=== PATIENT | male | born 1945 | race Caucasian/White ===

== ENCOUNTER → 2016-10-28 | Outpatient (CLI) | payer BC ==
[~2016-10-28] MED LIST: ASPEC81 PO; DLTCD/240 PO; FAMO40TA6 PO; HYDR-3983 PO; IMDSR30 PO; LPT40 PO; LSN40 PO; LVMIPUC SC; METO100T14 PO; NTRGSL/4 UT; PLV75 PO; PRT/40 PO; RST15 PO; TRMCR515 TOP
[2016-10-28 15:14] LABS: THYROID STIMULATING HORMONE 1.35 uIu/ml (0.300-4.500)
[2016-10-28 15:16] LABS: RATIO 6.1 mcg/mg (0-30.0)
[2016-10-28 15:49] LABS: ESTIMATED AVERAGE GLUCOSE 203 mg/dl; HA1C FLAG Normal (Normal)
== END | disposition home or self-care (01) ==
LOC: C.LAB1850 13:47
PROVIDERS: ATTEND Internal Medicine Endocrinology, Diabetes & Metabolism
DX: I10 Essential (primary) hypertension (principal); I25.10 Atherosclerotic heart disease of native coronary artery without angina pectoris; E78.5 Hyperlipidemia, unspecified; F32.9 Major depressive disorder, single episode, unspecified; E55.9 Vitamin D deficiency, unspecified; E11.9 Type 2 diabetes mellitus without complications; E66.9 Obesity, unspecified

== ENCOUNTER → 2017-02-10 | Outpatient (CLI) | payer BC ==
[~2017-02-10] MED LIST changes: +PANT40TA2 PO; -PRT/40 PO
[2017-02-10 12:14] LABS: BASO % 0.4 %; BASO ABS # 0.04 K/uL (0-0.2); COMPLETE YES; HEMATOCRIT 44.6 % (42-52); IG% 0.4 %; LYMPH % 33.3 %; LYMPH ABS # 3.12 K/uL (1.2-3.4); MEAN CELL VOLUME 91.6 fL (80-100); MEAN CORPUSCULAR HEMOGLOBIN 31.4 pg (25-34); MEAN CORPUSCULAR HGB CONC 34.3 g/dl (32-36); MEAN PLATELET VOLUME 10.8 fL (7.4-10.4); MONO % 13.5 %; NEUT % 49.4 %; PLATELET COUNT 276 K/uL (130-400); RED BLOOD COUNT 4.87 M/uL (4.7-6.1); WHITE BLOOD COUNT 9.38 K/uL (4.8-10.8)
[2017-02-10 12:28] LABS: ESTIMATED AVERAGE GLUCOSE 177 mg/dl; HA1C FLAG Normal (Normal)
[2017-02-10 13:18] LABS: ALT/SGPT 54 U/L (12-78); BLOOD UREA NITROGEN 13 mg/dl (7-18); BUN/CREATININE RATIO 10.7 (10-20); CALCIUM 8.4 mg/dl (8.5-10.1); CARBON DIOXIDE 25 mmol/L (21-32); CHLORIDE 107 mmol/L (98-107); CHOLESTEROL 129 mg/dl (0-200); GLUCOSE 111 mg/dl (70-99); POTASSIUM 4.4 mmol/L (3.5-5.1); SODIUM 143 mmol/L (136-145)
[2017-02-10 13:29] LABS: ALB/GLOB RATIO 1.3 (0.9-2); ALKALINE PHOSPHATASE 65 U/L (45-117); AST/SGOT 24 U/L (15-37); CHOLESTEROL/HDL RATIO 4.4; HDL CHOLESTEROL 29 mg/dl; LDL CHOLESTEROL CALCULATED 49 mg/dl; PROSTATE SPECIFIC ANTIGEN 0.228 ng/ml (0.000-4.000); TRIGLYCERIDES 254 mg/dl (0-150); VERY LOW DENSITY LIPOPROT CALC 51 mg/dl
== END | disposition home or self-care (01) ==
LOC: C.LABBFT 07:37
PROVIDERS: ATTEND Urology
DX: N40.1 Benign prostatic hyperplasia with lower urinary tract symptoms (principal); I25.10 Atherosclerotic heart disease of native coronary artery without angina pectoris; E78.5 Hyperlipidemia, unspecified; E55.9 Vitamin D deficiency, unspecified; E10.65 Type 1 diabetes mellitus with hyperglycemia

== ENCOUNTER → 2017-05-31 | Outpatient (CLI) | payer BC ==
[~2017-05-31] MED LIST changes: -PANT40TA2 PO; +PRT/40 PO
[2017-05-31 12:43] LABS: ESTIMATED AVERAGE GLUCOSE 151 mg/dl; HA1C FLAG Normal (Normal)
== END | disposition home or self-care (01) ==
LOC: C.LABBFT 10:37
PROVIDERS: ATTEND Nurse Practitioner Family
DX: E10.65 Type 1 diabetes mellitus with hyperglycemia (principal)

== ENCOUNTER → 2017-11-17 | Outpatient (CLI) | payer BC ==
[~2017-11-17] MED LIST changes: +PANT40TA2 PO; -PRT/40 PO
[2017-11-17 12:59] LABS: HEMOGLOBIN A1C 7.5 % (4.5-5.6)
== END | disposition home or self-care (01) ==
LOC: C.LABBFT 07:39
PROVIDERS: ATTEND Nurse Practitioner Family
DX: E10.65 Type 1 diabetes mellitus with hyperglycemia (principal)

== ENCOUNTER → 2018-03-17 | Outpatient (CLI) | payer BC ==
[~2018-03-17] MED LIST changes: -ASPEC81 PO; +ASPI-320 PO; +ATOR80TA PO; +CALC-393 PO; +CHOL1TAB46 PO; +DILT240C48 PO; +FINA5TAB PO; +GLIM4TAB2 PO; +INSU1.2I SC; +ISOS120T5 PO; +LIRA18IN SC; +LISI40TA3 PO; -LSN40 PO; +TRIM100T PO
== END | disposition home or self-care (01) ==
LOC: C.LABSPEC 09:50
PROVIDERS: ATTEND Internal Medicine
DX: E11.9 Type 2 diabetes mellitus without complications (principal)

== ENCOUNTER → 2018-03-29 | Day surgery (SDC) | payer BC ==
[~2018-03-29] VITALS: Ht 180.3 cm; Wt 100.0 kg
[~2018-03-29] MED LIST changes: -DLTCD/240 PO; -IMDSR30 PO; +LIDOCAINE HCL 2% 2 ML VIAL (20MG/ML) ONE; -LPT40 PO; -LVMIPUC SC; +PROPOFOL IV EMULSION 10 MG/ML 20 ML VIAL ONE; +SODIUM CHLORIDE 0.9% 500ML 500 ML IV ONE
[2018-03-29 07:41] VITALS: Ht 180.3 cm; Wt 100.0 kg
[2018-03-29 08:01] VITALS: TEMP 36.7
--- NOTE | 2018-03-29 08:41 | Endo History and Physical ---
History & Physical Date of Service: Mar 29, 2018. Chief Complaint: SCREENING Referring Physician: DR. GUILLEN History of Present Illness 72 yo CM who presents for screening colonoscopy. Past Surgical History Hx Cardiac Surgery: Yes (CARDIAC CATH X3 WITH 2 STENTS ) Hx Internal Defibrillator: No Hx Pacemaker: No Hx Abdominal Surgery: No Hx of Implantable Prosthesis: No Hx Post-Op Nausea and Vomiting: No Hx Cancer Surgery: No Hx Thoracic Surgery: No Hx Orthopedic: No Hx Urinary Tract Surgery: Yes (Prostate procedure, unable to elaborate, CIRCUMCISION AN ADULT) Family History None Social History Smoking Status: Former Smoker Hx Substance Use: Yes (Percocet DAILY) Hx Alcohol Use: No Allergies Coded Allergies: Corticosteroids (Verified Adverse Reaction, Unknown, hyperglycemia, 03/29/18 ) Current Medications Reported Home Medications Medications Dose Route/Sig Max Daily Dose Days Date Category Dose Instructions Vitamin D3 (Cholecalciferol) 5,000 Unit Tab 1 Tab PO DAILY 03/23/18 Reported Victoza (Liraglutide) 18 Mg/3 Ml Inj 1.2 Ml SC DAILY 03/23/18 Reported Toujeo Solostar (Insulin Glargine) 300 Unit/Ml Inj 50 Units SC HS 03/23/18 Reported Lopressor (Metoprolol Tartrate) 100 Mg Tab 150 Mg PO BID 03/23/18 Reported Imdur Ext Rel (Isosorbide Mononitrate) 120 Mg Ertab 120 Mg PO BID 03/23/18 Reported Glimepiride 4 Mg Tab 1 Tab PO BID 03/23/18 Reported Proscar (Finasteride) 5 Mg Tab 5 Mg PO QAM 03/23/18 Reported Calcium (Calcium Carbonate) 600 Mg Tab 1 Tab PO DAILY 03/23/18 Reported Lipitor (Atorvastatin) 80 Mg Tab 80 Mg PO DAILY 03/23/18 Reported Cartia Xt (Diltiazem Hcl Coated Beads) 240 Mg Cap 1 Cap PO QAM 03/23/18 Reported Nitrostat (Nitroglycerin) 0.4 Mg Tab 0.4 Mg UT PRN 07/25/16 Reported Temazepam 15 Mg Cap 30 Mg PO HS PRN 30 07/15/16 Rx [place] 7.5MG/325MG (Acetaminophen/Hydrocodone Bitart) Tab 2 Tab PO Q4H PRN 30 07/15/16 Rx PRN PAIN Clopidogrel (Clopidogrel Bisulfate) 75 Mg Tab 75 Mg PO QAM 30 10/16/14 Rx Aspirin EC Low Dose (Aspirin) 81 Mg Ectab 81 Mg PO QAM 30 10/16/14 Rx Pepcid (Famotidine) 40 Mg Tab 40 Mg PO BID 10/14/14 Reported Lisinopril 40 Mg Tab 40 Mg PO DAILY 10/14/14 Reported Pantoprazole Sodium (Pantoprazole) 40 Mg Tab 40 Mg PO DAILY 10/14/14 Reported Triamcinolone Acetonide (Triamcinolone Acet) 45 Appln/15 Gm Cr 1 Appln TOP BID 10/14/14 Reported APPLY DIRECTED TO AFFECTED AREA(S) OF RIGHT LEG. Vital Signs Weight (Kilograms): 100.00 Height (Feet): 5 Height (Inches): 11 Date Time Temp Pulse Resp B/P (MAP) Pulse Ox O2 Delivery O2 Flow Rate FiO2 03/29/18 08:01 36.7 77 18 125/81 (96) 96 Room Air Physical Exam General Appearance: WD/WN, no apparent distress Respiratory/Chest: Auscultation: breath sounds normal Cardiovascular: Heart Auscultation: RRR Abdomen: Bowel Sounds: normal Inspection & Palpation: soft, non-distended, no tenderness, guarding & rebound Assessment and Plan Assessment: 72 yo CM who presents for screening colonoscopy. Plan: Proceed with colonoscopy.
--- NOTE | 2018-03-29 09:27 | Discharge Instructions ---
Endoscopy Patient Instructions Date / Procedure(s) Performed Mar 29, 2018. Colonoscopy Allergy Information Coded Allergies: Corticosteroids (Verified Adverse Reaction, Unknown, hyperglycemia, 03/29/18 ) Discharge Date / Findings Mar 29, 2018. Colon polyps Diverticulosis Internal hemorrhoids Medication Instructions Stopped Medication(s): ALL MEDICATION PLAVIX ONE WEEK OK to resume all medications today as prescribed Reported Home Medications Medications Dose Route/Sig Max Daily Dose Days Date Category Dose Instructions Vitamin D3 (Cholecalciferol) 5,000 Unit Tab 1 Tab PO DAILY 03/23/18 Reported Victoza (Liraglutide) 18 Mg/3 Ml Inj 1.2 Ml SC DAILY 03/23/18 Reported [place] Solostar (Insulin Glargine) 300 Unit/Ml Inj 50 Units SC HS 03/23/18 Reported Lopressor (Metoprolol Tartrate) 100 Mg Tab 150 Mg PO BID 03/23/18 Reported Imdur Ext Rel (Isosorbide Mononitrate) 120 Mg Ertab 120 Mg PO BID 03/23/18 Reported Glimepiride 4 Mg Tab 1 Tab PO BID 03/23/18 Reported Proscar (Finasteride) 5 Mg Tab 5 Mg PO QAM 03/23/18 Reported Calcium (Calcium Carbonate) 600 Mg Tab 1 Tab PO DAILY 03/23/18 Reported Lipitor (Atorvastatin) 80 Mg Tab 80 Mg PO DAILY 03/23/18 Reported Cartia Xt (Diltiazem Hcl Coated Beads) 240 Mg Cap 1 Cap PO QAM 03/23/18 Reported Nitrostat (Nitroglycerin) 0.4 Mg Tab 0.4 Mg UT PRN 07/25/16 Reported Temazepam 15 Mg Cap 30 Mg PO HS PRN 30 07/15/16 Rx [place] 7.5MG/325MG (Acetaminophen/Hydrocodone Bitart) Tab 2 Tab PO Q4H PRN 30 07/15/16 Rx PRN PAIN Clopidogrel (Clopidogrel Bisulfate) 75 Mg Tab 75 Mg PO QAM 30 10/16/14 Rx Aspirin EC Low Dose (Aspirin) 81 Mg Ectab 81 Mg PO QAM 30 10/16/14 Rx Pepcid (Famotidine) 40 Mg Tab 40 Mg PO BID 10/14/14 Reported Lisinopril 40 Mg Tab 40 Mg PO DAILY 10/14/14 Reported Pantoprazole Sodium (Pantoprazole) 40 Mg Tab 40 Mg PO DAILY 10/14/14 Reported Triamcinolone Acetonide (Triamcinolone Acet) 45 Appln/15 Gm Cr 1 Appln TOP BID 10/14/14 Reported APPLY DIRECTED TO AFFECTED AREA(S) OF RIGHT LEG. Provider Instructions Activity Restrictions - No exercising or heavy lifting for 24 hours. - Do not drink alcohol the day of the procedure. - Do not drive a car or operate machinery until the day after the procedure. - Do not make any important decisions or sign important papers in 24 hours after the procedure. Following Day: - Return to full activity which may include returning to work/school. Diet Start your diet with liquids and light foods (jello, soup, juice, toast). Then eat your usual diet if not nauseated. Treatment For Common After Affects For mild abdominal pain, bloating, or excessive gas: - Rest - Eat lightly - Lie on right side Follow-Up Information Follow-up with DR. GUILLEN as scheduled Anesthesia Information What You Should Know You have had a procedure that required some medicine to reduce anxiety and discomfort. This treatment is called moderate sedation. After receiving the treatment, you may be sleepy, but you will be able to breathe on your own. The effects of the treatment may last for several hours. Follow these instructions along with Activity/Diet recommendations noted above: * Do NOT do anything where dizziness or clumsiness would be dangerous. * Rest quietly at home today, then you can be up and about tomorrow. * Have a responsible person stay with you the rest of today. * You may have had an I.V. today. If so, you may take the dressing off later today. Recommendations Call your doctor if: * Trouble breathing * Continuous vomiting for more than 24 hours * Temperature above 101 degrees * Severe abdominal pain or bloating * Pain not relieved by pain medicine ordered * There is increased drainage or redness from any incision * A large amount of rectal bleeding greater than 2-3 tablespoons. (If you had a polyp/s removed or have hemorrhoids, a small amount of blood - from the rectum is to be expected.) * You have any unanswered questions or concerns. IN THE EVENT OF A SERIOUS EMERGENCY, GO TO THE NEAREST EMERGENCY ROOM Your discharge instructions were prepared by provider Luis Garibay. Patient Instructions Signature Page Darren Elizabeth Patient (or Guardian) Signature/Date: I have read and understand the instructions given to me by my caregivers. Caregiver/RN/Doctor Signature/Date: The above-named patient and/or guardian has received patient instructions on this date. + Original Patient Signature Page (only) stays with chart. Please make copy for patient.
--- NOTE | 2018-03-29 09:36 | GI REPORT ---
Patient Name: Darren Elizabeth Procedure Date: 03/29/2018 8:30 AM Date of : 1945 Admit Type: Outpatient Age: 72 Gender: Male Attending MD: Luis Garibay DO Procedure: Colonoscopy Providers: Luis Garibay DO Referring MD: Madan Shannon Indications: Screening for colorectal malignant neoplasm Medicines: Monitored Anesthesia Care Complications: No immediate complications. Estimated Blood Loss: Estimated blood loss: none. Procedure: Pre-Anesthesia Assessment: - Prior to the procedure, a History and Physical was performed, and patient medications and allergies were reviewed. The patient's tolerance of previous anesthesia was also reviewed. The risks and benefits of the procedure and the sedation options and risks were discussed with the patient. All questions were answered, and informed consent was obtained. Prior Anticoagulants: The patient last took aspirin 1 day and Plavix (clopidogrel) 8 days prior to the procedure. ASA Grade Assessment: III - A patient with severe systemic disease. After reviewing the risks and benefits, the patient was deemed in satisfactory condition to undergo the procedure. After I obtained informed consent, the scope was passed under direct vision. Throughout the procedure, the patient's blood pressure, pulse, and oxygen saturations were monitored continuously. The scope was introduced through the anus and advanced to the terminal ileum. The colonoscopy was performed without difficulty. The patient tolerated the procedure well. The quality of the bowel preparation was good. The terminal ileum, ileocecal valve, appendiceal orifice, and rectum were photographed. Findings: The perianal and digital rectal examinations were normal. Three sessile polyps were found in the descending colon. The polyps were 3 to 8 mm in size. These polyps were removed with a hot snare. Resection and retrieval were complete. Multiple small-mouthed diverticula were found in the sigmoid colon. Non-bleeding internal hemorrhoids were found during retroflexion. The hemorrhoids were small. Impression: - Three 3 to 8 mm polyps in the descending colon, removed with a hot snare. Resected and retrieved. - Diverticulosis in the sigmoid colon. - Non-bleeding internal hemorrhoids. Recommendation: - Resume previous diet. - Continue present medications. - Repeat colonoscopy for surveillance based on pathology results. - Return to primary care physician as previously scheduled. Luis Garibay DO 03/29/2018 9:36:20 AM This report has been signed electronically. Note Initiated On: 03/29/2018 8:30 AM Number of Addenda: 0 I attest to the content of the Intraoperative Record and orders documented therein, exceptions below {[id number]}
--- NOTE | 2018-03-29 09:39 | Anesthesiology Progress Note ---
Anesthesia Post Op Note Date & Time Mar 29, 2018 at 09:38 Vital Signs Pain Intensity: 6 Vital Signs Past 12 Hours Date Time Temp Pulse Resp B/P (MAP) Pulse Ox O2 Delivery O2 Flow Rate FiO2 03/29/18 09:31 82 18 121/87 (98) 93 Room Air 03/29/18 08:01 36.7 77 18 125/81 (96) 96 Room Air Notes Mental Status: alert / awake / arousable, participated in evaluation Pt Amnestic to Procedure: Yes Nausea / Vomiting: adequately controlled Pain: adequately controlled Airway Patency, RR, SpO2: stable & adequate BP & HR: stable & adequate Hydration State: stable & adequate Anesthetic Complications: no major complications apparent
[2018-03-29 10:01] VITALS: BP 142/90; PULSE 80; O2SAT 95
== END | disposition home or self-care (01) ==
LOC: C.GI 06:46
PROVIDERS: ATTEND Internal Medicine
DX: Z12.11 Encounter for screening for malignant neoplasm of colon (principal); D12.4 Benign neoplasm of descending colon; K57.30 Diverticulosis of large intestine without perforation or abscess without bleeding; K64.8 Other hemorrhoids; I25.2 Old myocardial infarction; I12.9 Hypertensive chronic kidney disease with stage 1 through stage 4 chronic kidney disease, or unspecified chronic kidney disease; I25.10 Atherosclerotic heart disease of native coronary artery without angina pectoris; N18.9 Chronic kidney disease, unspecified; Z79.899 Other long term (current) drug therapy; Z79.02 Long term (current) use of antithrombotics/antiplatelets; Z79.82 Long term (current) use of aspirin

== ENCOUNTER 2019-11-10 21:12 | Observation (INO) ==
[2019-11-10] MEDS ORDERED: ONDANSETRON INJ 2 MG/ML 2 ML VIAL IV STA (21:41)
--- NOTE | 2019-11-10 21:49 | Emergency Department Note ---
ED Provider Note NAME: FIDEL RIVERA Sr AGE: 74 SEX: M ARRIVES VIA: Walk-In INFORMANT: [Patient] ED PROVIDER(S): Romario Richardson MD CHIEF COMPLAINT: Midsternal chest pain IMPRESSION: Midsternal chest pain PLAN: Disposition: Admitted Condition: [Good] MEDICAL DECISION MAKING: The patient is a 74-year-old male that presented with intermittent midsternal chest pain. He has a coronary artery history and stent placement. The patient has had vomiting as well. He noted shortness of breath. He was laid up for several weeks with his flu and pneumonitis. I did have concerns for pulmonary embolism. The patient underwent CT imaging of the chest. Blood work was also performed. He had a mild leukocytosis. Chemistry panel was unremarkable. Troponin was negative. The patient was treated as above and had continued nausea and vomiting. His CT imaging did not reveal any evidence of pulmonary movement. He had a bronchitis. He was given a DuoNeb for this. The patient has an esophagitis without any evidence of esophageal rupture. He has significant fluid dilatation of the esophagus as well. Due to the continued issues with vomiting and pain the patient will need further management in the hospital and continued hydration. Further consultation may be necessary as well. Consult was placed with the hospital service, Dr. Mario Plascencia Triage Nursing notes reviewed and agree them. [Additional history obtained from] patient's [Prior medical records reviewed] patient was seen for influenza as well as post influenza pneumonitis. He was treated. He did well. Vital Signs: reviewed and remarkable for mild tachycardia Differential diagnosis: Cardiac ischemia, aortic dissection, pulmonary embolism, pneumothorax, pneumonia, pericarditis, myocarditis, esophageal rupture, GERD, cholecystitis, pancreatitis, musculoskeletal, as well as other pathologies. ER treatment provided: Patient was pain-free at initial evaluation. Zofran 4 mg IV for nausea Reassessment the patient was still feeling nausea and had burning in his esophagus. He stated he felt short of breath. IV Reglan 10 mg IV Pepcid 20 mg DuoNeb GI cocktail On reassessment the patient had additional vomiting and nausea. IV Phenergan Diagnostics interpreted by me: ECG: Rate: 100 Rhythm: Normal sinus rhythm with sinus arrhythmia Newcomb: Normal QRS: Normal ST segements: No elevation or depression Other: No PACs or PVCs Cardiac Monitoring: Ordered: The patient was placed on continuous cardiac monitoring and observed. It revealed a normal sinus rhythm at 98 bpm without ectopy or evidence of dysrhythmia. Laboratory studies: [See below] slight leukocytosis on CBC. No significant anemia. Chemistry panel unremarkable. Imaging studies: CT scan of the abdomen and pelvis was performed: 1. Cardiomegaly with extensive coronary artery calcifications. No acute aortic pathology or evidence of pulmonary thromboembolic disease. 2. Moderate bronchial wall thickening with mild bibasilar mucous plugging suggests reactive airway disease or bronchitis. 3. Bibasilar groundglass densities suggest atelectasis. 4. Prior granulomatous disease. 5. Mild fluid-filled distention of the esophagus with distal esophageal wall thickening and mild paraesophageal inflammatory stranding. Correlate clinically to exclude esophagitis. These findings could be correlated with endoscopy. 6. Subpleural 8 mm solid nodule of the right lower lobe appears unchanged from the 08/08/2018 exam. As a precautionary measure an additional 6 month follow-up chest CT is recommended. Consultation(s): Internal medicine, Dr. Mario Plascencia HPI:The patient is a 74 year old male who presents to the Emergency Room with complaints of midsternal chest pain. This started yesterday and is intermittent. The patient also notes the following associated symptoms, as of breath, nausea and vomiting. The patient has tried no medication for relieving factors. He does feel worse with exertion. Current pain is rated as 0 out of 10 however at its max it was 6/10. Patient has a history of coronary disease. Over the last month the patient was treated for influenza and then developed a secondary pneumonia. He states he got better from that and then the symptoms started yesterday pt denies LOC, headache, fevers, chills, diaphoresis, visual changes, neck pain, abdominal pain, back pain, melena, hematochezia, urinary symptoms, numbness, weakness, lymphadenopathy, rash, or other complaints. ROS: See above HPI for pertinent positives & negatives. A total of [10] systems reviewed and were otherwise negative. PAST MEDICAL HISTORY:[See Below] coronary artery disease, diabetes PAST SURGICAL HISTORY:[See Below]coronary artery stent FAMILY HISTORY:[See Below] SOCIAL HISTORY:[See Below] HOME MEDICATIONS:Reviewed in the EMR ALLERGIES:[See Below] VITALS:[See Below] PHYSICAL EXAMINATION: GENERAL: Awake, alert, uncomfortable-appearing, in no distress HENT: Normocephalic, atraumatic. Oropharynx unremarkable. EYES: Normal conjunctiva. Sclera non-icteric. NECK: Inspection normal. Non-tender. Supple. No nuchal rigidity. FROM. No masses. RESPIRATORY: Clear to auscultation. No wheezes. No rales. Normal respiratory effort. CARDIAC: Borderline tachycardic rate. Normal rhythm. No murmurs. No rubs. Extremities warm and well perfused. Pulses equal. No JVD. GI: Soft, non-distended. No tenderness to palpation. No rebound or guarding. No masses. RECTAL: Deferred. MUSCULOSKELETAL: Atraumatic. Chest examination reveals no tenderness. The back is symmetrical on inspection without obvious abnormality. There is no CVA tenderness to palpation. No joint edema. LOWER EXTREMITIES: Calves are equal size bilaterally and non-tender. No edema. No discoloration. NEURO: Normal sensorium. No sensory or motor deficits noted. SKIN: No rash or jaundice noted. ED COURSE: Procedures: [none] [Critical Care:] [None] Romario Richardson MD Impression & Plan Chest pain, Esophagitis, Intractable vomiting, Leukocytosis, Bronchitis Past Med/Surg History Medical History Angina pectoris (Acute) CAD in [place] artery (Chronic) Chest pain (Resolved 10/14/14) Diabetes Dyslipidemia (Chronic) Flank pain (Resolved) Gastroesophageal reflux disease (Chronic) Hypertension (Chronic) NSTEMI (non-ST elevated myocardial infarction) (Resolved) SNHL (sensorineural hearing loss) Type 2 diabetes mellitus (Chronic) Surgical History Hx of heart artery stent Hx of tonsillectomy S/P drug eluting coronary stent placement (Acute) Family History Father Myocardial infarction Coronary heart disease Brother Coronary heart disease Mother Coronary heart disease Other Family history non-contributory No family history of bleeding disorder Social History Preferred Language: Lithuanian marital status: Current Living Situation: Spouse current occupational status: retired Feels Safe at Home: Yes Smoking Status: Never smoker Hx Alcohol Use: No Hx Substance Use: No Dental Care, Regularly: No Seatbelt Use: always Sunscreen Use: No Results & Data Vital Signs Vital Signs - 24 hr 11/10/19 21:17 11/10/19 21:26 11/10/19 21:31 Temperature 36.7 C Temperature Source Oral Pulse Rate 111 H 97 H 98 H Pulse Rate [Left Finger] Pulse Rate from SpO2 Sensor Respiratory Rate 22 31 H 26 H Respiratory Effort / Characteristics Non-Labored Respiratory Depth Normal Blood Pressure 103/62 161/97 H Blood Pressure Mean 75 112 Blood Pressure Position Sitting Pulse Oximetry 99 98 99 Oxygen Delivery Method Room Air Sepsis Recent Fever Within 48 Hours No Sepsis Action Taken by Nursing No Action Required 11/10/19 21:40 11/10/19 21:50 11/10/19 22:00 Temperature Temperature Source Pulse Rate 101 H 102 H 101 H Pulse Rate [Left Finger] Pulse Rate from SpO2 Sensor Respiratory Rate 38 H 33 H 31 H Respiratory Effort / Characteristics Respiratory Depth Blood Pressure Blood Pressure Mean Blood Pressure Position Pulse Oximetry 98 99 98 Oxygen Delivery Method Sepsis Recent Fever Within 48 Hours Sepsis Action Taken by Nursing 11/10/19 22:10 11/10/19 22:20 11/10/19 22:39 Temperature Temperature Source Pulse Rate 105 H 101 H 98 H Pulse Rate [Left Finger] Pulse Rate from SpO2 Sensor 100 H Respiratory Rate 25 H 35 H Respiratory Effort / Characteristics Respiratory Depth Blood Pressure Blood Pressure Mean Blood Pressure Position Pulse Oximetry 98 95 Oxygen Delivery Method Sepsis Recent Fever Within 48 Hours Sepsis Action Taken by Nursing 11/10/19 22:40 11/10/19 22:41 11/10/19 22:50 Temperature Temperature Source Pulse Rate 95 H 94 H 101 H Pulse Rate [Left Finger] Pulse Rate from SpO2 Sensor Respiratory Rate 24 22 24 Respiratory Effort / Characteristics Respiratory Depth Blood Pressure 155/87 H Blood Pressure Mean 116 Blood Pressure Position Pulse Oximetry 96 97 94 Oxygen Delivery Method Sepsis Recent Fever Within 48 Hours Sepsis Action Taken by Nursing 11/10/19 23:26 Temperature Temperature Source Pulse Rate Pulse Rate [Left Finger] 103 H Pulse Rate from SpO2 Sensor Respiratory Rate 20 Respiratory Effort / Characteristics Non-Labored Spontaneous Respiratory Depth Blood Pressure Blood Pressure Mean Blood Pressure Position Pulse Oximetry 93 Oxygen Delivery Method Room Air Sepsis Recent Fever Within 48 Hours Sepsis Action Taken by Nursing Laboratory Data Result diagrams: 11/10/19 21:43 11/10/19 21:43 Lab Results 11/10/19 11/10/19 11/10/19 Range/Units 21:43 21:43 21:43 WBC 10.94 H (4.8-10.8) K/uL RBC 5.25 (4.7-6.1) M/uL Hgb 16.8 (14.0-18.0) g/dL Hct 46.6 (42-52) % MCV 88.8 (80-100) fL MCH 32.0 (25-34) pg MCHC 36.1 H (32-36) g/dL RDW Std Deviation 42.2 (36.4-46.3) fL RDW Coeff of Melisa 13.1 (11.5-14.5) % Plt Count 341 (130-400) K/uL MPV 10.3 (7.4-10.4) fL Immature Gran % (Auto) 0.4 % Neut % (Auto) 53.0 % Lymph % (Auto) 29.5 % Bibb % (Auto) 16.1 % Eos % (Auto) 0.8 % Baso % (Auto) 0.2 % Immature Gran # (Auto) 0.04 H (0.00-0.02) K/uL Neut # (Auto) 5.80 (1.4-6.5) K/uL Lymph # (Auto) 3.23 (1.2-3.4) K/uL Bibb # (Auto) 1.76 H (0.11-0.59) K/uL Eos # (Auto) 0.09 (0-0.5) K/uL Baso # (Auto) 0.02 (0-0.2) K/uL PT 11.6 (9.0-12.0) Seconds INR 1.1 (0.9-1.1) APTT 25.6 (21.0-31.0) Seconds PTT Ratio 0.9 Sodium 140 (136-145) mmol/L Potassium 3.9 (3.5-5.1) mmol/L Chloride 108 H (98-107) mmol/L Carbon Dioxide 21 (21-32) mmol/L Anion Gap 11.0 (3-11) BUN 10 (7-18) mg/dl Creatinine 1.13 (0.6-1.4) mg/dl Est Cr Clr Drug Dosing 58.8 ml/min Est GFR ( Amer) 74.8 Est GFR (Non-Af Amer) 64.6 BUN/Creatinine Ratio 9.2 L (10-20) Glucose 138 H (70-99) mg/dl Calcium 9.1 (8.5-10.1) mg/dl Total Bilirubin 1.2 H (0.2-1) mg/dl AST 20 (15-37) U/L ALT 32 (12-78) U/L Alkaline Phosphatase 74 (45-117) U/L Troponin I < 0.015 (0-0.045) ng/ml Total Protein 7.7 (6.4-8.2) gm/dl Albumin 4.0 (3.4-5.0) gm/dl Globulin 3.7 (2.5-4.0) gm/dl Albumin/Globulin Ratio 1.1 (0.9-2) Lipase 98 (73-393) U/L Administered Medications Ioversol (Optiray 320 125ml) 102 ml IV ONCE PRN PRN Reason: Interaction Checking Stop: 11/14/19 22:35 Last Admin: 11/10/19 22:37 Dose: 102 ml Documented by: [id number] Discontinued Medications Al Hydrox/Mg Hydrox/Simethicone () Confirm Administered Dose 1 dose PO .STK-MED ONE Stop: 11/10/19 23:16 Last Admin: 11/10/19 23:20 Dose: 1 dose Documented by: [id number] Albuterol (Duoneb) 3 ml NEB NOW STA Stop: 11/10/19 23:09 Last Admin: 11/10/19 23:26 Dose: 3 ml Documented by: [id number] Al Hydrox/Mg Hydrox/Simethicone 18 ml/ Lidocaine HCl 6 ml/ BARCODE IDENTIFIER 1 ea 0 ml PO ONE ONE Stop: 11/10/19 23:09 Last Admin: 11/10/19 23:20 Dose: Not Given Documented by: [id number] Famotidine (Pepcid 20mg Iv Push) 20 mg IV ONE STA Stop: 11/10/19 23:12 Last Admin: 11/10/19 23:20 Dose: 20 mg Documented by: [id number] Promethazine HCl (Phenergan) 12.5 mg in 50.5 mls @ 202 mls/hr IV NOW STA Stop: 11/10/19 23:53 Last Infusion: 11/11/19 00:07 Dose: 0 mls/hr Documented by: [id number] Admin: 11/10/19 23:44 Dose: 202 mls/hr Documented by: [id number] Metoclopramide HCl (Reglan) 10 mg IV NOW STA Stop: 11/10/19 23:13 Last Admin: 11/10/19 23:20 Dose: 10 mg Documented by: [id number] Ondansetron HCl (Zofran) 4 mg IV NOW STA Stop: 11/10/19 21:42 Last Admin: 11/10/19 21:48 Dose: 4 mg Documented by: [id number] Discharge Plan Visit Data Chief Complaint: Chest Pain Stated Complaint: COUGH, ABD PAIN ED Provider: Romario Richardson Discharge Problem: Chest pain, Esophagitis, Intractable vomiting, Leukocytosis, Bronchitis Forms Stand Alone Forms: [employer] [facility] Le[facility] Prescriptions Prescriptions: No Action clopidogrel 75 mg tablet 75 mg PO QAM Qty: 90 RF: 3 glimepiride 4 mg tablet 4 mg PO QAM Qty: 90 RF: 3 famotidine 40 mg tablet 40 mg PO BID 90 Days Qty: 180 RF: 3 temazepam 30 mg capsule 30 mg PO HS PRN (Reason: sleep) Qty: 90 RF: 1 metoprolol tartrate 100 mg tablet 150 mg PO BID Qty: 270 RF: 3 isosorbide mononitrate 120 mg tablet extended release 24 hr 120 mg PO BID Qty: 180 RF: 3 hydrocodone-acetaminophen 7.5-325 mg tablet See Rx Instructions PO .COMPLEX Qty: 360 RF: 0 hydrocodone-homatropine [Hydrocodone Compound] 5-1.5 mg/5 mL syrup 5 ml PO Q6H PRN (Reason: cough) Qty: 240 RF: 0 trimethoprim 100 mg tablet 100 mg PO QAM RF: 0 meclizine 25 mg tablet 25 mg PO TID PRN (Reason: dizziness) Qty: 30 RF: 0 ondansetron 4 mg tablet,disintegrating 4 mg PO Q6H PRN (Reason: nausea and vomiting) Qty: 14 RF: 0 duloxetine 30 mg capsule,delayed release(DR/EC) 60 mg PO DAILY RF: 0 aspirin 81 mg Tablet,Delayed Release (Dr/Ec) 81 mg PO QAM RF: 0 calcium carbonate 600 mg calcium (1,500 mg) Tablet 600 mg PO BID RF: 0 nitroglycerin [Nitrostat] 0.4 mg Tablet, Sublingual 0.4 mg Sublingual UD PRN (Reason: Chest Pain) RF: 0 lisinopril 40 mg tablet 40 mg PO QAM RF: 0 cholecalciferol (vitamin D3) [Vitamin D3] 1,000 unit Tablet 1,000 unit PO QAM RF: 0 atorvastatin 80 mg tablet 80 mg PO HS RF: 0 diltiazem HCl 360 mg capsule,extended release 24hr 360 mg PO QAM RF: 0 pantoprazole 40 mg tablet,delayed release (DR/EC) 40 mg PO QAM RF: 0 finasteride 5 mg tablet 5 mg PO HS RF: 0 liraglutide 0.6 mg/0.1 mL (18 mg/3 mL) pen injector 1.2 mg subcut QAM RF: 0 Masoud Gill U-300 Insulin 300 unit/mL (1.5 mL) insulin pen 50 unit SUBCUT HS RF: 0
[2019-11-10 21:57] LABS: Basophils # (auto) 0.02 K/uL (0-0.2); Basophils % (auto) 0.2 %; Eosinophils # (auto) 0.09 K/uL (0-0.5); Eosinophils % (auto) 0.8 %; Hematocrit (blood only) 46.6 % (42-52); Hemoglobin 16.8 g/dL (14.0-18.0); Immature Granulocytes # (auto) 0.04 K/uL (0.00-0.02); Immature Granulocytes % (auto) 0.4 %; Lymphocytes # (auto) 3.23 K/uL (1.2-3.4); Lymphocytes % (auto) 29.5 %; Mean Corpuscular Hgb Conc 36.1 g/dL (32-36); Mean Corpuscular Volume 88.8 fL (80-100); Mean Platelet Volume 10.3 fL (7.4-10.4); Monocytes # (auto) 1.76 K/uL (0.11-0.59); Monocytes % (auto) 16.1 %; Platelet Count 341 K/uL (130-400); RDW Coefficient of Variation 13.1 % (11.5-14.5); RDW Standard Deviation 42.2 fL (36.4-46.3); Red Blood Count 5.25 M/uL (4.7-6.1); White Blood Count 10.94 K/uL (4.8-10.8)
--- NOTE | 2019-11-10 21:57 | XRay Report ---
XR chest 1V portable HISTORY: 74 years-old Male Chest Pain acute atypical chest pain COMPARISON: Chest radiograph 10/21/2019 TECHNIQUE: Portable AP view of the chest FINDINGS: Cardiac silhouette is enlarged, unchanged. No overt pulmonary edema. Calcified plaque of the thoracic aortic arch. Subcentimeter calcified granuloma of the right lung base. No pneumothorax, pleural effu jonna or airspace consolidation. Degenerative changes of the shoulders and spine. IMPRESSION: Cardiomegaly without acute process. ACT 112: Negative or not required by law. The above report was generated using voice recognition software. It may contain grammatical, syntax o r spelling errors. Electronically signed by: Sarkis Encarnacion M.D. 11/10/2019 9:56 PM
[2019-11-10 22:07] LABS: INR 1.1 (0.9-1.1); Partial Thromboplastin Ratio 0.9; Partial Thromboplastin Time 25.6 Seconds (21.0-31.0); Prothrombin Time 11.6 Seconds (9.0-12.0)
[2019-11-10 22:19] LABS: Alanine Aminotransferase 32 U/L (12-78); Aspartate Aminotransferase 20 U/L (15-37); BUN Creatinine Ratio 9.2 (10-20); Blood Urea Nitrogen 10 mg/dl (7-18); Calcium 9.1 mg/dl (8.5-10.1); Carbon Dioxide 21 mmol/L (21-32); Chloride 108 mmol/L (98-107); Creatinine Clr Calc Pharmacy 58.8 ml/min; Est GFR (African American) 74.8; Est GFR (Non-African American) 64.6; Glucose 138 mg/dl (70-99); Lipase 98 U/L (73-393); Potassium 3.9 mmol/L (3.5-5.1); Sodium 140 mmol/L (136-145)
[2019-11-10 22:23] LABS: Albumin Globulin Ratio 1.1 (0.9-2); Alkaline Phosphatase 74 U/L (45-117); Bilirubin,Total 1.2 mg/dl (0.2-1); Globulin 3.7 gm/dl (2.5-4.0); Total Protein 7.7 gm/dl (6.4-8.2); Troponin I < 0.015 ng/ml (0-0.045)
[2019-11-10] MEDS ORDERED: OPTIRAY 320 125ml IV PRN (22:36)
--- NOTE | 2019-11-10 23:01 | CT Scan Report ---
CT angio chest PE protocol CT DOSE: 380.68 mGy.cm HISTORY: 74 years-old Male with Chest Pain, eval for PE, SOB. Acute atypical chest pain with shortn ess of breath TECHNIQUE: Multiple CTA images of the chest were obtained after the intravenous administration of 102 ml Optiray 320. Coronal and sagittal MIPS were obtained from the axial data set and were submitted for review. All measurements were obtained according to NASCET criteria. A dose lowering technique w as utilized adhering to the principles of ALARA. COMPARISON: Chest radiograph of same day, chest CT 08/08/2018, CT abdomen and pelvis 11/05/2014. FINDINGS: CTA: Unchanged cardiomegaly. Extensive coronary artery calcifications. No thoracic aortic aneurysm or diss ection. Extensive mixed plaque of the thoracic aorta and proximal great vessels which appear patent. The pulmonary arterial tree is opacified to level of the proximal subsegmental branches and demonstra sanjana no filling defects to suggest pulmonary thromboembolic disease. CT CHEST: Unremarkable thyroid. Calcified mediastinal and hilar lymph nodes. Scattered calcified pulmonary gran ulomata. 8 mm subpleural solid nodule of the right lower lobe is unchanged from the 2018 study. Moder ate bronchial wall thickening with areas of bibasilar mucous plugging. Bibasilar groundglass densitie s. No lobar airspace consolidation or overt pulmonary edema. Calcified granulomata of the liver and spleen. Fluid distended esophagus with mild layering hyperdens e foci. Wall thickening of the mid to distal esophagus with prominent periesophageal lymph nodes and mild paraesophageal inflammatory stranding. The distal esophagus appears to be debris-filled. Soft ti ssues are unremarkable. Bones appear intact. Degenerative changes of the shoulders and spine. IMPRESSION: 1. Cardiomegaly with extensive coronary artery calcifications. No acute aortic pathology or evidence of pulmonary thromboembolic disease. 2. Moderate bronchial wall thickening with mild bibasilar mucous plugging suggests reactive airway di sease or bronchitis. 3. Bibasilar groundglass densities suggest atelectasis. 4. Prior granulomatous disease. 5. Mild fluid-filled distention of the esophagus with distal esophageal wall thickening and mild para esophageal inflammatory stranding. Correlate clinically to exclude esophagitis. These findings could be correlated with endoscopy. 6. Subpleural 8 mm solid nodule of the right lower lobe appears unchanged from the 08/08/2018 exam. A s a precautionary measure an additional 6 month follow-up chest CT is recommended. ACT 112: Negative or not required by law. The above report was generated using voice recognition software. It may contain grammatical, syntax o r spelling errors. Electronically signed by: Sarkis Encarnacion M.D. 11/10/2019 10:59 PM
[2019-11-10] MEDS ORDERED: ALUMINUM/MAGNESIUM SUSP 18 ML, LIDOCAINE HCL VISCOUS 2% 6 ML, BARCODE IDENTIFIER 1 EA PO ONE (23:08)
[2019-11-10] MEDS ORDERED: ALBUT/IPRATROP 3MG/0.5MG NEB 3 ML VIAL NEB STA (23:08)
[2019-11-10] MEDS ORDERED: FAMOTIDINE 20MG/5ML IV PUSH IV STA (23:11)
[2019-11-10] MEDS ORDERED: METOCLOPRAMIDE HCL INJ 5 MG/ML 2 ML VIAL IV STA (23:12)
[2019-11-10] MEDS ORDERED: GI COCKTAIL ED USE PO ONE (23:15)
[2019-11-10] MEDS ORDERED: PROMETHAZINE 12.5 MG/50.5 ML BAG IV STA (23:39)
[2019-11-11] MEDS ORDERED: ACETAMINOPHEN 325 MG TAB PO PRN (02:37)
[2019-11-11] MEDS ORDERED: ONDANSETRON INJ 2 MG/ML 2 ML VIAL IV PRN (02:37)
[2019-11-11] MEDS ORDERED: PROCHLORPERAZINE 10 MG in SYRINGE 8 ML IV PRN (02:37)
[2019-11-11] MEDS ORDERED: GLUCOSE 40% GEL 15 GM TUBE PO PRN (02:37)
[2019-11-11] MEDS ORDERED: CARBOHYDRATES FOR HYPOGLYCEMIA PO PRN (02:37)
[2019-11-11] MEDS ORDERED: GLUCOSE 10 TABS/TUBE PO PRN (02:37)
[2019-11-11] MEDS ORDERED: DEXTROSE 50% 50 ML SYRINGE IV PRN (02:37)
[2019-11-11] MEDS ORDERED: GLUCAGON FOR INJ 1 MG VIAL SQ PRN (02:37)
[2019-11-11] MEDS: NSS + 20MEQ KCL 20 MEQ/1,000 ML BAG IV SCH ×2 (03:47→09:18)
--- NOTE | 2019-11-11 04:40 | History & Physical Report ---
Date of Service November 11, 2019 Assessment & Plan (1) Esophagitis: Esophagitis with esophagus retention of fluid/intractable vomiting and epigastric burning- May be secondary to dealing with recent issue of pneumonia and influenza A. May be associated with some esophageal dysmotility associated diabetes mellitus. May be a mechanical obstruction such as an ulcer. NPO, and for now hold aspirin and clopidogrel. Famotidine 20 mg IV every 12 hours. Zofran 4 mg IV every 6 hours as needed. Compazine 10 mg IV every 6 hours PRN Consult gastroenterology possibility of an EGD Present on Admission?: Yes (2) Intractable vomiting: See above Present on Admission?: Yes (3) Type 2 diabetes mellitus: Hold glimepiride, liraglutide and Toujeo Solostar. Based on Accu-Cheks before meals and at bedtime with NovoLog coverage per scale. Present on Admission?: Yes (4) CAD in [place] artery: CAD/hypertension/stented coronary artery- For now, hold aspirin, clopidogrel, lisinopril, metoprolol tartrate and diltiazem p.o. Placed on Lopressor 5 mg IV every 4 hours,hold for heart rate less than 60 or systolic blood pressure less than 120 Present on Admission?: Yes (5) Dyslipidemia: Hold atorvastatin 80 mg daily Present on Admission?: Yes (6) Gastroesophageal reflux disease: Changing pantoprazole p.o. to famotidine IV for now. Present on Admission?: Yes (7) Hypertension: See above Present on Admission?: Yes (8) S/P drug eluting coronary stent placement: We will order serial troponins, but symptoms are more suggestive of esophagitis and the burning pain from that. Present on Admission?: Yes (9) Epigastric pain: See above Present on Admission?: Yes (10) Bronchitis: Residual from previous influenza A and pneumonia. Duonebs every 4 hours while awake and every 2 hours when necessary. Present on Admission?: Yes History of Present Illness Chief Complaint: The patient presents to the emergency department with intermittent epigastric pain, shortness of breath and with paroxysmal nausea and vomiting. Primary Care Provider: Madan Shannon MD The patient is a 74-year-old male with a past medical history including sensorineural hearing loss, cervical spine stenosis, as well as type II, CAD in [place] artery, dyslipidemia, GERD, hypertension, coronary artery drug eluting stent, NSTEMI and treatment for influenza A with pneumonia with 4 outpatient ED visits from 10/10, 10/16, 10/18 and . He has followed up with his outpatient physician on 10/26/2019, requiring additional cough suppression at that time, and his reports that he had still not gotten back to his baseline. His biggest complaint at this time right now is epigastric burning with the nausea and vomiting. Allergies Allergy/AdvReac Type Severity Reaction Status Date / Time Corticosteroids AdvReac Unknown hyperglycem Verified 11/10/19 22:15 (Glucocorticoids) ia Home Medications Home Medications Medication Instructions Recorded Confirmed Type aspirin 81 mg PO QAM 08/08/18 11/10/19 History calcium carbonate 600 mg PO BID 08/08/18 11/10/19 History cholecalciferol (vitamin D3) 1,000 unit PO QAM 08/08/18 11/10/19 History [Vitamin D3] lisinopril 40 mg PO QAM 08/08/18 11/10/19 History nitroglycerin [Nitrostat] 0.4 mg SUBLINGUAL UD PRN 08/08/18 11/10/19 History clopidogrel 75 mg tablet 75 mg PO QAM #90 tab 05/31/19 11/10/19 Rx glimepiride 4 mg tablet 4 mg PO QAM #90 tab 06/06/19 11/10/19 Rx famotidine 40 mg tablet 40 mg PO BID 90 Days #180 tab 06/09/19 11/10/19 Rx temazepam 30 mg capsule 30 mg PO HS PRN #90 cap 07/07/19 11/10/19 Rx metoprolol tartrate 100 mg tablet 150 mg PO BID #270 tab 07/25/19 11/10/19 Rx isosorbide mononitrate 120 mg 120 mg PO BID #180 tab 08/11/19 11/10/19 Rx tablet,extended release 24 hr hydrocodone 7.5 mg-acetaminophen See Rx Instructions PO .COMPLEX 08/17/19 Rx 325 mg tablet #360 tab meclizine 25 mg tablet 25 mg PO TID PRN #30 tab 09/22/19 11/10/19 Rx trimethoprim 100 mg tablet 100 mg PO QAM tab 09/22/19 11/10/19 History atorvastatin 80 mg PO HS 10/10/19 11/10/19 History diltiazem HCl 360 mg PO QAM 10/10/19 11/10/19 History finasteride 5 mg PO HS 10/10/19 11/10/19 History insulin glargine U-300 conc 50 unit SUBCUT HS 10/10/19 11/10/19 History [Tosukhjinder GillilandoStar U-300 Insulin] liraglutide 1.2 mg SUBCUT QAM 10/10/19 11/10/19 History pantoprazole 40 mg PO QAM 10/10/19 11/10/19 History ondansetron 4 mg PO Q6H PRN #14 tab 10/16/19 11/10/19 Rx duloxetine 60 mg PO DAILY 10/18/19 11/10/19 History hydrocodone-homatropine 5 mg-1.5 5 ml PO Q6H PRN #240 ml 10/27/19 11/10/19 Rx mg/5 mL oral syrup Past Med/Surg History Medical History Angina pectoris (Acute) CAD in [place] artery (Chronic) Chest pain (Resolved 10/14/14) Diabetes Dyslipidemia (Chronic) Flank pain (Resolved) Gastroesophageal reflux disease (Chronic) Hypertension (Chronic) NSTEMI (non-ST elevated myocardial infarction) (Resolved) SNHL (sensorineural hearing loss) Type 2 diabetes mellitus (Chronic) Surgical History Hx of heart artery stent Hx of tonsillectomy S/P drug eluting coronary stent placement (Acute) Family History Father Myocardial infarction Coronary heart disease Brother Coronary heart disease Mother Coronary heart disease Other Family history non-contributory No family history of bleeding disorder Social History Preferred Language: Ecuadorean marital status: Current Living Situation: Spouse current occupational status: retired Feels Safe at Home: Yes Smoking Status: Never smoker Hx Alcohol Use: No Hx Substance Use: No Dental Care, Regularly: No Seatbelt Use: always Sunscreen Use: No Review of Systems Review of Systems: The patient denies palpitations, lower extremity swelling, fevers, chills, sweats, diarrhea , constipation, pelvic pain, blood in urine or stool, dysuria, urinary frequency or urgency, memory loss, loss of consciousness, rash, abnormal bruising or bleeding, imbalance, focal weakness, numbness or tingling in arms or legs, generalized arthralgias or myalgias, neck pain, or night sweats. The review of systems is otherwise negative other than for that already noted above, and at least 10 systems have been reviewed. Physical Exam Physical Exam: The patient is awake, appears fatigued and generally uncomfortable, moving around in the bed. HEENT--PERRL, EOMI, mucous membranes and oropharynx dry. Neck--supple. No JVD. No bruits. Thyroid normal, trachea midline, no adenopathy. Heart--normal S1 and S2. No murmurs, rubs or gallops. Lungs--clear bilaterally, no respiratory distress, no accessory muscle use. Abdomen--decreased bowel sounds and soft. Nontender. Nondistended. Extremities--no cyanosis or clubbing. No edema. Dermatologic--normal skin turgor, normal color, no abnormal lymph nodes, no rash. Neurologic--cranial nerves II through XII grossly intact. Rheumatologic--normal range of motion. Psychiatric--appears mildly anxious Results & Data Vital Signs (Past 12 Hours) Vital Signs Temp Pulse Pulse Resp BP BP Pulse Ox 11/11/19 02:15 94 H 19 131/88 94 11/11/19 00:00 117 H 24 162/70 H 93 11/10/19 23:26 103 H 20 93 11/10/19 22:50 101 H 24 94 11/10/19 22:41 94 H 22 155/87 H 97 11/10/19 22:40 95 H 24 96 11/10/19 22:39 98 H 11/10/19 22:20 101 H 35 H 95 11/10/19 22:10 105 H 25 H 98 11/10/19 22:00 101 H 31 H 98 11/10/19 21:50 102 H 33 H 99 11/10/19 21:40 101 H 38 H 98 11/10/19 21:31 98 H 26 H 99 11/10/19 21:26 97 H 31 H 161/97 H 98 11/10/19 21:17 98.1 F 111 H 22 103/62 99 Laboratory Results Laboratory Results WBC 10.94 K/uL (4.8-10.8) H 11/10/19 21:43 RBC 5.25 M/uL (4.7-6.1) 11/10/19 21:43 Hgb 16.8 g/dL (14.0-18.0) 11/10/19 21:43 Hct 46.6 % (42-52) 11/10/19 21:43 MCV 88.8 fL (80-100) 11/10/19 21:43 MCH 32.0 pg (25-34) 11/10/19 21:43 MCHC 36.1 g/dL (32-36) H 11/10/19 21:43 RDW Std Deviation 42.2 fL (36.4-46.3) 11/10/19 21:43 RDW Coeff of Melisa 13.1 % (11.5-14.5) 11/10/19 21:43 Plt Count 341 K/uL (130-400) 11/10/19 21:43 MPV 10.3 fL (7.4-10.4) 11/10/19 21:43 Immature Gran % (Auto) 0.4 % 11/10/19 21:43 Neut % (Auto) 53.0 % 11/10/19 21:43 Lymph % (Auto) 29.5 % 11/10/19 21:43 Davidson % (Auto) 16.1 % 11/10/19 21:43 Eos % (Auto) 0.8 % 11/10/19 21:43 Baso % (Auto) 0.2 % 11/10/19 21:43 Immature Gran # (Auto) 0.04 K/uL (0.00-0.02) H 11/10/19 21:43 Neut # (Auto) 5.80 K/uL (1.4-6.5) 11/10/19 21:43 Lymph # (Auto) 3.23 K/uL (1.2-3.4) 11/10/19 21:43 Davidson # (Auto) 1.76 K/uL (0.11-0.59) H 11/10/19 21:43 Eos # (Auto) 0.09 K/uL (0-0.5) 11/10/19 21:43 Baso # (Auto) 0.02 K/uL (0-0.2) 11/10/19 21:43 PT 11.6 Seconds (9.0-12.0) 11/10/19 21:43 INR 1.1 (0.9-1.1) 11/10/19 21:43 APTT 25.6 Seconds (21.0-31.0) 11/10/19 21:43 PTT Ratio 0.9 11/10/19 21:43 Sodium 140 mmol/L (136-145) 11/10/19 21:43 Potassium 3.9 mmol/L (3.5-5.1) 11/10/19 21:43 Chloride 108 mmol/L (98-107) H 11/10/19 21:43 Carbon Dioxide 21 mmol/L (21-32) 11/10/19 21:43 Anion Gap 11.0 (3-11) 11/10/19 21:43 BUN 10 mg/dl (7-18) 11/10/19 21:43 Creatinine 1.13 mg/dl (0.6-1.4) 11/10/19 21:43 Est Cr Clr Drug Dosing 58.8 ml/min 11/10/19 21:43 Est GFR ( Amer) 74.8 11/10/19 21:43 Est GFR (Non-Af Amer) 64.6 11/10/19 21:43 BUN/Creatinine Ratio 9.2 (10-20) L 11/10/19 21:43 Glucose 138 mg/dl (70-99) H 11/10/19 21:43 Calcium 9.1 mg/dl (8.5-10.1) 11/10/19 21:43 Total Bilirubin 1.2 mg/dl (0.2-1) H 11/10/19 21:43 AST 20 U/L (15-37) 11/10/19 21:43 ALT 32 U/L (12-78) 11/10/19 21:43 Alkaline Phosphatase 74 U/L (45-117) 11/10/19 21:43 Troponin I < 0.015 ng/ml (0-0.045) 11/10/19 21:43 Total Protein 7.7 gm/dl (6.4-8.2) 11/10/19 21:43 Albumin 4.0 gm/dl (3.4-5.0) 11/10/19 21:43 Globulin 3.7 gm/dl (2.5-4.0) 11/10/19 21:43 Albumin/Globulin Ratio 1.1 (0.9-2) 11/10/19 21:43 Lipase 98 U/L (73-393) 11/10/19 21:43 Diagnostic Findings [place], [place] [phone] CT Scan Report Patient: FIDEL RIVERA SrAdmit Date: 11/10/19 MR#: [id number]: [address] Acct ID:[id number]: Date: 1945[facility] Zip: [place] [id number] Age: 74Location: ED Sex: M Room/Bed: Att Phy:Diagnosis: COUGH, ABD PAIN Della Phy: Madan Shannon MDService Date: 11/10/19 Fam Phy:Interpreting Phy: Justo Encarnacion Admit Phy: Ordering Phy: Romario Richardson MD cc: ~ CT angio chest PE protocol CT DOSE: 380.68 mGy.cm HISTORY: 74 years-old Male with Chest Pain, eval for PE, SOB. Acute atypical chest pain with shortness of breath TECHNIQUE: Multiple CTA images of the chest were obtained after the intravenous administration of 102 ml Optiray 320. Coronal and sagittal MIPS were obtained from the axial data set and were submitted for review. All measurements were obtained according to NASCET criteria. A dose lowering technique was utilized adhering to the principles of ALARA. COMPARISON: Chest radiograph of same day, chest CT 08/08/2018, CT abdomen and pelvis 11/05/2014. FINDINGS: CTA: Unchanged cardiomegaly. Extensive coronary artery calcifications. No thoracic aortic aneurysm or dissection. Extensive mixed plaque of the thoracic aorta and proximal great vessels which appear patent. The pulmonary arterial tree is opacified to level of the proximal subsegmental branches and demonstrates no filling defects to suggest pulmonary thromboembolic disease. CT CHEST: Unremarkable thyroid. Calcified mediastinal and hilar lymph nodes. Scattered calcified pulmonary granulomata. 8 mm subpleural solid nodule of the right lower lobe is unchanged from the 2018 study. Moderate bronchial wall thickening with areas of bibasilar mucous plugging. Bibasilar groundglass densities. No lobar airspace consolidation or overt pulmonary edema. Calcified granulomata of the liver and spleen. Fluid distended esophagus with mild layering hyperdense foci. Wall thickening of the mid to distal esophagus with prominent periesophageal lymph nodes and mild paraesophageal inflammatory stranding. The distal esophagus appears to be debris-filled. Soft tissues are unremarkable. Bones appear intact. Degenerative changes of the shoulders and spine. IMPRESSION: 1. Cardiomegaly with extensive coronary artery calcifications. No acute aortic pathology or evidence of pulmonary thromboembolic disease. 2. Moderate bronchial wall thickening with mild bibasilar mucous plugging suggests reactive airway disease or bronchitis. 3. Bibasilar groundglass densities suggest atelectasis. 4. Prior granulomatous disease. 5. Mild fluid-filled distention of the esophagus with distal esophageal wall thickening and mild paraesophageal inflammatory stranding. Correlate clinically to exclude esophagitis. These findings could be correlated with endoscopy. 6. Subpleural 8 mm solid nodule of the right lower lobe appears unchanged from the 08/08/2018 exam. As a precautionary measure an additional 6 month follow-up chest CT is recommended. ACT 112: Negative or not required by law. The above report was generated using voice recognition software. It may contain grammatical, syntax or spelling errors. Electronically signed by: Sarkis Encarnacion M.D. 11/10/2019 10:59 PM Dictated: 11/10/192245 Transcribed: 11/10/192245 [place] [phone] XRay Report Patient: FIDEL RIVERA SrAdmit Date: 11/10/19 MR#: [id number]: [address] Acct ID:[id number]: Date: 1945[facility] Zip: [place] [address] Age: 74Location: ED Sex: M Room/Bed: Att Phy:Diagnosis: COUGH, ABD PAIN Della Phy: Madan Shannon MDService Date: 11/10/19 Fam Phy:Interpreting Phy: Justo Encarnacion Admit Phy: Ordering Phy: Roamrio Richardson MD cc: ~ XR chest 1V portable HISTORY: 74 years-old Male Chest Pain acute atypical chest pain COMPARISON: Chest radiograph 10/21/2019 TECHNIQUE: Portable AP view of the chest FINDINGS: Cardiac silhouette is enlarged, unchanged. No overt pulmonary edema. Calcified plaque of the thoracic aortic arch. Subcentimeter calcified granuloma of the right lung base. No pneumothorax, pleural effusion or airspace consolidation. Degenerative changes of the shoulders and spine. IMPRESSION: Cardiomegaly without acute process. ACT 112: Negative or not required by law. The above report was generated using voice recognition software. It may contain grammatical, syntax or spelling errors. Electronically signed by: Sarkis Encarnacion M.D. 11/10/2019 9:56 PM Dictated: 11/10/192154 Transcribed: 11/10/192154 Code Status & VTE Plan Code Status Full code VTE Prophylaxis Plan VTE Prophylaxis will be ordered: Yes PG Care Time/CCT Total # of Minutes Spent Total Time Spent with Patient: Total time spent is greater than 50% in coordination of care (as documented) at patient's floor/unit and/or counseling patient: Coding Level of Care Code 43407 Initial Inpt Care Lvl 3 Diagnoses Esophagitis K20.9 Intractable vomiting R11.10 Type 2 diabetes mellitus E11.65; Z79.4 Diabetes mellitus complication status: with hyperglycemia Diabetes mellitus continuous churn buttermaker insulin use: with custodial use CAD in [place] artery I25.10 Dyslipidemia E78.5 Gastroesophageal reflux disease K21.9 Hypertension I10 S/P drug eluting coronary stent placement Z95.5 Epigastric pain R10.13 Bronchitis J40 (1) Type 2 diabetes mellitus Diabetes mellitus complication status: with hyperglycemia Diabetes mellitus continuous churn buttermaker insulin use: with continuous churn buttermaker use Qualified Code(s): E11.65 - Type 2 diabetes mellitus with hyperglycemia; Z79.4 - correction (current) use of insulin
[2019-11-11] MEDS: METOPROLOL TARTRATE 1 MG/ML VIAL IV SCH ×2 (06:46→10:19)
[2019-11-11] MEDS ORDERED: ALBUT/IPRATROP 3MG/0.5MG NEB 3 ML VIAL NEB SCH (07:00)
[2019-11-11] MEDS: INSULIN ASPART 100 UNITS/ML 3 ML PEN SC SCH ×4 (08:20→21:10)
[2019-11-11] MEDS ORDERED: ACETAMINOPHEN 1,000 MG/100 ML VIAL IV PRN (08:32)
[2019-11-11] MEDS ORDERED: FAMOTIDINE 20 MG in SYRINGE 3 ML IV SCH (09:00)
[2019-11-11] MEDS ORDERED: ALBUT/IPRATROP 3MG/0.5MG NEB 3 ML VIAL NEB PRN (09:52)
--- NOTE | 2019-11-11 10:41 | Electrocardiogram Report ---
Test Reason : Blood Pressure : / mmHG Vent. Rate : 100 BPM Atrial Rate : 100 BPM P-R Int : 158 ms QRS Dur : 086 ms QT Int : 358 ms P-R-T Axes : 062 024 058 degrees QTc Int : 461 ms Normal sinus rhythm Possible Left atrial enlargement Borderline ECG When compared with ECG of 21-OCT-2019 01:00, No significant change was found Confirmed by Madan Meek ([id number]) on 11/11/2019 10:41:05 AM Referred By: REFERRED SELF Confirmed By:Carroll Meek
--- NOTE | 2019-11-11 11:28 | Hospitalist Progress Note ---
Date of Service November 11, 2019 Assessment & Plan (1) Esophagitis: CT chest on 11/09 showed esophagitis with esophagus retention of fluid/intractable vomiting and epigastric burning. Ddx includes GERD, ulcer, possible esophageal candidiasis, Arceo's, or cancer. - Discussed with Dr. José Retana -> Given current concern for nosocomial spread of coronavirus, we did a phone consult. - Recommended PPI PO BID, carafate. Plan for outpatient EGD. - Hold ASA, Plavix - Continue Zofran, Compazine (2) Bronchitis: CT chest on 11/09 showed moderate bronchial wall thickening with mild bibasilar mucous plugging suggests reactive airway disease or bronchitis. - Presumed to be residual from previous influenza A and pneumonia - Will retest flu swab - Continue Duonebs every 4 hours while awake and every 2 hours when necessary. - Cough suppressant PRN (3) Type 2 diabetes mellitus: A1c was 7.2% in 02/2019. - Hold glimepiride, liraglutide, and Toujeo Solostar. - Sliding scale insulin (4) CAD in [place] artery: Multivessel CAD status post PCI (Cx PL and LAD) per cardiology notes from 04/2019. Is being treated with anti-anginal medications as any further PCI would be considered high-risk. - Per cardiology note, will restart ASA, but hold Plavix for now. - Continue lisinopril, metoprolol tartrate, diltiazem, and statin (5) Hypertension: BP is 170/90 at present. - Continue meds as above (6) DVT prophylaxis: SCDs - Holding heparin given the small concern for GI bleed. If hgb remains stable, will start. Admission and Anticipated Discharge Date Admission Date: November 11, 2019 Subjective His nausea is improved today. His cough has improved as well. He has not had any emesis this morning. Reports no fevers/chills, chest pain, shortness of breath, abdominal pain. Physical Exam Constitutional: WD/WN, vitals as above Eyes: EOM intact bilaterally; no conjunctival abnormality ENMT: external ear and nose normal, oropharynx normal Neck: trachea midline, no thyromegaly normal visual inspection Respiratory: normal respiratory effort, lungs clear to auscultation no respiratory distress Cardiovascular: RRR, no murmur, no edema Gastrointestinal (Abdomen): Inspection/Auscultation: abdomen normal to inspection; abdomen not distended Musculoskeletal: no cyanosis or clubbing, extremities motor strength 5/5 Skin: no rashes, warm and dry Neurologic: moves all extremities and awake Psychiatric: Orientation: alert, oriented to person and cooperative Results & Data ([facility]) Vital Signs (Past 12 Hours) Vital Signs Temp Pulse Pulse Resp BP BP Pulse Ox 11/11/19 10:19 99 H 172/88 H 11/11/19 07:54 98 H 15 97 11/11/19 07:49 114 H 11/11/19 07:31 36.9 C 92 H 18 164/95 H 95 11/11/19 06:46 110 H 150/85 H 11/11/19 04:56 36.6 C 93 H 20 149/79 H 95 11/11/19 02:15 94 H 19 131/88 94 11/11/19 00:00 117 H 24 162/70 H 93 11/10/19 23:26 103 H 20 93 PG Care Time/CCT Total # of Minutes Spent Total Time Spent with Patient: Total time spent is greater than 50% in coordination of care (as documented) at patient's floor/unit and/or counseling patient: Coding Level of Care Code 41800 Subseq Hosp Care Lvl 3 Diagnoses Esophagitis K20.9 Bronchitis J40 Type 2 diabetes mellitus E11.65; Z79.4 Diabetes mellitus complication status: with hyperglycemia Diabetes mellitus terminal clerk insulin use: with terminal clerk use CAD in [place] artery I25.10 Hypertension I10 DVT prophylaxis Z29.9 (1) Type 2 diabetes mellitus Diabetes mellitus complication status: with hyperglycemia Diabetes mellitus skilled nursing insulin use: with terminal clerk use Qualified Code(s): E11.65 - Type 2 diabetes mellitus with hyperglycemia; Z79.4 - detention (current) use of insulin
[2019-11-11] MEDS: SUCRALFATE 1 GM TAB PO SCH ×3 (12:48→21:02)
[2019-11-11] MEDS: GUAIFENESIN/CODEINE 100MG/10MG 5ML UDC PO PRN ×2 (12:48→21:01)
[2019-11-11] MEDS: PANTOprazole 40 MG TAB PO SCH ×2 (12:48→18:13)
[2019-11-11] MEDS: BENZONATATE 100 MG CAPSULE PO SCH ×2 (13:47→21:07)
[2019-11-11] MEDS: lisinopriL 40 MG TAB PO SCH (13:47)
[2019-11-11 14:02] LABS: Influenza A virus by PCR Neg for Influ A (Neg); Influenza B virus by PCR Neg for Influ B (Neg)
[2019-11-11] MEDS ORDERED: COUGH DROP (SUGAR FREE) LOZ 24 LOZ/1 BOX BUCCAL STA (17:14)
[2019-11-11] MEDS ORDERED: ATORVASTATIN 40 MG TAB PO SCH (21:00)
[2019-11-11] MEDS: METOPROLOL TARTRATE 100 MG TAB PO SCH (21:03)
[2019-11-12] MEDS: PANTOprazole 40 MG TAB PO SCH (06:26)
[2019-11-12 06:46] LABS: Hematocrit (blood only) 45.6 % (42-52); Hemoglobin 15.8 g/dL (14.0-18.0); Mean Corpuscular Hemoglobin 31.2 pg (25-34); Mean Corpuscular Hgb Conc 34.6 g/dL (32-36); Mean Corpuscular Volume 90.1 fL (80-100); Mean Platelet Volume 10.5 fL (7.4-10.4); Platelet Count 279 K/uL (130-400); RDW Coefficient of Variation 13.4 % (11.5-14.5); RDW Standard Deviation 43.2 fL (36.4-46.3); Red Blood Count 5.06 M/uL (4.7-6.1)
[2019-11-12 07:20] LABS: Calcium 8.8 mg/dl (8.5-10.1); Creatinine Clr Calc Pharmacy 62.1 ml/min; Phosphorus 2.8 mg/dl (2.5-4.9)
[2019-11-12] MEDS: BENZONATATE 100 MG CAPSULE PO SCH (07:59)
[2019-11-12] MEDS: SUCRALFATE 1 GM TAB PO SCH (07:59)
[2019-11-12] MEDS: METOPROLOL TARTRATE 100 MG TAB PO SCH (07:59)
[2019-11-12] MEDS: lisinopriL 40 MG TAB PO SCH (07:59)
[2019-11-12] MEDS: GUAIFENESIN/CODEINE 100MG/10MG 5ML UDC PO PRN (08:00)
[2019-11-12] MEDS: INSULIN ASPART 100 UNITS/ML 3 ML PEN SC SCH (08:01)
[2019-11-12] MEDS ORDERED: HYDROCODONE/ACETAMINOPHEN 7.5/325MG TAB PO SCH ×2 (09:00→14:00)
[2019-11-12] MEDS ORDERED: ASPIRIN 81 MG ECTAB PO SCH (09:00)
--- NOTE | 2019-11-12 15:07 | Discharge Summary ---
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 He has followed up with his outpatient physician on 10/26/2019, requiring additional cough suppression at that time, and his reports that he had still not gotten back to his baseline. His biggest complaint at this time right now is epigastric burning with the nausea and vomiting. Principal Diagnosis Esophagitis Discharge Exam Constitutional WD/WN, vitals as above Eyes EOM intact bilaterally; no conjunctival abnormality ENMT external ear and nose normal, oropharynx normal Neck trachea midline, no thyromegaly normal visual inspection Respiratory normal respiratory effort, lungs clear to auscultation no respiratory distress Cardiovascular RRR, no murmur, no edema Gastrointestinal (Abdomen) Inspection/Auscultation: abdomen normal to inspection; abdomen not distended Musculoskeletal no cyanosis or clubbing, extremities motor strength 5/5 Skin no rashes, warm and dry Neurologic moves all extremities and awake Psychiatric Orientation: alert, oriented to person and cooperative Discharge Data Allergies Allergy/AdvReac Type Severity Reaction Status Date / Time Corticosteroids AdvReac Unknown hyperglycem Verified 11/10/19 22:15 (Glucocorticoids) ia Consultations 11/11/19 00:01 ED Decision to Admit Stat 11/11/19 02:37 Consult Case Management - Discharge Planning Routine Ordered Studies 11/10/19 21:41 CT angio chest PE protocol Stat Hospital Course (1) Esophagitis: CT chest on 11/09 showed esophagitis with esophagus retention of fluid/intractable vomiting and epigastric burning. Ddx includes GERD, ulcer, possible esophageal candidiasis, Arceo's, or cancer. - Discussed with Dr. José Retana -> Given current concern for nosocomial spread of coronavirus, we did a phone consult. - Recommended PPI PO BID, carafate. Plan for outpatient EGD. - By discharge, he was feeling much better. He still had a dry cough, but nausea had abated. I did tell him to see a GI doctor as soon as able to consider EGD to make sure this isn't cancer. I discharged him on PPI BID and carafate QID. I also prescribed Tessalon Perles in hopes that his cough improves. I encouraged a phone consult if he is still coughing at the end of the week. (2) Bronchitis: CT chest on 11/09 showed moderate bronchial wall thickening with mild bibasilar mucous plugging suggests reactive airway disease or bronchitis. - Presumed to be residual from previous influenza A and pneumonia - Restested flu swab was negative. - Sent out with additional cough suppressant PRN (3) Type 2 diabetes mellitus: A1c was 7.2% in 02/2019. - Continue home regimen on discharge. 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 Is being treated with anti-anginal medications as any further PCI would be considered high-risk. - Continue ASA, Plavix - Continue lisinopril, metoprolol tartrate, diltiazem, and statin (5) Hypertension: BP is 170/90 at present. - Continue meds as above (6) DVT prophylaxis: SCDs - Holding heparin given the small concern for GI bleed. If hgb remains stable, will start. Total Time Total Time Spent Total Time Spent (In Minutes): 35 Discharge Plan Discharge Items Patient Disposition: Home - Self-Care Reason For Visit: INTRACTABLE N/V, ESOPHAGITIS Discharge Diagnosis: Irritated stomach lining (esophagitis); cough from bronchitis Activity: Resume your previous activity Non-emergency contact: Primary Care Provider Call non-emergency contact if: your symptoms worsen and your rectal temperature is above 100.4 Follow-up/Referrals: Maco Shannon MD [Primary Care Provider] - (Please call your PCP to make an appointment.) Diet: Carb Consistent or DM2 Addtl Attending Provider Instructions: You were admitted for nausea and throwing up due to coughing. We gave you some medication for your nausea and cough, and I believe you are doing well enough to head home. We will give you medication to help soothe your stomach as your CT scan indicated irritation of your stomach lining. Please see a GI doctor as soon as you are able. You may need a scope (EGD) of your stomach to be sure your stomach is healing up. Because of the coronavirus, it may take awhile to be seen, but please do try to follow up as soon as able. We are also sending another script to the pharmacy for your cough. We did not see any sign of pneumonia on your chest x-ray or any sign of infection on your labs or vital signs. Your flu swab was negative, so you have cleared the flu and are not contagious. Cough can last upwards of 2-3 weeks after a case of the flu, so this may be the last effects of your flu. Please take the cough medication and call your doctor next week if the cough is still bothering you. Pending Studies at Discharge: No Stand-Alone Forms: My [facility] [address], Smoking Cessation Medications and DC Order Prescriptions: New sucralfate 1 gram Tablet 1 g PO QID Qty: 120 RF: 0 benzonatate [Tessalon Perles] 100 mg Capsule 100 mg PO TID PRN (Reason: Cough) Qty: 21 RF: 0 Continued clopidogrel 75 mg tablet 75 mg PO QAM Qty: 90 RF: 3 glimepiride 4 mg tablet 4 mg PO QAM Qty: 90 RF: 3 famotidine 40 mg tablet 40 mg PO BID 90 Days Qty: 180 RF: 3 temazepam 30 mg capsule 30 mg PO HS PRN (Reason: sleep) Qty: 90 RF: 1 metoprolol tartrate 100 mg tablet 150 mg PO BID Qty: 270 RF: 3 isosorbide mononitrate 120 mg tablet extended release 24 hr 120 mg PO BID Qty: 180 RF: 3 hydrocodone-acetaminophen 7.5-325 mg tablet See Rx Instructions PO .COMPLEX Qty: 360 RF: 0 hydrocodone-homatropine [Hydrocodone Compound] 5-1.5 mg/5 mL syrup 5 ml PO Q6H PRN (Reason: cough) Qty: 240 RF: 0 trimethoprim 100 mg tablet 100 mg PO QAM RF: 0 meclizine 25 mg tablet 25 mg PO TID PRN (Reason: dizziness) Qty: 30 RF: 0 ondansetron 4 mg tablet,disintegrating 4 mg PO Q6H PRN (Reason: nausea and vomiting) Qty: 14 RF: 0 duloxetine 30 mg capsule,delayed release(DR/EC) 60 mg PO DAILY RF: 0 aspirin 81 mg Tablet,Delayed Release (Dr/Ec) 81 mg PO QAM RF: 0 calcium carbonate 600 mg calcium (1,500 mg) Tablet 600 mg PO BID RF: 0 nitroglycerin [Nitrostat] 0.4 mg Tablet, Sublingual 0.4 mg Sublingual UD PRN (Reason: Chest Pain) RF: 0 lisinopril 40 mg tablet 40 mg PO QAM RF: 0 cholecalciferol (vitamin D3) [Vitamin D3] 1,000 unit Tablet 1,000 unit PO QAM RF: 0 atorvastatin 80 mg tablet 80 mg PO HS RF: 0 diltiazem HCl 360 mg capsule,extended release 24hr 360 mg PO QAM RF: 0 finasteride 5 mg tablet 5 mg PO HS RF: 0 liraglutide 0.6 mg/0.1 mL (18 mg/3 mL) pen injector 1.2 mg subcut QAM RF: 0 Toujeo SoloStar U-300 Insulin 300 unit/mL (1.5 mL) insulin pen 50 unit SUBCUT HS RF: 0 Changed pantoprazole 40 mg tablet,delayed release (DR/EC) 40 mg PO BID Qty: 0 RF: 0 Discharge Orders: Discharge Order (Routine); Ordered 11/12/19 Ordered By: João Khan Admission Data Admit Date/Time: 11/11/19 01:54 Attending Provider: João Khan Admit Provider: Mario Plascencia Primary Care Provider: Maco Shannon Other Providers: João Khan Other Interventions: Discharge Summary Assessment (RN) Last Done: 11/12/19 09:47 DC Date/Time DO NOT enter until pt leaves facility: 11/12/19 10:20 Coding Level of Care Code D/C Day Management >30 mins Diagnoses Esophagitis K20.9 Bronchitis J40 Type 2 diabetes mellitus E11.65; Z79.4 Diabetes mellitus complication status: with hyperglycemia 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
== END 2019-11-12 10:20 | disposition home or self-care (01) | DRG 392 ==
LOC: ED 21:12 → SUATTDRO 11-11 01:54 → INTOOBSV 11-11 01:54 → 2N 11-11 01:54

== ENCOUNTER 2022-05-16 14:06 | Inpatient (IN) ==
[2022-05-16] MEDS ORDERED: CEFEPIME 2,000 MG/20 ML VIAL IV STA (14:22)
[2022-05-16] MEDS ORDERED: ONDANSETRON INJ 2 MG/ML 2 ML VIAL IV STA (14:24)
[2022-05-16] MEDS ORDERED: SODIUM CHLORIDE 0.9% 1000ML 1,000 ML IV SCH (14:30)
[2022-05-16 14:40] LABS: Basophils # (auto) 0.05 K/uL (0-0.2); Basophils % (auto) 0.6 %; Eosinophils % (auto) 1.2 %; Hematocrit (blood only) 44.5 % (40.1-51.0); Hemoglobin 15.7 g/dl (14.0-18.0); Immature Granulocytes # (auto) 0.05 K/uL (0.00-0.02); Immature Granulocytes % (auto) 0.6 %; Lymphocytes # (auto) 1.72 K/uL (1.2-3.4); Mean Corpuscular Hemoglobin 29.5 pg (25.0-34.0); Mean Corpuscular Hgb Conc 35.3 g/dL (32.0-36.0); Mean Corpuscular Volume 83.5 fL (80.0-100.0); Monocytes # (auto) 1.47 K/uL (0.24-0.82); Monocytes % (auto) 17.9 %; Neutrophils # (auto) 4.81 K/uL (1.4-6.5); Neutrophils % (auto) 58.7 %; Platelet Count 244 K/uL (130-400); RDW Coefficient of Variation 13.3 % (11.5-14.5); RDW Standard Deviation 40.6 fL (36.4-46.3); Red Blood Count 5.33 M/uL (4.63-6.08)
--- NOTE | 2022-05-16 14:53 | Emergency Department Note ---
Impression & Plan Weakness, Hypomagnesemia ED Provider Note Provider: Garett Abrams MD DATE OF SERVICE: 05/16/2022 CHIEF COMPLAINT: Weakness, fever, vomiting HISTORY OF PRESENT ILLNESS: Patient is a 77-year-old gentleman history of CAD, hypertension, GERD, dementia, diabetes, and atrial fibrillation reportedly on Eliquis presenting here today reporting that he was very weak. Evidently caregivers that check on him during the day found him he was very weak and had meat and and had a temperature. Vomited once prior to arrival. Denies abdominal pain reports maybe a bit of sinus congestion and shortness of breath. No trauma or falls reported. Denies headache. REVIEW OF SYSTEMS: A total of 10 review of systems was obtained and negative except as stated above in the HPI. PAST MEDICAL HISTORY: As noted above MEDICATIONS: Reviewed home medications but he states he did not take his morning medicines today. SOCIAL HISTORY: Reportedly lives alone PHYSICAL EXAM: GENERAL: alert and oriented in no acute distress on stretcher quite fatigued in appearance. Head: normocephalic and atraumatic EYES: No injection, discharge or icterus. PERRL NECK: Trachea midline. Supple. ENT: Mucous membranes pink and moist. LUNGS: Airway patent. No retractions. Breath sounds clear with good air entry bilaterally. HEART: Regular rate and rhythm. No chest wall tenderness ABDOMEN: Soft and non-tender, without guarding or rebound. SKIN: Acyanotic, warm, dry, without rashes EXTREMITIES: Without swelling, tenderness or deformity NEUROLOGICAL: No focal deficits. No aphasia. No facial droop or slurred speech, speaks somewhat slowly. Symmetrical generalized weakness in all 4 extremities. EK bpm normal sinus rhythm. No PVC or PAC. No acute ST segment elevation or depression with a QTC of 451. CONTINUOUS CARDIAC MONITORING: was ordered and showed a heart rate of 80s-90s bpm in normal sinus rhythm Patient's laboratory studies and imaging reviewed. Differential includes Infection, dehydration, metabolic abnormality, hypo/hyperglycemia, electrolyte disturbance, anemia, hypoxia, cardiac sources, intracerebral event, toxicologic, neurologic, as well as other pathologies. IMPRESSION/MEDICAL DECISION MAKING: Benign abdomen on exam. No stigmata of trauma. Symmetric neurological exam with generalized weakness. EKG, basic labs, cultures, and chest x-ray obtained. Given concern for infection empiric antibiotics were ordered and given some IV fluids and Zofran. Does not appear to be in A. fib at this point. Blood work without evidence of leukocytosis or anemia. Some mild hyponatremia similar to previous. No significant acute renal dysfunction. No evidence of hepatitis or pancreatitis with mild hypomagnesemia. IV supplementation ordered. Procalcitonin undetectably low and a straight cath urine not conclusive for infection. Again received empiric antibiotics initially given the reports of fever but unclear if he is truly suffering from bacterial infection. Negative COVID flu and RSV testing. Given his weakness and continued symptoms and the fact he lives alone do not feel he safe for discharge home at this time. Did complete a CT of the head and abdomen pelvis given his reported generalized weakness as well as vomiting. Does not have nuchal rigidity and I doubt meningitis. CT imaging shows a nonobstructive right kidney stone. Patient still very weak. Discussed with him my concerns with his ability to reside at home even with some intermittent assistance given his worsened weakness. Discussed with the hospitalist team as he was agreeable to stay. DIAGNOSIS: Weakness, hypomagnesemia DISPOSITION: Hospitalist will evaluate Patient was agreeable with this plan. Past Med/Surg History Medical History (Updated 05/16/22 @ 17:22 by Garett Abrams M.D.) Angina pectoris Anxiety Atrial fibrillation BPH (benign prostatic hyperplasia) CAD in tetlin artery Cervical spinal stenosis Dementia Depression Dyslipidemia Dyspnea Gastroesophageal reflux disease Hypertension Need for shingles vaccine NSTEMI (non-ST elevated myocardial infarction) 2017--had cardiac cath w stent planced--on plavix--follows with Dr. Centeno On anticoagulant therapy plavix daily Osteoarthritis SNHL (sensorineural hearing loss) Surgical History History of bilateral cataract extraction History of cardiac cath x2--2017/2017 @ [facility] History of colonoscopy with polypectomy History of esophagogastroduodenoscopy (EGD) History of tooth extraction upper teeth History of wisdom tooth extraction Hx of tonsillectomy S/P drug eluting coronary stent placement x2 total---2016 with 1 stent placed/2018 with 1 stent placed Family History Father Coronary heart disease Myocardial infarction Brother Coronary heart disease Mother Coronary heart disease Other Family history non-contributory No family history of adverse response to anesthesia No family history of bleeding disorder Social History (Updated 05/05/22 @ 22:27 by Madan Shannon MD) Smoking Status: Former smoker Tobacco Type: Cigarettes Age Quit Using Tobacco: 27; Second Hand Exposure: Yes (parents smoked); Hx Alcohol Use: No (quit 30yrs ago) Hx Substance Use: No Preferred Language: Croatian Communication Ability: Impaired Visual Impairment: Limited Hearing Ability: Hard of Hearing Rn Pediatric Required: No Beliefs That Will Affect Care: None marital status: / Current Living Situation: Alone and Spouse Current Living Situation Comment: son lives in his home "most of the time" current occupational status: retired current occupation: [employer] Feels Safe at Home: Yes Dental Care, Regularly: No Seatbelt Use: sometimes Sunscreen Use: No Assistive Devices: Cane and Walker Allergies Allergies Allergy/AdvReac Type Severity Reaction Status Date / Time Corticosteroids AdvReac Intermediate hyperglycem Verified 05/16/22 15:45 (Glucocorticoids) ia Home Meds Home Medications Medication Instructions Recorded Confirmed blood sugar diagnostic (FreeStyle #50 ea 05/08/20 05/16/22 Lite Strips) triamcinolone acetonide 0.5 % 1 applic topical DAILY 03/17/21 05/16/22 topical cream Previous Rx's Medication Instructions Recorded aspirin 81 mg tablet,delayed 81 mg PO QAM #30 tabs 04/30/22 release pen needle,diabetic dual safty 30 #100 ea 04/30/22 gauge x 3/16" (BD AutoShield Duo Pen Needle) apixaban 5 mg tablet 5 mg PO BID #60 tabs 05/05/22 atorvastatin 80 mg tablet 80 mg PO HS #90 tabs 05/05/22 diltiazem HCl 240 mg 240 mg PO QAM #90 caps 05/05/22 capsule,extended release 24 hr dulaglutide 1.5 mg/0.5 mL 1.5 mg (0.5 mL) subcut .WEEKLY #2 05/05/22 subcutaneous pen injector mL (Trulicity) duloxetine 60 mg capsule,delayed 60 mg PO DAILY #90 caps 05/05/22 release finasteride 5 mg tablet 5 mg PO DAILY #90 tabs 05/05/22 insulin aspart U-100 100 unit/mL 10 unit (0.1 mL) subcut .COMPLEX 05/05/22 (3 mL) subcutaneous pen (Novolog 90 days #18 mL Flexpen U-100 Insulin aspart) insulin glargine 100 unit/mL (3 42 unit (0.42 mL) subcut QPM #15 mL 05/05/22 mL) subcutaneous pen (Lantus Solostar U-100 Insulin) isosorbide mononitrate 120 mg 120 mg PO QAM #180 tabs 05/05/22 tablet,extended release 24 hr lisinopril 40 mg tablet 40 mg PO QAM #90 tabs 05/05/22 magnesium oxide 400 mg PO BID #60 tabs 05/05/22 metoprolol tartrate 50 mg tablet 150 mg PO BID #540 tabs 05/05/22 nitroglycerin 0.4 mg sublingual 0.4 mg sublingual UD PRN Chest 05/05/22 tablet (Nitrostat) Pain #25 tabs pantoprazole 20 mg tablet,delayed 20 mg PO QAM #90 tabs 05/05/22 release Results & Data (ED) Vital Signs Vital Signs - 24 hr 05/16/22 13:58 05/16/22 13:58 05/16/22 13:58 Temperature 37.1 C Temperature Source Oral Pulse Rate 99 H Pulse Rate [Finger] 104 H Respiratory Rate 18 16 Blood Pressure 145/90 H Blood Pressure [Left Arm] 145/77 H Blood Pressure Mean 108 Blood Pressure Mean [Left Arm] 99 Pulse Oximetry 92 92 Oxygen Delivery Method Room Air Sepsis Recent Fever Within 48 Hours Yes Sepsis New/Unexplained Change in Mental Status N/A Sepsis Action Taken by Nursing No Action Required 05/16/22 15:00 05/16/22 15:14 05/16/22 15:31 Temperature Temperature Source Pulse Rate 94 H 94 H Pulse Rate [Finger] 97 H Respiratory Rate 16 20 20 Blood Pressure 149/95 H 135/85 Blood Pressure [Left Arm] 148/90 H Blood Pressure Mean 113 101 Blood Pressure Mean [Left Arm] 109 Pulse Oximetry 93 95 96 Oxygen Delivery Method Sepsis Recent Fever Within 48 Hours Sepsis New/Unexplained Change in Mental Status Sepsis Action Taken by Nursing 05/16/22 16:30 05/16/22 17:00 05/16/22 18:00 Temperature Temperature Source Pulse Rate 92 H 90 Pulse Rate [Finger] Respiratory Rate 20 20 Blood Pressure 167/96 H 162/97 H 159/98 H Blood Pressure [Left Arm] Blood Pressure Mean 119 118 118 Blood Pressure Mean [Left Arm] Pulse Oximetry 96 94 Oxygen Delivery Method Sepsis Recent Fever Within 48 Hours Sepsis New/Unexplained Change in Mental Status Sepsis Action Taken by Nursing Laboratory Data Result diagrams: 05/16/22 14:15 05/16/22 14:15 Lab Results 05/16/22 05/16/22 05/16/22 Range/Units 14:15 14:15 14:15 WBC 8.20 (4.8-10.8) K/ul RBC 5.33 (4.63-6.08) M/uL Hgb 15.7 (14.0-18.0) g/dl Hct 44.5 (40.1-51.0) % MCV 83.5 (80.0-100.0) fL MCH 29.5 (25.0-34.0) pg MCHC 35.3 (32.0-36.0) g/dL RDW Std Deviation 40.6 (36.4-46.3) fL RDW Coeff of Melisa 13.3 (11.5-14.5) % Plt Count 244 (130-400) K/uL MPV 11.0 (9.4-12.4) fL Immature Gran % (Auto) 0.6 % Neut % (Auto) 58.7 % Lymph % (Auto) 21.0 % [place] % (Auto) 17.9 % Eos % (Auto) 1.2 % Baso % (Auto) 0.6 % Neut # (Auto) 4.81 (1.4-6.5) K/uL Lymph # (Auto) 1.72 (1.2-3.4) K/uL [place] # (Auto) 1.47 H (0.24-0.82) K/uL Eos # (Auto) 0.10 (0-0.50) K/uL Baso # (Auto) 0.05 (0-0.2) K/uL Immature Gran # (Auto) 0.05 H (0.00-0.02) K/uL PT 11.3 (9.0-12.0) Seconds INR 1.1 (0.9-1.1) APTT 28.6 (21.0-31.0) Seconds PTT Ratio 1.0 Sodium 133 L (136-145) mmol/L Potassium 3.7 (3.5-5.1) mmol/L Chloride 100 (98-107) mmol/L Carbon Dioxide 24 (21-32) mmol/L Anion Gap 9 (3-11) BUN 17 (6-23) mg/dl Creatinine 1.19 (0.6-1.4) mg/dl Est Cr Clr Drug Dosing 53.6 ml/min Est GFR ( Amer) 68.8 ml/min Est GFR (Non-Af Amer) 59.4 ml/min BUN/Creatinine Ratio 14.3 (10-20) Glucose 172 H (70-99(Fasting)) mg/dl Lactate (0.4-2.0) mmol/L Calcium 9.2 (8.5-10.1) mg/dl Magnesium 1.6 L (1.7-2.4) mg/dl Total Bilirubin 0.7 (0.2-1.0) mg/dl Direct Bilirubin 0.2 (0-0.2) mg/dl AST 18 (13-39) U/L ALT 28 (7-52) U/L Alkaline Phosphatase 69 (34-104) U/L Troponin I High Sens 10.2 (0-20) pg/ml Total Protein 7.5 (6.0-8.3) gm/dl Albumin 4.3 (3.4-5.0) gm/dl Lipase (11-82) U/L Procalcitonin (0-0.5) ng/ml Urine Color Urine Appearance (Clear) Urine pH (4.5-7.5) Ur Specific [place] (1.000-1.030) Urine Protein (Negative) Urine Glucose (UA) (Negative) Urine Ketones (Negative) Urine Blood (Negative) Urine Nitrite (Negative) Urine Bilirubin (Negative) Urine Urobilinogen (Negative) Ur Leukocyte Esterase (Negative) Urine WBC (Auto) (0-5) /hpf Urine RBC (Auto) (0-4) /hpf U Hyaline Cast (Auto) (0-5) /lpf U Epithel Cells (Auto) (0-5) /lpf Urine Bacteria (Auto) (Negative) SARS-CoV-2 (PCR) (Negative) Influenza Type A (PCR) (Neg) Influenza Type B (PCR) (Neg) RSV (RT-PCR) (Neg) 05/16/22 05/16/22 05/16/22 Range/Units 14:15 14:15 14:53 WBC (4.8-10.8) K/ul RBC (4.63-6.08) M/uL Hgb (14.0-18.0) g/dl Hct (40.1-51.0) % MCV (80.0-100.0) fL MCH (25.0-34.0) pg MCHC (32.0-36.0) g/dL RDW Std Deviation (36.4-46.3) fL RDW Coeff of Melisa (11.5-14.5) % Plt Count (130-400) K/uL MPV (9.4-12.4) fL Immature Gran % (Auto) % Neut % (Auto) % Lymph % (Auto) % [place] % (Auto) % Eos % (Auto) % Baso % (Auto) % Neut # (Auto) (1.4-6.5) K/uL Lymph # (Auto) (1.2-3.4) K/uL [place] # (Auto) (0.24-0.82) K/uL Eos # (Auto) (0-0.50) K/uL Baso # (Auto) (0-0.2) K/uL Immature Gran # (Auto) (0.00-0.02) K/uL PT (9.0-12.0) Seconds INR (0.9-1.1) APTT (21.0-31.0) Seconds PTT Ratio Sodium (136-145) mmol/L Potassium (3.5-5.1) mmol/L Chloride (98-107) mmol/L Carbon Dioxide (21-32) mmol/L Anion Gap (3-11) BUN (6-23) mg/dl Creatinine (0.6-1.4) mg/dl Est Cr Clr Drug Dosing ml/min Est GFR ( Amer) ml/min Est GFR (Non-Af Amer) ml/min BUN/Creatinine Ratio (10-20) Glucose (70-99(Fasting)) mg/dl Lactate (0.4-2.0) mmol/L Calcium (8.5-10.1) mg/dl Magnesium (1.7-2.4) mg/dl Total Bilirubin (0.2-1.0) mg/dl Direct Bilirubin (0-0.2) mg/dl AST (13-39) U/L ALT (7-52) U/L Alkaline Phosphatase (34-104) U/L Troponin I High Sens (0-20) pg/ml Total Protein (6.0-8.3) gm/dl Albumin (3.4-5.0) gm/dl Lipase 19 (11-82) U/L Procalcitonin < 0.05 (0-0.5) ng/ml Urine Color Urine Appearance (Clear) Urine pH (4.5-7.5) Ur Specific [place] (1.000-1.030) Urine Protein (Negative) Urine Glucose (UA) (Negative) Urine Ketones (Negative) Urine Blood (Negative) Urine Nitrite (Negative) Urine Bilirubin (Negative) Urine Urobilinogen (Negative) Ur Leukocyte Esterase (Negative) Urine WBC (Auto) (0-5) /hpf Urine RBC (Auto) (0-4) /hpf U Hyaline Cast (Auto) (0-5) /lpf U Epithel Cells (Auto) (0-5) /lpf Urine Bacteria (Auto) (Negative) SARS-CoV-2 (PCR) NEGATIVE (Negative) Influenza Type A (PCR) Negative (Neg) Influenza Type B (PCR) Negative (Neg) RSV (RT-PCR) Negative (Neg) 05/16/22 05/16/22 Range/Units 14:53 15:49 WBC (4.8-10.8) K/ul RBC (4.63-6.08) M/uL Hgb (14.0-18.0) g/dl Hct (40.1-51.0) % MCV (80.0-100.0) fL MCH (25.0-34.0) pg MCHC (32.0-36.0) g/dL RDW Std Deviation (36.4-46.3) fL RDW Coeff of Melisa (11.5-14.5) % Plt Count (130-400) K/uL MPV (9.4-12.4) fL Immature Gran % (Auto) % Neut % (Auto) % Lymph % (Auto) % [place] % (Auto) % Eos % (Auto) % Baso % (Auto) % Neut # (Auto) (1.4-6.5) K/uL Lymph # (Auto) (1.2-3.4) K/uL [place] # (Auto) (0.24-0.82) K/uL Eos # (Auto) (0-0.50) K/uL Baso # (Auto) (0-0.2) K/uL Immature Gran # (Auto) (0.00-0.02) K/uL PT (9.0-12.0) Seconds INR (0.9-1.1) APTT (21.0-31.0) Seconds PTT Ratio Sodium (136-145) mmol/L Potassium (3.5-5.1) mmol/L Chloride (98-107) mmol/L Carbon Dioxide (21-32) mmol/L Anion Gap (3-11) BUN (6-23) mg/dl Creatinine (0.6-1.4) mg/dl Est Cr Clr Drug Dosing ml/min Est GFR ( Amer) ml/min Est GFR (Non-Af Amer) ml/min BUN/Creatinine Ratio (10-20) Glucose (70-99(Fasting)) mg/dl Lactate 1.0 (0.4-2.0) mmol/L Calcium (8.5-10.1) mg/dl Magnesium (1.7-2.4) mg/dl Total Bilirubin (0.2-1.0) mg/dl Direct Bilirubin (0-0.2) mg/dl AST (13-39) U/L ALT (7-52) U/L Alkaline Phosphatase (34-104) U/L Troponin I High Sens (0-20) pg/ml Total Protein (6.0-8.3) gm/dl Albumin (3.4-5.0) gm/dl Lipase (11-82) U/L Procalcitonin (0-0.5) ng/ml Urine Color Yellow Urine Appearance Clear (Clear) Urine pH 7.0 (4.5-7.5) Ur Specific [place] 1.018 (1.000-1.030) Urine Protein 2+ H (Negative) Urine Glucose (UA) 2+ H (Negative) Urine Ketones Negative (Negative) Urine Blood 1+ H (Negative) Urine Nitrite Negative (Negative) Urine Bilirubin Negative (Negative) Urine Urobilinogen Negative (Negative) Ur Leukocyte Esterase Negative (Negative) Urine WBC (Auto) 1-5 (0-5) /hpf Urine RBC (Auto) 5-10 H (0-4) /hpf U Hyaline Cast (Auto) 0 (0-5) /lpf U Epithel Cells (Auto) 5-10 H (0-5) /lpf Urine Bacteria (Auto) Negative (Negative) SARS-CoV-2 (PCR) (Negative) Influenza Type A (PCR) (Neg) Influenza Type B (PCR) (Neg) RSV (RT-PCR) (Neg) Administered Medications Discontinued Medications Sodium Chloride (Nss 1000ml) 1,000 mls @ 999 mls/hr IV .Q1H1M NANDO Stop: 05/16/22 15:30 Last Infusion: 05/16/22 16:02 Dose: 0 mls/hr Documented By: Admin: 05/16/22 14:36 Dose: 999 mls/hr Documented By: STANLEY Cefepime HCl (Maxipime) 2,000 mg in 20 mls @ 5 mls/min IV NOW STA; Protocol Stop: 05/16/22 14:25 Last Admin: 05/16/22 14:36 Dose: 5 mls/min Documented By: STANLEY Magnesium Sulfate/Dextrose (Magnesium Sulfate / D5w) 1 gm in 100 mls @ 200 mls/hr IV Q30M NANDO Stop: 05/16/22 16:29 Last Infusion: 05/16/22 16:59 Dose: 0 mls/hr Documented By: Admin: 05/16/22 16:26 Dose: 200 mls/hr Documented By: Infusion: 05/16/22 16:17 Dose: 0 mls/hr Documented By: Admin: 05/16/22 15:33 Dose: 200 mls/hr Documented By: SABA Ioversol (Optiray 350 100ml) 88 ml IV ONCE ONE Stop: 05/16/22 16:18 Last Admin: 05/16/22 16:18 Dose: 88 ml Documented By: JOSE MIGUEL Ondansetron HCl (Ondansetron Inj 2 Mg/Ml 2 Ml Vial) 4 mg IV NOW STA Stop: 05/16/22 14:25 Last Admin: 05/16/22 14:36 Dose: 4 mg Documented By: STANLEY Imaging Data Radiologist's Impression: Chest X-Ray 05/16/22 14:22 XR chest 1V portable HISTORY: 77 years-old Male Sepsis acute sepsis COMPARISON: Chest radiograph 07/22/2021 TECHNIQUE: Portable AP view of the chest FINDINGS: Cardiac silhouette is enlarged. Atherosclerosis of the aorta. Chronic interstitial coarsening. Mild right hemidiaphragmatic elevation with subsegmental bibasilar opacities. No pneumothorax or large pleural effusion. Degenerative changes of the shoulders and spine. IMPRESSION: 1. Cardiomegaly with chronic interstitial coarsening. 2. Mild subsegmental bibasilar opacities favor atelectasis. Pneumonitis considered less likely. ACT 112: Negative or not required by law. The above report was generated using voice recognition software. It may contain grammatical, syntax or spelling errors. Electronically signed by: Justo Encarnacion M.D. 05/16/2022 3:21 PM Abdomen/Pelvis CT 05/16/22 15:[address] WITH IV CONTRAST CT DOSE: 2654.68 mGy.cm HISTORY: Acute weakness with nausea and vomiting weakness, vomiting TECHNIQUE: Multiaxial CT images of the abdomen and pelvis were performed following the IV administration of 88 cc of Optiray, A dose lowering technique was utilized adhering to the principles of ALARA. COMPARISON STUDY: CT abdomen and pelvis 07/22/2021 FINDINGS: Cardiomegaly with extensive coronary artery calcifications. Bibasilar subpleural reticulation with patchy groundglass densities. No pneumatosis or pneumoperitoneum. Calcified granulomata of the spleen. Unremarkable pancreas, gallbladder and adrenal glands. Scattered calcified granulomata of the liver. Patency of the hepatic and portal veins. Mild nonspecific bilateral perinephric stranding. 10 mm cyst of the superior pole right kidney. Subcentimeter hypodensities of the kidneys are too small to characterize however favor probable cysts. 5 mm calculus of the distal right ureter just proximal to the ureterovesicular junction without obstructive uropathy. Partial distention of the urinary bladder. Prostamegaly. Small fat filled inguinal hernias. Atherosclerosis of the aorta. No lymphadenopathy. Tiny hiatal hernia with mild distal esophageal wall thickening. No bowel obstruction or bowel wall thickening. Moderate fecal retention of the rectum. Colonic diverticulosis. Normal appendix. Small fat filled periumbilical hernia, diastases of 2.5 cm. No acute fracture. IMPRESSION: 1. 5 mm calculus of the distal right ureter without obstructive uropathy. 2. No bowel obstruction or bowel wall thickening. 3. Moderate fecal retention. 4. Colonic diverticulosis. 5. Subpleural reticulation with patchy bibasilar groundglass densities may represent a combination of scarring with atelectasis. A viral pneumonia could appear similarly. ACT 112: Negative or not required by law. The above report was generated using voice recognition software. It may contain grammatical, syntax or spelling errors. Electronically signed by: Justo Encarnacion M.D. 05/16/2022 5:[address] 05/16/22 15:24 CT head/brain wo con CLINICAL HISTORY: 77 years-old Male with weakness. Acute weakness TECHNIQUE: Multiple axial CT images of the head were obtained without contrast. A dose lowering technique was utilized adhering to the principles of ALARA. COMPARISON: Head CT 07/22/2021 FINDINGS: No acute intracranial hemorrhage, midline shift, intracranial mass, hydrocephalus, territorial ischemia or abnormal extra-axial collection. Age- related involutional changes with ex vacuo ventriculomegaly and chronic microvascular ischemic disease, progressively worsened from prior. Cerebral vascular calcifications. The calvarium is intact. Prior bilateral lens repair. The paranasal sinuses, mastoid air cells, and middle ear cavities are clear. IMPRESSION: No acute intracranial abnormality. ACT 112: Negative or not required by law. The above report was generated using voice recognition software. It may contain grammatical, syntax or spelling errors. Electronically signed by: Justo Encarnacion M.D. 05/16/2022 4:41 PM Discharge Plan Visit Data Chief Complaint: Weakness ED Provider: Garett Abrams Discharge Problem: Weakness, Hypomagnesemia Discharge Instructions Interventions: ED Discharge Assessment Last Done: 05/16/22 18:08 Forms Stand Alone Forms: [employer] Prescriptions Prescriptions: No Action (DME) BD AutoShield Duo Pen Needle 30 gauge x 3/16" needle See Rx Instructions .Route Qty: 100 2RF Rx Instructions: As directed aspirin 81 mg tablet,delayed release (DR/EC) 81 mg PO QAM Qty: 30 5RF (DME) blood sugar diagnostic [FreeStyle Lite Strips] Strip See Rx Instructions .ROUTE .MEDSUPPLY Qty: 50 Rx Instructions: test 2 times daily triamcinolone acetonide 0.5 % cream 1 applic topical DAILY Rx Instructions: adding refills isosorbide mononitrate 120 mg tablet extended release 24 hr 120 mg PO QAM Qty: 180 3RF insulin glargine [Lantus Solostar U-100 Insulin] 100 unit/mL (3 mL) insulin pen 42 unit subcut QPM Qty: 15 5RF lisinopril 40 mg tablet 40 mg PO QAM Qty: 90 3RF magnesium oxide 400 mg magnesium tablet 400 mg PO BID Qty: 60 5RF metoprolol tartrate 50 mg tablet 150 mg PO BID Qty: 540 3RF diltiazem HCl 240 mg capsule,extended release 24hr 240 mg PO QAM Qty: 90 3RF duloxetine 60 mg capsule,delayed release(DR/EC) 60 mg PO DAILY Qty: 90 3RF finasteride 5 mg tablet 5 mg PO DAILY Qty: 90 3RF apixaban 5 mg tablet 5 mg PO BID Qty: 60 11RF atorvastatin 80 mg tablet 80 mg PO HS Qty: 90 3RF pantoprazole 20 mg tablet,delayed release (DR/EC) 20 mg PO QAM Qty: 90 3RF Trulicity 1.5 mg/0.5 mL pen injector 1.5 mg subcut .WEEKLY Qty: 2 3RF insulin aspart U-100 [Novolog Flexpen U-100 Insulin] 100 unit/mL (3 mL) insulin pen 10 unit subcut .COMPLEX 90 Days Qty: 18 3RF Rx Instructions: 5 units subcutaneously at lunch, 10 units subcutaneously at dinner nitroglycerin [Nitrostat] 0.4 mg tablet, sublingual 0.4 mg Sublingual UD PRN (Reason: Chest Pain) Qty: 25 5RF Rx Instructions: One tab sublingual Q 5 minutes x3 as needed for chest Referrals Referrals: Madan Shannon MD [Primary Care Provider] -
[2022-05-16 14:58] LABS: INR 1.1 (0.9-1.1); Partial Thromboplastin Time 28.6 Seconds (21.0-31.0); Prothrombin Time 11.3 Seconds (9.0-12.0)
[2022-05-16 15:04] LABS: Albumin Level 4.3 gm/dl (3.4-5.0); BUN Creatinine Ratio 14.3 (10-20); Bilirubin Direct 0.2 mg/dl (0-0.2); Bilirubin,Total 0.7 mg/dl (0.2-1.0); Calcium 9.2 mg/dl (8.5-10.1); Creatinine Clr Calc Pharmacy 53.6 ml/min; Est GFR (African American) 68.8 ml/min; Est GFR (Non-African American) 59.4 ml/min; Magnesium 1.6 mg/dl (1.7-2.4); Potassium 3.7 mmol/L (3.5-5.1); Total Protein 7.5 gm/dl (6.0-8.3)
[2022-05-16 15:06] LABS: Troponin I High Sensitivity 10.2 pg/ml (0-20)
--- NOTE | 2022-05-16 15:23 | XRay Report ---
XR chest 1V portable HISTORY: 77 years-old Male Sepsis acute sepsis COMPARISON: Chest radiograph 07/22/2021 TECHNIQUE: Portable AP view of the chest FINDINGS: Cardiac silhouette is enlarged. Atherosclerosis of the aorta. Chronic interstitial coarsening. Mild r ight hemidiaphragmatic elevation with subsegmental bibasilar opacities. No pneumothorax or large pleu ral effusion. Degenerative changes of the shoulders and spine. IMPRESSION: 1. Cardiomegaly with chronic interstitial coarsening. 2. Mild subsegmental bibasilar opacities favor atelectasis. Pneumonitis considered less likely. ACT 112: Negative or not required by law. The above report was generated using voice recognition software. It may contain grammatical, syntax o r spelling errors. Electronically signed by: Justo Encarnacion M.D. 05/16/2022 3:21 PM
[2022-05-16 15:32] LABS: Appearance Urine Clear (Clear); Bacteria Urine Automated Negative (Negative); Bilirubin Urine Negative (Negative); Blood Urine 1+ (Negative); Cast Urine Automated 0 /lpf (0-5); Color Urine Yellow; Glucose Urine UA 2+ (Negative); Ketones Urine Negative (Negative); Leukocyte Esterase Urine Negative (Negative); Nitrite Urine Negative (Negative); Protein Urine 2+ (Negative); Specific Gravity Urine 1.018 (1.000-1.030); Urobilinogen Urine Negative (Negative)
[2022-05-16] MEDS: MAGNESIUM SULFATE / D5W 1 GM/100 ML BAG IV SCH ×2 (15:33→16:26)
[2022-05-16 16:07] LABS: Influenza A virus by PCR Negative (Neg); Influenza B virus by PCR Negative (Neg); RSV by PCR Negative (Neg); SARS CoV2 RNA(COVID-19) InHosp NEGATIVE (Negative)
[2022-05-16] MEDS ORDERED: OPTIRAY 350 100ml IV ONE (16:17)
--- NOTE | 2022-05-16 16:44 | CT Scan Report ---
CT head/brain wo con CLINICAL HISTORY: 77 years-old Male with weakness. Acute weakness TECHNIQUE: Multiple axial CT images of the head were obtained without contrast. A dose lowering tech nique was utilized adhering to the principles of ALARA. COMPARISON: Head CT 07/22/2021 FINDINGS: No acute intracranial hemorrhage, midline shift, intracranial mass, hydrocephalus, territorial ischem ia or abnormal extra-axial collection. Age-related involutional changes with ex vacuo ventriculomegal y and chronic microvascular ischemic disease, progressively worsened from prior. Cerebral vascular ca lcifications. The calvarium is intact. Prior bilateral lens repair. The paranasal sinuses, mastoid air cells, and m iddle ear cavities are clear. IMPRESSION: No acute intracranial abnormality. ACT 112: Negative or not required by law. The above report was generated using voice recognition software. It may contain grammatical, syntax o r spelling errors. Electronically signed by: Justo Encarnacion M.D. 05/16/2022 4:41 PM
--- NOTE | 2022-05-16 17:03 | CT Scan Report ---
ABDOMEN AND PELVIS CT WITH IV CONTRAST CT DOSE: 2654.68 mGy.cm HISTORY: Acute weakness with nausea and vomiting weakness, vomiting TECHNIQUE: Multiaxial CT images of the abdomen and pelvis were performed following the IV administrat ion of 88 cc of Optiray, A dose lowering technique was utilized adhering to the principles of ALARA. COMPARISON STUDY: CT abdomen and pelvis 07/22/2021 FINDINGS: Cardiomegaly with extensive coronary artery calcifications. Bibasilar subpleural reticulati on with patchy groundglass densities. No pneumatosis or pneumoperitoneum. Calcified granulomata of th e spleen. Unremarkable pancreas, gallbladder and adrenal glands. Scattered calcified granulomata of t he liver. Patency of the hepatic and portal veins. Mild nonspecific bilateral perinephric stranding. 10 mm cyst of the superior pole right kidney. Subce ntimeter hypodensities of the kidneys are too small to characterize however favor probable cysts. 5 m m calculus of the distal right ureter just proximal to the ureterovesicular junction without obstruct alex uropathy. Partial distention of the urinary bladder. Prostamegaly. Small fat filled inguinal franco ias. Atherosclerosis of the aorta. No lymphadenopathy. Tiny hiatal hernia with mild distal esophageal wall thickening. No bowel obstruction or bowel wall th ickening. Moderate fecal retention of the rectum. Colonic diverticulosis. Normal appendix. Small fat filled periumbilical hernia, diastases of 2.5 cm. No acute fracture. IMPRESSION: 1. 5 mm calculus of the distal right ureter without obstructive uropathy. 2. No bowel obstruction or bowel wall thickening. 3. Moderate fecal retention. 4. Colonic diverticulosis. 5. Subpleural reticulation with patchy bibasilar groundglass densities may represent a combination of scarring with atelectasis. A viral pneumonia could appear similarly. ACT 112: Negative or not required by law. The above report was generated using voice recognition software. It may contain grammatical, syntax o r spelling errors. Electronically signed by: Justo Encarnacion M.D. 05/16/2022 5:01 PM
--- NOTE | 2022-05-16 17:47 | History & Physical Report ---
Date of Service May 16, 2022 Assessment & Plan (1) Failure to thrive: Plan: -Admit to med/surge -At this time the patient is afebrile, hemodynamically stable, and stable on room air -It appears that the patient has significant cognitive and functional limitatio ns at baseline which has been going on since his discharge for Co[facility] last year. Was initially in rehab but then discharged to his Son's care, unfortunately the patient's son recently passed, his Daughter lives in [place], and family cannot afford more than 2 hours of daily care. The patient has apparently threatened to kill himself in the past if they would try to place him again. -The patient is not safe to be discharged home at this time due to his limited functional and cognitive state -Will consult PT/OT to assess functional status as he will likely need placement -Consulting case management as well as this could be a complex discharge with the social situation; patient's daughter does not have a power of assistant county attorney at this time (2) AMS (altered mental status): Plan: -Per discussions with the Patient's daughter it appears that the patient is at or close to his cognitive baseline -Patient's mental status fluctuates and his daughter states that he does not know his own name or location at times -CT of the head today was negative for acute findings, last MRI in March of 2021 was negative as well, there were concerns for possible anoxic brain injury during his last covid admission in 2020. -Last known well appears to be greater than 4 hours so no stroke alert called on arrival, could consider MRI of the brain for further evaluation -Workup has been negative for infectious and metabolic causes of his current state, patient has been afebrile since arrival -Will keep NPO except meds for now, light IV hydration overnight until he can be evaluated by speech therapy tomorrow (consult placed) -Will hold additional antibiotics for now as the patient's infectious workup has been negative and he has been afebrile since arrival to the ED (3) Atrial fibrillation: Plan: -Will continue Eliquis as he has no signs of bleeding and CT head was negative for hemorrhage -Continue metoprolol and Diltiazem (4) Hypertension: Plan: -Will hold lisinopril for now as patient is also on metoprolol and diltiazem, can restart when he is more stable and eating consistently (5) Diabetes mellitus with insulin therapy: Plan: -Home regimen listed as Lantus 42 units HS, novolog 5 units with lunch and 10 with dinner, and trulicity weekly -For now will start with Glargine 10 units HS, correction factor of 60, and carb ration of 20 since he is not currently eating, increase regimen as needed (6) Gastroesophageal reflux disease: Plan: -Continue pantoprazole (7) Dyslipidemia: Plan: -continue lipitor (8) CAD in [place] artery: Plan: -Continue aspirin (9) Hypomagnesemia: Plan: -Noted to be 1.6 today -Had 1gm IV in the ED -Will continue home mag oxide -Monitor am mag level (10) Right nephrolithiasis: Plan: -Noted to have a 5 mm non-obstructing stone in the distal right ureter -UA is unremarkable for infection -Will start flomax and monitor for pain or poor urinary output Plan The patient was discussed with Dr. Bowen at the time of admission History of Present Illness Chief Complaint: Generalized weakness Primary Care Provider: MD Darren Burks . is a 77 pia old male with a complex PMH significant for Covid diagnosis leading to prolonged hospitalization for acute hypoxic respiratory failure including multiple intubations and possible anoxic brain injury at [facility] in July 2021, afib, CAD, Hyperlipidemia, GERD, DM II, HTN, BPH, vitamin D deficiency and chronic low back pain who presented to the [facility] ED on 05/16/22 with chief complaints of generalized weakness. Per the ED staff, the patient's caregiver came to see the patient today and found him confused, febrile, and had urinated himself. Per chart review, the patient has had a significant decline in health, mental status, and functional ability since his hospitalization for covid in 2020. he recently saw his PCP accompanied by his daughter on 05/05/22 for follow-up. Per the documentation, the patient was initially discharged to [facility] rehab a fter his hospitalization for covid. He was discharged home to the care of his Son on 04/11/22, unfortunately, he son recently passed a week prior to the PCP appointment. The patient's daughter told his PCP that the patient refuses to go back to a care home care facility but is very concerned that he is unable to care for himself. His Daughter currently lives in [facility]. In the ED the patient was found to be afebrile, hemodynamically stable, and stable on room air. Labs were significant for a magnesium of 1.6. Infectious workup including CBC, UA, chest xray, Covid/influenza/rsv testing, and procal were negative. Chest xray did show cardiomegaly with chronic interstitial coarsing and mild subsegmental bibasilar opacities favoring atelectasis. CT of the abdomen and pelvis revealed a 5 mm, non-obstructing stone in the distal right ureter, moderate fecal retention, and Subpleural reticulation with patchy bibasilar groundglass densities may represent a combination of scarring with atelectasis. In the ED the patient was initially given Cefepime and a 1L NSS bolus due to concerns for sepsis based on history. He was also given 1gm of magnesium and zofran. At the time of the exam the patient was sleeping in bed. I was able to wake him by calling his name, he woke for me but appeared fatigued and confused. The patient is a poor historian at the present time. He knows who he is but does not know where he is, the month, year, or president. When I asked who was helping to care for him he initially said his , I had to remind him that his last year. His only complaint at the current time is low back pain, when I asked if this is the low back pain he always has he said yes. I called and spoke to his Daughter (Karli [phone]) to obtain additional history. She states that since his hospitalization for Covid the patient's baseline mental status has been very poor. At times he will know who he is and where he is that is about it. She came back into town for approximately 1 week after her brother passed to try and find caregivers for her father, she was only able to find one on [employer] and could only afford to have him stay with her father for 2 hours a day. She states that her father does not have access to alcohol or drugs but does have access to his medications. She has a ring camera in his home to try and help keep and eye on him and she states that he was up most of the night last night. I spoke to her regarding the need to find a safe discharge plan for the patient and she is in agreement. She cannot afford more care and thinks he needs to go back in a long-term care facility but the patient had been threatening to take his life if they tried to place him again. I spoke to her regarding the patient's code status and she states that the patient is a DNR/DNI and has expressed those wishes multiple times since his last admission for covid. I attempted to call the patient's caregiver Jasen Leon ([phone]) to obtain more infromation but he did not picker feeder. Allergies Allergy/AdvReac Type Severity Reaction Status Date / Time Corticosteroids AdvReac Intermediate hyperglycem Verified 05/22/22 09:53 (Glucocorticoids) ia Home Medications Medication Instructions Recorded Confirmed Type blood sugar diagnostic (FreeStyle #50 ea 05/08/20 05/22/22 History Lite Strips) triamcinolone acetonide 0.5 % 1 applic topical DAILY 03/17/21 05/22/22 History topical cream pen needle,diabetic dual safty 30 #100 ea 04/30/22 05/22/22 Rx gauge x 3/16" (BD AutoShield Duo Pen Needle) dulaglutide 1.5 mg/0.5 mL 1.5 mg (0.5 mL) subcut .WEEKLY #2 05/05/22 05/22/22 Rx subcutaneous pen injector mL (Trulicity) insulin aspart U-100 100 unit/mL 10 unit (0.1 mL) subcut .COMPLEX 05/05/22 05/22/22 Rx (3 mL) subcutaneous pen (Novolog 90 days #18 mL Flexpen U-100 Insulin aspart) insulin glargine 100 unit/mL (3 42 unit (0.42 mL) subcut QPM #15 mL 05/05/22 05/22/22 Rx mL) subcutaneous pen (Lantus Solostar U-100 Insulin) nitroglycerin 0.4 mg sublingual 0.4 mg sublingual UD PRN Chest 05/05/22 05/22/22 Rx tablet (Nitrostat) Pain #25 tabs apixaban 5 mg tablet 5 mg PO BID #90 tabs 05/25/22 Rx aspirin 81 mg tablet,delayed 81 mg PO QAM #30 tabs 05/25/22 Rx release atorvastatin 80 mg tablet 80 mg PO HS #90 tabs 10/03/22 Rx diltiazem HCl 240 mg 240 mg PO QAM #90 caps 05/25/22 Rx capsule,extended release 24 hr duloxetine 60 mg capsule,delayed 60 mg PO DAILY #90 caps 05/25/22 Rx release finasteride 5 mg tablet 5 mg PO DAILY #90 tabs 05/25/22 Rx isosorbide mononitrate 120 mg 120 mg PO QAM #180 tabs 05/25/22 Rx tablet,extended release 24 hr lisinopril 40 mg tablet 40 mg PO QAM #90 tabs 05/25/22 Rx magnesium oxide 400 mg PO BID #60 tabs 05/25/22 Rx metoprolol tartrate 50 mg tablet 150 mg PO BID #540 tabs 05/25/22 Rx pantoprazole 20 mg tablet,delayed 20 mg PO QAM #90 tabs 05/25/22 Rx release Past Med/Surg History Medical History Angina pectoris Anxiety Atrial fibrillation BPH (benign prostatic hyperplasia) CAD in [place] artery Cervical spinal stenosis Dementia Depression Dyslipidemia Dyspnea Gastroesophageal reflux disease Hypertension Need for shingles vaccine NSTEMI (non-ST elevated myocardial infarction) 2018--had cardiac cath w stent planced--on plavix--follows with Dr. Centeno On anticoagulant therapy plavix daily Osteoarthritis SNHL (sensorineural hearing loss) Surgical History History of bilateral cataract extraction History of cardiac cath x2--2016/2017 @ [facility] History of colonoscopy with polypectomy History of esophagogastroduodenoscopy (EGD) History of tooth extraction upper teeth History of wisdom tooth extraction Hx of tonsillectomy S/P drug eluting coronary stent placement x2 total---2017 with 1 stent placed/2018 with 1 stent placed Family History Father Coronary heart disease Myocardial infarction Brother Coronary heart disease Mother Coronary heart disease Other Family history non-contributory No family history of adverse response to anesthesia No family history of bleeding disorder Social History Smoking Status: Former smoker Tobacco Type: Cigarettes Age Quit Using Tobacco: 27; Second Hand Exposure: No; Preferred Language: Romansh Communication Ability: Effective Visual Impairment: Limited Hearing Ability: Hard of Hearing Weight Inspector Required: No Beliefs That Will Affect Care: None marital status: / Current Living Situation: Alone current occupational status: retired current occupation: [employer] Feels Safe at Home: Yes Dental Care, Regularly: No Seatbelt Use: sometimes Sunscreen Use: No Assistive Devices: None Review of Systems Review of Systems: ROS unable to be obtained at the time of exam due to the patient's baseline mental status Physical Exam Physical Exam: Physical Exam: General: In no acute distress, stated age, malnourished, poor hygiene, fatigued HEENT: Normocephalic, atraumatic, no scleral icterus, pupils around round, symmetrical, and reactive to light, dry mucus membranes, trachea midline, no thyromegaly Chest/Pulm: No respiratory distress, symmetrical chest expansion, clear breath sounds throughout Cardiac: RRR, no murmurs noted Abdomen: Negative for ascites and bruising, normoactive bowel sounds, soft, non-tender to palpation throughout Musculoskeletal: Symmetrical, no spasticity or flaccidity, patient would move his upper and lower extremities when asked, no acute trauma noted Extremities: Radial, dorsalis pedis, and posterior tibial pulses are intact a nd symmetrical, no edema noted in the BL LE's Skin: Warm, dry, no rashes , lesions, or scars noted Neuro: Alert, currently only oriented to person, no focal defects, CN II-XII tested and intact, no tremor on exam, Psych: No acute distress, confused, cooperative with most of exam Results & Data Results & Data ([facility]) Vital Signs (Past 12 Hours) Vital Signs Temp Pulse Pulse Resp BP BP Pulse Ox 05/16/22 16:30 92 H 20 167/96 H 96 05/16/22 15:31 94 H 20 135/85 96 05/16/22 15:14 94 H 20 149/95 H 95 05/16/22 15:00 97 H 16 148/90 H 93 05/16/22 13:58 104 H 16 145/77 H 92 05/16/22 13:58 05/16/22 13:58 37.1 C 99 H 18 145/90 H 92 O2 Del Method 05/16/22 16:30 05/16/22 15:31 05/16/22 15:14 05/16/22 15:00 05/16/22 13:58 05/16/22 13:58 Room Air 05/16/22 13:58 Laboratory Results Abnormal lab results 05/16/22 05/16/22 05/16/22 Range/Units 14:15 14:15 14:53 [place] # (Auto) 1.47 H (0.24-0.82) K/uL Immature Gran # (Auto) 0.05 H (0.00-0.02) K/uL Sodium 133 L (136-145) mmol/L Glucose 172 H (70-99(Fasting)) mg/dl Magnesium 1.6 L (1.7-2.4) mg/dl Urine Protein 2+ H (Negative) Urine Glucose (UA) 2+ H (Negative) Urine Blood 1+ H (Negative) Urine RBC (Auto) 5-10 H (0-4) /hpf U Epithel Cells (Auto) 5-10 H (0-5) /lpf Diagnostic Findings Chest X-Ray 05/16/22 14:22 XR chest 1V portable HISTORY: 77 years-old Male Sepsis acute sepsis COMPARISON: Chest radiograph 07/22/2021 TECHNIQUE: Portable AP view of the chest FINDINGS: Cardiac silhouette is enlarged. Atherosclerosis of the aorta. Chronic interstitial coarsening. Mild right hemidiaphragmatic elevation with subsegmental bibasilar opacities. No pneumothorax or large pleural effusion. Degenerative changes of the shoulders and spine. IMPRESSION: 1. Cardiomegaly with chronic interstitial coarsening. 2. Mild subsegmental bibasilar opacities favor atelectasis. Pneumonitis considered less likely. ACT 112: Negative or not required by law. The above report was generated using voice recognition software. It may contain grammatical, syntax or spelling errors. Electronically signed by: Justo Encarnacion M.D. 05/16/2022 3:21 PM Abdomen/Pelvis CT 05/16/22 15:[address] WITH IV CONTRAST CT DOSE: 2654.68 mGy.cm HISTORY: Acute weakness with nausea and vomiting weakness, vomiting TECHNIQUE: Multiaxial CT images of the abdomen and pelvis were performed following the IV administration of 88 cc of Optiray, A dose lowering technique was utilized adhering to the principles of ALARA. COMPARISON STUDY: CT abdomen and pelvis 07/22/2021 FINDINGS: Cardiomegaly with extensive coronary artery calcifications. Bibasilar subpleural reticulation with patchy groundglass densities. No pneumatosis or pneumoperitoneum. Calcified granulomata of the spleen. Unremarkable pancreas, gallbladder and adrenal glands. Scattered calcified granulomata of the liver. Patency of the hepatic and portal veins. Mild nonspecific bilateral perinephric stranding. 10 mm cyst of the superior pole right kidney. Subcentimeter hypodensities of the kidneys are too small to characterize however favor probable cysts. 5 mm calculus of the distal right ureter just proximal to the ureterovesicular junction without obstructive uropathy. Partial distention of the urinary bladder. Prostamegaly. Small fat filled inguinal hernias. Atherosclerosis of the aorta. No lymphadenopathy. Tiny hiatal hernia with mild distal esophageal wall thickening. No bowel obstruction or bowel wall thickening. Moderate fecal retention of the rectum. Colonic diverticulosis. Normal appendix. Small fat filled periumbilical hernia, diastases of 2.5 cm. No acute fracture. IMPRESSION: 1. 5 mm calculus of the distal right ureter without obstructive uropathy. 2. No bowel obstruction or bowel wall thickening. 3. Moderate fecal retention. 4. Colonic diverticulosis. 5. Subpleural reticulation with patchy bibasilar groundglass densities may represent a combination of scarring with atelectasis. A viral pneumonia could appear similarly. ACT 112: Negative or not required by law. The above report was generated using voice recognition software. It may contain grammatical, syntax or spelling errors. Electronically signed by: Justo Encarnacion M.D. 05/16/2022 5:[address] 05/16/22 15:24 CT head/brain wo con CLINICAL HISTORY: 77 years-old Male with weakness. Acute weakness TECHNIQUE: Multiple axial CT images of the head were obtained without contrast. A dose lowering technique was utilized adhering to the principles of ALARA. COMPARISON: Head CT 07/22/2021 FINDINGS: No acute intracranial hemorrhage, midline shift, intracranial mass, hydrocephalus, territorial ischemia or abnormal extra-axial collection. Age- related involutional changes with ex vacuo ventriculomegaly and chronic microvascular ischemic disease, progressively worsened from prior. Cerebral vascular calcifications. The calvarium is intact. Prior bilateral lens repair. The paranasal sinuses, mastoid air cells, and middle ear cavities are clear. IMPRESSION: No acute intracranial abnormality. ACT 112: Negative or not required by law. The above report was generated using voice recognition software. It may contain grammatical, syntax or spelling errors. Electronically signed by: Justo Encarnacion M.D. 05/16/2022 4:41 PM ECG Additional Comments: Normal sinus rhythm Normal ECG When compared with ECG of 22-JUL-2021 12:14, Previous ECG has undetermined rhythm, needs review Code Status & VTE Plan Code Status DNR/DNI VTE Prophylaxis Plan VTE Prophylaxis will be ordered: Yes Supervising Physician Co-Signing Physician Notes Patient seen and examined at bedside. During face to face encounter obtained a history and physical examination. I reviewed above note and agree with it. Plan of care discussed with patient and APC Peno. Patient will be admitted for failure to thrive. Will consult PT>OT PG Care Time/CCT Total # of Minutes Spent Total Time Spent with Patient: Total time spent is greater than 50% in coordination of care (as documented) at patient's floor/unit and/or counseling patient: Coding [place] [address] Initial Inpt Care Lvl 3 Patient Type Established Medical Decision Making High Complexity Diagnoses Failure to thrive AMS (altered mental status) R41.82 Atrial fibrillation I48.91 Hypertension I10 Diabetes mellitus with insulin therapy E11.9; Z79.4 Gastroesophageal reflux disease K21.9 Dyslipidemia E78.5 CAD in [place] artery I25.10 Hypomagnesemia E83.42 Right nephrolithiasis N20.0
[2022-05-16] MEDS ORDERED: CARBOHYDRATES FOR HYPOGLYCEMIA PO PRN (19:48)
[2022-05-16] MEDS ORDERED: GLUCOSE 40% GEL 15 GM TUBE PO PRN (19:48)
[2022-05-16] MEDS ORDERED: GLUCOSE 10 TAB/TUBE PO PRN (19:48)
[2022-05-16] MEDS ORDERED: DEXTROSE 50% 50 ML SYRINGE IV PRN (19:48)
[2022-05-16] MEDS ORDERED: GLUCAGON FOR INJ 1 MG VIAL SQ PRN (19:48)
[2022-05-16] MEDS: LACTATED RINGER'S 1,000 ML IV SCH (20:00)
[2022-05-16] MEDS ORDERED: INSULIN ASPART PER UNIT SC SCH (21:00)
[2022-05-16] MEDS: MAGNESIUM OXIDE 400 MG TAB PO SCH (21:27)
[2022-05-16] MEDS: APIXABAN 5 MG TABLET PO SCH (21:28)
[2022-05-16] MEDS: ATORVASTATIN 40 MG TAB PO SCH (21:28)
[2022-05-16] MEDS: TAMSULOSIN HCL 0.4 MG CAP PO SCH (21:28)
[2022-05-16] MEDS ORDERED: Nursing to Pharmacy Communication SCH (21:30)
[2022-05-16] MEDS: METOPROLOL TARTRATE 50 MG TAB PO SCH (21:32)
[2022-05-16] MEDS: LANTUS PER UNIT CHARGE SQ SCH (21:41)
[2022-05-16] MEDS: INSULIN ASPART PER UNIT SC SCH (21:41)
--- NOTE | 2022-05-16 23:24 | Electrocardiogram Report ---
Test Reason : Blood Pressure : / mmHG Vent. Rate : 099 BPM Atrial Rate : 099 BPM P-R Int : 154 ms QRS Dur : 084 ms QT Int : 352 ms P-R-T Axes : 036 011 056 degrees QTc Int : 451 ms Normal sinus rhythm Normal ECG When compared with ECG of 22-JUL-2021 12:14, Atrial runs are no longer present Confirmed by Kaden Centeno ([id number]) on 05/16/2022 11:24:34 PM Referred By: Confirmed By:Kaden Centeno
[2022-05-17] MEDS: ACETAMINOPHEN 325 MG TAB PO PRN ×2 (04:03→10:15)
[2022-05-17] MEDS: INSULIN ASPART PER UNIT SC SCH ×5 (06:03→21:23)
[2022-05-17 07:28] LABS: Hematocrit (blood only) 41.7 % (40.1-51.0); Hemoglobin 14.5 g/dl (14.0-18.0); Mean Corpuscular Hemoglobin 29.7 pg (25.0-34.0); Mean Corpuscular Hgb Conc 34.8 g/dL (32.0-36.0); Mean Corpuscular Volume 85.5 fL (80.0-100.0); Mean Platelet Volume 11.1 fL (9.4-12.4); Platelet Count 215 K/uL (130-400); RDW Coefficient of Variation 13.6 % (11.5-14.5); RDW Standard Deviation 42.2 fL (36.4-46.3); Red Blood Count 4.88 M/uL (4.63-6.08); White Blood Count 8.03 K/ul (4.8-10.8)
[2022-05-17 08:00] LABS: Calcium 8.6 mg/dl (8.5-10.1); Potassium 3.8 mmol/L (3.5-5.1)
[2022-05-17 08:06] LABS: BUN Creatinine Ratio 11.4 (10-20); Creatinine Clr Calc Pharmacy 52.8 ml/min; Est GFR (African American) 60.7 ml/min; Est GFR (Non-African American) 52.4 ml/min
[2022-05-17] MEDS: LACTATED RINGER'S 1,000 ML IV SCH (08:48)
[2022-05-17] MEDS: METOPROLOL TARTRATE 50 MG TAB PO SCH ×2 (08:48→21:25)
[2022-05-17] MEDS: dilTIAZem HCL 240 MG CAPCR PO SCH (08:48)
[2022-05-17] MEDS: MAGNESIUM OXIDE 400 MG TAB PO SCH ×2 (08:49→21:20)
[2022-05-17] MEDS: FINASTERIDE 5 MG TAB PO SCH (08:49)
[2022-05-17] MEDS: APIXABAN 5 MG TABLET PO SCH ×2 (08:49→21:20)
[2022-05-17] MEDS: ASPIRIN 81 MG ECTAB PO SCH (08:49)
[2022-05-17] MEDS: DULoxetine HCL 60 MG CAP PO SCH (08:50)
[2022-05-17] MEDS: PANTOprazole 40 MG TAB PO SCH (08:50)
[2022-05-17] MEDS: ISOSORBIDE MONO EXTENDED REL 60 MG TABCR PO SCH (08:52)
[2022-05-17] MEDS ORDERED: Nursing to Pharmacy Communication SCH (11:45)
--- NOTE | 2022-05-17 14:55 | Hospitalist Progress Note ---
Date of Service May 17, 2022 Assessment & Plan (1) Failure to thrive: Plan: -Admitted on account of unsafe home, following the of his caregiver son -It appears that the patient has significant cognitive and functional limitations at baseline which has been going on since his discharge for Coivd last year. Was initially in rehab but then discharged to his Son's care, unfortunately the patient's son recently passed, his Daughter lives in [place], and family cannot afford more than 2 hours of daily care. - The patient has apparently threatened to kill himself in the past if they would try to place him again. -The patient is not safe to be discharged home at this time due to his limited functional and cognitive state -Consulting case management as well as this could be a complex discharge with the social situation; -patient's daughter does not have a power of patient care representative at this time -Patient has capacity to make his own decisions (2) AMS (altered mental status): Plan: -Patient appears to be at baseline mentation -Per discussions with the Patient's daughter it appears that the patient is at or close to his cognitive baseline -Patient's mental status fluctuates and his daughter states that he does not know his own name or location at times -CT of the head today was negative for acute findings, last MRI in March of 2021 was negative as well, there were concerns for possible anoxic brain injury during his last covid admission in 2020. (3) Atrial fibrillation: Plan: -Will continue Eliquis as he has no signs of bleeding and CT head was negative for hemorrhage -Continue metoprolol and Diltiazem (4) Hypertension: Plan: -Will hold lisinopril for now as patient is also on metoprolol and diltiazem, can restart when he is more stable and eating consistently (5) Diabetes mellitus with insulin therapy: Plan: -Home regimen listed as Lantus 42 units HS, novolog 5 units with lunch and 10 with dinner, and trulicity weekly -For now will start with Glargine 10 units HS, correction factor of 60, and carb ration of 20 since he is not currently eating, increase regimen as needed (6) Gastroesophageal reflux disease: Plan: -Continue pantoprazole (7) Dyslipidemia: Plan: -continue lipitor (8) CAD in [place] artery: Plan: -Continue aspirin (9) Hypomagnesemia: Plan: -Noted to be 1.6 today -Had 1gm IV in the ED -Will continue home mag oxide -Monitor am mag level (10) Right nephrolithiasis: Plan: -Noted to have a 5 mm non-obstructing stone in the distal right ureter -UA is unremarkable for infection -Will start flomax and monitor for pain or poor urinary output Plan The patient was discussed with Dr. Bowen at the time of admission Admission and Anticipated Discharge Date Admission Date: May 16, 2022 Subjective patient seen and examined, hard of hearing, denies any new complaints, says he is hungry Review of Systems Review of Systems: All systems reviewed are negative, apart from the ones contained in the history. Physical Exam Physical Exam: The patient is awake, alert and oriented 3, well developed and well nourished, normocephalic and atraumatic, lying in bed and in no acute distress. HEENT--PERRL, EOMI, mucous membranes and oropharynx mildly dry Neck--supple. No JVD. No bruits. Thyroid normal, trachea midline, no adenopathy . Heart--normal S1 and S2. No murmurs, rubs or gallops. Lungs--clear bilaterally, no respiratory distress, no accessory muscle use. Abdomen--normal bowel sounds and soft. Mild epigastric and left sided abdominal pain Extremities--no cyanosis or clubbing. No edema. Dermatologic--normal skin turgor, normal color, no abnormal lymph nodes, no rash. Neurologic--cranial nerves II through XII grossly intact. Rheumatologic--normal range of motion. Psychiatric--normal affect. Results & Data Results & Data ([facility]) Vital Signs (Past 12 Hours) Vital Signs Temp Pulse Resp BP Pulse Ox O2 Del Method 05/17/22 11:00 Room Air 05/17/22 07:30 97.9 F 78 16 95/62 L 92 Room Air PG Care Time/CCT Total # of Minutes Spent Total Time Spent with Patient: Total time spent is greater than 50% in coordination of care (as documented) at patient's floor/unit and/or counseling patient: Coding Level of Care Code 52801 Subseq Hosp Care Lvl 2 Diagnoses Failure to thrive AMS (altered mental status) R41.82 Atrial fibrillation I48.91 Hypertension I10 Diabetes mellitus with insulin therapy E11.9; Z79.4 Gastroesophageal reflux disease K21.9 Dyslipidemia E78.5 CAD in [place] artery I25.10 Hypomagnesemia E83.42 Right nephrolithiasis N20.0 Time Spent (min) 35
[2022-05-17] MEDS: TAMSULOSIN HCL 0.4 MG CAP PO SCH (21:20)
[2022-05-17] MEDS: ATORVASTATIN 40 MG TAB PO SCH (21:20)
[2022-05-17] MEDS: LANTUS PER UNIT CHARGE SQ SCH (21:23)
[2022-05-18 06:48] LABS: Hematocrit (blood only) 42.4 % (40.1-51.0); Hemoglobin 14.6 g/dl (14.0-18.0); Mean Corpuscular Hemoglobin 29.4 pg (25.0-34.0); Mean Corpuscular Hgb Conc 34.4 g/dL (32.0-36.0); Mean Corpuscular Volume 85.3 fL (80.0-100.0); Mean Platelet Volume 10.6 fL (9.4-12.4); Platelet Count 211 K/uL (130-400); RDW Coefficient of Variation 13.5 % (11.5-14.5); RDW Standard Deviation 41.9 fL (36.4-46.3); Red Blood Count 4.97 M/uL (4.63-6.08); White Blood Count 7.08 K/ul (4.8-10.8)
[2022-05-18 07:46] LABS: BUN Creatinine Ratio 15.4 (10-20); Calcium 8.6 mg/dl (8.5-10.1); Creatinine Clr Calc Pharmacy 59.6 ml/min; Est GFR (African American) 70.3 ml/min; Est GFR (Non-African American) 60.6 ml/min; Potassium 3.8 mmol/L (3.5-5.1)
[2022-05-18] MEDS: METOPROLOL TARTRATE 50 MG TAB PO SCH ×2 (08:49→20:45)
[2022-05-18] MEDS: dilTIAZem HCL 240 MG CAPCR PO SCH (08:49)
[2022-05-18] MEDS: DULoxetine HCL 60 MG CAP PO SCH (08:49)
[2022-05-18] MEDS: APIXABAN 5 MG TABLET PO SCH ×2 (08:49→20:45)
[2022-05-18] MEDS: PANTOprazole 40 MG TAB PO SCH (08:49)
[2022-05-18] MEDS: FINASTERIDE 5 MG TAB PO SCH (08:49)
[2022-05-18] MEDS: MAGNESIUM OXIDE 400 MG TAB PO SCH ×2 (08:49→20:45)
[2022-05-18] MEDS: ISOSORBIDE MONO EXTENDED REL 60 MG TABCR PO SCH (08:49)
[2022-05-18] MEDS: ASPIRIN 81 MG ECTAB PO SCH (08:50)
[2022-05-18] MEDS: INSULIN ASPART PER UNIT SC SCH ×4 (08:57→20:52)
[2022-05-18] MEDS: ACETAMINOPHEN 325 MG TAB PO PRN (14:52)
--- NOTE | 2022-05-18 16:54 | Hospitalist Progress Note ---
Date of Service May 18, 2022 Assessment & Plan (1) Failure to thrive: Plan: -Admitted on account of unsafe home, following the of his caregiver son -It appears that the patient has significant cognitive and functional limitations at baseline which has been going on since his discharge for Coivd last year. Was initially in rehab but then discharged to his Son's care, unfortunately the patient's son recently passed, his Daughter lives in [place], and family cannot afford more than 2 hours of daily care. - The patient has apparently threatened to kill himself in the past if they would try to place him again. -The patient is not safe to be discharged home at this time due to his limited functional and cognitive state -Consulting case management as well as this could be a complex discharge with the social situation; -patient's daughter does not have a power of corporate attorney at this time -Patient has capacity to make his own decisions (2) AMS (altered mental status): Plan: -Patient appears to be at baseline mentation -Per discussions with the Patient's daughter it appears that the patient is at or close to his cognitive baseline -Patient's mental status fluctuates and his daughter states that he does not know his own name or location at times -CT of the head today was negative for acute findings, last MRI in March of 2021 was negative as well, there were concerns for possible anoxic brain injury during his last covid admission in 2020. (3) Atrial fibrillation: Plan: -Will continue Eliquis as he has no signs of bleeding and CT head was negative for hemorrhage -Continue metoprolol and Diltiazem (4) Hypertension: Plan: -Will hold lisinopril for now as patient is also on metoprolol and diltiazem, can restart when he is more stable and eating consistently (5) Diabetes mellitus with insulin therapy: Plan: -Home regimen listed as Lantus 42 units HS, novolog 5 units with lunch and 10 with dinner, and trulicity weekly -For now will start with Glargine 10 units HS, correction factor of 60, and carb ration of 20 since he is not currently eating, increase regimen as needed (6) Gastroesophageal reflux disease: Plan: -Continue pantoprazole (7) Dyslipidemia: Plan: -continue lipitor (8) CAD in [place] artery: Plan: -Continue aspirin (9) Hypomagnesemia: Plan: -replaced (10) Right nephrolithiasis: Plan: -Noted to have a 5 mm non-obstructing stone in the distal right ureter -UA is unremarkable for infection -Will start flomax and monitor for pain or poor urinary output Plan patient wants to go home, however, family feels he is not a safe discharge home Admission and Anticipated Discharge Date Admission Date: May 16, 2022 Subjective patient seen and examined, hard of hearing, denies any new complaints, sitting up in the chair Review of Systems Review of Systems: All systems reviewed are negative, apart from the ones contained in the history. Physical Exam Physical Exam: The patient is awake, alert and oriented 3, well developed and well nourished, normocephalic and atraumatic, lying in bed and in no acute distress. HEENT--PERRL, EOMI, mucous membranes and oropharynx mildly dry Neck--supple. No JVD. No bruits. Thyroid normal, trachea midline, no adenopathy. Heart--normal S1 and S2. No murmurs, rubs or gallops. Lungs--clear bilaterally, no respiratory distress, no accessory muscle use. Abdomen--normal bowel sounds and soft. Mild epigastric and left sided abdominal pain Extremities--no cyanosis or clubbing. No edema. Dermatologic--normal skin turgor, normal color, no abnormal lymph nodes, no rash. Neurologic--cranial nerves II through XII grossly intact. Rheumatologic--normal range of motion. Psychiatric--normal affect. Results & Data Results & Data ([facility]) Vital Signs (Past 12 Hours) Vital Signs Temp Pulse Resp BP Pulse Ox O2 Del Method 05/18/22 15:06 98.0 F 66 16 121/72 92 Room Air 05/18/22 08:00 Room Air 05/18/22 07:15 98.2 F 76 16 152/75 H 94 Room Air PG Care Time/CCT Total # of Minutes Spent Total Time Spent with Patient: Total time spent is greater than 50% in coordination of care (as documented) at patient's floor/unit and/or counseling patient: Coding Level of Care Code 42106 Subseq Hosp Care Lvl 2 Diagnoses Failure to thrive AMS (altered mental status) R41.82 Atrial fibrillation I48.91 Hypertension I10 Diabetes mellitus with insulin therapy E11.9; Z79.4 Gastroesophageal reflux disease K21.9 Dyslipidemia E78.5 CAD in [place] artery I25.10 Hypomagnesemia E83.42 Right nephrolithiasis N20.0 Time Spent (min) 35
[2022-05-18] MEDS: ATORVASTATIN 40 MG TAB PO SCH (20:45)
[2022-05-18] MEDS: TAMSULOSIN HCL 0.4 MG CAP PO SCH (20:46)
[2022-05-18] MEDS: LANTUS PER UNIT CHARGE SQ SCH (20:52)
[2022-05-19 07:11] LABS: Mean Corpuscular Hemoglobin 29.6 pg (25.0-34.0); Mean Corpuscular Volume 84.6 fL (80.0-100.0); Mean Platelet Volume 10.8 fL (9.4-12.4); Platelet Count 219 K/uL (130-400); RDW Coefficient of Variation 13.4 % (11.5-14.5); Red Blood Count 4.73 M/uL (4.63-6.08)
[2022-05-19] MEDS: PANTOprazole 40 MG TAB PO SCH (08:27)
[2022-05-19] MEDS: ISOSORBIDE MONO EXTENDED REL 60 MG TABCR PO SCH (08:27)
[2022-05-19] MEDS: ASPIRIN 81 MG ECTAB PO SCH (08:27)
[2022-05-19] MEDS: METOPROLOL TARTRATE 50 MG TAB PO SCH ×2 (08:27→20:35)
[2022-05-19] MEDS: MAGNESIUM OXIDE 400 MG TAB PO SCH ×2 (08:27→20:35)
[2022-05-19] MEDS: APIXABAN 5 MG TABLET PO SCH ×2 (08:27→20:35)
[2022-05-19] MEDS: FINASTERIDE 5 MG TAB PO SCH (08:28)
[2022-05-19] MEDS: dilTIAZem HCL 240 MG CAPCR PO SCH (08:28)
[2022-05-19] MEDS: DULoxetine HCL 60 MG CAP PO SCH (08:28)
[2022-05-19] MEDS: INSULIN ASPART PER UNIT SC SCH ×4 (08:56→21:33)
[2022-05-19 09:32] LABS: Calcium 8.6 mg/dl (8.5-10.1); Potassium 3.8 mmol/L (3.5-5.1)
[2022-05-19 09:44] LABS: BUN Creatinine Ratio 14.3 (10-20); Creatinine Clr Calc Pharmacy 55.3 ml/min; Est GFR (African American) 64.2 ml/min; Est GFR (Non-African American) 55.4 ml/min
--- NOTE | 2022-05-19 15:19 | Hospitalist Progress Note ---
Date of Service May 19, 2022 Assessment & Plan (1) Failure to thrive: Plan: -Admitted on account of unsafe home, following the of his caregiver son -It appears that the patient has significant cognitive and functional limitations at baseline which has been going on since his discharge for Coivd last year. -Was initially in rehab but then discharged to his Son's care, unfortunately the patient's son recently passed, his Daughter lives in [place], and family cannot afford more than 2 hours of daily care. - The patient has apparently threatened to kill himself in the past if they would try to place him again. -The patient is not safe to be discharged home at this time due to his limited functional and cognitive state, however, patient insists on being discharged home -Consulting case management as well as this could be a complex discharge with the social situation; -patient's daughter does not have a power of banking attorney at this time -Patient has capacity to make his own decisions, however, will consult Psych for full psych eval and to r/o any underlying psych illness (2) AMS (altered mental status): Plan: -Patient appears to be at baseline mentation -Per discussions with the Patient's daughter it appears that the patient is at or close to his cognitive baseline -Patient's mental status fluctuates and his daughter states that he does not know his own name or location at times -CT of the head today was negative for acute findings, last MRI in March of 2021 was negative as well, there were concerns for possible anoxic brain injury during his last covid admission in 2020. (3) Atrial fibrillation: Plan: -Will continue Eliquis as he has no signs of bleeding and CT head was negative for hemorrhage -Continue metoprolol and Diltiazem (4) Hypertension: Plan: -Will hold lisinopril for now as patient is also on metoprolol and diltiazem, can restart when he is more stable and eating consistently (5) Diabetes mellitus with insulin therapy: Plan: -Home regimen listed as Lantus 42 units HS, novolog 5 units with lunch and 10 with dinner, and trulicity weekly -For now will start with Glargine 10 units HS, correction factor of 60, and carb ration of 20 since he is not currently eating, increase regimen as needed (6) Gastroesophageal reflux disease: Plan: -Continue pantoprazole (7) Dyslipidemia: Plan: -continue lipitor (8) CAD in [place] artery: Plan: -Continue aspirin (9) Hypomagnesemia: Plan: -replaced (10) Right nephrolithiasis: Plan: -Noted to have a 5 mm non-obstructing stone in the distal right ureter -UA is unremarkable for infection -Will start flomax and monitor for pain or poor urinary output Plan patient wants to go home, however, family feels he is not a safe discharge home I spoke to the daughter again today, who said patient is unable to adequately take care of himself at home Admission and Anticipated Discharge Date Admission Date: May 16, 2022 Subjective patient seen and examined, hard of hearing, denies any new complaints, sitting up in the chair, insists he wants to be discharged home Review of Systems Review of Systems: All systems reviewed are negative, apart from the ones contained in the history. Physical Exam Physical Exam: The patient is awake, alert and oriented 3, well developed and well nourished, normocephalic and atraumatic, lying in bed and in no acute distress. HEENT--PERRL, EOMI, mucous membranes and oropharynx mildly dry Neck--supple. No JVD. No bruits. Thyroid normal, trachea midline, no adenopathy. Heart--normal S1 and S2. No murmurs, rubs or gallops. Lungs--clear bilaterally, no respiratory distress, no accessory muscle use. Abdomen--normal bowel sounds and soft. Mild epigastric and left sided abdominal pain Extremities--no cyanosis or clubbing. No edema. Dermatologic--normal skin turgor, normal color, no abnormal lymph nodes, no rash. Neurologic--cranial nerves II through XII grossly intact. Rheumatologic--normal range of motion. Psychiatric--normal affect. Results & Data Results & Data ([facility]) Vital Signs (Past 12 Hours) Vital Signs Temp Pulse Resp BP Pulse Ox O2 Del Method 05/19/22 07:54 97.9 F 70 16 121/66 93 Room Air PG Care Time/CCT Total # of Minutes Spent Total Time Spent with Patient: Total time spent is greater than 50% in coordination of care (as documented) at patient's floor/unit and/or counseling patient: Coding Level of Care Code 36953 Subseq Hosp Care Lvl 2 Diagnoses Failure to thrive AMS (altered mental status) R41.82 Atrial fibrillation I48.91 Hypertension I10 Diabetes mellitus with insulin therapy E11.9; Z79.4 Gastroesophageal reflux disease K21.9 Dyslipidemia E78.5 CAD in [place] artery I25.10 Hypomagnesemia E83.42 Right nephrolithiasis N20.0 Time Spent (min) 35
--- NOTE | 2022-05-19 17:14 | Psychiatric Consultation ---
Date of Consultation May 19, 2022 Impression / Recommendations Impression 77 yo male with hx of cognitive decline, now periods of increased confusion, intermittent paranoid ideation about people taking his things and reported auditory khan (which could be somewhat illusions given his hearing deficits). He denies a hx of combat related to [employer] service and therefore denies PTSD hx. I agree with the hospitalist service that there is no evidence of active psychosis, delirium, or rajeev interfering with his medical decision making and although he clearly has a neurocognitive disorder he still retains capacity around his living situation at this time. He is agreeable to in home services. He is not committable under [place] mental health law given primary dx of dementia. Given lack of aggressive outbursts or persistent khan I feel the risks of an atypical antipsychotic for his dementia symptoms outweigh the benefits (also he would decline). Agree with CM involving office of aging if does return home. Liaison to speak with daughter to determine if there are in weapons in the home that should be secured due to his hx AMS. I'd suggest his status with the [facility] also be determined as may qualify for additional CM. (1) Dementia: Plan see above. Psych History Identifying Data 77 yo male from [place], admit on 05/16/22 with FTT at home. Consult is by hospitalist service to rule out psychatric disorder. Chief Complaint "of course I don't trust people. They are trying to control me." History of Present Illness Patient with no formal psych history presents with functional and cognitive decline following COVID infection last year. Was living with son until 1 month ago. Daughter expressed concern about ability to care for self at home. It is clearly documented by hospitalist team that patient does have capacity. There is concern about safety given his wax/waning mental status and even hallucinations at times. He has threatened to kill himself in the past if they try to place him but there is no concern currently about SI. He is quite off topic in conversation, initially seemed to believe that caregivers or his daughter were taking things from his home. I asked some general questions about ADLs and he made up a story about hunting for bear and people coming over for bear stew then laughed. He admits to hearing voices occasionally, mainly "them commenting on something I'm doing." Allergies Allergy/AdvReac Type Severity Reaction Status Date / Time Corticosteroids AdvReac Intermediate hyperglycem Verified 05/16/22 15:45 (Glucocorticoids) ia Home Medications Medication Instructions Recorded Confirmed Type blood sugar diagnostic (FreeStyle #50 ea 05/08/20 05/16/22 History Lite Strips) triamcinolone acetonide 0.5 % 1 applic topical DAILY 03/17/21 05/16/22 History topical cream aspirin 81 mg tablet,delayed 81 mg PO QAM #30 tabs 04/30/22 05/16/22 Rx release pen needle,diabetic dual safty 30 #100 ea 04/30/22 05/16/22 Rx gauge x 3/16" (BD AutoShield Duo Pen Needle) apixaban 5 mg tablet 5 mg PO BID #60 tabs 05/05/22 05/16/22 Rx atorvastatin 80 mg tablet 80 mg PO HS #90 tabs 05/05/22 05/16/22 Rx diltiazem HCl 240 mg 240 mg PO QAM #90 caps 05/05/22 05/16/22 Rx capsule,extended release 24 hr dulaglutide 1.5 mg/0.5 mL 1.5 mg (0.5 mL) subcut .WEEKLY #2 05/05/22 05/16/22 Rx subcutaneous pen injector mL (Trulicity) duloxetine 60 mg capsule,delayed 60 mg PO DAILY #90 caps 05/05/22 05/16/22 Rx release finasteride 5 mg tablet 5 mg PO DAILY #90 tabs 05/05/22 05/16/22 Rx insulin aspart U-100 100 unit/mL 10 unit (0.1 mL) subcut .COMPLEX 05/05/22 05/16/22 Rx (3 mL) subcutaneous pen (Novolog 90 days #18 mL Flexpen U-100 Insulin aspart) insulin glargine 100 unit/mL (3 42 unit (0.42 mL) subcut QPM #15 mL 05/05/22 05/16/22 Rx mL) subcutaneous pen (Lantus Solostar U-100 Insulin) isosorbide mononitrate 120 mg 120 mg PO QAM #180 tabs 05/05/22 05/16/22 Rx tablet,extended release 24 hr lisinopril 40 mg tablet 40 mg PO QAM #90 tabs 05/05/22 05/16/22 Rx magnesium oxide 400 mg PO BID #60 tabs 05/05/22 05/16/22 Rx metoprolol tartrate 50 mg tablet 150 mg PO BID #540 tabs 05/05/22 05/16/22 Rx nitroglycerin 0.4 mg sublingual 0.4 mg sublingual UD PRN Chest 05/05/22 05/16/22 Rx tablet (Nitrostat) Pain #25 tabs pantoprazole 20 mg tablet,delayed 20 mg PO QAM #90 tabs 05/05/22 05/16/22 Rx release Personal History Beliefs That Will Affect Care: None Patient History Medical History Angina pectoris Anxiety Atrial fibrillation BPH (benign prostatic hyperplasia) CAD in [place] artery Cervical spinal stenosis Dementia Depression Dyslipidemia Dyspnea Gastroesophageal reflux disease Hypertension Need for shingles vaccine NSTEMI (non-ST elevated myocardial infarction) 2018--had cardiac cath w stent planced--on plavix--follows with Dr. Centeno On anticoagulant therapy plavix daily Osteoarthritis SNHL (sensorineural hearing loss) Surgical History History of bilateral cataract extraction History of cardiac cath x2--2017/2017 @ [facility] History of colonoscopy with polypectomy History of esophagogastroduodenoscopy (EGD) History of tooth extraction upper teeth History of wisdom tooth extraction Hx of tonsillectomy S/P drug eluting coronary stent placement x2 total---2016 with 1 stent placed/2018 with 1 stent placed Family History Father Coronary heart disease Myocardial infarction Brother Coronary heart disease Mother Coronary heart disease Other Family history non-contributory No family history of adverse response to anesthesia No family history of bleeding disorder Social History (Updated 05/19/22 @ 17:16 by Pura Muñoz MD) Smoking Status: Former smoker Tobacco Type: Cigarettes Age Quit Using Tobacco: 27; Second Hand Exposure: No; Do You Dip or Chew Tobacco: No; Tobacco Cessation Education Requested by Patient: No Preferred Language: Georgian Communication Ability: Effective Visual Impairment: Limited Hearing Ability: Hard of Hearing Nozzle Operator Required: No Beliefs That Will Affect Care: None marital status: / Current Living Situation: Alone current occupational status: retired current occupation: [employer] Other Information That Helps Us Care for You: No Feels Safe at Home: Yes Safety Concerns: Feels Safe At This Time Dental Care, Regularly: No Seatbelt Use: sometimes Sunscreen Use: No Assistive Devices: None Physical Exam Psychiatric: Orientation: alert, oriented to person and oriented to place Apperance: appropriately groomed Eye Contact: good eye contact Motor Behavior: no abnormal motor movements Speech: + loud speech (as [place]) Affect: euthymic affect Mood: + irritable mood Thought Process: + tangential thought process Thought Content: + paranoid Suicidal Thoughts: denies suicidal thoughts Homicidal Thoughts: denies homicidal thoughts Hallucinations: no auditory hallucinations and no visual hallucinations Cognition: attention grossly intact and language grossly intact Estimated Intelligence: consistent with education level Insight: + limited insight Judgement: + limited judgement Vital Signs (Past 24 Hours): Last Vital Signs Temp 36.6 C 05/19/22 15:25 Pulse 70 05/19/22 15:25 Resp 16 05/19/22 15:25 BP 121/68 05/19/22 15:25 Pulse Ox 93 05/19/22 15:25 O2 Del Method 05/19/22 15:25 Review of Systems All systems reviewed & are unremarkable except as noted in HPI & below Results & Data (PSY) Laboratory Results 05/19/22 05/19/22 05/19/22 Range/Units 16:59 11:45 08:04 WBC (4.8-10.8) K/ul RBC (4.63-6.08) M/uL Hgb (14.0-18.0) g/dl Hct (40.1-51.0) % MCV (80.0-100.0) fL MCH (25.0-34.0) pg MCHC (32.0-36.0) g/dL RDW Std Deviation (36.4-46.3) fL RDW Coeff of Melisa (11.5-14.5) % Plt Count (130-400) K/uL MPV (9.4-12.4) fL Sodium (136-145) mmol/L Potassium (3.5-5.1) mmol/L Chloride (98-107) mmol/L Carbon Dioxide (21-32) mmol/L Anion Gap (3-11) BUN (6-23) mg/dl Creatinine (0.6-1.4) mg/dl Est Cr Clr Drug Dosing ml/min Est GFR ( Amer) ml/min Est GFR (Non-Af Amer) ml/min BUN/Creatinine Ratio (10-20) Glucose (70-99(Fasting)) mg/dl POC Glucose 192 H 235 H 182 H (70-99) mg/dl Calcium (8.5-10.1) mg/dl 05/19/22 05/19/22 05/18/22 Range/Units 06:57 06:57 20:16 WBC 7.90 (4.8-10.8) K/ul RBC 4.73 (4.63-6.08) M/uL Hgb 14.0 (14.0-18.0) g/dl Hct 40.0 L (40.1-51.0) % MCV 84.6 (80.0-100.0) fL MCH 29.6 (25.0-34.0) pg MCHC 35.0 (32.0-36.0) g/dL RDW Std Deviation 42.0 (36.4-46.3) fL RDW Coeff of Melisa 13.4 (11.5-14.5) % Plt Count 219 (130-400) K/uL MPV 10.8 (9.4-12.4) fL Sodium 134 L (136-145) mmol/L Potassium 3.8 (3.5-5.1) mmol/L Chloride 102 (98-107) mmol/L Carbon Dioxide 26 (21-32) mmol/L Anion Gap 6 (3-11) BUN 18 (6-23) mg/dl Creatinine 1.26 (0.6-1.4) mg/dl Est Cr Clr Drug Dosing 55.3 ml/min Est GFR ( Amer) 64.2 ml/min Est GFR (Non-Af Amer) 55.4 ml/min BUN/Creatinine Ratio 14.3 (10-20) Glucose 184 H (70-99(Fasting)) mg/dl POC Glucose 152 H (70-99) mg/dl Calcium 8.6 (8.5-10.1) mg/dl Medications Administered Acetaminophen (Acetaminophen 325 Mg Tab) 650 mg PO Q4H PRN PRN Reason: pain (1,2,3)/fever Stop: 06/15/22 19:47 Last Admin: 05/18/22 14:52 Dose: 650 mg Documented By: Admin: 05/17/22 10:15 Dose: 650 mg Documented By: Admin: 05/17/22 04:03 Dose: 650 mg Documented By: Apixaban (Apixaban 5 Mg Tablet) 5 mg PO BID NANDO Stop: 06/15/22 20:59 Last Admin: 05/19/22 08:27 Dose: 5 mg Documented By: Admin: 05/18/22 20:45 Dose: 5 mg Documented By: Admin: 05/18/22 08:49 Dose: 5 mg Documented By: Admin: 05/17/22 21:20 Dose: 5 mg Documented By: Admin: 05/17/22 08:49 Dose: 5 mg Documented By: Admin: 05/16/22 21:28 Dose: 5 mg Documented By: Aspirin (Aspirin 81 Mg Ectab) 81 mg PO QAM NANDO Stop: 06/16/22 08:59 Last Admin: 05/19/22 08:27 Dose: 81 mg Documented By: Admin: 05/18/22 08:50 Dose: 81 mg Documented By: Admin: 05/17/22 08:49 Dose: 81 mg Documented By: GURPREET Atorvastatin Calcium (Atorvastatin 40 Mg Tab) 80 mg PO HS NANDO Stop: 06/15/22 20:59 Last Admin: 05/18/22 20:45 Dose: 80 mg Documented By: Admin: 05/17/22 21:20 Dose: 80 mg Documented By: Admin: 05/16/22 21:28 Dose: 80 mg Documented By: Diltiazem HCl (Diltiazem Hcl 240 Mg Capcr) 240 mg PO QAM NANDO Stop: 06/16/22 08:59 Last Admin: 05/19/22 08:28 Dose: 240 mg Documented By: Admin: 05/18/22 08:49 Dose: 240 mg Documented By: Admin: 05/17/22 08:48 Dose: Not Given Documented By: GURPREET Duloxetine HCl (Duloxetine Hcl 60 Mg Cap) 60 mg PO DAILY NANDO Stop: 06/16/22 08:59 Last Admin: 05/19/22 08:28 Dose: 60 mg Documented By: Admin: 05/18/22 08:49 Dose: 60 mg Documented By: Admin: 05/17/22 08:50 Dose: 60 mg Documented By: GURPREET Finasteride (Finasteride 5 Mg Tab) 5 mg PO DAILY NANDO Stop: 06/16/22 08:59 Last Admin: 05/19/22 08:28 Dose: 5 mg Documented By: Admin: 05/18/22 08:49 Dose: 5 mg Documented By: Admin: 05/17/22 08:49 Dose: 5 mg Documented By: GURPREET Insulin Aspart (Insulin Aspart Per Unit) 0 units SC ACHS NANDO Stop: 06/16/22 11:59 Last Admin: 05/19/22 13:11 Dose: 4 units Documented By: CHYNA Co-signed By: SWAPNA Admin: 05/19/22 08:56 Dose: 4 units Documented By: CHYNA Co-signed By: REAGAN Admin: 05/18/22 20:52 Dose: 1 units Documented By: RAPHAEL Co-signed By: EVE Admin: 05/18/22 17:45 Dose: 3 units Documented By: CADENCE Co-signed By: LEONEL Admin: 05/18/22 12:26 Dose: 4 units Documented By: CADENCE Co-signed By: REAGAN Admin: 05/18/22 08:57 Dose: 4 units Documented By: CADENCE Co-signed By: LEONEL Admin: 05/17/22 21:23 Dose: 1 units Documented By: RAPHAEL Co-signed By: GIL Admin: 05/17/22 17:48 Dose: 2 units Documented By: GURPREET Co-signed By: [id number] Admin: 05/17/22 12:48 Dose: 3 units Documented By: GURPREET Co-signed By: LUCIA Insulin Glargine (Lantus Per Unit Charge) 10 units SQ HS NANDO Stop: 06/15/22 20:59 Last Admin: 05/18/22 20:52 Dose: 10 units Documented By: EMILYG Co-signed By: EVE Admin: 05/17/22 21:23 Dose: 10 units Documented By: ESG Co-signed By: GLI Admin: 05/16/22 21:41 Dose: 10 units Documented By: Co-signed By: DMR Isosorbide Mononitrate (Isosorbide Hale Extended Rel 60 Mg Tabcr) 120 mg PO QAM NANDO Stop: 06/16/22 08:59 Last Admin: 05/19/22 08:27 Dose: 120 mg Documented By: Admin: 05/18/22 08:49 Dose: 120 mg Documented By: Admin: 05/17/22 08:52 Dose: Not Given Documented By: GURPREET Magnesium Oxide (Magnesium Oxide 400 Mg Tab) 400 mg PO BID NANDO Stop: 06/15/22 20:59 Last Admin: 05/19/22 08:27 Dose: 400 mg Documented By: Admin: 05/18/22 20:45 Dose: 400 mg Documented By: Admin: 05/18/22 08:49 Dose: 400 mg Documented By: Admin: 05/17/22 21:20 Dose: 400 mg Documented By: Admin: 05/17/22 08:49 Dose: 400 mg Documented By: Admin: 05/16/22 21:27 Dose: 400 mg Documented By: Metoprolol Tartrate (Metoprolol Tartrate 50 Mg Tab) 150 mg PO BID NANDO Stop: 06/15/22 20:59 Last Admin: 05/19/22 08:27 Dose: 150 mg Documented By: Admin: 05/18/22 20:45 Dose: 150 mg Documented By: Admin: 05/18/22 08:49 Dose: 150 mg Documented By: Admin: 05/17/22 21:25 Dose: 150 mg Documented By: Admin: 05/17/22 08:48 Dose: Not Given Documented By: Admin: 05/16/22 21:32 Dose: 150 mg Documented By: Pantoprazole Sodium (Pantoprazole 40 Mg Tab) 40 mg PO QAM NANDO Stop: 06/16/22 08:59 Last Admin: 05/19/22 08:27 Dose: 40 mg Documented By: Admin: 05/18/22 08:49 Dose: 40 mg Documented By: Admin: 05/17/22 08:50 Dose: 40 mg Documented By: GURPREET Tamsulosin HCl (Tamsulosin Hcl 0.4 Mg Cap) 0.4 mg PO HS NANDO Stop: 06/15/22 20:59 Last Admin: 05/18/22 20:46 Dose: 0.4 mg Documented By: Admin: 05/17/22 21:20 Dose: 0.4 mg Documented By: Admin: 05/16/22 21:28 Dose: 0.4 mg Documented By: Coding Level of Care Code 212[address] [facility] Intl Hosp Care Lvl 2 Diagnoses Dementia F03.90
[2022-05-19] MEDS: TAMSULOSIN HCL 0.4 MG CAP PO SCH (20:35)
[2022-05-19] MEDS: ATORVASTATIN 40 MG TAB PO SCH (20:35)
[2022-05-19] MEDS: LANTUS PER UNIT CHARGE SQ SCH (21:34)
[2022-05-20] MEDS: METOPROLOL TARTRATE 50 MG TAB PO SCH (08:14)
[2022-05-20] MEDS: ISOSORBIDE MONO EXTENDED REL 60 MG TABCR PO SCH (08:14)
[2022-05-20] MEDS: MAGNESIUM OXIDE 400 MG TAB PO SCH (08:14)
[2022-05-20] MEDS: FINASTERIDE 5 MG TAB PO SCH (08:14)
[2022-05-20] MEDS: dilTIAZem HCL 240 MG CAPCR PO SCH (08:14)
[2022-05-20] MEDS: ASPIRIN 81 MG ECTAB PO SCH (08:14)
[2022-05-20] MEDS: APIXABAN 5 MG TABLET PO SCH (08:14)
[2022-05-20] MEDS: DULoxetine HCL 60 MG CAP PO SCH (08:14)
[2022-05-20] MEDS: PANTOprazole 40 MG TAB PO SCH (08:14)
[2022-05-20] MEDS: INSULIN ASPART PER UNIT SC SCH ×2 (08:50→12:32)
[2022-05-20] MEDS: ACETAMINOPHEN 325 MG TAB PO PRN (12:02)
--- NOTE | 2022-05-20 13:36 | Discharge Summary ---
Date of Service May 20, 2022 Admission HPI Per Admitting Provider Darren Guajardo is a 77 pia old male with a complex PMH significant for Covid diagnosis leading to prolonged hospitalization for acute hypoxic respiratory failure including multiple intubations and possible anoxic brain injury at [facility] in July 2021, afib, CAD, Hyperlipidemia, GERD, DM II, HTN, BPH, vitamin D deficiency and chronic low back pain who presented to the [facility] ED on 05/16/22 with chief complaints of generalized weakness. Per the ED staff, the patient's caregiver came to see the patient today and found him confused, febrile, and had urinated himself. Per chart review, the patient has had a significant decline in health, mental status, and functional ability since his hospitalization for covid in 2020. he recently saw his PCP accompanied by his daughter on 05/05/22 for follow-up. Per the documentation, the patient was initially discharged to [facility] rehab after his hospitalization for covid. He was discharged home to the care of his Son on 04/11/22, unfortunately, he son recently passed a week prior to the PCP appointment. The patient's daughter told his PCP that the patient refuses to go back to a half-way care facility but is very concerned that he is unable to care for himself. His Daughter currently lives in [facility]. In the ED the patient was found to be afebrile, hemodynamically stable, and stable on room air. Labs were significant for a magnesium of 1.6. Infectious workup including CBC, UA, chest xray, Covid/influenza/rsv testing, and procal were negative. Chest xray did show cardiomegaly with chronic interstitial coarsing and mild subsegmental bibasilar opacities favoring atelectasis. CT of the abdomen and pelvis revealed a 5 mm, non-obstructing stone in the distal right ureter, moderate fecal retention, and Subpleural reticulation with patchy bibasilar groundglass densities may represent a combination of scarring with atelectasis. In the ED the patient was initially given Cefepime and a 1L NSS bolus due to concerns for sepsis based on history. He was also given 1gm of magnesium and zofran. At the time of the exam the patient was sleeping in bed. I was able to wake him by calling his name, he woke for me but appeared fatigued and confused. The patient is a poor historian at the present time. He knows who he is but does not know where he is, the month, year, or president. When I asked who was helping to care for him he initially said his , I had to remind him that his last year. His only complaint at the current time is low back pain, when I asked if this is the low back pain he always has he said yes. I called and spoke to his Daughter (Karli [phone]) to obtain additional history. She states that since his hospitalization for Covid the patient's baseline mental status has been very poor. At times he will know who he is and where he is that is about it. She came back into town for approximately 1 week after her brother passed to try and find caregivers for her father, she was only able to find one on [employer] and could only afford to have him stay with her father for 2 hours a day. She states that her father does not have access to alcohol or drugs but does have access to his medications. She has a ring camera in his home to try and help keep and eye on him and she states that he was up most of the night last night. I spoke to her regarding the need to find a safe discharge plan for the patient and she is in agreement. She cannot afford more care and thinks he needs to go back in a long-term care facility but the patient had been threatening to take his life if they tried to place him again. I spoke to her regarding the patient's code status and she states that the patient is a DNR/DNI and has expressed those wishes multiple times since his last admission for covid. 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 Principal Diagnosis Weakness Discharge Exam The patient is awake, alert and oriented 3, well developed and well nourished, normocephalic and atraumatic, lying in bed and in no acute distress. HEENT--PERRL, EOMI, mucous membranes and oropharynx mildly dry Neck--supple. No JVD. No bruits. Thyroid normal, trachea midline, no adenopathy. Heart--normal S1 and S2. No murmurs, rubs or gallops. Lungs--clear bilaterally, no respiratory distress, no accessory muscle use. Abdomen--normal bowel sounds and soft. Mild epigastric and left sided abdominal pain Extremities--no cyanosis or clubbing. No edema. Dermatologic--normal skin turgor, normal color, no abnormal lymph nodes, no rash. Neurologic--cranial nerves II through XII grossly intact. Rheumatologic--normal range of motion. Psychiatric--normal affect. Discharge Data Allergies Allergy/AdvReac Type Severity Reaction Status Date / Time Corticosteroids AdvReac Intermediate hyperglycem Verified 05/16/22 15:45 (Glucocorticoids) ia Consultations 05/16/22 17:27 ED Decision to Admit Stat 05/19/22 10:55 Consult Psychiatry Routine Ordered Studies 05/16/22 15:24 CT abd pelvis IV con only Stat CT head/brain wo con Stat Hospital Course (1) Failure to thrive: -Admitted on account of being unable to take care of himself at home, following the of his caregiver son -It appears that the patient has significant cognitive and functional limitations at baseline which has been going on since his discharge for Co[facility] last year. -Was initially in rehab but then discharged to his Son's care, unfortunately the patient's son recently passed, his Daughter lives in [place] - The patient has apparently threatened to kill himself in the past if they w ould try to place him again. -The patient is not safe to be discharged home at this time due to his limited functional and cognitive state, however, patient insists on being discharged home, and threatend suicide if he gets sent to rehab -patient's daughter does not have a power of staff attorney at this time -Patient has capacity to make his own decisions, this was corroborated by psych after evaluation -Patient has Home health that comes for 2 hours everyday, he will resume with that agency Case management will also contact department of aging to follow up with him at home -I spoke with his brother irina and told him about the plans, he will come pick him up at discharge (2) AMS (altered mental status): -Patient appears to be at baseline mentation -Per discussions with the Patient's daughter it appears that the patient is at or close to his cognitive baseline -Patient's mental status fluctuates and his daughter states that he does not know his own name or location at times -CT of the head today was negative for acute findings, last MRI in March of 2021 was negative as well, there were concerns for possible anoxic brain injury during his last covid admission in 2020. (3) Atrial fibrillation: -Will continue Eliquis as he has no signs of bleeding and CT head was negative for hemorrhage -Continue metoprolol and Diltiazem (4) Hypertension: -Will hold lisinopril for now as patient is also on metoprolol and diltiazem, can restart when he is more stable and eating consistently (5) Diabetes mellitus with insulin therapy: -Home regimen listed as Lantus 42 units HS, novolog 5 units with lunch and 10 with dinner, and trulicity weekly -For now will start with Glargine 10 units HS, correction factor of 60, and carb ration of 20 since he is not currently eating, increase regimen as needed (6) Gastroesophageal reflux disease: -Continue pantoprazole (7) Dyslipidemia: -continue lipitor (8) CAD in [place] artery: -Continue aspirin (9) Hypomagnesemia: -replaced (10) Right nephrolithiasis: -Noted to have a 5 mm non-obstructing stone in the distal right ureter -UA is unremarkable for infection -Will start flomax and monitor for pain or poor urinary output Plan patient wants to go home, however, family feels he is not a safe discharge home I spoke to the daughter again today, who said patient is unable to adequately take care of himself at home Total Time Total Time Spent Total Time Spent (In Minutes): 35 Discharge Plan Discharge Items Patient Disposition: Home - Self-Care Reason For Visit: WEAKNESS Discharge Diagnosis: Weakness Activity: Resume your previous activity Non-emergency contact: Primary Care Provider Call non-emergency contact if: you have any medication questions Follow-up/Referrals: Madan Shannon MD [Primary Care Provider] - Diet: Regular Addtl Attending Provider Instructions: please make appointment to follow up with your PCP Pending Studies at Discharge: No Stand-Alone Forms: My [employer], Smoking Cessation Medications and DC Order Prescriptions: Continued (DME) BD AutoShield Duo Pen Needle 30 gauge x 3/16" needle See Rx Instructions .Route Qty: 100 2RF Rx Instructions: As directed aspirin 81 mg tablet,delayed release (DR/EC) 81 mg PO QAM Qty: 30 5RF (DME) blood sugar diagnostic [FreeStyle Lite Strips] Strip See Rx Instructions .ROUTE .MEDSUPPLY Qty: 50 Rx Instructions: test 2 times daily triamcinolone acetonide 0.5 % cream 1 applic topical DAILY Rx Instructions: adding refills isosorbide mononitrate 120 mg tablet extended release 24 hr 120 mg PO QAM Qty: 180 3RF insulin glargine [Lantus Solostar U-100 Insulin] 100 unit/mL (3 mL) insulin pen 42 unit subcut QPM Qty: 15 5RF lisinopril 40 mg tablet 40 mg PO QAM Qty: 90 3RF magnesium oxide 400 mg magnesium tablet 400 mg PO BID Qty: 60 5RF metoprolol tartrate 50 mg tablet 150 mg PO BID Qty: 540 3RF diltiazem HCl 240 mg capsule,extended release 24hr 240 mg PO QAM Qty: 90 3RF duloxetine 60 mg capsule,delayed release(DR/EC) 60 mg PO DAILY Qty: 90 3RF finasteride 5 mg tablet 5 mg PO DAILY Qty: 90 3RF apixaban 5 mg tablet 5 mg PO BID Qty: 60 11RF atorvastatin 80 mg tablet 80 mg PO HS Qty: 90 3RF pantoprazole 20 mg tablet,delayed release (DR/EC) 20 mg PO QAM Qty: 90 3RF Trulicity 1.5 mg/0.5 mL pen injector 1.5 mg subcut .WEEKLY Qty: 2 3RF insulin aspart U-100 [Novolog Flexpen U-100 Insulin] 100 unit/mL (3 mL) insulin pen 10 unit subcut .COMPLEX 90 Days Qty: 18 3RF Rx Instructions: 5 units subcutaneously at lunch, 10 units subcutaneously at dinner nitroglycerin [Nitrostat] 0.4 mg tablet, sublingual 0.4 mg Sublingual UD PRN (Reason: Chest Pain) Qty: 25 5RF Rx Instructions: One tab sublingual Q 5 minutes x3 as needed for chest Discharge Orders: Discharge Order (Routine); Ordered 05/20/22 Ordered By: Justina Chavez Admission Data Admit Date/Time: 05/16/22 17:50 Attending Provider: Justina Chavez Admit Provider: Micky Bowen Primary Care Provider: Madan Shannon Other Providers: Micky Bowen ; Corrie Martínez ; Pura Muñoz ; Nisa Ortiz Coding Level of Care Code D/C DAY MANAGEMENT >30 MINS Diagnoses Failure to thrive AMS (altered mental status) R41.82 Atrial fibrillation I48.91 Hypertension I10 Diabetes mellitus with insulin therapy E11.9; Z79.4 Gastroesophageal reflux disease K21.9 Dyslipidemia E78.5 CAD in [place] artery I25.10 Hypomagnesemia E83.42 Right nephrolithiasis N20.0 Time Spent (min) 35
[2022-05-20 19:30] LABS: Babesia microti DNA Not Detected (Not Detected)
== END 2022-05-20 15:17 | disposition home health service (06) | DRG 641 ==
LOC: ED 14:06 → SUATTDRO 17:50 → 3W 17:50

== ENCOUNTER 2022-09-03 11:49 | Inpatient (IN) ==
[2022-09-03] MEDS ORDERED: METOPROLOL TARTRATE 50 MG TAB PO STA (12:05)
[2022-09-03] MEDS ORDERED: dilTIAZem HCL 240 MG CAPCR PO STA (12:05)
[2022-09-03] MEDS ORDERED: lisinopril 40 MG TAB PO STA (12:05)
[2022-09-03] MEDS ORDERED: APIXABAN 5 MG TABLET PO STA (12:05)
--- NOTE | 2022-09-03 12:12 | Emergency Department Note ---
Impression & Plan Dementia, Lives alone, Leukocytosis, Hyperglycemia, Self-care deficit ED Provider Note NAME: FIDEL RIVERA Sr AGE: 77 SEX: M : 1945 ARRIVES VIA: Ambulance INFORMANT: [Patient][nursing, EMS] ED PROVIDER(S): [Alden Mckeon MD] CHIEF COMPLAINT: Illness HISTORY OF PRESENT ILLNESS: The patient is a 77-year-old male with dementia. There are concerns for his safety at home. Today, his home health care staff quit suddenly and the patient had no one to look after him. The office of aging called EMS and the patient was sent to the ER for evaluation. As per the nursing staff, EMS believes the patient is awaiting a bed at [facility] although, the bed is not yet available. As there was nowhere for him to go, as he was not safe at home, he was sent to the ED. Patient currently has no complaints. He denies chest pain or abdominal pain. He does admit that he did not take his morning medications. PMHx/PSHx: See Below SOCIAL HISTORY: See Below. PHYSICAL EXAM: GENERAL: Patient is in no acute distress. HEENT: No acute trauma, normocephalic atraumatic, mucous membranes moist, no nasal congestion. NECK: No stridor, no adenopathy, no meningismus, trachea is midline. LUNGS: Clear to auscultation bilaterally, no wheeze, no rhonchi, breath sounds equal. HEART: Without murmurs gallops or rubs, regular rate and rhythm. ABDOMEN: Soft, nontender, bowel sounds positive, no peritonitis. EXTREMITIES: No cyanosis or edema, full range of motion of all the joints without pain or difficulty, no signs for acute trauma. NEUROLOGIC: Awake and alert, interactive, no focal motor deficits, no extremity weakness. No speech slur. SKIN: No rash, no jaundice, no diaphoresis. DIFFERENTIAL DIAGNOSIS: Dementia, weakness, electrolyte imbalance, anemia, dysrhythmia, dehydration, infection, among others. EMERGENCY DEPARTMENT COURSE/PROCEDURES: Prior/Outside records reviewed: Previous discharge summary reviewed. EMS sheet reviewed. ECG per my interpretation: Indication was illness. The ECG shows a normal sinus rhythm with a rate of 82. There is no ST elevation, no PVCs P the QTc is 453. Continuous Cardiac Monitoring per my interpretation: An order was placed for continuous cardiac monitoring. The monitor shows a rate of 85 with normal sinus rhythm. MEDICAL DECISION MAKING: There is a slight leukocytosis, this could be consistent with infection or just the stress of his current presentation. There is no anemia. There is a normal platelet count. No renal failure. Glucose was elevated at 285. No concerning liver enzyme elevation. The patient appeared to be in a euthyroid state. COVID test returned negative. The patient had no complaints. He was here because he was not able to care for himself. He lives alone. He has no local family members. His daughter is now his power of finance attorney/guardian and has been working on long term placement. He is waiting for a bed at [facility]. He currently is unable to care for himself and was not felt safe to be at home. The office of aging has been involved. Patient had not taken his morning medications. These were ordered. He was given oral Eliquis, oral diltiazem, oral duloxetine, oral isosorbide, oral lisinopril and oral metoprolol. The patient is aware of his current situation. Case management has been involved. I did speak with the patient about our concerns, the on-call hospitalist was consulted. In short, as the patient is not safe for discharge home, he will require hospitalization until a long term bed becomes available. DISPOSITION: Patient's presentation did warrant a hospital stay. Past Med/Surg History Medical History Angina pectoris Anxiety Atrial fibrillation BPH (benign prostatic hyperplasia) CAD in [place] artery Cervical spinal stenosis Dementia Depression Dyslipidemia Dyspnea Gastroesophageal reflux disease Hypertension Need for shingles vaccine NSTEMI (non-ST elevated myocardial infarction) 2017--had cardiac cath w stent planced--on plavix--follows with Dr. Centeno On anticoagulant therapy plavix daily Osteoarthritis SNHL (sensorineural hearing loss) Surgical History History of bilateral cataract extraction History of cardiac cath x2-- @ [facility] History of colonoscopy with polypectomy History of esophagogastroduodenoscopy (EGD) History of tooth extraction upper teeth History of wisdom tooth extraction Hx of tonsillectomy S/P drug eluting coronary stent placement x2 total---2016 with 1 stent placed/2018 with 1 stent placed Family History Father Coronary heart disease Myocardial infarction Brother Coronary heart disease Mother Coronary heart disease Other Family history non-contributory No family history of adverse response to anesthesia No family history of bleeding disorder Social History Smoking Status: Never smoker Tobacco Type: Cigarettes Age Quit Using Tobacco: 27; Second Hand Exposure: No; Preferred Language: Chinese Communication Ability: Effective Visual Impairment: Limited Hearing Ability: Hard of Hearing 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 Hand Required: No Beliefs That Will Affect Care: None marital status: / Current Living Situation: Alone current occupational status: retired current occupation: [employer] Feels Safe at Home: Yes Dental Care, Regularly: No Seatbelt Use: sometimes Sunscreen Use: No Assistive Devices: None Allergies Allergies Allergy/AdvReac Type Severity Reaction Status Date / Time Corticosteroids AdvReac Intermediate hyperglycem Verified 08/25/22 13:59 (Glucocorticoids) ia Home Meds Home Medications Medication Instructions Recorded Confirmed triamcinolone acetonide 0.5 % 1 applic topical DAILY 03/17/21 06/12/22 topical cream Previous Rx's Medication Instructions Recorded nitroglycerin 0.4 mg sublingual 0.4 mg sublingual UD PRN Chest 05/05/22 tablet (Nitrostat) Pain #25 tabs apixaban 5 mg tablet 5 mg PO BID #90 tabs 05/25/22 aspirin 81 mg tablet,delayed 81 mg PO QAM #30 tabs 05/25/22 release atorvastatin 80 mg tablet 80 mg PO HS #90 tabs 05/25/22 diltiazem HCl 240 mg 240 mg PO QAM #90 caps 05/25/22 capsule,extended release 24 hr duloxetine 60 mg capsule,delayed 60 mg PO DAILY #90 caps 05/25/22 release finasteride 5 mg tablet 5 mg PO DAILY #90 tabs 05/25/22 lisinopril 40 mg tablet 40 mg PO QAM #90 tabs 05/25/22 magnesium oxide 400 mg PO BID #60 tabs 05/25/22 metoprolol tartrate 50 mg tablet 150 mg PO BID #540 tabs 05/25/22 pantoprazole 20 mg tablet,delayed 20 mg PO QAM #90 tabs 05/25/22 release dulaglutide 1.5 mg/0.5 mL 1.5 mg (0.5 mL) subcut .WEEKLY #2 06/02/22 subcutaneous pen injector mL (Trulicity) insulin aspart U-100 100 unit/mL 10 unit (0.1 mL) subcut .COMPLEX 06/02/22 (3 mL) subcutaneous pen (Novolog 90 days #18 mL FlexPen U-100 Insulin aspart) insulin glargine 100 unit/mL (3 42 unit (0.42 mL) subcut QPM #15 mL 06/02/22 mL) subcutaneous pen (Lantus Solostar U-100 Insulin) isosorbide mononitrate 120 mg 120 mg PO QAM #180 tabs 06/04/22 tablet,extended release 24 hr blood sugar diagnostic (OneTouch #100 ea 06/09/22 Ultra Test strips) pen needle,diabetic dual safty 30 #100 ea 06/15/22 gauge x 3/16" (BD AutoShield Duo Pen Needle) duloxetine 20 mg capsule,delayed 20 mg PO DAILY #90 caps 09/02/22 release Results & Data (ED) Vital Signs Vital Signs - 24 hr 09/03/22 11:51 09/03/22 11:59 09/03/22 12:00 Temperature 36.8 C Temperature Source Oral Pulse Rate 80 78 Pulse Rate from SpO2 Sensor 78 Respiratory Rate 14 19 Blood Pressure 138/96 155/92 H Blood Pressure Mean 110 113 Pulse Oximetry 94 93 Oxygen Delivery Method Room Air Room Air Sepsis New/Unexplained Change in Mental Status No Sepsis Action Taken by Nursing No Action Required 09/03/22 12:00 09/03/22 12:30 09/03/22 13:00 Temperature Temperature Source Pulse Rate 77 80 Pulse Rate from SpO2 Sensor 77 80 Respiratory Rate 18 22 Blood Pressure 153/86 H Blood Pressure Mean 108 Pulse Oximetry 95 93 Oxygen Delivery Method Room Air Room Air Sepsis New/Unexplained Change in Mental Status Sepsis Action Taken by Nursing 09/03/22 13:00 Temperature Temperature Source Pulse Rate 68 Pulse Rate from SpO2 Sensor Respiratory Rate 15 Blood Pressure Blood Pressure Mean Pulse Oximetry Oxygen Delivery Method Sepsis New/Unexplained Change in Mental Status Sepsis Action Taken by Usp Medications Current Medication List: was personally reviewed by me Laboratory Data Attestation: I reviewed the patient's lab results. 09/03/22 12:20 09/03/22 12:20 Lab Results 09/03/22 09/03/22 09/03/22 Range/Units 12:20 12:20 12:20 WBC 11.72 H (4.8-10.8) K/ul RBC 5.03 (4.63-6.08) M/uL Hgb 15.6 (14.0-18.0) g/dl Hct 44.1 (40.1-51.0) % MCV 87.7 (80.0-100.0) fL MCH 31.0 (25.0-34.0) pg MCHC 35.4 (32.0-36.0) g/dL RDW Std Deviation 40.5 (36.4-46.3) fL RDW Coeff of Melisa 12.8 (11.5-14.5) % Plt Count 262 (130-400) K/uL MPV 10.9 (9.4-12.4) fL Immature Gran % (Auto) 0.7 % Neut % (Auto) 52.9 % Lymph % (Auto) 33.9 % Harrison % (Auto) 10.1 % Eos % (Auto) 1.8 % Baso % (Auto) 0.6 % Neut # (Auto) 6.21 (1.4-6.5) K/uL Lymph # (Auto) 3.97 H (1.2-3.4) K/uL Harrison # (Auto) 1.18 H (0.24-0.82) K/uL Eos # (Auto) 0.21 (0-0.50) K/uL Baso # (Auto) 0.07 (0-0.2) K/uL Immature Gran # (Auto) 0.08 H (0.00-0.02) K/uL Sodium 138 (136-145) mmol/L Potassium 4.1 (3.5-5.1) mmol/L Chloride 104 (98-107) mmol/L Carbon Dioxide 26 (21-32) mmol/L Anion Gap 8 (3-11) BUN 18 (6-23) mg/dl Creatinine 1.28 (0.6-1.4) mg/dl Est Cr Clr Drug Dosing 57.8 ml/min Est GFR ( Amer) 63.0 ml/min Est GFR (Non-Af Amer) 54.4 ml/min BUN/Creatinine Ratio 14.1 (10-20) Glucose 285 H (70-99(Fasting)) mg/dl Calcium 9.1 (8.5-10.1) mg/dl Magnesium 1.9 (1.7-2.4) mg/dl Total Bilirubin 0.6 (0.2-1.0) mg/dl AST 15 (13-39) U/L ALT 27 (7-52) U/L Alkaline Phosphatase 75 (34-104) U/L Total Protein 7.0 (6.0-8.3) gm/dl Albumin 4.1 (3.4-5.0) gm/dl Globulin 2.9 (2.5-4.0) gm/dl Albumin/Globulin Ratio 1.4 (0.9-2) TSH 1.591 (0.300-4.500) uIu/ml SARS-CoV-2, RNA, NAAT (NEGATIVE) 09/03/22 Range/Units 12:25 WBC (4.8-10.8) K/ul RBC (4.63-6.08) M/uL Hgb (14.0-18.0) g/dl Hct (40.1-51.0) % MCV (80.0-100.0) fL MCH (25.0-34.0) pg MCHC (32.0-36.0) g/dL RDW Std Deviation (36.4-46.3) fL RDW Coeff of Melisa (11.5-14.5) % Plt Count (130-400) K/uL MPV (9.4-12.4) fL Immature Gran % (Auto) % Neut % (Auto) % Lymph % (Auto) % Harrison % (Auto) % Eos % (Auto) % Baso % (Auto) % Neut # (Auto) (1.4-6.5) K/uL Lymph # (Auto) (1.2-3.4) K/uL Harrison # (Auto) (0.24-0.82) K/uL Eos # (Auto) (0-0.50) K/uL Baso # (Auto) (0-0.2) K/uL Immature Gran # (Auto) (0.00-0.02) K/uL Sodium (136-145) mmol/L Potassium (3.5-5.1) mmol/L Chloride (98-107) mmol/L Carbon Dioxide (21-32) mmol/L Anion Gap (3-11) BUN (6-23) mg/dl Creatinine (0.6-1.4) mg/dl Est Cr Clr Drug Dosing ml/min Est GFR ( Amer) ml/min Est GFR (Non-Af Amer) ml/min BUN/Creatinine Ratio (10-20) Glucose (70-99(Fasting)) mg/dl Calcium (8.5-10.1) mg/dl Magnesium (1.7-2.4) mg/dl Total Bilirubin (0.2-1.0) mg/dl AST (13-39) U/L ALT (7-52) U/L Alkaline Phosphatase (34-104) U/L Total Protein (6.0-8.3) gm/dl Albumin (3.4-5.0) gm/dl Globulin (2.5-4.0) gm/dl Albumin/Globulin Ratio (0.9-2) TSH (0.300-4.500) uIu/ml SARS-CoV-2, RNA, NAAT NEGATIVE (NEGATIVE) Administered Medications Discontinued Medications Apixaban (Apixaban 5 Mg Tablet) 5 mg PO NOW STA Stop: 09/03/22 12:06 Last Admin: 09/03/22 13:09 Dose: 5 mg Documented By: JENNY Diltiazem HCl (Diltiazem Hcl 240 Mg Capcr) 240 mg PO NOW STA Stop: 09/03/22 12:06 Last Admin: 09/03/22 13:08 Dose: 240 mg Documented By: JENNY Duloxetine HCl (Duloxetine Hcl 20 Mg Cap) 80 mg PO NOW STA Stop: 09/03/22 12:15 Last Admin: 09/03/22 13:09 Dose: 80 mg Documented By: JENNY Isosorbide Mononitrate (Isosorbide Harrison Extended Rel 60 Mg Tabcr) 120 mg PO NOW STA Stop: 09/03/22 12:14 Last Admin: 09/03/22 13:07 Dose: 120 mg Documented By: JENNY Lisinopril (Lisinopril 40 Mg Tab) 40 mg PO NOW STA Stop: 09/03/22 12:06 Last Admin: 09/03/22 13:08 Dose: 40 mg Documented By: JENNY Metoprolol Tartrate (Metoprolol Tartrate 50 Mg Tab) 50 mg PO NOW STA Stop: 09/03/22 12:06 Last Admin: 09/03/22 12:16 Dose: 50 mg Documented By: BRENNA Discharge Plan Visit Data Chief Complaint: Illness Stated Complaint: OFFICE OF AGING REFERRAL ED Provider: Alden Mckeon Discharge Problem: Dementia, Lives alone, Leukocytosis, Hyperglycemia, Self-care deficit Patient Disposition: Admitted As Inpatient Condition: Good Forms Stand Alone Forms: My [facility] [place] Prescriptions Prescriptions: No Action apixaban 5 mg tablet 5 mg PO BID Qty: 90 3RF aspirin 81 mg tablet,delayed release (DR/EC) 81 mg PO QAM Qty: 30 5RF atorvastatin 80 mg tablet 80 mg PO HS Qty: 90 3RF diltiazem HCl 240 mg capsule,extended release 24hr 240 mg PO QAM Qty: 90 3RF duloxetine 60 mg capsule,delayed release(DR/EC) 60 mg PO DAILY Qty: 90 3RF finasteride 5 mg tablet 5 mg PO DAILY Qty: 90 3RF lisinopril 40 mg tablet 40 mg PO QAM Qty: 90 3RF magnesium oxide 400 mg magnesium tablet 400 mg PO BID Qty: 60 5RF metoprolol tartrate 50 mg tablet 150 mg PO BID Qty: 540 3RF pantoprazole 20 mg tablet,delayed release (DR/EC) 20 mg PO QAM Qty: 90 3RF Trulicity 1.5 mg/0.5 mL pen injector 1.5 mg subcut .WEEKLY Qty: 2 3RF insulin aspart U-100 [Novolog FlexPen U-100 Insulin] 100 unit/mL (3 mL) in sulin pen 10 unit subcut .COMPLEX 90 Days Qty: 18 3RF Rx Instructions: 5 units subcutaneously at lunch, 10 units subcutaneously at dinner insulin glargine [Lantus Solostar U-100 Insulin] 100 unit/mL (3 mL) insulin pen 42 unit subcut QPM Qty: 15 5RF isosorbide mononitrate 120 mg tablet extended release 24 hr 120 mg PO QAM Qty: 180 3RF (DME) OneTouch Ultra Test Strip See Rx Instructions .Route Qty: 100 2RF Rx Instructions: As directed- test BID (DME) BD AutoShield Duo Pen Needle 30 gauge x 3/16" needle See Rx Instructions .Route Qty: 100 5RF Rx Instructions: Use three pen needles daily for injections of Novolog and Lantus duloxetine 20 mg capsule,delayed release(DR/EC) 20 mg PO DAILY MDD 80mg Qty: 90 3RF Rx Instructions: take with duloxetine 60mg to equal 80mg daily triamcinolone acetonide 0.5 % cream 1 applic topical DAILY Rx Instructions: adding refills nitroglycerin [Nitrostat] 0.4 mg tablet, sublingual 0.4 mg Sublingual UD PRN (Reason: Chest Pain) Qty: 25 5RF Rx Instructions: One tab sublingual Q 5 minutes x3 as needed for chest Referrals Referrals: Madan Shannon MD [Primary Care Provider] -
[2022-09-03] MEDS ORDERED: ISOSORBIDE MONO EXTENDED REL 60 MG TABCR PO STA (12:13)
[2022-09-03] MEDS ORDERED: DULoxetine HCL 20 MG CAP PO STA (12:14)
[2022-09-03 13:02] LABS: Basophils # (auto) 0.07 K/uL (0-0.2); Basophils % (auto) 0.6 %; Eosinophils # (auto) 0.21 K/uL (0-0.50); Eosinophils % (auto) 1.8 %; Hematocrit (blood only) 44.1 % (40.1-51.0); Hemoglobin 15.6 g/dl (14.0-18.0); Immature Granulocytes # (auto) 0.08 K/uL (0.00-0.02); Immature Granulocytes % (auto) 0.7 %; Lymphocytes # (auto) 3.97 K/uL (1.2-3.4); Lymphocytes % (auto) 33.9 %; Mean Corpuscular Hgb Conc 35.4 g/dL (32.0-36.0); Mean Corpuscular Volume 87.7 fL (80.0-100.0); Mean Platelet Volume 10.9 fL (9.4-12.4); Monocytes # (auto) 1.18 K/uL (0.24-0.82); Monocytes % (auto) 10.1 %; Neutrophils # (auto) 6.21 K/uL (1.4-6.5); Neutrophils % (auto) 52.9 %; Platelet Count 262 K/uL (130-400); RDW Coefficient of Variation 12.8 % (11.5-14.5); RDW Standard Deviation 40.5 fL (36.4-46.3); Red Blood Count 5.03 M/uL (4.63-6.08); White Blood Count 11.72 K/ul (4.8-10.8)
[2022-09-03 13:12] LABS: Albumin Globulin Ratio 1.4 (0.9-2); Albumin Level 4.1 gm/dl (3.4-5.0); BUN Creatinine Ratio 14.1 (10-20); Bilirubin,Total 0.6 mg/dl (0.2-1.0); Calcium 9.1 mg/dl (8.5-10.1); Creatinine Clr Calc Pharmacy 57.8 ml/min; Est GFR (Non-African American) 54.4 ml/min; Globulin 2.9 gm/dl (2.5-4.0); Magnesium 1.9 mg/dl (1.7-2.4); Potassium 4.1 mmol/L (3.5-5.1)
--- NOTE | 2022-09-03 13:35 | Electrocardiogram Report ---
Test Reason : Blood Pressure : / mmHG Vent. Rate : 082 BPM Atrial Rate : 082 BPM P-R Int : 174 ms QRS Dur : 092 ms QT Int : 388 ms P-R-T Axes : 046 021 056 degrees QTc Int : 453 ms Normal sinus rhythm Normal ECG When compared with ECG of 16-MAY-2022 14:12, No significant change was found Confirmed by Nik Holliday ([id number]) on 09/03/2022 1:35:06 PM Referred By: Confirmed By:Nik Holliday
--- NOTE | 2022-09-03 13:49 | History & Physical Report ---
Date of Service September 03, 2022 Assessment & Plan (1) Hospital admission due to lack of caregiver: Plan: -Admit to med/surge -Patient is currently afebrile, hemodynamically stable, and stable on RA -Patient noted to have significant cognitive decline after multiple intubations and likely anoxic brain injury due to covid pneumonia over a year ago -Home health quit this morning and he has no one to care for him at this time -Daughter is working to get him placed at [facility], CM is assisting, has to be admitted until placement is found -PT/OT consults placed (2) Hypertension: Plan: -Stable -Continue metoprolol, diltiazem, lisinopril, and Imdur (3) Gastroesophageal reflux disease: Plan: -Continue pantoprazole (4) Dyslipidemia: Plan: -Continue statin (5) CAD in [place] artery: Plan: -Continue aspirin and statin therapy (6) Depression: Plan: -Continue Duloxetine (7) BPH (benign prostatic hyperplasia): Plan: -Continue finasteride (8) Diabetes mellitus with insulin therapy: Plan: -Noted to be hyperglycemic in the ED at 285, will give 10 units of novolog now -Monitor BSG ACHS, goal is 110-140 -Will start with lantus at 5 units BID, correction factor of 45, and carb ratio of 15 -DMII diet (9) Atrial fibrillation: Plan: -Stable -Continue Metoprolol, diltiazem, and eliquis Plan The patient was discussed with Dr. Hernandez at the time of the admission History of Present Illness Chief Complaint: Lack of care at home Primary Care Provider: MD Darren Burks Sr. is a 77 pia old male with a complex PMH significant for Covid diagnosis leading to prolonged hospitalization for acute hypoxic respiratory failure including multiple intubations and possible anoxic brain injury at [facility] in July 2021, afib (on eliquis), CAD S/P drug eluting stent placement, Hyperlipidemia, GERD, DM II, HTN, BPH, vitamin D deficiency and chronic low back pain who presented to the [facility] ED on 09/03/22 due to his caregivers suddenly quitting this morning. Per chart review, the patient has had a complex past year due to his significant cognitive decline and inability to safely care for himself. His daughter is now officially his POA and making his medical decisions. Per the ED staff today, his home health caregiver quit this am, he currently has nobody to care for him at this time. The area of aging called EMS due to concerns for him being scottie alone. His daughter is working on placing him in [facility], however, there is no bed available at this due. Due to the complex social situation at this time we were asked to admit the patient until CM can find placement. In the ED the patient was found to be afebrile, hemodynamically stable and stable on RA. Labs were remarkable for a WBC of 11.72, stable Hgb and platelets, stable Cr at 1.28, with stable electrolytes, glucose of 285, LFTs and TSH WNL, and covid negative. At the time f the exam the patient was lying comfortably in bed in no acute distress. I tried to speak to him regarding why he was here and going to be admitted but he was frustrated and did not want to speak about it. He also states that he is mad at his daughter and does not want to speak with her. He has no complaints at the time of the exam. He was calm and cooperative with me during my exam. Please refer to Dr. Hernandez's attestation for any changes to the treatment plan Allergies Allergy/AdvReac Type Severity Reaction Status Date / Time Corticosteroids AdvReac Intermediate hyperglycem Verified 08/25/22 13:59 (Glucocorticoids) ia Home Medications Medication Instructions Recorded Confirmed Type triamcinolone acetonide 0.5 % 1 applic topical DAILY 03/17/21 09/03/22 History topical cream nitroglycerin 0.4 mg sublingual 0.4 mg sublingual UD PRN Chest 05/05/22 09/03/22 Rx tablet (Nitrostat) Pain #25 tabs apixaban 5 mg tablet 5 mg PO BID #90 tabs 05/25/22 09/03/22 Rx aspirin 81 mg tablet,delayed 81 mg PO QAM #30 tabs 05/25/22 09/03/22 Rx release atorvastatin 80 mg tablet 80 mg PO HS #90 tabs 05/25/22 09/03/22 Rx diltiazem HCl 240 mg 240 mg PO QAM #90 caps 05/25/22 09/03/22 Rx capsule,extended release 24 hr duloxetine 60 mg capsule,delayed 60 mg PO DAILY #90 caps 05/25/22 09/03/22 Rx release finasteride 5 mg tablet 5 mg PO DAILY #90 tabs 05/25/22 09/03/22 Rx lisinopril 40 mg tablet 40 mg PO QAM #90 tabs 05/25/22 09/03/22 Rx magnesium oxide 400 mg PO BID #60 tabs 05/25/22 09/03/22 Rx metoprolol tartrate 50 mg tablet 150 mg PO BID #540 tabs 05/25/22 09/03/22 Rx pantoprazole 20 mg tablet,delayed 20 mg PO QAM #90 tabs 05/25/22 09/03/22 Rx release dulaglutide 1.5 mg/0.5 mL 1.5 mg (0.5 mL) subcut .WEEKLY #2 06/02/22 09/03/22 Rx subcutaneous pen injector mL (Trulicity) insulin aspart U-100 100 unit/mL 10 unit (0.1 mL) subcut .COMPLEX 06/02/22 09/03/22 Rx (3 mL) subcutaneous pen (Novolog 90 days #18 mL FlexPen U-100 Insulin aspart) insulin glargine 100 unit/mL (3 42 unit (0.42 mL) subcut QPM #15 mL 06/02/22 09/03/22 Rx mL) subcutaneous pen (Lantus Solostar U-100 Insulin) isosorbide mononitrate 120 mg 120 mg PO QAM #180 tabs 06/04/22 09/03/22 Rx tablet,extended release 24 hr blood sugar diagnostic (OneTouch #100 ea 06/09/22 09/03/22 Rx Ultra Test strips) pen needle,diabetic dual safty 30 #100 ea 06/15/22 09/03/22 Rx gauge x 3/16" (BD AutoShield Duo Pen Needle) duloxetine 20 mg capsule,delayed 20 mg PO DAILY #90 caps 09/02/22 09/03/22 Rx release Past Med/Surg History Medical History Angina pectoris Anxiety Atrial fibrillation BPH (benign prostatic hyperplasia) CAD in [place] artery Cervical spinal stenosis Dementia Depression Dyslipidemia Dyspnea Gastroesophageal reflux disease Hypertension Need for shingles vaccine NSTEMI (non-ST elevated myocardial infarction) 2018--had cardiac cath w stent planced--on plavix--follows with Dr. Centeno On anticoagulant therapy plavix daily Osteoarthritis SNHL (sensorineural hearing loss) Surgical History History of bilateral cataract extraction History of cardiac cath x2--2016/2017 @ [facility] History of colonoscopy with polypectomy History of esophagogastroduodenoscopy (EGD) History of tooth extraction upper teeth History of wisdom tooth extraction Hx of tonsillectomy S/P drug eluting coronary stent placement x2 total---2016 with 1 stent placed/2018 with 1 stent placed Family History Father Coronary heart disease Myocardial infarction Brother Coronary heart disease Mother Coronary heart disease Other Family history non-contributory No family history of adverse response to anesthesia No family history of bleeding disorder Social History Smoking Status: Never smoker Tobacco Type: Cigarettes Age Quit Using Tobacco: 27; Second Hand Exposure: No; Do You Dip or Chew Tobacco: No; Hx Alcohol Use: Yes Alcohol type: hard liquor Hx Substance Use: No Preferred Language: Taiwanese Communication Ability: Impaired Communication Ability Comment: confused at times Visual Impairment: Limited Hearing Ability: Hard of Hearing [employer] 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 Required: No Beliefs That Will Affect Care: None marital status: / Current Living Situation: Alone current occupational status: retired current occupation: [employer] Other Information That Helps Us Care for You: No Feels Safe at Home: Yes Safety Concerns: Feels Safe At This Time Dental Care, Regularly: No Seatbelt Use: sometimes Sunscreen Use: No Assistive Devices: Cane Review of Systems Review of Systems: Denies current fever, chills, headache, changes in vision, hearing, taste, and smell, chest pain, SOB, cough, abdominal pain, nausea, vomiting, diarrhea, hematemesis, melena, dysuria, hematuria, and recent falls. All systems have been reviewed and are otherwise negative. Physical Exam Physical Exam: Physical Exam: General: In no acute distress, stated age, well-nourished, good hygiene HEENT: Normocephalic, atraumatic, no scleral icterus, pupils around round, symmetrical, and reactive to light, dry mucus membranes, trachea midline, no thyromegaly Chest/Pulm: No respiratory distress, symmetrical chest expansion, clear breath sounds throughout Cardiac: irregular rate and rhythm, no murmurs noted Abdomen: Negative for ascites and bruising, normoactive bowel sounds, soft, non-tender to palpation throughout Musculoskeletal: Symmetrical and without signs of acute trauma, upper and lower extremities with full ROM, no atrophy, spasticity, or flaccidity Extremities: Radial, dorsalis pedis, and posterior tibial pulses are intact and symmetrical, no edema noted in the BL LE's Skin: Warm, dry, no rashes , lesions, or scars noted Neuro: Alert and oriented to person, place, month, not oriented to year (thought it was 2009), no focal defects, CN II-XII tested and intact, finger to nose test negative, no tremors noted Psych: No acute distress, calm and cooperative during the exam Results & Data Results & Data ([facility]) Vital Signs (Past 12 Hours) Vital Signs Temp Pulse Resp BP Pulse Ox O2 Del Method 09/03/22 13:00 68 15 09/03/22 13:00 153/86 H 09/03/22 12:30 80 22 93 Room Air 09/03/22 12:00 77 18 95 Room Air 09/03/22 12:00 155/92 H 09/03/22 11:59 78 19 93 Room Air 09/03/22 11:51 36.8 C 80 14 138/96 94 Room Air Laboratory Results Abnormal lab results 09/03/22 09/03/22 Range/Units 12:20 12:20 WBC 11.72 H (4.8-10.8) K/ul Lymph # (Auto) 3.97 H (1.2-3.4) K/uL Davison # (Auto) 1.18 H (0.24-0.82) K/uL Immature Gran # (Auto) 0.08 H (0.00-0.02) K/uL Glucose 285 H (70-99(Fasting)) mg/dl ECG Additional Comments: Normal sinus rhythm Normal ECG When compared with ECG of 16-MAY-2022 14:12, No significant change was found Confirmed by Nik Holliday ([id number]) on 09/03/2022 1:35:06 PM Code Status & VTE Plan Code Status DNR/DNI VTE Prophylaxis Plan VTE Prophylaxis will be ordered: Yes Supervising Physician Co-Signing Physician Notes I personally saw and examined the patient. I verified all valencia points and agree with Hema Roman PA-C with the following exceptions and/or additions: 77 year old male who presents to ER after office of aging called EMS due to patient's complex care nurse unexpectedly quitting. Patient feels at his baseline and does not feel he needs a complex care nurse. O/E A&Ox3, HS1+2, no murmurs, Chest CTAB, Abdo SNT A/P Unable to safely return home at this time. PT/OT. Case management. No acute medical needs identified. PG Care Time/CCT Total # of Minutes Spent Total Time Spent with Patient: Total time spent is greater than 50% in coordination of care (as documented) at patient's floor/unit and/or counseling patient: Coding [place] [address] INT INP/OBS CARE 3/75MIN Patient Type Established Medical Decision Making High Complexity Diagnoses Hospital admission due to lack of caregiver Z74.2 Hypertension I10 Gastroesophageal reflux disease K21.9 Dyslipidemia E78.5 CAD in [place] artery I25.10 Depression F32.9 BPH (benign prostatic hyperplasia) N40.0 Diabetes mellitus with insulin therapy E11.9; Z79.4 Atrial fibrillation I48.91
[2022-09-03] MEDS ORDERED: INSULIN ASPART PER UNIT SQ ONE (14:08)
[2022-09-03 17:04] LABS: Appearance Urine Clear (Clear); Bilirubin Urine Negative (Negative); Blood Urine Negative (Negative); Color Urine Yellow; Glucose Urine UA 3+ (Negative); Ketones Urine Negative (Negative); Leukocyte Esterase Urine Negative (Negative); Nitrite Urine Negative (Negative); Protein Urine Negative (Negative); Specific Gravity Urine 1.025 (1.000-1.030); Urobilinogen Urine Negative (Negative)
[2022-09-03] MEDS ORDERED: CARBOHYDRATES FOR HYPOGLYCEMIA PO PRN (18:29)
[2022-09-03] MEDS ORDERED: GLUCOSE 40% GEL 15 GM TUBE PO PRN (18:29)
[2022-09-03] MEDS ORDERED: POLYETHYLENE (MIRALAX) 17 GM PACK PO PRN (18:29)
[2022-09-03] MEDS ORDERED: GLUCOSE 10 TAB/TUBE PO PRN (18:29)
[2022-09-03] MEDS ORDERED: DEXTROSE 50% 50 ML SYRINGE IV PRN (18:29)
[2022-09-03] MEDS ORDERED: GLUCAGON FOR INJ 1 MG VIAL SQ PRN (18:29)
[2022-09-03] MEDS: INSULIN ASPART PER UNIT SC SCH ×2 (19:56→22:19)
[2022-09-03] MEDS: METOPROLOL TARTRATE 50 MG TAB PO SCH (20:11)
[2022-09-03] MEDS: ATORVASTATIN 40 MG TAB PO SCH (20:11)
[2022-09-03] MEDS: MAGNESIUM OXIDE 400 MG TAB PO SCH (20:11)
[2022-09-03] MEDS: APIXABAN 5 MG TABLET PO SCH (20:11)
[2022-09-03] MEDS: LANTUS PER UNIT CHARGE SQ SCH (22:20)
[2022-09-04] MEDS ORDERED: PANTOprazole 40 MG TAB PO SCH (09:00)
[2022-09-04] MEDS: MAGNESIUM OXIDE 400 MG TAB PO SCH ×2 (09:08→21:24)
[2022-09-04] MEDS: METOPROLOL TARTRATE 50 MG TAB PO SCH ×2 (09:08→21:24)
[2022-09-04] MEDS: PANTOprazole 40 MG TAB PO SCH (09:09)
[2022-09-04] MEDS: dilTIAZem HCL 240 MG CAPCR PO SCH (09:09)
[2022-09-04] MEDS: lisinopril 40 MG TAB PO SCH (09:10)
[2022-09-04] MEDS: APIXABAN 5 MG TABLET PO SCH ×2 (09:10→21:24)
[2022-09-04] MEDS: ASPIRIN 81 MG ECTAB PO SCH (09:10)
[2022-09-04] MEDS: DULoxetine HCL 60 MG CAP PO SCH (09:11)
[2022-09-04] MEDS: DULoxetine HCL 20 MG CAP PO SCH (09:11)
[2022-09-04] MEDS: FINASTERIDE 5 MG TAB PO SCH (09:12)
[2022-09-04] MEDS: ISOSORBIDE MONO EXTENDED REL 60 MG TABCR PO SCH (09:12)
[2022-09-04] MEDS: INSULIN ASPART PER UNIT SC SCH ×4 (09:34→21:26)
[2022-09-04] MEDS: ACETAMINOPHEN 325 MG TAB PO PRN (09:35)
[2022-09-04] MEDS: LANTUS PER UNIT CHARGE SQ SCH ×2 (09:35→21:26)
--- NOTE | 2022-09-04 14:35 | Hospitalist Progress Note ---
Date of Service September 04, 2022 Assessment & Plan (1) Hospital admission due to lack of caregiver: Plan: -Admitted to the hospital on account of inability to take care of himself, said his caregiver quit -Patient is currently afebrile, hemodynamically stable, and stable on RA -Patient noted to have significant cognitive decline after multiple intubations and likely anoxic brain injury due to covid pneumonia over a year ago -Daughter is working to get him placed at [facility], CM is assisting (2) Hypertension: Plan: -BP 141/75 today -Continue metoprolol, diltiazem, lisinopril, and Imdur (3) Gastroesophageal reflux disease: Plan: -Continue pantoprazole (4) Dyslipidemia: Plan: -Continue statin (5) CAD in [place] artery: Plan: -Continue aspirin and statin therapy (6) Depression: Plan: -Continue Duloxetine (7) BPH (benign prostatic hyperplasia): Plan: -Continue finasteride (8) Diabetes mellitus with insulin therapy: Plan: -Monitor BSG ACHS, goal is 110-140 -Will start with lantus at 5 units BID, correction factor of 45, and carb ratio of 15 -DMII diet (9) Atrial fibrillation: Plan: -Stable -Continue Metoprolol, diltiazem, and eliquis Plan awaiting placement Admission and Anticipated Discharge Date Admission Date: September 03, 2022 Subjective patient seen and examined, no complaints, said his caregiver quit Review of Systems Review of Systems: All systems reviewed are negative, apart from the ones contained in the history. Physical Exam Physical Exam: The patient is awake, alert and oriented 3, well developed and well nourished, normocephalic and atraumatic, lying in bed and in no acute distress. HEENT--PERRL, EOMI, mucous membranes and oropharynx mildly dry Neck--supple. No JVD. No bruits. Thyroid normal, trachea midline, no adenopathy. Heart--normal S1 and S2. No murmurs, rubs or gallops. Lungs--clear bilaterally, no respiratory distress, no accessory muscle use. Abdomen--normal bowel sounds and soft. Mild epigastric and left sided abdominal pain Extremities--no cyanosis or clubbing. No edema. Dermatologic--normal skin turgor, normal color, no abnormal lymph nodes, no rash. Neurologic--cranial nerves II through XII grossly intact. Rheumatologic--normal range of motion. Psychiatric--normal affect. Results & Data Results & Data ([facility]) Vital Signs (Past 12 Hours) Vital Signs Temp Pulse Pulse Resp BP BP Pulse Ox 09/04/22 11:00 97.9 F 71 16 141/75 H 98 09/04/22 09:00 75 20 157/100 H 96 09/04/22 07:16 66 20 150/67 H 95 09/04/22 07:16 66 20 150/67 H 95 09/04/22 03:00 63 18 166/84 H 94 O2 Del Method 09/04/22 11:00 Room Air 09/04/22 09:00 Room Air 09/04/22 07:16 Room Air 09/04/22 07:16 Room Air 09/04/22 03:00 PG Care Time/CCT Total # of Minutes Spent Total Time Spent with Patient: Total time spent is greater than 50% in coordination of care (as documented) at patient's floor/unit and/or counseling patient: Coding Level of Care Code 70806 SUB INP/OBS CARE 2/35MIN Diagnoses Hospital admission due to lack of caregiver Z74.2 Hypertension I10 Gastroesophageal reflux disease K21.9 Dyslipidemia E78.5 CAD in [place] artery I25.10 Depression F32.9 BPH (benign prostatic hyperplasia) N40.0 Diabetes mellitus with insulin therapy E11.9; Z79.4 Atrial fibrillation I48.91 Time Spent (min) 35
[2022-09-04] MEDS: ATORVASTATIN 40 MG TAB PO SCH (21:26)
[2022-09-05] MEDS: INSULIN ASPART PER UNIT SC SCH ×4 (09:09→21:50)
[2022-09-05] MEDS: LANTUS PER UNIT CHARGE SQ SCH ×2 (09:10→21:50)
[2022-09-05] MEDS: ISOSORBIDE MONO EXTENDED REL 60 MG TABCR PO SCH (09:14)
[2022-09-05] MEDS: MAGNESIUM OXIDE 400 MG TAB PO SCH ×2 (09:15→21:49)
[2022-09-05] MEDS: dilTIAZem HCL 240 MG CAPCR PO SCH (09:15)
[2022-09-05] MEDS: lisinopril 40 MG TAB PO SCH (09:15)
[2022-09-05] MEDS: METOPROLOL TARTRATE 50 MG TAB PO SCH ×2 (09:15→21:49)
[2022-09-05] MEDS: FINASTERIDE 5 MG TAB PO SCH (09:15)
[2022-09-05] MEDS: DULoxetine HCL 60 MG CAP PO SCH (09:15)
[2022-09-05] MEDS: ASPIRIN 81 MG ECTAB PO SCH (09:15)
[2022-09-05] MEDS: PANTOprazole 40 MG TAB PO SCH (09:15)
[2022-09-05] MEDS: DULoxetine HCL 20 MG CAP PO SCH (09:15)
[2022-09-05] MEDS: APIXABAN 5 MG TABLET PO SCH ×2 (09:15→21:50)
--- NOTE | 2022-09-05 13:22 | Hospitalist Progress Note ---
Date of Service September 05, 2022 Assessment & Plan (1) Hospital admission due to lack of caregiver: Plan: -Admitted to the hospital on account of inability to take care of himself, said his caregiver quit -Patient is currently afebrile, hemodynamically stable, and stable on RA -Patient noted to have significant cognitive decline after multiple intubations and likely anoxic brain injury due to covid pneumonia over a year ago -Daughter is working to get him placed at [facility], CM is assisting (2) Hypertension: Plan: -BP 141/75 today -Continue metoprolol, diltiazem, lisinopril, and Imdur (3) Gastroesophageal reflux disease: Plan: -Continue pantoprazole (4) Dyslipidemia: Plan: -Continue statin (5) CAD in [place] artery: Plan: -Continue aspirin and statin therapy (6) Depression: Plan: -Continue Duloxetine (7) BPH (benign prostatic hyperplasia): Plan: -Continue finasteride (8) Diabetes mellitus with insulin therapy: Plan: -Monitor BSG ACHS, goal is 110-140 -Will start with lantus at 5 units BID, correction factor of 45, and carb ratio of 15 -DMII diet (9) Atrial fibrillation: Plan: -Stable -Continue Metoprolol, diltiazem, and eliquis Plan awaiting placement Admission and Anticipated Discharge Date Admission Date: September 03, 2022 Subjective patient seen and examined, no complaints, Review of Systems Review of Systems: All systems reviewed are negative, apart from the ones contained in the history. Physical Exam Physical Exam: The patient is awake, alert and oriented 3, well developed and well nourished, normocephalic and atraumatic, lying in bed and in no acute distress. HEENT--PERRL, EOMI, mucous membranes and oropharynx mildly dry Neck--supple. No JVD. No bruits. Thyroid normal, trachea midline, no adenopathy. Heart--normal S1 and S2. No murmurs, rubs or gallops. Lungs--clear bilaterally, no respiratory distress, no accessory muscle use. Abdomen--normal bowel sounds and soft. Mild epigastric and left sided abdominal pain Extremities--no cyanosis or clubbing. No edema. Dermatologic--normal skin turgor, normal color, no abnormal lymph nodes, no rash. Neurologic--cranial nerves II through XII grossly intact. Rheumatologic--normal range of motion. Psychiatric--normal affect. Results & Data Results & Data ([facility]) Vital Signs (Past 12 Hours) Vital Signs Temp Pulse Resp BP Pulse Ox O2 Del Method 09/05/22 07:46 98.4 F 60 18 141/75 H 94 Room Air PG Care Time/CCT Total # of Minutes Spent Total Time Spent with Patient: Total time spent is greater than 50% in coordination of care (as documented) at patient's floor/unit and/or counseling patient: Coding Level of Care Code 60974 SUB INP/OBS CARE 2/35MIN Diagnoses Hospital admission due to lack of caregiver Z74.2 Hypertension I10 Gastroesophageal reflux disease K21.9 Dyslipidemia E78.5 CAD in [place] artery I25.10 Depression F32.9 BPH (benign prostatic hyperplasia) N40.0 Diabetes mellitus with insulin therapy E11.9; Z79.4 Atrial fibrillation I48.91 Time Spent (min) 35
[2022-09-05] MEDS: ATORVASTATIN 40 MG TAB PO SCH (21:49)
[2022-09-06] MEDS: METOPROLOL TARTRATE 50 MG TAB PO SCH ×2 (08:44→22:44)
[2022-09-06] MEDS: ASPIRIN 81 MG ECTAB PO SCH (08:44)
[2022-09-06] MEDS: ISOSORBIDE MONO EXTENDED REL 60 MG TABCR PO SCH (08:44)
[2022-09-06] MEDS: APIXABAN 5 MG TABLET PO SCH ×2 (08:44→22:44)
[2022-09-06] MEDS: DULoxetine HCL 20 MG CAP PO SCH (08:44)
[2022-09-06] MEDS: lisinopril 40 MG TAB PO SCH (08:44)
[2022-09-06] MEDS: PANTOprazole 40 MG TAB PO SCH (08:44)
[2022-09-06] MEDS: dilTIAZem HCL 240 MG CAPCR PO SCH (08:44)
[2022-09-06] MEDS: DULoxetine HCL 60 MG CAP PO SCH (08:44)
[2022-09-06] MEDS: FINASTERIDE 5 MG TAB PO SCH (08:44)
[2022-09-06] MEDS: MAGNESIUM OXIDE 400 MG TAB PO SCH ×2 (08:44→22:45)
[2022-09-06] MEDS: LANTUS PER UNIT CHARGE SQ SCH ×2 (08:44→22:53)
[2022-09-06] MEDS: INSULIN ASPART PER UNIT SC SCH ×4 (08:45→22:53)
--- NOTE | 2022-09-06 12:51 | Hospitalist Progress Note ---
Date of Service September 06, 2022 Assessment & Plan (1) Hospital admission due to lack of caregiver: Plan: -Admitted to the hospital on account of inability to take care of himself, said his caregiver quit -Patient is currently afebrile, hemodynamically stable, and stable on RA -Patient noted to have significant cognitive decline after multiple intubations and likely anoxic brain injury due to covid pneumonia over a year ago -Daughter is working to get him placed at [facility], CM is assisting (2) Hypertension: Plan: -BP 184/82 today -Continue metoprolol, diltiazem, lisinopril, and Imdur (3) Gastroesophageal reflux disease: Plan: -Continue pantoprazole (4) Dyslipidemia: Plan: -Continue statin (5) CAD in [place] artery: Plan: -Continue aspirin and statin therapy (6) Depression: Plan: -Continue Duloxetine (7) BPH (benign prostatic hyperplasia): Plan: -Continue finasteride (8) Diabetes mellitus with insulin therapy: Plan: -Monitor BSG ACHS, goal is 110-140 -Will start with lantus at 5 units BID, correction factor of 45, and carb ratio of 15 -DMII diet (9) Atrial fibrillation: Plan: -Stable -Continue Metoprolol, diltiazem, and eliquis Plan awaiting placement Admission and Anticipated Discharge Date Admission Date: September 03, 2022 Subjective patient seen and examined, no complaints, mostly confused Review of Systems Review of Systems: All systems reviewed are negative, apart from the ones contained in the history. Physical Exam Physical Exam: The patient is awake, alert and oriented 3, well developed and well nourished, normocephalic and atraumatic, lying in bed and in no acute distress. HEENT--PERRL, EOMI, mucous membranes and oropharynx mildly dry Neck--supple. No JVD. No bruits. Thyroid normal, trachea midline, no ad enopathy. Heart--normal S1 and S2. No murmurs, rubs or gallops. Lungs--clear bilaterally, no respiratory distress, no accessory muscle use. Abdomen--normal bowel sounds and soft. Mild epigastric and left sided abdominal pain Extremities--no cyanosis or clubbing. No edema. Dermatologic--normal skin turgor, normal color, no abnormal lymph nodes, no rash. Neurologic--cranial nerves II through XII grossly intact. Rheumatologic--normal range of motion. Psychiatric--normal affect. Results & Data Results & Data ([facility]) Vital Signs (Past 12 Hours) Vital Signs Temp Pulse Resp BP BP Pulse Ox O2 Del Method 09/06/22 07:22 97.9 F 65 16 184/82 H 175/88 H 96 Room Air PG Care Time/CCT Total # of Minutes Spent Total Time Spent with Patient: Total time spent is greater than 50% in coordination of care (as documented) at patient's floor/unit and/or counseling patient: Coding Level of Care Code 66387 SUB INP/OBS CARE 2/35MIN Diagnoses Hospital admission due to lack of caregiver Z74.2 Hypertension I10 Gastroesophageal reflux disease K21.9 Dyslipidemia E78.5 CAD in [place] artery I25.10 Depression F32.9 BPH (benign prostatic hyperplasia) N40.0 Diabetes mellitus with insulin therapy E11.9; Z79.4 Atrial fibrillation I48.91 Time Spent (min) 35
[2022-09-06] MEDS: ATORVASTATIN 40 MG TAB PO SCH (22:45)
[2022-09-07] MEDS: lisinopril 40 MG TAB PO SCH (07:59)
[2022-09-07] MEDS: DULoxetine HCL 60 MG CAP PO SCH (07:59)
[2022-09-07] MEDS: MAGNESIUM OXIDE 400 MG TAB PO SCH ×2 (07:59→20:03)
[2022-09-07] MEDS: ISOSORBIDE MONO EXTENDED REL 60 MG TABCR PO SCH (07:59)
[2022-09-07] MEDS: PANTOprazole 40 MG TAB PO SCH (07:59)
[2022-09-07] MEDS: METOPROLOL TARTRATE 50 MG TAB PO SCH ×2 (07:59→20:03)
[2022-09-07] MEDS: FINASTERIDE 5 MG TAB PO SCH (08:00)
[2022-09-07] MEDS: DULoxetine HCL 20 MG CAP PO SCH (08:00)
[2022-09-07] MEDS: ASPIRIN 81 MG ECTAB PO SCH (08:00)
[2022-09-07] MEDS: APIXABAN 5 MG TABLET PO SCH ×2 (08:00→20:03)
[2022-09-07] MEDS: dilTIAZem HCL 240 MG CAPCR PO SCH (08:04)
[2022-09-07] MEDS: LANTUS PER UNIT CHARGE SQ SCH ×2 (08:22→21:18)
[2022-09-07] MEDS: INSULIN ASPART PER UNIT SC SCH ×4 (08:22→21:17)
--- NOTE | 2022-09-07 12:27 | Hospitalist Progress Note ---
Date of Service September 07, 2022 Assessment & Plan (1) Hospital admission due to lack of caregiver: Plan: -Admitted to the hospital on account of inability to take care of himself, said his caregiver quit -Patient is currently afebrile, hemodynamically stable, and stable on RA -Patient noted to have significant cognitive decline after multiple intubations and likely anoxic brain injury due to covid pneumonia over a year ago -Daughter is working to get him placed at [facility], CM is assisting (2) Hypertension: Plan: -BP 180/80 today -Continue metoprolol, diltiazem, lisinopril, and Imdur -add clonidine (3) Gastroesophageal reflux disease: Plan: -Continue pantoprazole (4) Dyslipidemia: Plan: -Continue statin (5) CAD in [place] artery: Plan: -Continue aspirin and statin therapy (6) Depression: Plan: -Continue Duloxetine (7) BPH (benign prostatic hyperplasia): Plan: -Continue finasteride (8) Diabetes mellitus with insulin therapy: Plan: -Monitor BSG ACHS, goal is 110-140 -Will start with lantus at 5 units BID, correction factor of 45, and carb ratio of 15 -DMII diet (9) Atrial fibrillation: Plan: -Stable -Continue Metoprolol, diltiazem, and eliquis Plan awaiting placement Admission and Anticipated Discharge Date Admission Date: September 03, 2022 Subjective patient seen and examined, no complaints, mostly confused, tolerating diet Review of Systems Review of Systems: All systems reviewed are negative, apart from the ones contained in the history. Physical Exam Physical Exam: The patient is awake, alert and oriented 3, well developed and well nourished, normocephalic and atraumatic, lying in bed and in no acute distress. HEENT--PERRL, EOMI, mucous membranes and oropharynx mildly dry Neck--supple. No JVD. No bruits. Thyroid normal, trachea midline, no adenopathy. Heart--normal S1 and S2. No murmurs, rubs or gallops. Lungs--clear bilaterally, no respiratory distress, no accessory muscle use. Abdomen--normal bowel sounds and soft. Mild epigastric and left sided abdominal pain Extremities--no cyanosis or clubbing. No edema. Dermatologic--normal skin turgor, normal color, no abnormal lymph nodes, no rash. Neurologic--cranial nerves II through XII grossly intact. Rheumatologic--normal range of motion. Psychiatric--normal affect. Results & Data Results & Data ([facility]) Vital Signs (Past 12 Hours) Vital Signs Temp Pulse Resp BP BP Pulse Ox O2 Del Method 09/07/22 11:30 97.7 F 64 14 180/80 H 97 Room Air 09/07/22 08:02 98.1 F 62 14 181/81 H 95 Room Air PG Care Time/CCT Total # of Minutes Spent Total Time Spent with Patient: Total time spent is greater than 50% in coordination of care (as documented) at patient's floor/unit and/or counseling patient: Coding Level of Care Code 28771 SUB INP/OBS CARE 2/35MIN Diagnoses Hospital admission due to lack of caregiver Z74.2 Hypertension I10 Gastroesophageal reflux disease K21.9 Dyslipidemia E78.5 CAD in [place] artery I25.10 Depression F32.9 BPH (benign prostatic hyperplasia) N40.0 Diabetes mellitus with insulin therapy E11.9; Z79.4 Atrial fibrillation I48.91 Time Spent (min) 35
[2022-09-07] MEDS: cloNIDine HCL 0.1 MG TAB PO SCH ×2 (12:53→20:02)
[2022-09-07] MEDS: ATORVASTATIN 40 MG TAB PO SCH (20:04)
[2022-09-08] MEDS: METOPROLOL TARTRATE 50 MG TAB PO SCH ×2 (08:08→20:00)
[2022-09-08] MEDS: PANTOprazole 40 MG TAB PO SCH (08:09)
[2022-09-08] MEDS: DULoxetine HCL 20 MG CAP PO SCH (08:09)
[2022-09-08] MEDS: ISOSORBIDE MONO EXTENDED REL 60 MG TABCR PO SCH (08:09)
[2022-09-08] MEDS: dilTIAZem HCL 240 MG CAPCR PO SCH (08:09)
[2022-09-08] MEDS: cloNIDine HCL 0.1 MG TAB PO SCH ×3 (08:09→20:00)
[2022-09-08] MEDS: APIXABAN 5 MG TABLET PO SCH ×2 (08:10→20:00)
[2022-09-08] MEDS: lisinopril 40 MG TAB PO SCH (08:10)
[2022-09-08] MEDS: DULoxetine HCL 60 MG CAP PO SCH (08:10)
[2022-09-08] MEDS: MAGNESIUM OXIDE 400 MG TAB PO SCH ×2 (08:10→20:00)
[2022-09-08] MEDS: ASPIRIN 81 MG ECTAB PO SCH (08:10)
[2022-09-08] MEDS: FINASTERIDE 5 MG TAB PO SCH (08:10)
[2022-09-08] MEDS: INSULIN ASPART PER UNIT SC SCH ×4 (08:32→20:18)
[2022-09-08] MEDS: LANTUS PER UNIT CHARGE SQ SCH ×2 (08:33→20:18)
--- NOTE | 2022-09-08 12:40 | Hospitalist Progress Note ---
Date of Service September 08, 2022 Assessment & Plan (1) Hospital admission due to lack of caregiver: Plan: -Admitted to the hospital on account of inability to take care of himself, said his caregiver quit -Patient is currently afebrile, hemodynamically stable, and stable on RA -Patient noted to have significant cognitive decline after multiple intubations and likely anoxic brain injury due to covid pneumonia over a year ago -Daughter is working to get him placed at [facility], CM is assisting (2) Hypertension: Plan: -BP 169/80 today -Continue metoprolol, diltiazem, lisinopril, and Imdur -add clonidine (3) Gastroesophageal reflux disease: Plan: -Continue pantoprazole (4) Dyslipidemia: Plan: -Continue statin (5) CAD in [place] artery: Plan: -Continue aspirin and statin therapy (6) Depression: Plan: -Continue Duloxetine (7) BPH (benign prostatic hyperplasia): Plan: -Continue finasteride (8) Diabetes mellitus with insulin therapy: Plan: -Monitor BSG ACHS, goal is 110-140 -Will start with lantus at 5 units BID, correction factor of 45, and carb ratio of 15 -DMII diet (9) Atrial fibrillation: Plan: -Stable -Continue Metoprolol, diltiazem, and eliquis Plan awaiting placement Admission and Anticipated Discharge Date Admission Date: September 03, 2022 Subjective patient seen and examined, says he wants to go home, that he dose not know why he was brought to the hospital, mostly confused, tolerating diet Review of Systems Review of Systems: All systems reviewed are negative, apart from the ones contained in the history. Physical Exam Physical Exam: The patient is awake, alert and oriented 3, well developed and well nourished, normocephalic and atraumatic, lying in bed and in no acute distress. HEENT--PERRL, EOMI, mucous membranes and oropharynx mildly dry Neck--supple. No JVD. No bruits. Thyroid normal, trachea midline, no adenopathy. Heart--normal S1 and S2. No murmurs, rubs or gallops. Lungs--clear bilaterally, no respiratory distress, no accessory muscle use. Abdomen--normal bowel sounds and soft. Mild epigastric and left sided abdominal pain Extremities--no cyanosis or clubbing. No edema. Dermatologic--normal skin turgor, normal color, no abnormal lymph nodes, no rash. Neurologic--cranial nerves II through XII grossly intact. Rheumatologic--normal range of motion. Psychiatric--normal affect. Results & Data Results & Data ([facility]) Vital Signs (Past 12 Hours) Vital Signs Temp Pulse Resp BP Pulse Ox O2 Del Method 09/08/22 07:32 97.9 F 66 18 169/80 H 95 Room Air PG Care Time/CCT Total # of Minutes Spent Total Time Spent with Patient: Total time spent is greater than 50% in coordination of care (as documented) at patient's floor/unit and/or counseling patient: Coding Level of Care Code 14243 SUB INP/OBS CARE 2/35MIN Diagnoses Hospital admission due to lack of caregiver Z74.2 Hypertension I10 Gastroesophageal reflux disease K21.9 Dyslipidemia E78.5 CAD in [place] artery I25.10 Depression F32.9 BPH (benign prostatic hyperplasia) N40.0 Diabetes mellitus with insulin therapy E11.9; Z79.4 Atrial fibrillation I48.91 Time Spent (min) 35
[2022-09-08] MEDS: ATORVASTATIN 40 MG TAB PO SCH (19:59)
[2022-09-08] MEDS ORDERED: MELATONIN 3 MG TAB PO ONE (21:18)
[2022-09-09] MEDS: cloNIDine HCL 0.1 MG TAB PO SCH ×3 (08:49→19:55)
[2022-09-09] MEDS: ASPIRIN 81 MG ECTAB PO SCH (08:50)
[2022-09-09] MEDS: PANTOprazole 40 MG TAB PO SCH (08:50)
[2022-09-09] MEDS: MAGNESIUM OXIDE 400 MG TAB PO SCH ×2 (08:50→19:55)
[2022-09-09] MEDS: APIXABAN 5 MG TABLET PO SCH ×2 (08:50→19:55)
[2022-09-09] MEDS: METOPROLOL TARTRATE 50 MG TAB PO SCH ×2 (08:50→19:55)
[2022-09-09] MEDS: ISOSORBIDE MONO EXTENDED REL 60 MG TABCR PO SCH (08:51)
[2022-09-09] MEDS: dilTIAZem HCL 240 MG CAPCR PO SCH (08:51)
[2022-09-09] MEDS: DULoxetine HCL 60 MG CAP PO SCH (08:51)
[2022-09-09] MEDS: lisinopril 40 MG TAB PO SCH (08:51)
[2022-09-09] MEDS: DULoxetine HCL 20 MG CAP PO SCH (08:51)
[2022-09-09] MEDS: FINASTERIDE 5 MG TAB PO SCH (08:52)
[2022-09-09] MEDS: INSULIN ASPART PER UNIT SC SCH ×4 (08:55→20:40)
[2022-09-09] MEDS: LANTUS PER UNIT CHARGE SQ SCH ×2 (08:56→20:40)
--- NOTE | 2022-09-09 12:34 | Hospitalist Progress Note ---
Date of Service September 09, 2022 Assessment & Plan (1) Hospital admission due to lack of caregiver: Plan: -Admitted to the hospital on account of inability to take care of himself, said his caregiver quit -Patient is currently afebrile, hemodynamically stable, and stable on RA -Patient noted to have significant cognitive decline after multiple intubations and likely anoxic brain injury due to covid pneumonia over a year ago -Daughter is working to get him placed at [facility], CM is assisting (2) Hypertension: Plan: -BP 152/80 today -Continue metoprolol, diltiazem, lisinopril, and Imdur -add clonidine (3) Gastroesophageal reflux disease: Plan: -Continue pantoprazole (4) Dyslipidemia: Plan: -Continue statin (5) CAD in [place] artery: Plan: -Continue aspirin and statin therapy (6) Depression: Plan: -Continue Duloxetine (7) BPH (benign prostatic hyperplasia): Plan: -Continue finasteride (8) Diabetes mellitus with insulin therapy: Plan: -Monitor BSG ACHS, goal is 110-140 -Will start with lantus at 5 units BID, correction factor of 45, and carb ratio of 15 -DMII diet (9) Atrial fibrillation: Plan: -Stable -Continue Metoprolol, diltiazem, and eliquis Plan awaiting placement Admission and Anticipated Discharge Date Admission Date: September 03, 2022 Subjective patient seen and examined, says he wants to go home, but no one to take care of him at home. referral made to [facility] Review of Systems Review of Systems: All systems reviewed are negative, apart from the ones contained in the history. Physical Exam Physical Exam: The patient is awake, alert and oriented 3, well developed and well nourished, normocephalic and atraumatic, lying in bed and in no acute distress. HEENT--PERRL, EOMI, mucous membranes and oropharynx mildly dry Neck--supple. No JVD. No bruits. Thyroid normal, trachea midline, no adenopathy. Heart--normal S1 and S2. No murmurs, rubs or gallops. Lungs--clear bilaterally, no respiratory distress, no accessory muscle use. Abdomen--normal bowel sounds and soft. Mild epigastric and left sided abdominal pain Extremities--no cyanosis or clubbing. No edema. Dermatologic--normal skin turgor, normal color, no abnormal lymph nodes, no rash. Neurologic--cranial nerves II through XII grossly intact. Rheumatologic--normal range of motion. Psychiatric--normal affect. Results & Data Results & Data ([facility]) Vital Signs (Past 12 Hours) Vital Signs Temp Pulse Resp BP Pulse Ox O2 Del Method 09/09/22 08:07 97.7 F 60 18 152/80 H 95 Room Air PG Care Time/CCT Total # of Minutes Spent Total Time Spent with Patient: Total time spent is greater than 50% in coordination of care (as documented) at patient's floor/unit and/or counseling patient: Coding Level of Care Code 29418 SUB INP/OBS CARE 2/35MIN Diagnoses Hospital admission due to lack of caregiver Z74.2 Hypertension I10 Gastroesophageal reflux disease K21.9 Dyslipidemia E78.5 CAD in [place] artery I25.10 Depression F32.9 BPH (benign prostatic hyperplasia) N40.0 Diabetes mellitus with insulin therapy E11.9; Z79.4 Atrial fibrillation I48.91 Time Spent (min) 35
[2022-09-09] MEDS: ATORVASTATIN 40 MG TAB PO SCH (19:55)
[2022-09-10] MEDS: cloNIDine HCL 0.1 MG TAB PO SCH ×3 (09:03→20:33)
[2022-09-10] MEDS: DULoxetine HCL 20 MG CAP PO SCH (09:03)
[2022-09-10] MEDS: ISOSORBIDE MONO EXTENDED REL 60 MG TABCR PO SCH (09:03)
[2022-09-10] MEDS: METOPROLOL TARTRATE 50 MG TAB PO SCH ×2 (09:03→20:32)
[2022-09-10] MEDS: ASPIRIN 81 MG ECTAB PO SCH (09:03)
[2022-09-10] MEDS: lisinopril 40 MG TAB PO SCH (09:03)
[2022-09-10] MEDS: APIXABAN 5 MG TABLET PO SCH ×2 (09:03→20:33)
[2022-09-10] MEDS: dilTIAZem HCL 240 MG CAPCR PO SCH (09:03)
[2022-09-10] MEDS: FINASTERIDE 5 MG TAB PO SCH (09:03)
[2022-09-10] MEDS: DULoxetine HCL 60 MG CAP PO SCH (09:04)
[2022-09-10] MEDS: PANTOprazole 40 MG TAB PO SCH (09:04)
[2022-09-10] MEDS: MAGNESIUM OXIDE 400 MG TAB PO SCH ×2 (09:04→20:32)
[2022-09-10] MEDS: INSULIN ASPART PER UNIT SC SCH ×4 (10:32→20:49)
[2022-09-10] MEDS: LANTUS PER UNIT CHARGE SQ SCH ×2 (10:33→20:48)
--- NOTE | 2022-09-10 14:34 | Hospitalist Progress Note ---
Date of Service September 10, 2022 Assessment & Plan (1) Hospital admission due to lack of caregiver: Plan: -Admitted to the hospital on account of inability to take care of himself, said his caregiver quit -Patient is currently afebrile, hemodynamically stable, and stable on RA -Patient noted to have significant cognitive decline after multiple intubations and likely anoxic brain injury following covid pneumonia over a year ago -Daughter is working to get him placed at [facility], CM is assisting. No beds currently. They are exploring other SNF options (2) Hypertension: Plan: -BP 117/66 today -Continue metoprolol, diltiazem, lisinopril, and Imdur clonidine (3) Gastroesophageal reflux disease: Plan: -Continue pantoprazole (4) Dyslipidemia: Plan: -Continue statin (5) CAD in [place] artery: Plan: -Continue aspirin and statin therapy (6) Depression: Plan: -Continue Duloxetine (7) BPH (benign prostatic hyperplasia): Plan: -Continue finasteride (8) Diabetes mellitus with insulin therapy: Plan: -Monitor BSG ACHS, goal is 110-140 -Will start with lantus at 5 units BID, correction factor of 45, and carb ratio of 15 -DMII diet (9) Atrial fibrillation: Plan: -Stable -Continue Metoprolol, diltiazem, and eliquis Plan awaiting placement Admission and Anticipated Discharge Date Admission Date: September 03, 2022 Subjective patient seen and examined, always says he wants to go home, but no one to take care of him at home. referral made to [facility], no beds available. SW exploring other options for SNF Review of Systems Review of Systems: All systems reviewed are negative, apart from the ones contained in the history. Physical Exam Physical Exam: The patient is awake, alert and oriented 3, well developed and well nourished, normocephalic and atraumatic, lying in bed and in no acute distress. HEENT--PERRL, EOMI, mucous membranes and oropharynx mildly dry Neck--supple. No JVD. No bruits. Thyroid normal, trachea midline, no adenopa thy. Heart--normal S1 and S2. No murmurs, rubs or gallops. Lungs--clear bilaterally, no respiratory distress, no accessory muscle use. Abdomen--normal bowel sounds and soft. Mild epigastric and left sided abdominal pain Extremities--no cyanosis or clubbing. No edema. Dermatologic--normal skin turgor, normal color, no abnormal lymph nodes, no rash. Neurologic--cranial nerves II through XII grossly intact. Rheumatologic--normal range of motion. Psychiatric--normal affect. Results & Data Results & Data ([facility]) Vital Signs (Past 12 Hours) Vital Signs Temp Pulse Pulse Resp BP Pulse Ox O2 Del Method 09/10/22 09:00 64 09/10/22 07:26 98.1 F 54 L 16 117/66 95 Room Air PG Care Time/CCT Total # of Minutes Spent Total Time Spent with Patient: Total time spent is greater than 50% in coordination of care (as documented) at patient's floor/unit and/or counseling patient: Coding Level of Care Code 18121 SUB INP/OBS CARE 2/35MIN Diagnoses Hospital admission due to lack of caregiver Z74.2 Hypertension I10 Gastroesophageal reflux disease K21.9 Dyslipidemia E78.5 CAD in [place] artery I25.10 Depression F32.9 BPH (benign prostatic hyperplasia) N40.0 Diabetes mellitus with insulin therapy E11.9; Z79.4 Atrial fibrillation I48.91 Time Spent (min) 35
[2022-09-10] MEDS: ATORVASTATIN 40 MG TAB PO SCH (20:33)
[2022-09-11] MEDS: lisinopril 40 MG TAB PO SCH (07:47)
[2022-09-11] MEDS: DULoxetine HCL 60 MG CAP PO SCH (07:47)
[2022-09-11] MEDS: DULoxetine HCL 20 MG CAP PO SCH (07:47)
[2022-09-11] MEDS: PANTOprazole 40 MG TAB PO SCH (07:47)
[2022-09-11] MEDS: cloNIDine HCL 0.1 MG TAB PO SCH ×3 (07:48→20:56)
[2022-09-11] MEDS: dilTIAZem HCL 240 MG CAPCR PO SCH (07:48)
[2022-09-11] MEDS: METOPROLOL TARTRATE 50 MG TAB PO SCH ×2 (07:48→20:56)
[2022-09-11] MEDS: FINASTERIDE 5 MG TAB PO SCH (07:49)
[2022-09-11] MEDS: ASPIRIN 81 MG ECTAB PO SCH (07:49)
[2022-09-11] MEDS: ISOSORBIDE MONO EXTENDED REL 60 MG TABCR PO SCH (07:49)
[2022-09-11] MEDS: APIXABAN 5 MG TABLET PO SCH ×2 (07:49→20:56)
[2022-09-11] MEDS: MAGNESIUM OXIDE 400 MG TAB PO SCH ×2 (07:49→20:56)
[2022-09-11] MEDS: LANTUS PER UNIT CHARGE SQ SCH ×2 (08:42→21:03)
[2022-09-11] MEDS: INSULIN ASPART PER UNIT SC SCH ×4 (08:42→21:03)
--- NOTE | 2022-09-11 12:39 | Hospitalist Progress Note ---
Date of Service September 11, 2022 Assessment & Plan (1) Hospital admission due to lack of caregiver: Plan: -Admitted to the hospital on account of inability to take care of himself, said his caregiver quit -Patient is currently afebrile, hemodynamically stable, and stable on RA -Patient noted to have significant cognitive decline after multiple intubations and likely anoxic brain injury following covid pneumonia over a year ago -Daughter wants him placed at [facility], CM is assisting. No beds currently at [facility]. They are exploring other SNF options (2) Hypertension: Plan: -BP 117/66 today -Continue metoprolol, diltiazem, lisinopril, and Imdur clonidine (3) Gastroesophageal reflux disease: Plan: -Continue pantoprazole (4) Dyslipidemia: Plan: -Continue statin (5) CAD in [place] artery: Plan: -Continue aspirin and statin therapy (6) Depression: Plan: -Continue Duloxetine (7) BPH (benign prostatic hyperplasia): Plan: -Continue finasteride (8) Diabetes mellitus with insulin therapy: Plan: -Monitor BSG ACHS, goal is 110-140 -Will continue with lantus at 5 units BID, correction factor of 45, and carb ratio of 15 -DMII diet (9) Atrial fibrillation: Plan: -Stable -Continue Metoprolol, diltiazem, and eliquis Plan awaiting placement, daughter [facility], but no beds available. CM exploring other options Admission and Anticipated Discharge Date Admission Date: September 03, 2022 Subjective patient seen and examined, always says he wants to go home, however, no one to take care of him at home. referral [facility], no beds available. SW exploring other options for SNF Review of Systems Review of Systems: All systems reviewed are negative, apart from the ones contained in the history. Physical Exam Physical Exam: The patient is awake, alert and oriented 3, well developed and well nourished, normocephalic and atraumatic, lying in bed and in no acute distress. HEENT--PERRL, EOMI, mucous membranes and oropharynx mildly dry Neck--supple. No JVD. No bruits. Thyroid normal, trachea midline, no adenopathy. Heart--normal S1 and S2. No murmurs, rubs or gallops. Lungs--clear bilaterally, no respiratory distress, no accessory muscle use. Abdomen--normal bowel sounds and soft. Mild epigastric and left sided abdominal pain Extremities--no cyanosis or clubbing. No edema. Dermatologic--normal skin turgor, normal color, no abnormal lymph nodes, no rash. Neurologic--cranial nerves II through XII grossly intact. Rheumatologic--normal range of motion. Psychiatric--normal affect. Results & Data Results & Data ([facility]) Vital Signs (Past 12 Hours) Vital Signs Temp Pulse Pulse Resp BP BP Pulse Ox 09/11/22 11:30 97.7 F 70 18 149/77 H 94 09/11/22 07:50 97.2 F L 66 18 150/79 H 94 09/11/22 07:13 97.7 F 57 L 16 138/77 95 O2 Del Method 09/11/22 11:30 Room Air 09/11/22 07:50 Room Air 09/11/22 07:13 Room Air PG Care Time/CCT Total # of Minutes Spent Total Time Spent with Patient: Total time spent is greater than 50% in coordination of care (as documented) at patient's floor/unit and/or counseling patient: Coding Level of Care Code 64330 SUB INP/OBS CARE 2/35MIN Diagnoses Hospital admission due to lack of caregiver Z74.2 Hypertension I10 Gastroesophageal reflux disease K21.9 Dyslipidemia E78.5 CAD in [place] artery I25.10 Depression F32.9 BPH (benign prostatic hyperplasia) N40.0 Diabetes mellitus with insulin therapy E11.9; Z79.4 Atrial fibrillation I48.91 Time Spent (min) 35
[2022-09-11] MEDS: ATORVASTATIN 40 MG TAB PO SCH (20:56)
[2022-09-11] MEDS: MELATONIN 3 MG TAB PO PRN (21:46)
[2022-09-12 05:53] LABS: Hematocrit (blood only) 38.6 % (40.1-51.0); Hemoglobin 13.9 g/dl (14.0-18.0); Mean Corpuscular Hemoglobin 30.8 pg (25.0-34.0); Mean Corpuscular Volume 85.6 fL (80.0-100.0); Mean Platelet Volume 10.6 fL (9.4-12.4); Platelet Count 240 K/uL (130-400); RDW Coefficient of Variation 12.6 % (11.5-14.5); RDW Standard Deviation 39.2 fL (36.4-46.3); Red Blood Count 4.51 M/uL (4.63-6.08); White Blood Count 9.86 K/ul (4.8-10.8)
[2022-09-12 06:18] LABS: Calcium 8.6 mg/dl (8.5-10.1)
[2022-09-12 06:24] LABS: Creatinine Clr Calc Pharmacy 58.1 ml/min; Est GFR (African American) 67.5 ml/min; Est GFR (Non-African American) 58.2 ml/min
[2022-09-12] MEDS: METOPROLOL TARTRATE 50 MG TAB PO SCH ×2 (09:11→19:56)
[2022-09-12] MEDS: ISOSORBIDE MONO EXTENDED REL 60 MG TABCR PO SCH (09:11)
[2022-09-12] MEDS: ASPIRIN 81 MG ECTAB PO SCH (09:11)
[2022-09-12] MEDS: DULoxetine HCL 20 MG CAP PO SCH (09:11)
[2022-09-12] MEDS: dilTIAZem HCL 240 MG CAPCR PO SCH (09:12)
[2022-09-12] MEDS: PANTOprazole 40 MG TAB PO SCH (09:12)
[2022-09-12] MEDS: FINASTERIDE 5 MG TAB PO SCH (09:12)
[2022-09-12] MEDS: APIXABAN 5 MG TABLET PO SCH ×2 (09:12→19:56)
[2022-09-12] MEDS: MAGNESIUM OXIDE 400 MG TAB PO SCH ×2 (09:12→19:57)
[2022-09-12] MEDS: lisinopril 40 MG TAB PO SCH (09:12)
[2022-09-12] MEDS: DULoxetine HCL 60 MG CAP PO SCH (09:12)
[2022-09-12] MEDS: LANTUS PER UNIT CHARGE SQ SCH ×2 (09:14→20:51)
[2022-09-12] MEDS: INSULIN ASPART PER UNIT SC SCH ×4 (09:14→20:50)
[2022-09-12] MEDS: cloNIDine HCL 0.1 MG TAB PO SCH ×3 (09:23→19:58)
--- NOTE | 2022-09-12 15:01 | Hospitalist Progress Note ---
Date of Service September 12, 2022 Assessment & Plan (1) Hospital admission due to lack of caregiver: Plan: Admitted to the hospital on account of inability to take care of himself, said his caregiver quit. Patient is currently afebrile, hemodynamically stable, and stable on RA . Patient noted to have significant cognitive decline after multiple intubations and likely anoxic brain injury following covid pneumonia over a year ago. Daughter wants him placed at [facility], CM is assisting. No beds currently at [facility]. They are exploring other SNF options (2) Hypertension: Plan: Controlled on metoprolol, diltiazem, lisinopril, Imdur, clonidine (3) Gastroesophageal reflux disease: Plan: Continue pantoprazole (4) Dyslipidemia: Plan: Continue statin (5) CAD in [place] artery: Plan: Continue aspirin and statin therapy (6) Depression: Plan: Continue Duloxetine (7) BPH (benign prostatic hyperplasia): Plan: Continue finasteride (8) Diabetes mellitus with insulin therapy: Plan: ADA diet. Lantus uptitrated today, September 12. Sliding scale coverage as needed. (9) Atrial fibrillation: Plan: Stable . Rate controlled with Metoprolol, diltiazem. Continue eliquis Plan Eventual discharge to SNF facility when arrangements are finalized Admission and Anticipated Discharge Date Admission Date: September 03, 2022 Subjective Alert. He appears oriented. No new problems. Glucose is running slightly high and Lantus dosage has been uptitrated. He remains on room air. Vital signs are stable. Lab work is unremarkable. Placement is pending. Review of Systems Review of Systems: Constitutional-no fever or chills ENT-no blurred vision, no double vision, no epistaxis, no sore throat Respiratory-no cough, no wheezing, no shortness of breath Cardiac-no palpitations, no chest pain, no syncope GI-no nausea, vomiting, diarrhea, melena, hematochezia -no urinary retention, no urinary incontinence, no dysuria, no hematuria Musculoskeletal-no joint pain, no muscle tenderness Skin-no bruising, no rashes, no pruritus Neuro-no isolated weakness, no paresthesia, no weakness Psych-no depression, no anxiety Physical Exam Physical Exam: General-alert and oriented x3, no fevers, no chills HEENT-head atraumatic and normocephalic, pupils equal and reactive to light, extraocular muscles intact Neck-no lymphadenopathy or thyromegaly, trachea midline Chest-clear to auscultation percussion. No rales wheezing or rhonchi Cardiac-regular rate and rhythm, normal S1 and S2 Abdomen-normal bowel sounds, nontender, no hepatosplenomegaly Extremities-no cyanosis, clubbing, or edema Neuro-cranial nerves II through XII intact, motor and sensory function within normal limits, strength symmetrical , no focal deficits Psych-normal affect, normal mood Results & Data Results & Data ([facility]) Vital Signs (Past 12 Hours) Vital Signs Temp Pulse Resp BP Pulse Ox O2 Del Method 09/12/22 07:24 36.3 C L 56 L 16 147/74 H 97 Room Air Laboratory Results 09/12/22 05:36 09/12/22 05:36 PG Care Time/CCT Total # of Minutes Spent Total Time Spent with Patient: Total time spent is greater than 50% in coordination of care (as documented) at patient's floor/unit and/or counseling patient: Coding Level of Care Code 88786 SUB INP/OBS CARE 2/35MIN Diagnoses Hospital admission due to lack of caregiver Z74.2 Hypertension I10 Gastroesophageal reflux disease K21.9 Dyslipidemia E78.5 CAD in [place] artery I25.10 Depression F32.9 BPH (benign prostatic hyperplasia) N40.0 Diabetes mellitus with insulin therapy E11.9; Z79.4 Atrial fibrillation I48.91
[2022-09-12] MEDS: ATORVASTATIN 40 MG TAB PO SCH (19:59)
[2022-09-13] MEDS: METOPROLOL TARTRATE 50 MG TAB PO SCH ×2 (07:58→19:58)
[2022-09-13] MEDS: lisinopril 40 MG TAB PO SCH (07:59)
[2022-09-13] MEDS: DULoxetine HCL 20 MG CAP PO SCH (07:59)
[2022-09-13] MEDS: APIXABAN 5 MG TABLET PO SCH ×2 (07:59→19:58)
[2022-09-13] MEDS: ISOSORBIDE MONO EXTENDED REL 60 MG TABCR PO SCH (07:59)
[2022-09-13] MEDS: MAGNESIUM OXIDE 400 MG TAB PO SCH ×2 (07:59→19:57)
[2022-09-13] MEDS: PANTOprazole 40 MG TAB PO SCH (08:00)
[2022-09-13] MEDS: dilTIAZem HCL 240 MG CAPCR PO SCH (08:00)
[2022-09-13] MEDS: FINASTERIDE 5 MG TAB PO SCH (08:00)
[2022-09-13] MEDS: ASPIRIN 81 MG ECTAB PO SCH (08:00)
[2022-09-13] MEDS: cloNIDine HCL 0.1 MG TAB PO SCH ×3 (08:00→19:55)
[2022-09-13] MEDS: DULoxetine HCL 60 MG CAP PO SCH (08:01)
[2022-09-13] MEDS: LANTUS PER UNIT CHARGE SQ SCH ×2 (08:46→20:55)
[2022-09-13] MEDS: INSULIN ASPART PER UNIT SC SCH ×4 (08:46→20:55)
[2022-09-13] MEDS: ACETAMINOPHEN 325 MG TAB PO PRN (09:32)
--- NOTE | 2022-09-13 13:59 | Hospitalist Progress Note ---
Date of Service September 13, 2022 Assessment & Plan (1) Hospital admission due to lack of caregiver: Plan: Admitted to the hospital on account of inability to take care of himself, said his caregiver quit. Patient is currently afebrile, hemodynamically stable, and pulse ox is stable on RA . Patient noted to have significant cognitive decline after multiple intubations and likely anoxic brain injury following covid pneumonia over a year ago. Daughter wants him placed at [facility], CM is assisting. No beds currently at [facility]. They are exploring other SNF o ptions (2) Hypertension: Plan: Controlled on metoprolol, diltiazem, lisinopril, Imdur, clonidine (3) Gastroesophageal reflux disease: Plan: Continue pantoprazole (4) Dyslipidemia: Plan: Continue statin (5) CAD in [place] artery: Plan: Continue aspirin and statin therapy (6) Depression: Plan: Continue Duloxetine (7) BPH (benign prostatic hyperplasia): Plan: Continue finasteride (8) Diabetes mellitus with insulin therapy: Plan: ADA diet. Lantus uptitrated on September 12. Sliding scale coverage as needed. (9) Atrial fibrillation: Plan: Stable . Rate controlled with Metoprolol, diltiazem. Continue eliquis Plan Eventual discharge to SNF facility when arrangements are finalized Admission and Anticipated Discharge Date Admission Date: September 03, 2022 Subjective No new problems. Glucose 150 today after Lantus uptitrated yesterday, September 12. SNF placement remains pending Review of Systems Review of Systems: Constitutional-no fever or chills ENT-no blurred vision, no double vision, no epistaxis, no sore throat Respiratory-no cough, no wheezing, no shortness of breath Cardiac-no palpitations, no chest pain, no syncope GI-no nausea, vomiting, diarrhea, melena, hematochezia -no urinary retention, no urinary incontinence, no dysuria, no hematuria Musculoskeletal-no joint pain, no muscle tenderness Skin-no bruising, no rashes, no pruritus Neuro-no isolated weakness, no paresthesia, no weakness Psych-no depression, no anxiety Physical Exam Physical Exam: General-alert, no fevers, no chills HEENT-head atraumatic and normocephalic, pupils equal and reactive to light, extraocular muscles intact Neck-no lymphadenopathy or thyromegaly, trachea midline Chest-clear to auscultation percussion. No rales wheezing or rhonchi Cardiac-regular rate and rhythm, normal S1 and S2 Abdomen-normal bowel sounds, nontender, no hepatosplenomegaly Extremities-no cyanosis, clubbing, or edema Neuro-cranial nerves II through XII intact, motor and sensory function within normal limits, strength symmetrical , no focal deficits Psych-normal affect, normal mood Results & Data Results & Data ([facility]) Vital Signs (Past 12 Hours) Vital Signs Temp Pulse Resp BP Pulse Ox O2 Del Method 09/13/22 12:57 37.3 C 62 16 150/88 H 96 Room Air 09/13/22 07:56 36.4 C L 74 16 142/82 H Room Air Laboratory Results 09/12/22 05:36 09/12/22 05:36 PG Care Time/CCT Total # of Minutes Spent Total Time Spent with Patient: Total time spent is greater than 50% in coordination of care (as documented) at patient's floor/unit and/or counseling patient: Coding Level of Care Code 56812 SUB INP/OBS CARE 2/35MIN Diagnoses Hospital admission due to lack of caregiver Z74.2 Hypertension I10 Gastroesophageal reflux disease K21.9 Dyslipidemia E78.5 CAD in [place] artery I25.10 Depression F32.9 BPH (benign prostatic hyperplasia) N40.0 Diabetes mellitus with insulin therapy E11.9; Z79.4 Atrial fibrillation I48.91
[2022-09-13] MEDS: ATORVASTATIN 40 MG TAB PO SCH (19:59)
[2022-09-14] MEDS: ISOSORBIDE MONO EXTENDED REL 60 MG TABCR PO SCH (08:05)
[2022-09-14] MEDS: ASPIRIN 81 MG ECTAB PO SCH (08:05)
[2022-09-14] MEDS: DULoxetine HCL 20 MG CAP PO SCH (08:05)
[2022-09-14] MEDS: METOPROLOL TARTRATE 50 MG TAB PO SCH ×2 (08:05→20:04)
[2022-09-14] MEDS: lisinopril 40 MG TAB PO SCH (08:06)
[2022-09-14] MEDS: APIXABAN 5 MG TABLET PO SCH ×2 (08:06→20:04)
[2022-09-14] MEDS: DULoxetine HCL 60 MG CAP PO SCH (08:07)
[2022-09-14] MEDS: dilTIAZem HCL 240 MG CAPCR PO SCH (08:07)
[2022-09-14] MEDS: FINASTERIDE 5 MG TAB PO SCH (08:07)
[2022-09-14] MEDS: cloNIDine HCL 0.1 MG TAB PO SCH ×3 (08:07→20:04)
[2022-09-14] MEDS: PANTOprazole 40 MG TAB PO SCH (08:07)
[2022-09-14] MEDS: MAGNESIUM OXIDE 400 MG TAB PO SCH ×2 (08:07→20:04)
[2022-09-14] MEDS: LANTUS PER UNIT CHARGE SQ SCH ×2 (08:27→21:57)
[2022-09-14] MEDS: INSULIN ASPART PER UNIT SC SCH ×4 (08:27→21:57)
--- NOTE | 2022-09-14 15:13 | Hospitalist Progress Note ---
Date of Service September 14, 2022 Assessment & Plan (1) Hospital admission due to lack of caregiver: Plan: Admitted to the hospital on account of inability to take care of himself, said his caregiver quit. Patient is currently afebrile, hemodynamically stable, and pulse ox is stable on RA . Patient noted to have significant cognitive decline after multiple intubations and likely anoxic brain injury following covid pneumonia over a year ago. Daughter wants him placed at [facility], CM is assisting. No beds currently at [facility]. They are exploring other SNF options (2) Hypertension: Plan: Controlled on metoprolol, diltiazem, lisinopril, Imdur, clonidine (3) Gastroesophageal reflux disease: Plan: Continue pantoprazole (4) Dyslipidemia: Plan: Continue statin (5) CAD in [place] artery: Plan: Continue aspirin and statin therapy (6) Depression: Plan: Continue Duloxetine (7) BPH (benign prostatic hyperplasia): Plan: Continue finasteride (8) Diabetes mellitus with insulin therapy: Plan: carb consistent diet. Lantus uptitrated on September 12. Accuchecks ac and hs and sliding scale coverage as needed. (9) Atrial fibrillation: Plan: Stable. Rate controlled with Metoprolol, diltiazem. Continue eliquis Plan Eventual discharge to SNF facility when accepting facility found and insurance auth received. No changes made to patient's plan at this time. Plan d/w Dr. Webster. Admission and Anticipated Discharge Date Admission Date: September 03, 2022 [address]ive Mr. Elizabeth seen on daily rounds this morning. He reports that he "isn't too good" this morning because he "is here and there's nothing wrong with me." Patient remains in house awaiting placement. Review of Systems Review of Systems: All systems reviewed and are unremarkable except as noted in HPI and below. Denies fever, chills, fatigue, headache, nasal congestion, sore throat, cough, chest pain, shortness of breath, palpitations, orthopnea, PND, abdominal pain, n/v/d, constipation, dysuria, hematuria, frequency, back pain, joint pain or swelling, easy bruising or bleeding, skin lesions or rashes. Physical Exam Physical Exam: GENERAL: 77 yo Well-developed, well-nourished elderly WM. NAD. LUNGS: Clear to auscultation bilaterally. CARDIOVASCULAR: Regular rate and rhythm. ABDOMEN: Soft, non-tender and non-distended. BS normoactive x 4 quad. EXTREMITIES: No edema. Non-tender. Peripheral pulses +2/4. NEUROLOGIC: A&O x3. Nonfocal PSYCHIATRIC: Cooperative. Appropriate mood and affect. SKIN: Warm, dry, intact. No rashes or lesions. Results & Data Results & Data ([facility]) Vital Signs (Past 12 Hours) Vital Signs Temp Pulse Pulse Resp BP Pulse Ox O2 Del Method 09/14/22 08:02 60 09/14/22 07:41 36.4 C L 53 L 16 180/85 H 95 Room Air PG Care Time/CCT Total # of Minutes Spent Total Time Spent with Patient: Total time spent is greater than 50% in coordination of care (as documented) at patient's floor/unit and/or counseling patient: Coding Level of Care Code 66760 SUB INP/OBS CARE 1/25MIN Diagnoses Hospital admission due to lack of caregiver Z74.2 Hypertension I10 Gastroesophageal reflux disease K21.9 Dyslipidemia E78.5 CAD in [place] artery I25.10 Depression F32.9 BPH (benign prostatic hyperplasia) N40.0 Diabetes mellitus with insulin therapy E11.9; Z79.4 Atrial fibrillation I48.91
[2022-09-14] MEDS: ATORVASTATIN 40 MG TAB PO SCH (20:03)
[2022-09-15] MEDS: APIXABAN 5 MG TABLET PO SCH ×2 (08:03→20:21)
[2022-09-15] MEDS: ISOSORBIDE MONO EXTENDED REL 60 MG TABCR PO SCH (08:03)
[2022-09-15] MEDS: cloNIDine HCL 0.1 MG TAB PO SCH ×3 (08:03→20:20)
[2022-09-15] MEDS: METOPROLOL TARTRATE 50 MG TAB PO SCH ×2 (08:03→20:23)
[2022-09-15] MEDS: MAGNESIUM OXIDE 400 MG TAB PO SCH ×2 (08:04→20:20)
[2022-09-15] MEDS: DULoxetine HCL 60 MG CAP PO SCH (08:06)
[2022-09-15] MEDS: dilTIAZem HCL 240 MG CAPCR PO SCH (08:06)
[2022-09-15] MEDS: lisinopril 40 MG TAB PO SCH (08:06)
[2022-09-15] MEDS: PANTOprazole 40 MG TAB PO SCH (08:06)
[2022-09-15] MEDS: ASPIRIN 81 MG ECTAB PO SCH (08:06)
[2022-09-15] MEDS: FINASTERIDE 5 MG TAB PO SCH (08:06)
[2022-09-15] MEDS: DULoxetine HCL 20 MG CAP PO SCH (08:07)
[2022-09-15] MEDS: LANTUS PER UNIT CHARGE SQ SCH ×2 (08:51→21:45)
[2022-09-15] MEDS: INSULIN ASPART PER UNIT SC SCH ×4 (08:51→21:45)
--- NOTE | 2022-09-15 14:22 | Hospitalist Progress Note ---
Date of Service September 15, 2022 Assessment & Plan (1) Hospital admission due to lack of caregiver: Plan: Admitted to the hospital on account of inability to take care of himself, said his caregiver quit. Patient is currently afebrile, hemodynamically stable, and pulse ox is stable on RA . Patient noted to have significant cognitive decline after multiple intubations and likely anoxic brain injury following covid pneumonia over a year ago. Daughter wants him placed at [facility], CM is assisting. No beds currently at [facility]. They are exploring other SNF options (2) Hypertension: Plan: Controlled on metoprolol, diltiazem, lisinopril, Imdur, clonidine (3) Gastroesophageal reflux disease: Plan: Continue pantoprazole (4) Dyslipidemia: Plan: Continue statin (5) CAD in [place] artery: Plan: Continue aspirin and statin therapy (6) Depression: Plan: Continue Duloxetine (7) BPH (benign prostatic hyperplasia): Plan: Continue finasteride (8) Diabetes mellitus with insulin therapy: Plan: carb consistent diet. Lantus uptitrated on September 12. Accuchecks ac and hs and sliding scale coverage as needed. (9) Atrial fibrillation: Plan: Stable. Rate controlled with Metoprolol, diltiazem. Continue eliquis Plan Eventual discharge to SNF facility when accepting facility found and insurance auth received. No changes made to patient's plan at this time. Plan d/w Dr. Webster. Admission and Anticipated Discharge Date Admission Date: September 03, 2022 Subjective Mr. Elizabeth seen on daily rounds this morning. He voices no complaints/concerns today. Patient remains in house awaiting placement. Review of Systems Review of Systems: All systems reviewed and are unremarkable except as noted in HPI and below. Denies fever, chills, fatigue, headache, nasal congestion, sore throat, cough, chest pain, shortness of breath, palpitations, orthopnea, PND, abdominal pain, n/v/d, constipation, dysuria, hematuria, frequency, back pain, joint pain or swelling, easy bruising or bleeding, skin lesions or rashes. Physical Exam Physical Exam: GENERAL: 77 yo Well-developed, well-nourished elderly WM. NAD. LUNGS: Clear to auscultation bilaterally. CARDIOVASCULAR: Regular rate and rhythm. ABDOMEN: Soft, non-tender and non-distended. BS normoactive x 4 quad. EXTREMITIES: No edema. Non-tender. Peripheral pulses +2/4. NEUROLOGIC: A&O x3. Nonfocal PSYCHIATRIC: Cooperative. Appropriate mood and affect. SKIN: Warm, dry, intact. No rashes or lesions. Results & Data Results & Data ([facility]) Vital Signs (Past 12 Hours) Vital Signs Temp Pulse Pulse Resp BP Pulse Ox O2 Del Method 09/15/22 08:00 62 09/15/22 07:21 36.8 C 53 L 14 181/75 H 97 Room Air PG Care Time/CCT Total # of Minutes Spent Total Time Spent with Patient: Total time spent is greater than 50% in coordination of care (as documented) at patient's floor/unit and/or counseling patient: Coding Level of Care Code 94402 SUB INP/OBS CARE 125MIN Diagnoses Hospital admission due to lack of caregiver Z74.2 Hypertension I10 Gastroesophageal reflux disease K21.9 Dyslipidemia E78.5 CAD in [place] artery I25.10 Depression F32.9 BPH (benign prostatic hyperplasia) N40.0 Diabetes mellitus with insulin therapy E11.9; Z79.4 Atrial fibrillation I48.91
[2022-09-15] MEDS: ATORVASTATIN 40 MG TAB PO SCH (20:19)
[2022-09-16] MEDS: cloNIDine HCL 0.1 MG TAB PO SCH ×3 (08:07→21:15)
[2022-09-16] MEDS: ISOSORBIDE MONO EXTENDED REL 60 MG TABCR PO SCH (08:07)
[2022-09-16] MEDS: METOPROLOL TARTRATE 50 MG TAB PO SCH ×2 (08:07→21:06)
[2022-09-16] MEDS: APIXABAN 5 MG TABLET PO SCH ×2 (08:07→21:16)
[2022-09-16] MEDS: MAGNESIUM OXIDE 400 MG TAB PO SCH ×2 (08:07→21:15)
[2022-09-16] MEDS: DULoxetine HCL 20 MG CAP PO SCH (08:07)
[2022-09-16] MEDS: FINASTERIDE 5 MG TAB PO SCH (08:08)
[2022-09-16] MEDS: PANTOprazole 40 MG TAB PO SCH (08:08)
[2022-09-16] MEDS: ASPIRIN 81 MG ECTAB PO SCH (08:08)
[2022-09-16] MEDS: DULoxetine HCL 60 MG CAP PO SCH (08:08)
[2022-09-16] MEDS: lisinopril 40 MG TAB PO SCH (08:08)
[2022-09-16] MEDS: dilTIAZem HCL 240 MG CAPCR PO SCH (08:08)
[2022-09-16] MEDS: INSULIN ASPART PER UNIT SC SCH ×4 (10:30→21:14)
[2022-09-16] MEDS: LANTUS PER UNIT CHARGE SQ SCH ×2 (10:30→21:14)
--- NOTE | 2022-09-16 12:36 | Hospitalist Progress Note ---
Date of Service September 16, 2022 Assessment & Plan (1) Hospital admission due to lack of caregiver: Plan: Admitted to the hospital on account of inability to take care of himself, said his caregiver quit. Patient is currently afebrile, hemodynamically stable, and pulse ox is stable on RA . Patient noted to have significant cognitive decline after multiple intubations and likely anoxic brain injury following covid pneumonia over a year ago. Daughter wants him placed at [facility], CM is assisting. No beds currently at [facility]. They are exploring other SNF options (2) Hypertension: Plan: Controlled on metoprolol, diltiazem, lisinopril, Imdur, clonidine (3) Gastroesophageal reflux disease: Plan: Continue pantoprazole (4) Dyslipidemia: Plan: Continue statin (5) CAD in [place] artery: Plan: Continue aspirin and statin therapy (6) Depression: Plan: Continue Duloxetine (7) BPH (benign prostatic hyperplasia): Plan: Continue finasteride (8) Diabetes mellitus with insulin therapy: Plan: carb consistent diet. Lantus uptitrated on September 12. Accuchecks ac and hs and sliding scale coverage as needed. (9) Atrial fibrillation: Plan: Stable. Rate controlled with Metoprolol, diltiazem. Continue eliquis Plan Eventual discharge to SNF facility when accepting facility found and insurance auth received. No changes made to patient's plan at this time. Plan d/w Dr. Webster. Admission and Anticipated Discharge Date Admission Date: September 03, 2022 Subjective Mr. Elizabeth seen on daily rounds this morning. He voices no complaints/concerns today. Patient remains in house awaiting placement. Review of Systems Review of Systems: All systems reviewed and are unremarkable except as noted in HPI and below. Denies fever, chills, fatigue, headache, nasal congestion, sore throat, cough, chest pain, shortness of breath, palpitations, orthopnea, PND, abdominal pain, n/v/d, constipation, dysuria, hematuria, frequency, back pain, joint pain or swelling, easy bruising or bleeding, skin lesions or rashes. Physical Exam Physical Exam: GENERAL: 77 yo Well-developed, well-nourished elderly WM. NAD. LUNGS: Clear to auscultation bilaterally. CARDIOVASCULAR: Regular rate and rhythm. ABDOMEN: Soft, non-tender and non-distended. BS normoactive x 4 quad. EXTREMITIES: No edema. Non-tender. Peripheral pulses +2/4. NEUROLOGIC: A&O x3. Nonfocal PSYCHIATRIC: Cooperative. Appropriate mood and affect. SKIN: Warm, dry, intact. No rashes or lesions. Results & Data Results & Data ([facility]) Vital Signs (Past 12 Hours) Vital Signs Temp Pulse Resp BP Pulse Ox O2 Del Method 09/16/22 08:06 65 95 Room Air 09/16/22 07:04 36.6 C 57 L 16 154/78 H 98 Room Air PG Care Time/CCT Total # of Minutes Spent Total Time Spent with Patient: Total time spent is greater than 50% in coordination of care (as documented) at patient's floor/unit and/or counseling patient: Coding Level of Care Code 03677 SUB INP/OBS CARE 09/16MIN Diagnoses Hospital admission due to lack of caregiver Z74.2 Hypertension I10 Gastroesophageal reflux disease K21.9 Dyslipidemia E78.5 CAD in [place] artery I25.10 Depression F32.9 BPH (benign prostatic hyperplasia) N40.0 Diabetes mellitus with insulin therapy E11.9; Z79.4 Atrial fibrillation I48.91
[2022-09-16] MEDS: MELATONIN 3 MG TAB PO PRN (21:14)
[2022-09-16] MEDS: ATORVASTATIN 40 MG TAB PO SCH (21:15)
[2022-09-17] MEDS: MAGNESIUM OXIDE 400 MG TAB PO SCH ×2 (07:23→20:50)
[2022-09-17] MEDS: ASPIRIN 81 MG ECTAB PO SCH (07:23)
[2022-09-17] MEDS: APIXABAN 5 MG TABLET PO SCH ×2 (07:23→20:51)
[2022-09-17] MEDS: cloNIDine HCL 0.1 MG TAB PO SCH ×3 (07:23→20:51)
[2022-09-17] MEDS: dilTIAZem HCL 240 MG CAPCR PO SCH (07:24)
[2022-09-17] MEDS: lisinopril 40 MG TAB PO SCH (07:24)
[2022-09-17] MEDS: DULoxetine HCL 20 MG CAP PO SCH (07:24)
[2022-09-17] MEDS: METOPROLOL TARTRATE 50 MG TAB PO SCH ×2 (07:24→20:52)
[2022-09-17] MEDS: PANTOprazole 40 MG TAB PO SCH (07:24)
[2022-09-17] MEDS: FINASTERIDE 5 MG TAB PO SCH (07:24)
[2022-09-17] MEDS: ISOSORBIDE MONO EXTENDED REL 60 MG TABCR PO SCH (07:25)
[2022-09-17] MEDS: DULoxetine HCL 60 MG CAP PO SCH (07:25)
[2022-09-17] MEDS: INSULIN ASPART PER UNIT SC SCH ×4 (08:49→20:56)
[2022-09-17] MEDS: LANTUS PER UNIT CHARGE SQ SCH ×2 (09:37→20:56)
--- NOTE | 2022-09-17 11:37 | Hospitalist Progress Note ---
Date of Service September 17, 2022 Assessment & Plan (1) Hospital admission due to lack of caregiver: Plan: Admitted to the hospital on account of inability to take care of himself, said his caregiver quit. Patient is currently afebrile, hemodynamically stable, and pulse ox is stable on RA . Patient noted to have significant cognitive decline after multiple intubations and likely anoxic brain injury following covid pneumonia over a year ago. Daughter wants him placed at [facility], since he had been there in the past. CM is assisting. No beds currently at [facility]. Daughter did not agree to any other homes at this time. (2) Hypertension: Plan: Controlled on metoprolol, diltiazem, lisinopril, Imdur, clonidine (3) Gastroesophageal reflux disease: Plan: Continue pantoprazole (4) Dyslipidemia: Plan: Continue statin (5) CAD in [place] artery: Plan: Continue aspirin and statin therapy (6) Depression: Plan: Continue Duloxetine (7) BPH (benign prostatic hyperplasia): Plan: Continue finasteride (8) Diabetes mellitus with insulin therapy: Plan: carb consistent diet. Lantus uptitrated on September 12. Accuchecks ac and hs and sliding scale coverage as needed. (9) Atrial fibrillation: Plan: Stable. Rate controlled with Metoprolol, diltiazem. Continue eliquis Plan Eventual discharge to SNF facility when accepting facility found and insurance auth received. No changes made to patient's plan at this time. Plan d/w Dr. Bowen. Admission and Anticipated Discharge Date Admission Date: September 03, 2022 Subjective Patient is awake in bed and his only complaint is that he wants to go home. He denies any chest pain, SOB, cough, abdominal pain or N/V CM working with patient's daughter and sent a referral to [facility], since he had been there in the past. I attempted to call patient's daughter and update her and no answer at the phone number in chart. Review of Systems Constitutional: no fever, no chills and no body aches Respiratory: no cough, no chest congestion and no dyspnea Cardiovascular: no chest pain, no dyspnea, no syncope and no edema Gastrointestinal: no nausea, no vomiting and no change in bowel habits Integumentary: no rash, no lesions and no new lesions Physical Exam Constitutional: well nourished and + well hydrated; no acute distress Neck: trachea midline, no thyromegaly Respiratory: normal respiratory effort, lungs clear to auscultation Cardiovascular: RRR, no murmur, no edema Gastrointestinal (Abdomen): normal bowel sounds, soft, nontender, no hepatosplenomegaly Skin: no rashes, warm and dry Psychiatric: A+Ox3, euthymic affect Results & Data Results & Data ([facility]) Vital Signs (Past 12 Hours) Vital Signs Temp Pulse Resp BP Pulse Ox O2 Del Method 09/17/22 07:10 36.5 C 57 L 16 184/87 H 94 Room Air Laboratory Results Abnormal lab results 09/16/22 09/16/22 09/16/22 Range/Units 12:11 17:08 20:53 POC Glucose 213 H 120 H 176 H (70-99) mg/dl 09/17/22 Range/Units 08:08 POC Glucose 171 H (70-99) mg/dl PG Care Time/CCT Total # of Minutes Spent Total Time Spent with Patient: Total time spent is greater than 50% in coordination of care (as documented) at patient's floor/unit and/or counseling patient: Coding Level of Care Code 02173 SUB INP/OBS CARE 09/16MIN Diagnoses Hospital admission due to lack of caregiver Z74.2 Hypertension I10 Gastroesophageal reflux disease K21.9 Dyslipidemia E78.5 CAD in [place] artery I25.10 Depression F32.9 BPH (benign prostatic hyperplasia) N40.0 Diabetes mellitus with insulin therapy E11.9; Z79.4 Atrial fibrillation I48.91
[2022-09-17] MEDS: ATORVASTATIN 40 MG TAB PO SCH (20:51)
[2022-09-17] MEDS: MELATONIN 3 MG TAB PO PRN (20:56)
[2022-09-18] MEDS: MAGNESIUM OXIDE 400 MG TAB PO SCH ×2 (08:49→20:14)
[2022-09-18] MEDS: FINASTERIDE 5 MG TAB PO SCH (08:49)
[2022-09-18] MEDS: ISOSORBIDE MONO EXTENDED REL 60 MG TABCR PO SCH (08:49)
[2022-09-18] MEDS: DULoxetine HCL 60 MG CAP PO SCH (08:49)
[2022-09-18] MEDS: lisinopril 40 MG TAB PO SCH (08:49)
[2022-09-18] MEDS: DULoxetine HCL 20 MG CAP PO SCH (08:49)
[2022-09-18] MEDS: ASPIRIN 81 MG ECTAB PO SCH (08:49)
[2022-09-18] MEDS: cloNIDine HCL 0.1 MG TAB PO SCH ×3 (08:49→20:15)
[2022-09-18] MEDS: APIXABAN 5 MG TABLET PO SCH ×2 (08:50→20:14)
[2022-09-18] MEDS: PANTOprazole 40 MG TAB PO SCH (08:50)
[2022-09-18] MEDS: dilTIAZem HCL 240 MG CAPCR PO SCH (08:52)
[2022-09-18] MEDS: METOPROLOL TARTRATE 50 MG TAB PO SCH ×2 (08:52→20:15)
[2022-09-18] MEDS: INSULIN ASPART PER UNIT SC SCH ×4 (08:53→20:27)
[2022-09-18] MEDS: LANTUS PER UNIT CHARGE SQ SCH ×2 (08:57→20:27)
--- NOTE | 2022-09-18 11:41 | Hospitalist Progress Note ---
Date of Service September 18, 2022 Assessment & Plan (1) Hospital admission due to lack of caregiver: Plan: Admitted to the hospital on account of inability to take care of himself, said his caregiver quit. Patient is currently afebrile, hemodynamically stable, and pulse ox is stable on RA . Patient noted to have significant cognitive decline after multiple intubations and likely anoxic brain injury following covid pneumonia over a year ago. Daughter wants him placed at [facility], since he had been there in the past. CM is assisting. No beds currently at [facility]. Daughter did not agree to any other homes at this time. (2) Hypertension: Plan: Continue on metoprolol, diltiazem, lisinopril, Imdur, clonidine (3) Gastroesophageal reflux disease: Plan: Continue pantoprazole (4) Dyslipidemia: Plan: Continue statin (5) CAD in [place] artery: Plan: Continue aspirin and statin therapy (6) Depression: Plan: Continue Duloxetine (7) BPH (benign prostatic hyperplasia): Plan: Continue finasteride (8) Diabetes mellitus with insulin therapy: Plan: carb consistent diet. Lantus uptitrated on September 12. Accuchecks ac and hs and sliding scale coverage as needed. (9) Atrial fibrillation: Plan: Stable. Rate controlled with Metoprolol, diltiazem. Continue eliquis Plan Eventual discharge to SNF facility when accepting facility found and insurance auth received. No changes made to patient's plan at this time. Plan d/w Dr. Bowen. Continue to get up and out of bed Continue Eliquis 5mg BID and ASA 81mg daily Admission and Anticipated Discharge Date Admission Date: September 03, 2022 Subjective Patient is awake in bed and his only complaint is that he wants to go home. He denies any chest pain, SOB, cough, abdominal pain or N/V CM working with patient's daughter and sent a referral to [facility], since he had been there in the past. I spoke with patient's daughter Karli this AM. Review of Systems Constitutional: no fever, no chills and no body aches Respiratory: no cough, no chest congestion and no dyspnea Cardiovascular: no chest pain, no dyspnea, no syncope and no edema Gastrointestinal: no nausea, no vomiting and no change in bowel habits Integumentary: no rash, no lesions and no new lesions Physical Exam Constitutional: well nourished and + well hydrated; no acute distress Neck: trachea midline, no thyromegaly Respiratory: normal respiratory effort, lungs clear to auscultation Cardiovascular: RRR, no murmur, no edema Gastrointestinal (Abdomen): normal bowel sounds, soft, nontender, no hepatosplenomegaly surgical healed scar LUQ from previous Peg tube Skin: no rashes, warm and dry Psychiatric: Orientation: alert, oriented to person, oriented to place and cooperative Results & Data Results & Data ([facility]) Vital Signs (Past 12 Hours) Vital Signs Temp Pulse Resp BP Pulse Ox O2 Del Method 09/18/22 08:52 67 09/18/22 07:43 36.5 C 57 L 18 187/81 H 95 Room Air Laboratory Results Abnormal lab results 09/17/22 09/17/22 09/17/22 Range/Units 12:05 17:07 20:49 POC Glucose 189 H 136 H 207 H (70-99) mg/dl 09/18/22 Range/Units 08:03 POC Glucose 173 H (70-99) mg/dl PG Care Time/CCT Total # of Minutes Spent Total Time Spent with Patient: Total time spent is greater than 50% in coordination of care (as documented) at patient's floor/unit and/or counseling patient: Coding Level of Care Code 28698 SUB INP/OBS CARE 09/16MIN Diagnoses Hospital admission due to lack of caregiver Z74.2 Hypertension I10 Gastroesophageal reflux disease K21.9 Dyslipidemia E78.5 CAD in [place] artery I25.10 Depression F32.9 BPH (benign prostatic hyperplasia) N40.0 Diabetes mellitus with insulin therapy E11.9; Z79.4 Atrial fibrillation I48.91
[2022-09-18] MEDS: ATORVASTATIN 40 MG TAB PO SCH (20:14)
--- NOTE | 2022-09-19 08:42 | Hospitalist Progress Note ---
Date of Service September 19, 2022 Assessment & Plan (1) Hospital admission due to lack of caregiver: Plan: Admitted to the hospital on account of inability to take care of himself, said his caregiver quit. After speaking with patient's daughter Karli 09/18/22, patient is "hard to handle" and he fired the caregiver but is unable to care for himself and needs placement to SNF. [facility] sent patient to the ER because he is not safe at home alone. Patient is currently afebrile, hemodynamically stable, and pulse ox is stable on RA . Patient noted to have significant cognitive decline after multiple intubations and likely anoxic brain injury following Covid pneumonia over a year ago. Daughter wants him placed at [facility], since he had been there in the past. CM is assisting. No beds currently at [facility]. Daughter did not agree to any other homes at this time except [facility] or [facility]. (2) Hypertension: Plan: Continue on metoprolol, diltiazem, lisinopril, Imdur, clonidine (3) Gastroesophageal reflux disease: Plan: Continue pantoprazole (4) Dyslipidemia: Plan: Continue statin (5) CAD in [place] artery: Plan: Continue aspirin and statin therapy (6) Depression: Plan: Continue Duloxetine (7) BPH (benign prostatic hyperplasia): Plan: Continue finasteride (8) Diabetes mellitus with insulin therapy: Plan: carb consistent diet. Currently on Lantus 8 units BID Accuchecks ac and hs and sliding scale coverage as needed. Last HgbA1C was 03/2022 - 8.1 (9) Atrial fibrillation: Plan: Stable. Rate controlled with Metoprolol, diltiazem. Continue eliquis Plan Eventual discharge to SNF facility when accepting facility found and insurance auth received. No changes made to patient's plan at this time. Plan d/w Dr. Bowen. Continue to get up and out of bed Continue Eliquis 5mg BID and ASA 81mg daily Admission and Anticipated Discharge Date Admission Date: September 03, 2022 Subjective Patient is awake in bed. He voices no complaints except he wants to go home. CM is waiting to hear from [facility] and [facility] on Wednesday regarding if any available beds. Review of Systems Constitutional: no fever, no chills and no body aches Respiratory: no cough, no chest congestion and no dyspnea Cardiovascular: no chest pain, no dyspnea, no syncope and no edema Gastrointestinal: no nausea, no vomiting and no change in bowel habits Integumentary: no rash, no lesions and no new lesions Physical Exam Constitutional: well nourished and + well hydrated; no acute distress Neck: trachea midline, no thyromegaly Respiratory: normal respiratory effort, lungs clear to auscultation Cardiovascular: RRR, no murmur, no edema Gastrointestinal (Abdomen): normal bowel sounds, soft, nontender, no hepatosplenomegaly Skin: no rashes, warm and dry Psychiatric: Orientation: alert, oriented to person, oriented to place and cooperative Results & Data Results & Data ([facility]) Vital Signs (Past 12 Hours) Vital Signs Temp Pulse Resp BP Pulse Ox O2 Del Method 09/19/22 07:42 36.8 C 55 L 16 154/74 H 95 Room Air PG Care Time/CCT Total # of Minutes Spent Total Time Spent with Patient: Total time spent is greater than 50% in coordination of care (as documented) at patient's floor/unit and/or counseling patient: Coding Level of Care Code 44905 SUB INP/OBS CARE /25MIN Diagnoses Hospital admission due to lack of caregiver Z74.2 Hypertension I10 Gastroesophageal reflux disease K21.9 Dyslipidemia E78.5 CAD in [place] artery I25.10 Depression F32.9 BPH (benign prostatic hyperplasia) N40.0 Diabetes mellitus with insulin therapy E11.9; Z79.4 Atrial fibrillation I48.91
[2022-09-19] MEDS: ISOSORBIDE MONO EXTENDED REL 60 MG TABCR PO SCH (08:52)
[2022-09-19] MEDS: cloNIDine HCL 0.1 MG TAB PO SCH ×3 (08:52→20:28)
[2022-09-19] MEDS: lisinopril 40 MG TAB PO SCH (08:52)
[2022-09-19] MEDS: MAGNESIUM OXIDE 400 MG TAB PO SCH ×2 (08:52→20:28)
[2022-09-19] MEDS: DULoxetine HCL 20 MG CAP PO SCH (08:52)
[2022-09-19] MEDS: DULoxetine HCL 60 MG CAP PO SCH (08:53)
[2022-09-19] MEDS: ASPIRIN 81 MG ECTAB PO SCH (08:53)
[2022-09-19] MEDS: PANTOprazole 40 MG TAB PO SCH (08:53)
[2022-09-19] MEDS: FINASTERIDE 5 MG TAB PO SCH (08:53)
[2022-09-19] MEDS: APIXABAN 5 MG TABLET PO SCH ×2 (08:53→20:28)
[2022-09-19] MEDS: dilTIAZem HCL 240 MG CAPCR PO SCH (08:54)
[2022-09-19] MEDS: METOPROLOL TARTRATE 50 MG TAB PO SCH ×2 (08:54→20:28)
[2022-09-19] MEDS: INSULIN ASPART PER UNIT SC SCH ×4 (08:56→20:33)
[2022-09-19] MEDS: LANTUS PER UNIT CHARGE SQ SCH ×2 (08:57→20:33)
[2022-09-19] MEDS: ATORVASTATIN 40 MG TAB PO SCH (20:29)
[2022-09-19] MEDS: MELATONIN 3 MG TAB PO PRN (20:33)
--- NOTE | 2022-09-20 08:45 | Hospitalist Progress Note ---
Date of Service September 20, 2022 Assessment & Plan (1) Hospital admission due to lack of caregiver: Plan: Admitted to the hospital on account of inability to take care of himself, said his caregiver quit. After speaking with patient's daughter Karli 09/18/22, patient is "hard to handle" and he fired the caregiver but is unable to care for himself and needs placement to SNF. [facility] sent patient to the ER because he is not safe at home alone. Patient noted to have significant cognitive decline after multiple intubations and likely anoxic brain injury following Covid pneumonia over a year ago. Daughter wants him placed at [facility], since he had been there in the past. CM is assisting. No beds currently at [facility]. Daughter did not agree to any other homes at this time except [facility] or [facility]. Patient is currently afebrile, hemodynamically stable, and pulse ox is stable on RA at 97% (2) Hypertension: Plan: Continue on metoprolol, diltiazem, lisinopril, Imdur, clonidine Low sodium diet (3) Gastroesophageal reflux disease: Plan: Continue pantoprazole (4) Dyslipidemia: Plan: Continue Atorvastatin 80mg (5) CAD in [place] artery: Plan: Continue aspirin and statin therapy (6) Depression: Plan: Continue Duloxetine (7) BPH (benign prostatic hyperplasia): Plan: Continue finasteride (8) Diabetes mellitus with insulin therapy: Plan: carb consistent diet. Currently on Lantus 8 units BID Accuchecks ac and hs and sliding scale coverage as needed. Last HgbA1C was 03/2022 - 8.1 (9) Atrial fibrillation: Plan: Stable. Rate controlled with Metoprolol, diltiazem. Continue eliquis Plan Eventual discharge to SNF facility when accepting facility found and insurance auth received. No changes made to patient's plan at this time. Plan d/w Dr. Bowen. Continue to get up and out of bed Continue Eliquis 5mg BID and ASA 81mg daily Admission and Anticipated Discharge Date Admission Date: September 03, 2022 Subjective Patient is awake in bed. He has no complaints except he states he does not like the "junk food" here and he is mad that "we are keeping him here to make money" Review of Systems Review of Systems: All systems reviewed and are unremarkable except as noted in HPI and below. Denies fever, chills, fatigue, headache, nasal congestion, sore throat, cough, chest pain, shortness of breath, palpitations, orthopnea, PND, abdominal pain, n/v/d, constipation, dysuria, hematuria, frequency, back pain, joint pain or swelling, easy bruising or bleeding, skin lesions or rashes. Constitutional: no fever, no chills and no body aches Respiratory: no cough, no chest congestion and no dyspnea Cardiovascular: no chest pain, no dyspnea, no syncope and no edema Gastrointestinal: no nausea, no vomiting and no change in bowel habits Integumentary: no rash, no lesions and no new lesions Psychiatric: + irritability and + confusion; no change in appetite, no hallucinations and no auditory hallucinations Physical Exam Constitutional: well nourished (Patient was irritable and stated he wanted to go home) and + well hydrated; no acute distress Neck: trachea midline, no thyromegaly Respiratory: normal respiratory effort, lungs clear to auscultation Cardiovascular: RRR, no murmur, no edema Gastrointestinal (Abdomen): normal bowel sounds, soft, nontender, no hepatosplenomegaly Skin: no rashes, warm and dry Psychiatric: Orientation: alert, oriented to person (He was oriented to the month and year. ) and oriented to place Results & Data Results & Data ([facility]) Vital Signs (Past 12 Hours) Vital Signs Temp Pulse Resp BP Pulse Ox O2 Del Method 09/20/22 07:39 36.4 C L 58 L 16 163/79 H 97 Room Air Laboratory Results Abnormal lab results 09/19/22 09/19/22 09/20/22 Range/Units 17:18 20:26 08:15 POC Glucose 188 H 182 H 162 H (70-99) mg/dl 09/20/22 Range/Units 12:09 POC Glucose 186 H (70-99) mg/dl PG Care Time/CCT Total # of Minutes Spent Total Time Spent with Patient: Total time spent is greater than 50% in coordination of care (as documented) at patient's floor/unit and/or counseling patient: Coding Level of Care Code 45717 SUB INP/OBS CARE /25MIN Diagnoses Hospital admission due to lack of caregiver Z74.2 Hypertension I10 Gastroesophageal reflux disease K21.9 Dyslipidemia E78.5 CAD in [place] artery I25.10 Depression F32.9 BPH (benign prostatic hyperplasia) N40.0 Diabetes mellitus with insulin therapy E11.9; Z79.4 Atrial fibrillation I48.91
[2022-09-20] MEDS: FINASTERIDE 5 MG TAB PO SCH (08:56)
[2022-09-20] MEDS: DULoxetine HCL 20 MG CAP PO SCH (08:56)
[2022-09-20] MEDS: METOPROLOL TARTRATE 50 MG TAB PO SCH ×2 (08:56→21:07)
[2022-09-20] MEDS: ASPIRIN 81 MG ECTAB PO SCH (08:56)
[2022-09-20] MEDS: PANTOprazole 40 MG TAB PO SCH (08:56)
[2022-09-20] MEDS: cloNIDine HCL 0.1 MG TAB PO SCH ×3 (08:56→21:08)
[2022-09-20] MEDS: ISOSORBIDE MONO EXTENDED REL 60 MG TABCR PO SCH (08:56)
[2022-09-20] MEDS: APIXABAN 5 MG TABLET PO SCH ×2 (08:57→21:06)
[2022-09-20] MEDS: dilTIAZem HCL 240 MG CAPCR PO SCH (08:57)
[2022-09-20] MEDS: lisinopril 40 MG TAB PO SCH (08:57)
[2022-09-20] MEDS: DULoxetine HCL 60 MG CAP PO SCH (08:57)
[2022-09-20] MEDS: MAGNESIUM OXIDE 400 MG TAB PO SCH ×2 (08:58→21:07)
[2022-09-20] MEDS: INSULIN ASPART PER UNIT SC SCH ×4 (09:01→21:05)
[2022-09-20] MEDS: LANTUS PER UNIT CHARGE SQ SCH ×2 (09:01→21:06)
[2022-09-20] MEDS: ATORVASTATIN 40 MG TAB PO SCH (21:06)
[2022-09-21] MEDS: MAGNESIUM OXIDE 400 MG TAB PO SCH ×2 (09:19→20:23)
[2022-09-21] MEDS: APIXABAN 5 MG TABLET PO SCH ×2 (09:19→20:24)
[2022-09-21] MEDS: cloNIDine HCL 0.1 MG TAB PO SCH ×3 (09:19→20:24)
[2022-09-21] MEDS: dilTIAZem HCL 240 MG CAPCR PO SCH ×2 (09:20→09:27)
[2022-09-21] MEDS: ASPIRIN 81 MG ECTAB PO SCH (09:20)
[2022-09-21] MEDS: PANTOprazole 40 MG TAB PO SCH (09:20)
[2022-09-21] MEDS: METOPROLOL TARTRATE 50 MG TAB PO SCH ×3 (09:20→20:24)
[2022-09-21] MEDS: DULoxetine HCL 60 MG CAP PO SCH (09:21)
[2022-09-21] MEDS: FINASTERIDE 5 MG TAB PO SCH (09:21)
[2022-09-21] MEDS: DULoxetine HCL 20 MG CAP PO SCH (09:21)
[2022-09-21] MEDS: ISOSORBIDE MONO EXTENDED REL 60 MG TABCR PO SCH (09:21)
[2022-09-21] MEDS: lisinopril 40 MG TAB PO SCH (09:22)
[2022-09-21] MEDS: LANTUS PER UNIT CHARGE SQ SCH ×3 (09:27→20:47)
[2022-09-21] MEDS: INSULIN ASPART PER UNIT SC SCH ×4 (09:36→20:46)
--- NOTE | 2022-09-21 12:34 | Hospitalist Progress Note ---
Date of Service September 21, 2022 Assessment & Plan (1) Hospital admission due to lack of caregiver: Plan: Admitted to the hospital on account of inability to take care of himself, said his caregiver quit. After speaking with patient's daughter Karli 09/18/22, patient is "hard to handle" and he fired the caregiver but is unable to care for himself and needs placement to SNF. The [facility] of Aging sent patient to the ER because he is not safe at home alone. Patient noted to have significant cognitive decline after multiple intubations and likely anoxic brain injury following Covid pneumonia over a year ago. Daughter wants him placed at [facility], since he had been there in the past. CM is assisting. No beds currently at [facility]. Daughter did not agree to any other homes at this time except [facility] or [facility]. Patient is currently afebrile, hemodynamically stable, and pulse ox is stable on RA at 94% Pulse 59 (2) Hypertension: Plan: Continue on metoprolol, diltiazem, lisinopril, Imdur, clonidine Low sodium diet (3) Gastroesophageal reflux disease: Plan: Continue pantoprazole (4) Dyslipidemia: Plan: Continue Atorvastatin 80mg (5) CAD in [place] artery: Plan: Continue aspirin and statin therapy (6) Depression: Plan: Continue Duloxetine (7) BPH (benign prostatic hyperplasia): Plan: Continue finasteride (8) Diabetes mellitus with insulin therapy: Plan: carb consistent diet. Currently on Lantus 8 units BID Accuchecks ac and hs and sliding scale coverage as needed. Last HgbA1C was 03/2022 - 8.1 (9) Atrial fibrillation: Plan: Stable. Rate controlled with Metoprolol, diltiazem. Continue eliquis Plan Eventual discharge to SNF facility when accepting facility found and insurance auth received. No changes made to patient's plan at this time. Plan d/w Dr. Bowen. Continue to get up and out of bed Continue Eliquis 5mg BID and ASA 81mg daily Admission and Anticipated Discharge Date Admission Date: September 03, 2022 Subjective Patient is awake in bed in NAD. He is watching TV and denies any complaints. Review of Systems Review of Systems: All systems reviewed and are unremarkable except as noted in HPI and below. Denies fever, chills, fatigue, headache, nasal congestion, sore throat, cough, chest pain, shortness of breath, palpitations, orthopnea, PND, abdominal pain, n/v/d, constipation, dysuria, hematuria, frequency, back pain, joint pain or swelling, easy bruising or bleeding, skin lesions or rashes. Constitutional: no fever, no chills and no body aches Respiratory: no cough, no chest congestion and no dyspnea Cardiovascular: no chest pain, no dyspnea, no syncope and no edema Gastrointestinal: no nausea, no vomiting and no change in bowel habits Integumentary: no rash, no lesions and no new lesions Psychiatric: + irritability and + confusion; no change in appetite, no hallucinations and no auditory hallucinations Physical Exam Constitutional: well nourished (Patient was irritable and stated he wanted to go home) and + well hydrated; no acute distress Neck: trachea midline, no thyromegaly Respiratory: normal respiratory effort, lungs clear to auscultation Cardiovascular: RRR, no murmur, no edema Gastrointestinal (Abdomen): normal bowel sounds, soft, nontender, no hepatosplenomegaly old healed scar LUQ secondary to previous Peg tube Skin: no rashes, warm and dry Psychiatric: A+Ox3, euthymic affect Orientation: alert, oriented to person (He was oriented to the month and year. ), oriented to place and cooperative Results & Data Results & Data ([facility]) Vital Signs (Past 12 Hours) Vital Signs Temp Pulse Pulse Resp BP BP Pulse Ox 09/21/22 09:23 59 L 137/79 09/21/22 07:09 36.5 C 61 16 154/77 H 94 O2 Del Method 09/21/22 09:23 09/21/22 07:09 Room Air PG Care Time/CCT Total # of Minutes Spent Total Time Spent with Patient: Total time spent is greater than 50% in coordination of care (as documented) at patient's floor/unit and/or counseling patient: Coding Level of Care Code 67499 SUB INP/OBS CARE 1/25MIN Diagnoses Hospital admission due to lack of caregiver Z74.2 Hypertension I10 Gastroesophageal reflux disease K21.9 Dyslipidemia E78.5 CAD in [place] artery I25.10 Depression F32.9 BPH (benign prostatic hyperplasia) N40.0 Diabetes mellitus with insulin therapy E11.9; Z79.4 Atrial fibrillation I48.91
[2022-09-21] MEDS: ATORVASTATIN 40 MG TAB PO SCH (20:23)
[2022-09-22] MEDS: ASPIRIN 81 MG ECTAB PO SCH (08:47)
[2022-09-22] MEDS: APIXABAN 5 MG TABLET PO SCH ×2 (08:47→21:07)
[2022-09-22] MEDS: MAGNESIUM OXIDE 400 MG TAB PO SCH ×2 (08:47→21:07)
[2022-09-22] MEDS: lisinopril 40 MG TAB PO SCH (08:48)
[2022-09-22] MEDS: PANTOprazole 40 MG TAB PO SCH (08:48)
[2022-09-22] MEDS: dilTIAZem HCL 240 MG CAPCR PO SCH (08:49)
[2022-09-22] MEDS: DULoxetine HCL 20 MG CAP PO SCH (08:49)
[2022-09-22] MEDS: cloNIDine HCL 0.1 MG TAB PO SCH ×3 (08:49→21:06)
[2022-09-22] MEDS: DULoxetine HCL 60 MG CAP PO SCH (08:49)
[2022-09-22] MEDS: FINASTERIDE 5 MG TAB PO SCH (08:51)
[2022-09-22] MEDS: ISOSORBIDE MONO EXTENDED REL 60 MG TABCR PO SCH (08:51)
[2022-09-22] MEDS: METOPROLOL TARTRATE 50 MG TAB PO SCH ×2 (08:51→21:06)
[2022-09-22] MEDS: LANTUS PER UNIT CHARGE SQ SCH ×2 (09:04→21:12)
[2022-09-22] MEDS: INSULIN ASPART PER UNIT SC SCH ×4 (09:04→21:12)
--- NOTE | 2022-09-22 15:02 | Hospitalist Progress Note ---
Date of Service September 22, 2022 Assessment & Plan (1) Hospital admission due to lack of caregiver: Plan: Admitted to the hospital on account of inability to take care of himself, said his caregiver quit. After speaking with patient's daughter Karli 09/18/22, patient is "hard to handle" and he fired the caregiver but is unable to care for himself and needs placement to SNF. The Office of Aging sent patient to the ER because he is not safe at home alone. Patient noted to have significant cognitive decline after multiple intubations and likely anoxic brain injury following Covid pneumonia over a year ago. Daughter wants him placed at [facility], since he had been there in the past. CM is assisting. No beds currently at [facility]. Daughter did not agree to any other homes at this time except [facility] or [facility]. Patient is currently afebrile, hemodynamically stable, and pulse ox is stable on RA at 94% Pulse 79 (2) Hypertension: Plan: Continue on metoprolol, diltiazem, lisinopril, Imdur, clonidine Low sodium diet (3) Gastroesophageal reflux disease: Plan: Continue pantoprazole (4) Dyslipidemia: Plan: Continue Atorvastatin 80mg (5) CAD in [place] artery: Plan: Continue aspirin and statin therapy (6) Depression: Plan: Continue Duloxetine (7) BPH (benign prostatic hyperplasia): Plan: Continue finasteride (8) Diabetes mellitus with insulin therapy: Plan: carb consistent diet. Currently on Lantus 8 units BID Accuchecks ac and hs and sliding scale coverage as needed. Last HgbA1C was 03/2022 - 8.1 (9) Atrial fibrillation: Plan: Stable. Rate controlled with Metoprolol, diltiazem. Continue eliquis Plan Per CM notes multiple SNF do not have any fpc beds. Patient's daughter was going to see if she could find family who would be willing to stay with patient 15/03 Continue to get up and out of bed Continue Eliquis 5mg BID and ASA 81mg daily Admission and Anticipated Discharge Date Admission Date: September 03, 2022 Subjective Patient is awake in bed in NAD. He is watching TV and denies any complaints. Review of Systems Review of Systems: All systems reviewed and are unremarkable except as noted in HPI and below. Denies fever, chills, fatigue, headache, nasal congestion, sore throat, cough, chest pain, shortness of breath, palpitations, orthopnea, PND, abdominal pain, n/v/d, constipation, dysuria, hematuria, frequency, back pain, joint pain or swelling, easy bruising or bleeding, skin lesions or rashes. Constitutional: no fever, no chills and no body aches Respiratory: no cough, no chest congestion and no dyspnea Cardiovascular: no chest pain, no dyspnea, no syncope and no edema Gastrointestinal: no nausea, no vomiting and no change in bowel habits Integumentary: no rash, no lesions and no new lesions Psychiatric: + irritability and + confusion; no change in appetite, no hallucinations and no auditory hallucinations Physical Exam Constitutional: well nourished (Patient continues to be irritable and stated he wanted to go home) and + well hydrated; no acute distress Neck: trachea midline, no thyromegaly Respiratory: normal respiratory effort, lungs clear to auscultation Cardiovascular: RRR, no murmur, no edema Gastrointestinal (Abdomen): normal bowel sounds, soft, nontender, no hepatosplenomegaly Skin: no rashes, warm and dry Psychiatric: A+Ox3, euthymic affect Orientation: alert, oriented to person (He was oriented to the month and year. ), oriented to place and cooperative Results & Data Results & Data ([facility]) Vital Signs (Past 12 Hours) Vital Signs Temp Pulse Resp BP Pulse Ox O2 Del Method 09/22/22 08:54 79 151/83 H 09/22/22 07:16 36.7 C 71 16 156/84 H 94 Room Air Laboratory Results Abnormal lab results 09/21/22 09/21/22 09/22/22 Range/Units 17:15 20:35 08:26 POC Glucose 149 H 155 H 156 H (70-99) mg/dl 09/22/22 Range/Units 12:02 POC Glucose 180 H (70-99) mg/dl PG Care Time/CCT Total # of Minutes Spent Total Time Spent with Patient: Total time spent is greater than 50% in coordination of care (as documented) at patient's floor/unit and/or counseling patient: Coding Level of Care Code 34206 SUB INP/OBS CARE 25MIN Diagnoses Hospital admission due to lack of caregiver Z74.2 Hypertension I10 Gastroesophageal reflux disease K21.9 Dyslipidemia E78.5 CAD in [place] artery I25.10 Depression F32.9 BPH (benign prostatic hyperplasia) N40.0 Diabetes mellitus with insulin therapy E11.9; Z79.4 Atrial fibrillation I48.91
[2022-09-22] MEDS: ATORVASTATIN 40 MG TAB PO SCH (21:06)
[2022-09-22] MEDS: MELATONIN 3 MG TAB PO PRN (21:12)
[2022-09-23] MEDS: INSULIN ASPART PER UNIT SC SCH ×4 (09:21→20:16)
[2022-09-23] MEDS: LANTUS PER UNIT CHARGE SQ SCH ×2 (09:22→20:16)
[2022-09-23] MEDS: ASPIRIN 81 MG ECTAB PO SCH (09:25)
[2022-09-23] MEDS: APIXABAN 5 MG TABLET PO SCH ×2 (09:25→20:08)
[2022-09-23] MEDS: DULoxetine HCL 60 MG CAP PO SCH (09:25)
[2022-09-23] MEDS: lisinopril 40 MG TAB PO SCH (09:25)
[2022-09-23] MEDS: MAGNESIUM OXIDE 400 MG TAB PO SCH ×2 (09:25→20:08)
[2022-09-23] MEDS: cloNIDine HCL 0.1 MG TAB PO SCH ×3 (09:26→20:08)
[2022-09-23] MEDS: METOPROLOL TARTRATE 50 MG TAB PO SCH ×2 (09:26→20:08)
[2022-09-23] MEDS: PANTOprazole 40 MG TAB PO SCH (09:27)
[2022-09-23] MEDS: ISOSORBIDE MONO EXTENDED REL 60 MG TABCR PO SCH (09:27)
[2022-09-23] MEDS: FINASTERIDE 5 MG TAB PO SCH (09:27)
[2022-09-23] MEDS: dilTIAZem HCL 240 MG CAPCR PO SCH (09:27)
[2022-09-23] MEDS: DULoxetine HCL 20 MG CAP PO SCH (09:28)
--- NOTE | 2022-09-23 15:42 | Hospitalist Progress Note ---
Date of Service September 23, 2022 Assessment & Plan (1) Hospital admission due to lack of caregiver: Plan: Admitted to the hospital on account of inability to take care of himself, said his caregiver quit. After speaking with patient's daughter Karli 09/18/22, patient is "hard to handle" and he fired the caregiver but is unable to care for himself and needs placement to SNF. The Office of Aging sent patient to the ER because he is not safe at home alone. Patient noted to have significant cognitive decline after multiple intubations and likely anoxic brain injury following Covid pneumonia over a year ago. Daughter wants him placed at [facility], since he had been there in the past. [facility] is on an admission freeze. No beds currently at [facility]. Daughter did not agree to any other homes at this time except [facility] or [facility]. Yesterday 09/22/22 patient's daughter was going to try and find family to be able to care for patient. CM is awaiting a call back regarding this. Patient is currently afebrile, hemodynamically stable, and pulse ox is stable on RA at 94% Pulse 79 (2) Hypertension: Plan: Stable BP today 126/65 Continue on metoprolol, diltiazem, lisinopril, Imdur, clonidine Low sodium diet (3) Gastroesophageal reflux disease: Plan: Continue pantoprazole (4) Dyslipidemia: Plan: Continue Atorvastatin 80mg (5) CAD in [place] artery: Plan: Continue aspirin and statin therapy (6) Depression: Plan: Continue Duloxetine (7) BPH (benign prostatic hyperplasia): Plan: Continue finasteride (8) Diabetes mellitus with insulin therapy: Plan: carb consistent diet. Currently on Lantus 8 units BID Accuchecks ac and hs and sliding scale coverage as needed. Last HgbA1C was 03/2022 - 8.1 (9) Atrial fibrillation: Plan: Stable. Rate controlled with Metoprolol, diltiazem. Continue eliquis Plan Per CM notes multiple SNF do not have any snf beds. Patient's daughter was going to see if she could find family who would be willing to stay with patient 15/03 Continue to get up and out of bed Continue Eliquis 5mg BID and ASA 81mg daily Admission and Anticipated Discharge Date Admission Date: September 03, 2022 Subjective Patient is awake in bed in NAD. He is watching TV. He is upset, stating that we are keeping him here just to make money. He states he just wants to go home and does not need any help. Review of Systems Review of Systems: Complete ROS is negative patient has no complaints Physical Exam Constitutional: well nourished (Patient continues to be irritable and stated he wanted to go home) and + well hydrated; no acute distress Neck: trachea midline, no thyromegaly Respiratory: normal respiratory effort, lungs clear to auscultation Cardiovascular: RRR, no murmur, no edema Gastrointestinal (Abdomen): normal bowel sounds, soft, nontender, no hepatosplenomegaly Skin: no rashes, warm and dry Psychiatric: A+Ox3, euthymic affect Orientation: alert, oriented to person (He was oriented to the month and year. ), oriented to place and cooperative Results & Data Results & Data ([facility]) Vital Signs (Past 12 Hours) Vital Signs Temp Pulse Resp BP BP Pulse Ox O2 Del Method 09/23/22 14:01 36.6 C 64 16 159/80 H 95 Room Air 09/23/22 09:16 59 L 126/65 94 Room Air 09/23/22 07:40 36.5 C 47 L 16 123/71 96 Room Air Laboratory Results Abnormal lab results 09/22/22 09/22/22 09/23/22 Range/Units 17:05 21:03 08:10 POC Glucose 165 H 198 H 162 H (70-99) mg/dl 09/23/22 Range/Units 12:10 POC Glucose 188 H (70-99) mg/dl PG Care Time/CCT Total # of Minutes Spent Total Time Spent with Patient: Total time spent is greater than 50% in coordination of care (as documented) at patient's floor/unit and/or counseling patient: Coding Level of Care Code 92811 SUB INP/OBS CARE 1/25MIN Diagnoses Hospital admission due to lack of caregiver Z74.2 Hypertension I10 Gastroesophageal reflux disease K21.9 Dyslipidemia E78.5 CAD in [place] artery I25.10 Depression F32.9 BPH (benign prostatic hyperplasia) N40.0 Diabetes mellitus with insulin therapy E11.9; Z79.4 Atrial fibrillation I48.91
[2022-09-23] MEDS: MELATONIN 3 MG TAB PO PRN (20:16)
[2022-09-23] MEDS: ATORVASTATIN 40 MG TAB PO SCH (20:19)
[2022-09-24] MEDS: LANTUS PER UNIT CHARGE SQ SCH ×2 (09:01→20:47)
[2022-09-24] MEDS: INSULIN ASPART PER UNIT SC SCH ×4 (09:01→20:48)
[2022-09-24] MEDS: FINASTERIDE 5 MG TAB PO SCH (09:03)
[2022-09-24] MEDS: PANTOprazole 40 MG TAB PO SCH (09:03)
[2022-09-24] MEDS: METOPROLOL TARTRATE 50 MG TAB PO SCH ×2 (09:03→20:50)
[2022-09-24] MEDS: MAGNESIUM OXIDE 400 MG TAB PO SCH ×2 (09:03→20:47)
[2022-09-24] MEDS: cloNIDine HCL 0.1 MG TAB PO SCH ×3 (09:04→20:46)
[2022-09-24] MEDS: APIXABAN 5 MG TABLET PO SCH ×2 (09:04→20:47)
[2022-09-24] MEDS: DULoxetine HCL 60 MG CAP PO SCH (09:04)
[2022-09-24] MEDS: dilTIAZem HCL 240 MG CAPCR PO SCH (09:04)
[2022-09-24] MEDS: DULoxetine HCL 20 MG CAP PO SCH (09:04)
[2022-09-24] MEDS: lisinopril 40 MG TAB PO SCH (09:04)
[2022-09-24] MEDS: ISOSORBIDE MONO EXTENDED REL 60 MG TABCR PO SCH (09:04)
[2022-09-24] MEDS: ASPIRIN 81 MG ECTAB PO SCH (09:04)
--- NOTE | 2022-09-24 11:31 | Hospitalist Progress Note ---
Date of Service September 24, 2022 Assessment & Plan (1) Hospital admission due to lack of caregiver: Plan: Admitted to the hospital on account of inability to take care of himself, said his caregiver quit. Patient is currently afebrile, hemodynamically stable, and pulse ox is stable on RA . Patient noted to have significant cognitive decline after multiple intubations and likely anoxic brain injury following covid pneumonia over a year ago. Daughter wants him placed at [facility], CM is assisting. Currently despite multiple SNF referrals, no terminal gauger supervisor beds available. CM d/w daughter to determine further referrals versus family taking him home and providing 24/7 care for him. (2) Hypertension: Plan: Controlled on metoprolol, diltiazem, lisinopril, Imdur, clonidine (3) Diabetes mellitus with insulin therapy: Plan: carb consistent diet. Lantus uptitrated on September 12. Accuchecks ac and hs and sliding scale coverage as needed. (4) Atrial fibrillation: Plan: Stable. Rate controlled with Metoprolol, diltiazem. Continue eliquis Plan Dispo: SNF v Home w/ family. Case management assisting in d/c planning. Continued inpatient stay. Plan d/w Dr. Webster. Admission and Anticipated Discharge Date Admission Date: September 03, 2022 Subjective Patient seen on daily rounds this morning. No complaints other than asking when he can go home. Physical Exam Physical Exam: GENERAL: 77 yo Well-developed, well-nourished elderly WM. NAD. LUNGS: Clear to auscultation bilaterally. CARDIOVASCULAR: Regular rate and rhythm. ABDOMEN: Soft, non-tender and non-distended. BS normoactive x 4 quad. EXTREMITIES: No edema. Non-tender. Peripheral pulses +2/4. NEUROLOGIC: A&O x3. Nonfocal PSYCHIATRIC: Cooperative. Appropriate mood and affect. SKIN: Warm, dry, intact. No rashes or lesions. Results & Data Results & Data ([facility]) Vital Signs (Past 12 Hours) Vital Signs Temp Pulse Pulse Resp BP BP Pulse Ox 09/24/22 09:03 62 171/76 H 09/24/22 07:30 163/75 H 09/24/22 07:29 36.5 C 58 L 16 170/89 H 94 O2 Del Method 09/24/22 09:03 09/24/22 07:30 09/24/22 07:29 Room Air Laboratory Results No labs PG Care Time/CCT Total # of Minutes Spent Total Time Spent with Patient: Total time spent is greater than 50% in coordination of care (as documented) at patient's floor/unit and/or counseling patient: Coding Level of Care Code 25933 SUB INP/OBS CARE 09/16MIN Diagnoses Hospital admission due to lack of caregiver Z74.2 Hypertension I10 Diabetes mellitus with insulin therapy E11.9; Z79.4 Atrial fibrillation I48.91
[2022-09-24] MEDS: MELATONIN 3 MG TAB PO PRN (20:46)
[2022-09-24] MEDS: ATORVASTATIN 40 MG TAB PO SCH (20:47)
[2022-09-25] MEDS: cloNIDine HCL 0.1 MG TAB PO SCH ×3 (08:35→21:00)
[2022-09-25] MEDS: MAGNESIUM OXIDE 400 MG TAB PO SCH ×2 (08:35→21:00)
[2022-09-25] MEDS: APIXABAN 5 MG TABLET PO SCH ×2 (08:35→21:00)
[2022-09-25] MEDS: FINASTERIDE 5 MG TAB PO SCH (08:35)
[2022-09-25] MEDS: PANTOprazole 40 MG TAB PO SCH (08:36)
[2022-09-25] MEDS: ASPIRIN 81 MG ECTAB PO SCH (08:36)
[2022-09-25] MEDS: DULoxetine HCL 20 MG CAP PO SCH (08:36)
[2022-09-25] MEDS: DULoxetine HCL 60 MG CAP PO SCH (08:36)
[2022-09-25] MEDS: ISOSORBIDE MONO EXTENDED REL 60 MG TABCR PO SCH (08:36)
[2022-09-25] MEDS: lisinopril 40 MG TAB PO SCH (08:36)
[2022-09-25] MEDS: dilTIAZem HCL 240 MG CAPCR PO SCH (08:40)
[2022-09-25] MEDS: METOPROLOL TARTRATE 50 MG TAB PO SCH ×2 (08:40→21:03)
[2022-09-25] MEDS: LANTUS PER UNIT CHARGE SQ SCH ×2 (08:48→20:59)
[2022-09-25] MEDS: INSULIN ASPART PER UNIT SC SCH ×4 (08:48→21:00)
--- NOTE | 2022-09-25 11:02 | Hospitalist Progress Note ---
Date of Service September 25, 2022 Assessment & Plan (1) Hospital admission due to lack of caregiver: Plan: Admitted to the hospital on account of inability to take care of himself, said his caregiver quit. Patient is currently afebrile, hemodynamically stable, and pulse ox is stable on RA . Patient noted to have significant cognitive decline after multiple intubations and likely anoxic brain injury following covid pneumonia over a year ago. Daughter wants him placed at [facility], CM is assisting. Currently despite multiple SNF referrals, no intermodal truck driver beds available. CM d/w daughter to determine further referrals versus family taking him home and providing 24/7 care for him. (2) Hypertension: Plan: Controlled on metoprolol, diltiazem, lisinopril, Imdur, clonidine (3) Diabetes mellitus with insulin therapy: Plan: carb consistent diet. Lantus uptitrated on September 12. Accuchecks ac and hs and sliding scale coverage as needed. (4) Atrial fibrillation: Plan: Stable. Rate controlled with Metoprolol, diltiazem. Continue eliquis Plan Dispo: SNF v Home w/ family. Case management assisting in d/c planning, additional referrals sent. Continued inpatient stay. Plan d/w Dr. Webster. Admission and Anticipated Discharge Date Admission Date: September 03, 2022 Subjective Patient seen on daily rounds this morning. No complaints other than asking when he can go home. Physical Exam Physical Exam: GENERAL: 77 yo Well-developed, well-nourished elderly WM. NAD. LUNGS: Clear to auscultation bilaterally. CARDIOVASCULAR: Regular rate and rhythm. NEUROLOGIC: A&O x3. Nonfocal Results & Data Results & Data ([facility]) Vital Signs (Past 12 Hours) Vital Signs Temp Pulse Pulse Resp BP Pulse Ox O2 Del Method 09/25/22 08:39 58 L 160/72 H 94 Room Air 09/25/22 08:21 36.4 C L 59 L 14 138/72 96 Room Air PG Care Time/CCT Total # of Minutes Spent Total Time Spent with Patient: Total time spent is greater than 50% in coordination of care (as documented) at patient's floor/unit and/or counseling patient: Coding Level of Care Code 47912 SUB INP/OBS CARE 1/25MIN Diagnoses Hospital admission due to lack of caregiver Z74.2 Hypertension I10 Diabetes mellitus with insulin therapy E11.9; Z79.4 Atrial fibrillation I48.91
[2022-09-25] MEDS: ATORVASTATIN 40 MG TAB PO SCH (21:00)
[2022-09-26] MEDS: cloNIDine HCL 0.1 MG TAB PO SCH ×3 (08:56→21:00)
[2022-09-26] MEDS: APIXABAN 5 MG TABLET PO SCH ×2 (08:57→21:00)
[2022-09-26] MEDS: PANTOprazole 40 MG TAB PO SCH (08:57)
[2022-09-26] MEDS: MAGNESIUM OXIDE 400 MG TAB PO SCH ×2 (08:57→21:00)
[2022-09-26] MEDS: lisinopril 40 MG TAB PO SCH (08:57)
[2022-09-26] MEDS: DULoxetine HCL 20 MG CAP PO SCH (08:57)
[2022-09-26] MEDS: ASPIRIN 81 MG ECTAB PO SCH (08:58)
[2022-09-26] MEDS: ISOSORBIDE MONO EXTENDED REL 60 MG TABCR PO SCH (08:58)
[2022-09-26] MEDS: DULoxetine HCL 60 MG CAP PO SCH (08:58)
[2022-09-26] MEDS: FINASTERIDE 5 MG TAB PO SCH (08:58)
[2022-09-26] MEDS: METOPROLOL TARTRATE 50 MG TAB PO SCH ×2 (09:01→20:59)
[2022-09-26] MEDS: dilTIAZem HCL 240 MG CAPCR PO SCH (09:01)
[2022-09-26] MEDS: LANTUS PER UNIT CHARGE SQ SCH ×2 (09:10→21:07)
[2022-09-26] MEDS: INSULIN ASPART PER UNIT SC SCH ×4 (09:11→21:07)
--- NOTE | 2022-09-26 11:24 | Hospitalist Progress Note ---
Date of Service September 26, 2022 Assessment & Plan (1) Hospital admission due to lack of caregiver: Plan: Admitted to the hospital on account of inability to take care of himself, said his caregiver quit. Patient is currently afebrile, hemodynamically stable, and pulse ox is stable on RA . Patient noted to have significant cognitive decline after multiple intubations and likely anoxic brain injury following covid pneumonia over a year ago. Daughter wants him placed at [facility], CM is assisting. Currently despite multiple SNF referrals, no termite control technician beds available. CM d/w daughter to determine further referrals versus family taking him home and providing 24/7 care for him. (2) Hypertension: Plan: Controlled on metoprolol, diltiazem, lisinopril, Imdur, clonidine (3) Diabetes mellitus with insulin therapy: Plan: carb consistent diet. Lantus uptitrated on September 12. Accuchecks ac and hs and sliding scale coverage as needed. (4) Atrial fibrillation: Plan: Stable. Rate controlled with Metoprolol, diltiazem. Continue eliquis Plan Dispo: SNF v Home w/ family. Case management assisting in d/c planning, additional referrals sent. Continued inpatient stay. Plan d/w Dr. Webster. Admission and Anticipated Discharge Date Admission Date: September 03, 2022 Subjective Patient seen on daily rounds this morning. No complaints other than asking when he can go home. Physical Exam Physical Exam: GENERAL: 77 yo Well-developed, well-nourished elderly WM. NAD. LUNGS: Clear to auscultation bilaterally. CARDIOVASCULAR: Regular rate and rhythm. NEUROLOGIC: A&O x3. Nonfocal Results & Data Results & Data ([facility]) Vital Signs (Past 12 Hours) Vital Signs Temp Pulse Pulse Pulse Resp BP Pulse Ox 09/26/22 09:00 94 H 157/81 H 94 09/26/22 08:30 36.4 C L 71 17 130/82 98 09/26/22 03:59 64 O2 Del Method 09/26/22 09:00 Room Air 09/26/22 08:30 Room Air 09/26/22 03:59 PG Care Time/CCT Total # of Minutes Spent Total Time Spent with Patient: Total time spent is greater than 50% in coordination of care (as documented) at patient's floor/unit and/or counseling patient: Coding Level of Care Code 15949 SUB INP/OBS CARE Diagnoses Hospital admission due to lack of caregiver Z74.2 Hypertension I10 Diabetes mellitus with insulin therapy E11.9; Z79.4 Atrial fibrillation I48.91
[2022-09-26] MEDS: ATORVASTATIN 40 MG TAB PO SCH (21:00)
[2022-09-26] MEDS: MELATONIN 3 MG TAB PO PRN (21:06)
[2022-09-27] MEDS: ISOSORBIDE MONO EXTENDED REL 60 MG TABCR PO SCH (08:54)
[2022-09-27] MEDS: METOPROLOL TARTRATE 50 MG TAB PO SCH ×2 (08:54→19:29)
[2022-09-27] MEDS: DULoxetine HCL 60 MG CAP PO SCH (08:54)
[2022-09-27] MEDS: cloNIDine HCL 0.1 MG TAB PO SCH ×3 (08:55→19:30)
[2022-09-27] MEDS: MAGNESIUM OXIDE 400 MG TAB PO SCH ×2 (08:55→19:30)
[2022-09-27] MEDS: APIXABAN 5 MG TABLET PO SCH ×2 (08:55→19:30)
[2022-09-27] MEDS: ASPIRIN 81 MG ECTAB PO SCH (08:55)
[2022-09-27] MEDS: PANTOprazole 40 MG TAB PO SCH (08:55)
[2022-09-27] MEDS: DULoxetine HCL 20 MG CAP PO SCH (08:55)
[2022-09-27] MEDS: lisinopril 40 MG TAB PO SCH (08:55)
[2022-09-27] MEDS: dilTIAZem HCL 240 MG CAPCR PO SCH (08:55)
[2022-09-27] MEDS: INSULIN ASPART PER UNIT SC SCH ×4 (09:02→21:31)
[2022-09-27] MEDS: FINASTERIDE 5 MG TAB PO SCH (09:04)
[2022-09-27] MEDS: LANTUS PER UNIT CHARGE SQ SCH ×2 (09:07→21:32)
[2022-09-27] MEDS ORDERED: HYDROCORTISONE 1% CRM 30 GM TUBE EXT PRN (10:51)
--- NOTE | 2022-09-27 10:51 | Hospitalist Progress Note ---
Date of Service September 27, 2022 Assessment & Plan (1) Hospital admission due to lack of caregiver: Plan: Admitted to the hospital on account of inability to take care of himself, said his caregiver quit. Patient is currently afebrile, hemodynamically stable, and pulse ox is stable on RA . Patient noted to have significant cognitive decline after multiple intubations and likely anoxic brain injury following covid pneumonia over a year ago. Daughter wants him placed at [facility], CM is assisting. Currently despite multiple SNF referrals, no assistant terminal manager beds available. CM d/w daughter to determine further referrals versus family taking him home and providing 24/7 care for him. (2) Hypertension: Plan: Controlled on metoprolol, diltiazem, lisinopril, Imdur, clonidine (3) Diabetes mellitus with insulin therapy: Plan: carb consistent diet. Lantus uptitrated on September 12. Accuchecks ac and hs and sliding scale coverage as needed. (4) Atrial fibrillation: Plan: Stable. Rate controlled with Metoprolol, diltiazem. Continue eliquis Plan Dispo: SNF v Home w/ family. Case management assisting in d/c planning, additional referrals sent. Continued inpatient stay. Add some hydrocortisone to right hand BID prn itching. Plan d/w Dr. Webster. Admission and Anticipated Discharge Date Admission Date: September 03, 2022 Subjective Patient seen on daily rounds this morning. No complaints this morning. Mentioned he thinks he has some "poison" on his right hand that is itchy. Physical Exam Physical Exam: GENERAL: 77 yo Well-developed, well-nourished elderly WM. NAD. LUNGS: Clear to auscultation bilaterally. CARDIOVASCULAR: Regular rate and rhythm. NEUROLOGIC: A&O x3. Nonfocal SKIN: small area on dorsal aspect of hand of maculopapular rash Results & Data Results & Data ([facility]) Vital Signs (Past 12 Hours) Vital Signs Temp Pulse Resp BP Pulse Ox O2 Del Method 09/27/22 07:48 36.5 C 62 18 132/72 96 Room Air PG Care Time/CCT Total # of Minutes Spent Total Time Spent with Patient: Total time spent is greater than 50% in coordination of care (as documented) at patient's floor/unit and/or counseling patient: Coding Level of Care Code 57702 SUB INP/OBS CARE 1/25MIN Diagnoses Hospital admission due to lack of caregiver Z74.2 Hypertension I10 Diabetes mellitus with insulin therapy E11.9; Z79.4 Atrial fibrillation I48.91
[2022-09-27] MEDS: ATORVASTATIN 40 MG TAB PO SCH (19:30)
[2022-09-28] MEDS: MELATONIN 3 MG TAB PO PRN (00:56)
[2022-09-28] MEDS: MAGNESIUM OXIDE 400 MG TAB PO SCH ×2 (08:30→20:38)
[2022-09-28] MEDS: lisinopril 40 MG TAB PO SCH (08:30)
[2022-09-28] MEDS: PANTOprazole 40 MG TAB PO SCH (08:30)
[2022-09-28] MEDS: DULoxetine HCL 20 MG CAP PO SCH (08:30)
[2022-09-28] MEDS: ISOSORBIDE MONO EXTENDED REL 60 MG TABCR PO SCH (08:30)
[2022-09-28] MEDS: cloNIDine HCL 0.1 MG TAB PO SCH ×3 (08:30→21:02)
[2022-09-28] MEDS: FINASTERIDE 5 MG TAB PO SCH (08:30)
[2022-09-28] MEDS: APIXABAN 5 MG TABLET PO SCH ×2 (08:30→20:38)
[2022-09-28] MEDS: METOPROLOL TARTRATE 50 MG TAB PO SCH ×2 (08:31→20:37)
[2022-09-28] MEDS: ASPIRIN 81 MG ECTAB PO SCH (08:31)
[2022-09-28] MEDS: dilTIAZem HCL 240 MG CAPCR PO SCH (08:31)
[2022-09-28] MEDS: DULoxetine HCL 60 MG CAP PO SCH (08:31)
[2022-09-28] MEDS: INSULIN ASPART PER UNIT SC SCH ×4 (08:32→20:36)
[2022-09-28] MEDS: LANTUS PER UNIT CHARGE SQ SCH ×2 (08:34→20:37)
--- NOTE | 2022-09-28 10:30 | Hospitalist Progress Note ---
Date of Service September 28, 2022 Assessment & Plan (1) Hospital admission due to lack of caregiver: Plan: Admitted to the hospital on account of inability to take care of himself, said his caregiver quit. Patient is currently afebrile, hemodynamically stable, and pulse ox is stable on RA . Patient noted to have significant cognitive decline after multiple intubations and likely anoxic brain injury following covid pneumonia over a year ago. Daughter wants him placed at [facility], CM is assisting. Currently despite multiple SNF referrals, no terminal supervisor beds available. CM d/w daughter to determine further referrals versus family taking him home and providing 24/7 care for him. CM extending search to facilities outside of the immediate area as no one has accepted as of yet (2) Hypertension: Plan: Controlled on metoprolol, diltiazem, lisinopril, Imdur, clonidine (3) Diabetes mellitus with insulin therapy: Plan: carb consistent diet. Lantus uptitrated on September 12. Accuchecks ac and hs and sliding scale coverage as needed. (4) Atrial fibrillation: Plan: Stable. Rate controlled with Metoprolol, diltiazem. Continue eliquis Plan Dispo: SNF v Home w/ family. Case management assisting in d/c planning, additional referrals sent. Continued inpatient stay. Continue hydrocortisone to right hand BID prn itching. Plan d/w Dr. Webster. Admission and Anticipated Discharge Date Admission Date: September 03, 2022 Subjective Patient seen on daily rounds this morning. No complaints. Only continues to reiterate wanting to return home. Physical Exam Physical Exam: GENERAL: 77 yo Well-developed, well-nourished elderly WM. NAD. LUNGS: Clear to auscultation bilaterally. CARDIOVASCULAR: Regular rate and rhythm. NEUROLOGIC: A&O x3. Nonfocal SKIN: rash on dorsal aspect of right hand has faded Results & Data Results & Data ([facility]) Vital Signs (Past 12 Hours) Vital Signs Temp Pulse Resp BP Pulse Ox O2 Del Method 09/28/22 07:44 36.3 C L 49 L 20 153/79 H 96 Room Air PG Care Time/CCT Total # of Minutes Spent Total Time Spent with Patient: Total time spent is greater than 50% in coordination of care (as documented) at patient's floor/unit and/or counseling patient: Coding Level of Care Code 13794 SUB INP/OBS CARE 09/16MIN Diagnoses Hospital admission due to lack of caregiver Z74.2 Hypertension I10 Diabetes mellitus with insulin therapy E11.9; Z79.4 Atrial fibrillation I48.91
[2022-09-28] MEDS: ATORVASTATIN 40 MG TAB PO SCH (20:37)
[2022-09-29] MEDS: APIXABAN 5 MG TABLET PO SCH ×2 (08:28→21:12)
[2022-09-29] MEDS: DULoxetine HCL 60 MG CAP PO SCH (08:28)
[2022-09-29] MEDS: dilTIAZem HCL 240 MG CAPCR PO SCH (08:28)
[2022-09-29] MEDS: PANTOprazole 40 MG TAB PO SCH (08:28)
[2022-09-29] MEDS: FINASTERIDE 5 MG TAB PO SCH (08:28)
[2022-09-29] MEDS: DULoxetine HCL 20 MG CAP PO SCH (08:28)
[2022-09-29] MEDS: MAGNESIUM OXIDE 400 MG TAB PO SCH ×2 (08:28→21:12)
[2022-09-29] MEDS: ISOSORBIDE MONO EXTENDED REL 60 MG TABCR PO SCH (08:28)
[2022-09-29] MEDS: lisinopril 40 MG TAB PO SCH (08:28)
[2022-09-29] MEDS: ASPIRIN 81 MG ECTAB PO SCH (08:28)
[2022-09-29] MEDS: cloNIDine HCL 0.1 MG TAB PO SCH ×3 (08:29→21:15)
[2022-09-29] MEDS: METOPROLOL TARTRATE 50 MG TAB PO SCH ×2 (08:29→21:15)
[2022-09-29] MEDS: INSULIN ASPART PER UNIT SC SCH ×4 (08:31→21:11)
[2022-09-29] MEDS: LANTUS PER UNIT CHARGE SQ SCH ×2 (08:31→21:11)
--- NOTE | 2022-09-29 13:04 | Hospitalist Progress Note ---
Date of Service September 29, 2022 Assessment & Plan (1) Hospital admission due to lack of caregiver: Plan: Admitted to the hospital on account of inability to take care of himself, said his caregiver quit. Patient is currently afebrile, hemodynamically stable, and pulse ox is stable on RA . Patient noted to have significant cognitive decline after multiple intubations and likely anoxic brain injury following covid pneumonia over a year ago. Daughter wants him placed at [facility], CM is assisting. 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 CM d/w daughter to determine further referrals versus family taking him home and providing 24/7 care for him. CM extending search to facilities outside of the immediate area as no one has accepted as of yet (2) Hypertension: Plan: Controlled on metoprolol, diltiazem, lisinopril, Imdur, clonidine (3) Diabetes mellitus with insulin therapy: Plan: carb consistent diet. Lantus uptitrated on September 12. Accuchecks ac and hs and sliding scale coverage as needed. (4) Atrial fibrillation: Plan: Stable. Rate controlled with Metoprolol, diltiazem. Continue eliquis Plan Dispo: LTC. Case management assisting in d/c planning, additional referrals sent. Continued inpatient stay. Plan d/w Dr. Webster. Admission and Anticipated Discharge Date Admission Date: September 03, 2022 Subjective Patient seen on daily rounds this morning. RN contacted me this AM that patient was dressed and attempting to leave. More confused this AM. During my visit, pt was oriented x3. Keeps asking why he can't go home. He believes "someone" is making money off of him remaining in the hospital. Physical Exam Physical Exam: GENERAL: 77 yo wd/wn elderly WM. NAD. LUNGS: Clear to auscultation bilaterally. CARDIOVASCULAR: Regular rate and rhythm. NEUROLOGIC: A&O x3. Nonfocal SKIN: rash on dorsal aspect of right hand has resolved Results & Data Results & Data ([facility]) Vital Signs (Past 12 Hours) Vital Signs Temp Pulse Resp BP Pulse Ox O2 Del Method 09/29/22 08:22 36.8 C 57 L 16 172/71 H 95 Room Air PG Care Time/CCT Total # of Minutes Spent Total Time Spent with Patient: Total time spent is greater than 50% in coordination of care (as documented) at patient's floor/unit and/or counseling patient: Coding Level of Care Code 81129 SUB INP/OBS CARE Diagnoses Hospital admission due to lack of caregiver Z74.2 Hypertension I10 Diabetes mellitus with insulin therapy E11.9; Z79.4 Atrial fibrillation I48.91
[2022-09-29] MEDS: ATORVASTATIN 40 MG TAB PO SCH (21:12)
--- NOTE | 2022-09-30 08:19 | Hospitalist Progress Note ---
Date of Service September 30, 2022 Assessment & Plan (1) Hospital admission due to lack of caregiver: Plan: Admitted to the hospital on account of inability to take care of himself, said his caregiver quit. Patient is currently afebrile, hemodynamically stable, and pulse ox is stable on RA . Patient noted to have significant cognitive decline after multiple intubations and likely anoxic brain injury following covid pneumonia over a year ago. Daughter wants him placed at [facility], CM is assisting. 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 CM d/w daughter to determine further referrals versus family taking him home and providing 24/ care for him. CM extending search to facilities outside of the immediate area as no one has accepted as of yet 09/30 -- Resting in bed, eating 100% oatmeal/breakfast w/ aides and assistance Labs w/ leukocytosis, but diff w/ elevation in lymphocytes. Afebrile, but will check RSV/covid/influenza given increased fatigue/hospital stay CM w/ ongoing search, possible bed at [facility] (2) Hypertension: Plan: Controlled on metoprolol, diltiazem, lisinopril, Imdur, clonidine BP 166/71 (3) Diabetes mellitus with insulin therapy: Plan: A1c 8.1 Holding home regimen while inpatient DM diet, BSG AC/HS Will tighten ISS given BSGs remain slightly above goal -- continue glargine 8u BID Monitor BSGs w/ adjustment (4) Atrial fibrillation: Plan: Stable. In NSR on exam Continues on metoprolol, diltiazem, eliquis Will check mag to AM blood already drawn given prior lows to ensure closer to 2. K 4.2 on AM labs Plan Dispo: LTC. Case management assisting in d/c planning, additional referrals sent Admission and Anticipated Discharge Date Admission Date: September 03, 2022 Supervising Physician Co-Signing Physician Notes KESHAWN Supervision Note: I did not personally see or examine the patient today, but I verified all valencia points of KESHAWN King's assessment and plan with the following exceptions/additions: None Subjective attempted to see patient this morning, sleeping in room with covers over his head. no issues per nursing. Patient able to be awoken for exam, without concerns at this time but tired and wanting to sleep. No fever/chills/chest pain/shortness of breath/abdominal pain reported. awaiting placement, possible [facility]. CM to follow. Review of Systems Review of Systems: All systems reviewed & are unremarkable except as noted in HPI & below Physical Exam Physical Exam: General elderly male sleeping in bed, NAD, withdrawn and wanting to sleep HEENT: head normocephalic, atraumatic, slightly dry mm, trachea midline Resp: CTAB, diminished in the bases, on room air CV: RRR, no significant m/r/g, no pitting edema GI: +BS, soft/NT : no anderson MSk/Neuro: follows commands, no focal deficit Psych: Alert to person/place, not time/events, wanting to go home Results & Data Results & Data ([facility]) Vital Signs (Past 12 Hours) Vital Signs Temp Pulse Resp BP BP Pulse Ox O2 Del Method 09/30/22 07:13 36.6 C 52 L 16 166/71 H 95 Room Air 09/29/22 21:10 51 L 151/69 H 09/29/22 21:26 36.7 C 51 L 16 152/81 H 93 Room Air Laboratory Results 09/30/22 09/30/22 09/30/22 Range/Units 14:05 12:00 08:34 WBC (4.8-10.8) K/ul RBC (4.70-6.10) M/uL Hgb (14.0-18.0) g/dl Hct (42.0-52.0) % MCV (80.0-100.0) fL MCH (25.0-34.0) pg MCHC (32.0-36.0) g/dL RDW Std Deviation (36.4-46.3) fL RDW Coeff of Melisa (11.5-14.5) % Plt Count (130-400) K/uL MPV (9.4-12.4) fL Immature Gran % (Auto) % Neut % (Auto) % Lymph % (Auto) % [place] % (Auto) % Eos % (Auto) % Baso % (Auto) % Neut # (Auto) (1.40-6.50) K/uL Lymph # (Auto) (1.2-3.4) K/uL [place] # (Auto) (0.11-0.59) K/uL Eos # (Auto) (0-0.50) K/uL Baso # (Auto) (0-0.2) K/uL Immature Gran # (Auto) (0.01-0.20) K/uL Sodium (136-145) mmol/L Potassium (3.5-5.1) mmol/L Chloride (98-107) mmol/L Carbon Dioxide (21-32) mmol/L Anion Gap (3-11) BUN (6-23) mg/dl Creatinine (0.6-1.4) mg/dl Est Cr Clr Drug Dosing ml/min Est GFR ( Amer) ml/min Est GFR (Non-Af Amer) ml/min BUN/Creatinine Ratio (10-20) Glucose (70-99(Fasting)) mg/dl POC Glucose 233 H (70-99) mg/dl Calcium (8.5-10.1) mg/dl Vitamin B1 Whole Bld Vitamin B1 Pending Vitamin B12 (180-914) pg/ml Folate (>5.38) ng/ml SARS-CoV-2 (PCR) Pending Influenza Type A (PCR) Pending Influenza Type B (PCR) Pending RSV (RT-PCR) Pending 09/30/22 09/30/22 09/30/22 Range/Units 08:34 08:34 08:34 WBC (4.8-10.8) K/ul RBC (4.70-6.10) M/uL Hgb (14.0-18.0) g/dl Hct (42.0-52.0) % MCV (80.0-100.0) fL MCH (25.0-34.0) pg MCHC (32.0-36.0) g/dL RDW Std Deviation (36.4-46.3) fL RDW Coeff of Melisa (11.5-14.5) % Plt Count (130-400) K/uL MPV (9.4-12.4) fL Immature Gran % (Auto) % Neut % (Auto) % Lymph % (Auto) % [place] % (Auto) % Eos % (Auto) % Baso % (Auto) % Neut # (Auto) (1.40-6.50) K/uL Lymph # (Auto) (1.2-3.4) K/uL [place] # (Auto) (0.11-0.59) K/uL Eos # (Auto) (0-0.50) K/uL Baso # (Auto) (0-0.2) K/uL Immature Gran # (Auto) (0.01-0.20) K/uL Sodium 137 (136-145) mmol/L Potassium 4.2 (3.5-5.1) mmol/L Chloride 103 (98-107) mmol/L Carbon Dioxide 29 (21-32) mmol/L Anion Gap 5 (3-11) BUN 16 (6-23) mg/dl Creatinine 1.23 (0.6-1.4) mg/dl Est Cr Clr Drug Dosing 57.1 ml/min Est GFR ( Amer) 66.1 ml/min Est GFR (Non-Af Amer) 57.1 ml/min BUN/Creatinine Ratio 13.0 (10-20) Glucose 195 H (70-99(Fasting)) mg/dl POC Glucose (70-99) mg/dl Calcium 9.5 (8.5-10.1) mg/dl Vitamin B1 Cancelled Whole Bld Vitamin B1 Vitamin B12 354 (180-914) pg/ml Folate 11.89 (>5.38) ng/ml SARS-CoV-2 (PCR) Influenza Type A (PCR) Influenza Type B (PCR) RSV (RT-PCR) 09/30/22 09/30/22 09/29/22 Range/Units 08:34 08:05 21:03 WBC 11.79 H (4.8-10.8) K/ul RBC 4.95 (4.70-6.10) M/uL Hgb 15.1 (14.0-18.0) g/dl Hct 43.5 (42.0-52.0) % MCV 87.9 (80.0-100.0) fL MCH 30.5 (25.0-34.0) pg MCHC 34.7 (32.0-36.0) g/dL RDW Std Deviation 41.0 (36.4-46.3) fL RDW Coeff of Melisa 12.6 (11.5-14.5) % Plt Count 311 (130-400) K/uL MPV 10.4 (9.4-12.4) fL Immature Gran % (Auto) 0.4 % Neut % (Auto) 47.3 % Lymph % (Auto) 37.3 % [place] % (Auto) 11.8 % Eos % (Auto) 2.4 % Baso % (Auto) 0.8 % Neut # (Auto) 5.58 (1.40-6.50) K/uL Lymph # (Auto) 4.40 H (1.2-3.4) K/uL [place] # (Auto) 1.39 H (0.11-0.59) K/uL Eos # (Auto) 0.28 (0-0.50) K/uL Baso # (Auto) 0.09 (0-0.2) K/uL Immature Gran # (Auto) 0.05 (0.01-0.20) K/uL Sodium (136-145) mmol/L Potassium (3.5-5.1) mmol/L Chloride (98-107) mmol/L Carbon Dioxide (21-32) mmol/L Anion Gap (3-11) BUN (6-23) mg/dl Creatinine (0.6-1.4) mg/dl Est Cr Clr Drug Dosing ml/min Est GFR ( Amer) ml/min Est GFR (Non-Af Amer) ml/min BUN/Creatinine Ratio (10-20) Glucose (70-99(Fasting)) mg/dl POC Glucose 184 H 231 H (70-99) mg/dl Calcium (8.5-10.1) mg/dl Vitamin B1 Whole Bld Vitamin B1 Vitamin B12 (180-914) pg/ml Folate (>5.38) ng/ml SARS-CoV-2 (PCR) Influenza Type A (PCR) Influenza Type B (PCR) RSV (RT-PCR) 09/29/22 09/29/22 Range/Units 21:00 17:15 WBC (4.8-10.8) K/ul RBC (4.70-6.10) M/uL Hgb (14.0-18.0) g/dl Hct (42.0-52.0) % MCV (80.0-100.0) fL MCH (25.0-34.0) pg MCHC (32.0-36.0) g/dL RDW Std Deviation (36.4-46.3) fL RDW Coeff of Melisa (11.5-14.5) % Plt Count (130-400) K/uL MPV (9.4-12.4) fL Immature Gran % (Auto) % Neut % (Auto) % Lymph % (Auto) % [place] % (Auto) % Eos % (Auto) % Baso % (Auto) % Neut # (Auto) (1.40-6.50) K/uL Lymph # (Auto) (1.2-3.4) K/uL [place] # (Auto) (0.11-0.59) K/uL Eos # (Auto) (0-0.50) K/uL Baso # (Auto) (0-0.2) K/uL Immature Gran # (Auto) (0.01-0.20) K/uL Sodium (136-145) mmol/L Potassium (3.5-5.1) mmol/L Chloride (98-107) mmol/L Carbon Dioxide (21-32) mmol/L Anion Gap (3-11) BUN (6-23) mg/dl Creatinine (0.6-1.4) mg/dl Est Cr Clr Drug Dosing ml/min Est GFR ( Amer) ml/min Est GFR (Non-Af Amer) ml/min BUN/Creatinine Ratio (10-20) Glucose (70-99(Fasting)) mg/dl POC Glucose 217 H 152 H (70-99) mg/dl Calcium (8.5-10.1) mg/dl Vitamin B1 Whole Bld Vitamin B1 Vitamin B12 (180-914) pg/ml Folate (>5.38) ng/ml SARS-CoV-2 (PCR) Influenza Type A (PCR) Influenza Type B (PCR) RSV (RT-PCR) PG Care Time/CCT Total # of Minutes Spent Total Time Spent with Patient: Total time spent is greater than 50% in coordination of care (as documented) at patient's floor/unit and/or counseling patient: Coding Level of Care Code 91333 SUB INP/OBS CARE 09/16MIN Diagnoses Hospital admission due to lack of caregiver Z74.2 Hypertension I10 Diabetes mellitus with insulin therapy E11.9; Z79.4 Atrial fibrillation I48.91
[2022-09-30] MEDS: FINASTERIDE 5 MG TAB PO SCH (08:52)
[2022-09-30] MEDS: DULoxetine HCL 60 MG CAP PO SCH (08:52)
[2022-09-30] MEDS: lisinopril 40 MG TAB PO SCH (08:52)
[2022-09-30] MEDS: PANTOprazole 40 MG TAB PO SCH (08:52)
[2022-09-30] MEDS: ASPIRIN 81 MG ECTAB PO SCH (08:53)
[2022-09-30] MEDS: MAGNESIUM OXIDE 400 MG TAB PO SCH ×2 (08:53→21:49)
[2022-09-30] MEDS: DULoxetine HCL 20 MG CAP PO SCH (08:53)
[2022-09-30] MEDS: ISOSORBIDE MONO EXTENDED REL 60 MG TABCR PO SCH (08:53)
[2022-09-30] MEDS: cloNIDine HCL 0.1 MG TAB PO SCH ×3 (08:53→21:48)
[2022-09-30] MEDS: APIXABAN 5 MG TABLET PO SCH ×2 (08:53→21:48)
[2022-09-30] MEDS: dilTIAZem HCL 240 MG CAPCR PO SCH (08:55)
[2022-09-30] MEDS: METOPROLOL TARTRATE 50 MG TAB PO SCH ×2 (08:55→21:49)
[2022-09-30] MEDS: INSULIN ASPART PER UNIT SC SCH ×4 (08:56→21:47)
[2022-09-30] MEDS: LANTUS PER UNIT CHARGE SQ SCH ×2 (08:56→21:47)
[2022-09-30 08:59] LABS: Basophils # (auto) 0.09 K/uL (0-0.2); Basophils % (auto) 0.8 %; Eosinophils # (auto) 0.28 K/uL (0-0.50); Eosinophils % (auto) 2.4 %; Hematocrit (blood only) 43.5 % (42.0-52.0); Hemoglobin 15.1 g/dl (14.0-18.0); Immature Granulocytes # (auto) 0.05 K/uL (0.01-0.20); Immature Granulocytes % (auto) 0.4 %; Lymphocytes % (auto) 37.3 %; Mean Corpuscular Hemoglobin 30.5 pg (25.0-34.0); Mean Corpuscular Hgb Conc 34.7 g/dL (32.0-36.0); Mean Corpuscular Volume 87.9 fL (80.0-100.0); Mean Platelet Volume 10.4 fL (9.4-12.4); Monocytes # (auto) 1.39 K/uL (0.11-0.59); Monocytes % (auto) 11.8 %; Neutrophils # (auto) 5.58 K/uL (1.40-6.50); Neutrophils % (auto) 47.3 %; Platelet Count 311 K/uL (130-400); RDW Coefficient of Variation 12.6 % (11.5-14.5); Red Blood Count 4.95 M/uL (4.70-6.10); White Blood Count 11.79 K/ul (4.8-10.8)
[2022-09-30 09:19] LABS: Calcium 9.5 mg/dl (8.5-10.1); Creatinine Clr Calc Pharmacy 57.1 ml/min; Est GFR (African American) 66.1 ml/min; Est GFR (Non-African American) 57.1 ml/min; Potassium 4.2 mmol/L (3.5-5.1)
[2022-09-30 15:23] LABS: Influenza A virus by PCR Negative (Neg); Influenza B virus by PCR Negative (Neg); RSV by PCR Negative (Neg); SARS CoV2 RNA(COVID-19) Ceph NEGATIVE (Negative)
--- NOTE | 2022-09-30 18:37 | CT Scan Report ---
CT SCAN OF THE BRAIN WITHOUT IV CONTRAST CLINICAL HISTORY: Change in mental status. COMPARISON STUDY: CT of the brain dated 05/16/2022. TECHNIQUE: Unenhanced axial CT scan of the brain is performed from the vertex to the skull base. A do se lowering technique was utilized adhering to the principles of ALARA. FINDINGS: Brain parenchyma: There are age-related involutional changes noting moderate to advanced patchy subc ortical and periventricular microangiopathic change. There is no hemorrhage, mass effect, or evidence of acute territorial ischemia by CT criteria. Caro-white matter differentiation is preserved. No ext ra-axial fluid collection is seen. Ventricles, sulci, cisterns: Prominent secondary to involutional change. Intracranial vasculature: There is atherosclerotic calcification of the cavernous carotid and vertebr al arteries. Calvarium: Unremarkable. Sinuses and mastoids: The paranasal sinuses are clear. The mastoid air cells are well pneumatized. Orbits: The bony orbits are grossly intact. There are bilateral ocular lens implants. IMPRESSION: There is no hemorrhage, mass effect, or evidence of acute territorial ischemia by CT charli brody. ACT 112: Negative or not required by law. Electronically signed by: Alden Huitron M.D. 09/30/2022 6:35 PM
--- NOTE | 2022-09-30 18:39 | XRay Report ---
SINGLE VIEW CHEST CLINICAL HISTORY: Change in mental status. FINDINGS: An AP, portable, upright chest radiograph is compared to study dated 05/16/2022 and correlat ed with chest CT dated 11/10/2019. The examination is degraded by portable technique and apical lordot ic positioning. The heart is enlarged noting atherosclerotic calcification of the thoracic aorta. The pulmonary vasculature is noncongested. Subpleural reticulation is seen throughout both lungs. There is bibasilar scarring/atelectasis. No airspace consolidation or large pleural effusion is identified. Scattered calcified granulomas are observed. No pneumothorax is seen. The skeletal structures are os teopenic. The bony thorax is grossly intact. IMPRESSION: Cardiomegaly and chronic parenchymal changes as above with no acute cardiopulmonary abnor mality identified. ACT 112: Negative or not required by law. Electronically signed by: Alden Huitron M.D. 09/30/2022 6:38 PM
[2022-09-30 21:07] LABS: Appearance Urine Clear (Clear); Bilirubin Urine Negative (Negative); Blood Urine Negative (Negative); Color Urine Yellow; Glucose Urine UA 3+ (Negative); Ketones Urine Negative (Negative); Leukocyte Esterase Urine Negative (Negative); Nitrite Urine Negative (Negative); Protein Urine Negative (Negative); Specific Gravity Urine 1.019 (1.000-1.030); Urobilinogen Urine Negative (Negative)
[2022-09-30] MEDS: ATORVASTATIN 40 MG TAB PO SCH (21:49)
[2022-10-01 06:32] LABS: Basophils # (auto) 0.07 K/uL (0-0.2); Basophils % (auto) 0.7 %; Eosinophils # (auto) 0.33 K/uL (0-0.50); Eosinophils % (auto) 3.1 %; Hematocrit (blood only) 40.1 % (42.0-52.0); Hemoglobin 14.1 g/dl (14.0-18.0); Immature Granulocytes # (auto) 0.04 K/uL (0.01-0.20); Immature Granulocytes % (auto) 0.4 %; Lymphocytes # (auto) 4.14 K/uL (1.2-3.4); Lymphocytes % (auto) 39.5 %; Mean Corpuscular Hemoglobin 30.7 pg (25.0-34.0); Mean Corpuscular Hgb Conc 35.2 g/dL (32.0-36.0); Mean Corpuscular Volume 87.2 fL (80.0-100.0); Mean Platelet Volume 10.8 fL (9.4-12.4); Monocytes # (auto) 1.35 K/uL (0.11-0.59); Monocytes % (auto) 12.9 %; Neutrophils # (auto) 4.55 K/uL (1.40-6.50); Neutrophils % (auto) 43.4 %; Platelet Count 290 K/uL (130-400); RDW Coefficient of Variation 12.5 % (11.5-14.5); White Blood Count 10.48 K/ul (4.8-10.8)
[2022-10-01 06:35] LABS: BUN Creatinine Ratio 13.4 (10-20); Calcium 8.9 mg/dl (8.5-10.1); Creatinine Clr Calc Pharmacy 59.1 ml/min; Est GFR (African American) 68.8 ml/min; Est GFR (Non-African American) 59.4 ml/min
--- NOTE | 2022-10-01 07:38 | Hospitalist Progress Note ---
Date of Service October 01, 2022 Assessment & Plan (1) Hospital admission due to lack of caregiver: Plan: Admitted to the hospital on account of inability to take care of himself, said his caregiver quit. Patient is currently afebrile, hemodynamically stable, and pulse ox is stable on RA . Patient noted to have significant cognitive decline after multiple intubations and likely anoxic brain injury following covid pneumonia over a year ago. Daughter wants him placed at [facility], CM is assisting. Currently despite multiple SNF referrals, no shelter beds available. CM d/w daughter to determine further referrals versus family taking him home and providing 15/03 care for him. CM extending search to facilities outside of the immediate area as no one has accepted as of yet 09/30-10/01 Somnolent 09/30, withdrawn, ?depression contributing. WBC now wnl -- lymphocytosis, check peripheral smear COVID/RSV/Flu negative. CT head negative. CXR w/ cardiomegaly and chronic parenchymal changes w/ no acute cardiopulmonary abn identified Improved mentation today, alert/oriented to person/hospital, not the year. Discussed underlying depression playing a role, psych liaison consulted for support. Patient DOES NOT want his daughter updated or called, ok w/ call to brother. He voices he still wants to go home, but does not appear this is an option unless someone was to be able to be with him 15/03. He states his brother lives locally in [place]. Will touch base w/ CM. CM w/ ongoing search, possible bed at [facility] (2) Hypertension: Plan: Controlled on metoprolol, diltiazem, lisinopril, Imdur, clonidine BP 145/61 (3) Diabetes mellitus with insulin therapy: Plan: A1c 8.1 Holding home regimen while inpatient DM diet, BSG AC/HS tighten ISS given BSGs remain slightly above goal -- continue glargine 8u BID --> BSGs improved over last 24 hours and will continue current regimen (4) Atrial fibrillation: Plan: Stable. In NSR on exam Continues on metoprolol, diltiazem, eliquis Will check mag to AM blood already drawn given prior lows to ensure closer to 2. K 4.2 on AM labs -- 2gm IV magnesium ordered to keep closer to 2. On mag oxide BID (consider slow mag if issues w/ diarrhea, none reported) (5) Abnormal CT scan of lung: Plan: Prior CT October 2019 noted subpleural 8mm solid nodule RLL unchanged from 2018, recs for 6mo f/u chest CT recommended at that time, does not appear was ever completed --> rec obtaining as outpatient for further eval, can be done sooner if any worries/issues. Plan Dispo: LTC. Case management assisting in d/c planning, additional referrals sent Will ask CM to reach out to brother or try to call later to see if any family able to accomodate at home per patient request. Admission and Anticipated Discharge Date Admission Date: September 03, 2022 Supervising Physician Co-Signing Physician Notes PA Supervision Note: I did not personally see or examine the patient today, but I verified all valencia points of KESHAWN King's assessment and plan with the following exceptions/additions: None Subjective eval this morning, much more awake/alert/talkative. frustrated with still being here and wanting to go home. states not to call daughter as that's who put him here even though he puts money in her pocket. ok w/ calling his brother. states he would be depressed if he cannot go home but not if he can go home. discussed will try and gather more information but may benefit from discusssion w/ psych vs liason for support during this time. He states he is eating/drinking no issue. no pain reported. Trying to find something good to watch on tv. Physical Exam Physical Exam: General: elderly male sitting up in bed, watching TV, NAD HEENT: head normocephalic, atraumatic, mmm, trachea midline without deviation Resp: CTAB, diminished in the bases, on room air CV: RRR, no significant m/r/g, no pitting edema GI: +BS, soft/NT : no anderson MSk/Neuro: follows commands, no focal deficit Psych: Alert to person/place, not year, knows his daughter sent him to the hosp [facility] and that he is in the hospital currently, wanting to go home Results & Data Results & Data ([facility]) Vital Signs (Past 12 Hours) Vital Signs Temp Pulse Resp BP Pulse Ox O2 Del Method 10/01/22 07:00 36.7 C 54 L 16 145/61 H 96 Room Air 09/30/22 22:12 36.6 C 64 16 148/71 H 95 Room Air Laboratory Results 10/01/22 10/01/22 09/30/22 Range/Units 05:50 05:50 20:43 WBC 10.48 (4.8-10.8) K/ul RBC 4.60 L (4.70-6.10) M/uL Hgb 14.1 (14.0-18.0) g/dl Hct 40.1 L (42.0-52.0) % MCV 87.2 (80.0-100.0) fL MCH 30.7 (25.0-34.0) pg MCHC 35.2 (32.0-36.0) g/dL RDW Std Deviation 40.0 (36.4-46.3) fL RDW Coeff of Melisa 12.5 (11.5-14.5) % Plt Count 290 (130-400) K/uL MPV 10.8 (9.4-12.4) fL Immature Gran % (Auto) 0.4 % Neut % (Auto) 43.4 % Lymph % (Auto) 39.5 % Baldwin % (Auto) 12.9 % Eos % (Auto) 3.1 % Baso % (Auto) 0.7 % Neut # (Auto) 4.55 (1.40-6.50) K/uL Lymph # (Auto) 4.14 H (1.2-3.4) K/uL Baldwin # (Auto) 1.35 H (0.11-0.59) K/uL Eos # (Auto) 0.33 (0-0.50) K/uL Baso # (Auto) 0.07 (0-0.2) K/uL Immature Gran # (Auto) 0.04 (0.01-0.20) K/uL Sodium 140 (136-145) mmol/L Potassium 4.0 (3.5-5.1) mmol/L Chloride 106 (98-107) mmol/L Carbon Dioxide 27 (21-32) mmol/L Anion Gap 7 (3-11) BUN 16 (6-23) mg/dl Creatinine 1.19 (0.6-1.4) mg/dl Est Cr Clr Drug Dosing 59.1 ml/min Est GFR ( Amer) 68.8 ml/min Est GFR (Non-Af Amer) 59.4 ml/min BUN/Creatinine Ratio 13.4 (10-20) Glucose 171 H (70-99(Fasting)) mg/dl POC Glucose 192 H (70-99) mg/dl Calcium 8.9 (8.5-10.1) mg/dl Magnesium (1.7-2.4) mg/dl Vitamin B1 Whole Bld Vitamin B1 Vitamin B12 (180-914) pg/ml Folate (>5.38) ng/ml Urine Color Urine Appearance (Clear) Urine pH (4.5-7.5) Ur Specific Beckley (1.000-1.030) Urine Protein (Negative) Urine Glucose (UA) (Negative) Urine Ketones (Negative) Urine Blood (Negative) Urine Nitrite (Negative) Urine Bilirubin (Negative) Urine Urobilinogen (Negative) Ur Leukocyte Esterase (Negative) SARS-CoV-2 (PCR) (Negative) Influenza Type A (PCR) (Neg) Influenza Type B (PCR) (Neg) RSV (RT-PCR) (Neg) 09/30/22 09/30/22 09/30/22 Range/Units 20:41 17:13 14:41 WBC (4.8-10.8) K/ul RBC (4.70-6.10) M/uL Hgb (14.0-18.0) g/dl Hct (42.0-52.0) % MCV (80.0-100.0) fL MCH (25.0-34.0) pg MCHC (32.0-36.0) g/dL RDW Std Deviation (36.4-46.3) fL RDW Coeff of Melisa (11.5-14.5) % Plt Count (130-400) K/uL MPV (9.4-12.4) fL Immature Gran % (Auto) % Neut % (Auto) % Lymph % (Auto) % Baldwin % (Auto) % Eos % (Auto) % Baso % (Auto) % Neut # (Auto) (1.40-6.50) K/uL Lymph # (Auto) (1.2-3.4) K/uL Baldwin # (Auto) (0.11-0.59) K/uL Eos # (Auto) (0-0.50) K/uL Baso # (Auto) (0-0.2) K/uL Immature Gran # (Auto) (0.01-0.20) K/uL Sodium (136-145) mmol/L Potassium (3.5-5.1) mmol/L Chloride (98-107) mmol/L Carbon Dioxide (21-32) mmol/L Anion Gap (3-11) BUN (6-23) mg/dl Creatinine (0.6-1.4) mg/dl Est Cr Clr Drug Dosing ml/min Est GFR ( Amer) ml/min Est GFR (Non-Af Amer) ml/min BUN/Creatinine Ratio (10-20) Glucose (70-99(Fasting)) mg/dl POC Glucose 197 H (70-99) mg/dl Calcium (8.5-10.1) mg/dl Magnesium 1.8 (1.7-2.4) mg/dl Vitamin B1 Whole Bld Vitamin B1 Vitamin B12 (180-914) pg/ml Folate (>5.38) ng/ml Urine Color Yellow Urine Appearance Clear (Clear) Urine pH 5.0 (4.5-7.5) Ur Specific Beckley 1.019 (1.000-1.030) Urine Protein Negative (Negative) Urine Glucose (UA) 3+ H (Negative) Urine Ketones Negative (Negative) Urine Blood Negative (Negative) Urine Nitrite Negative (Negative) Urine Bilirubin Negative (Negative) Urine Urobilinogen Negative (Negative) Ur Leukocyte Esterase Negative (Negative) SARS-CoV-2 (PCR) (Negative) Influenza Type A (PCR) (Neg) Influenza Type B (PCR) (Neg) RSV (RT-PCR) (Neg) 09/30/22 09/30/22 09/30/22 Range/Units 14:05 12:00 08:34 WBC (4.8-10.8) K/ul RBC (4.70-6.10) M/uL Hgb (14.0-18.0) g/dl Hct (42.0-52.0) % MCV (80.0-100.0) fL MCH (25.0-34.0) pg MCHC (32.0-36.0) g/dL RDW Std Deviation (36.4-46.3) fL RDW Coeff of Melisa (11.5-14.5) % Plt Count (130-400) K/uL MPV (9.4-12.4) fL Immature Gran % (Auto) % Neut % (Auto) % Lymph % (Auto) % Baldwin % (Auto) % Eos % (Auto) % Baso % (Auto) % Neut # (Auto) (1.40-6.50) K/uL Lymph # (Auto) (1.2-3.4) K/uL Baldwin # (Auto) (0.11-0.59) K/uL Eos # (Auto) (0-0.50) K/uL Baso # (Auto) (0-0.2) K/uL Immature Gran # (Auto) (0.01-0.20) K/uL Sodium (136-145) mmol/L Potassium (3.5-5.1) mmol/L Chloride (98-107) mmol/L Carbon Dioxide (21-32) mmol/L Anion Gap (3-11) BUN (6-23) mg/dl Creatinine (0.6-1.4) mg/dl Est Cr Clr Drug Dosing ml/min Est GFR ( Amer) ml/min Est GFR (Non-Af Amer) ml/min BUN/Creatinine Ratio (10-20) Glucose (70-99(Fasting)) mg/dl POC Glucose 233 H (70-99) mg/dl Calcium (8.5-10.1) mg/dl Magnesium (1.7-2.4) mg/dl Vitamin B1 Whole Bld Vitamin B1 Pending Vitamin B12 (180-914) pg/ml Folate (>5.38) ng/ml Urine Color Urine Appearance (Clear) Urine pH (4.5-7.5) Ur Specific Beckley (1.000-1.030) Urine Protein (Negative) Urine Glucose (UA) (Negative) Urine Ketones (Negative) Urine Blood (Negative) Urine Nitrite (Negative) Urine Bilirubin (Negative) Urine Urobilinogen (Negative) Ur Leukocyte Esterase (Negative) SARS-CoV-2 (PCR) NEGATIVE (Negative) Influenza Type A (PCR) Negative (Neg) Influenza Type B (PCR) Negative (Neg) RSV (RT-PCR) Negative (Neg) 09/30/22 09/30/22 09/30/22 Range/Units 08:34 08:34 08:34 WBC (4.8-10.8) K/ul RBC (4.70-6.10) M/uL Hgb (14.0-18.0) g/dl Hct (42.0-52.0) % MCV (80.0-100.0) fL MCH (25.0-34.0) pg MCHC (32.0-36.0) g/dL RDW Std Deviation (36.4-46.3) fL RDW Coeff of Melisa (11.5-14.5) % Plt Count (130-400) K/uL MPV (9.4-12.4) fL Immature Gran % (Auto) % Neut % (Auto) % Lymph % (Auto) % Baldwin % (Auto) % Eos % (Auto) % Baso % (Auto) % Neut # (Auto) (1.40-6.50) K/uL Lymph # (Auto) (1.2-3.4) K/uL Baldwin # (Auto) (0.11-0.59) K/uL Eos # (Auto) (0-0.50) K/uL Baso # (Auto) (0-0.2) K/uL Immature Gran # (Auto) (0.01-0.20) K/uL Sodium 137 (136-145) mmol/L Potassium 4.2 (3.5-5.1) mmol/L Chloride 103 (98-107) mmol/L Carbon Dioxide 29 (21-32) mmol/L Anion Gap 5 (3-11) BUN 16 (6-23) mg/dl Creatinine 1.23 (0.6-1.4) mg/dl Est Cr Clr Drug Dosing 57.1 ml/min Est GFR ( Amer) 66.1 ml/min Est GFR (Non-Af Amer) 57.1 ml/min BUN/Creatinine Ratio 13.0 (10-20) Glucose 195 H (70-99(Fasting)) mg/dl POC Glucose (70-99) mg/dl Calcium 9.5 (8.5-10.1) mg/dl Magnesium (1.7-2.4) mg/dl Vitamin B1 Cancelled Whole Bld Vitamin B1 Vitamin B12 354 (180-914) pg/ml Folate 11.89 (>5.38) ng/ml Urine Color Urine Appearance (Clear) Urine pH (4.5-7.5) Ur Specific Beckley (1.000-1.030) Urine Protein (Negative) Urine Glucose (UA) (Negative) Urine Ketones (Negative) Urine Blood (Negative) Urine Nitrite (Negative) Urine Bilirubin (Negative) Urine Urobilinogen (Negative) Ur Leukocyte Esterase (Negative) SARS-CoV-2 (PCR) (Negative) Influenza Type A (PCR) (Neg) Influenza Type B (PCR) (Neg) RSV (RT-PCR) (Neg) 09/30/22 09/30/22 Range/Units 08:34 08:05 WBC 11.79 H (4.8-10.8) K/ul RBC 4.95 (4.70-6.10) M/uL Hgb 15.1 (14.0-18.0) g/dl Hct 43.5 (42.0-52.0) % MCV 87.9 (80.0-100.0) fL MCH 30.5 (25.0-34.0) pg MCHC 34.7 (32.0-36.0) g/dL RDW Std Deviation 41.0 (36.4-46.3) fL RDW Coeff of Melisa 12.6 (11.5-14.5) % Plt Count 311 (130-400) K/uL MPV 10.4 (9.4-12.4) fL Immature Gran % (Auto) 0.4 % Neut % (Auto) 47.3 % Lymph % (Auto) 37.3 % Baldwin % (Auto) 11.8 % Eos % (Auto) 2.4 % Baso % (Auto) 0.8 % Neut # (Auto) 5.58 (1.40-6.50) K/uL Lymph # (Auto) 4.40 H (1.2-3.4) K/uL Baldwin # (Auto) 1.39 H (0.11-0.59) K/uL Eos # (Auto) 0.28 (0-0.50) K/uL Baso # (Auto) 0.09 (0-0.2) K/uL Immature Gran # (Auto) 0.05 (0.01-0.20) K/uL Sodium (136-145) mmol/L Potassium (3.5-5.1) mmol/L Chloride (98-107) mmol/L Carbon Dioxide (21-32) mmol/L Anion Gap (3-11) BUN (6-23) mg/dl Creatinine (0.6-1.4) mg/dl Est Cr Clr Drug Dosing ml/min Est GFR ( Amer) ml/min Est GFR (Non-Af Amer) ml/min BUN/Creatinine Ratio (10-20) Glucose (70-99(Fasting)) mg/dl POC Glucose 184 H (70-99) mg/dl Calcium (8.5-10.1) mg/dl Magnesium (1.7-2.4) mg/dl Vitamin B1 Whole Bld Vitamin B1 Vitamin B12 (180-914) pg/ml Folate (>5.38) ng/ml Urine Color Urine Appearance (Clear) Urine pH (4.5-7.5) Ur Specific Beckley (1.000-1.030) Urine Protein (Negative) Urine Glucose (UA) (Negative) Urine Ketones (Negative) Urine Blood (Negative) Urine Nitrite (Negative) Urine Bilirubin (Negative) Urine Urobilinogen (Negative) Ur Leukocyte Esterase (Negative) SARS-CoV-2 (PCR) (Negative) Influenza Type A (PCR) (Neg) Influenza Type B (PCR) (Neg) RSV (RT-PCR) (Neg) Diagnostic Findings Chest X-Ray 09/30/22 18:03 SINGLE VIEW CHEST CLINICAL HISTORY: Change in mental status. FINDINGS: An AP, portable, upright chest radiograph is compared to study dated 05/16/2022 and correlated with chest CT dated 11/10/2019. The examination is degraded by portable technique and apical lordotic positioning. The heart is enlarged noting atherosclerotic calcification of the thoracic aorta. The pulmonary vasculature is noncongested. Subpleural reticulation is seen throughout both lungs. There is bibasilar scarring/atelectasis. No airspace consolidation or large pleural effusion is identified. Scattered calcified granulomas are observed. No pneumothorax is seen. The skeletal structures are osteopenic. The bony thorax is grossly intact. IMPRESSION: Cardiomegaly and chronic parenchymal changes as above with no acute cardiopulmonary abnormality identified. ACT 112: Negative or not required by law. Electronically signed by: Alden Huitron M.D. 09/30/2022 6:[address] 09/30/22 18:05 CT SCAN OF THE BRAIN WITHOUT IV CONTRAST CLINICAL HISTORY: Change in mental status. COMPARISON STUDY: CT of the brain dated 05/16/2022. TECHNIQUE: Unenhanced axial CT scan of the brain is performed from the vertex to the skull base. A dose lowering technique was utilized adhering to the principles of ALARA. FINDINGS: Brain parenchyma: There are age-related involutional changes noting moderate to advanced patchy subcortical and periventricular microangiopathic change. There is no hemorrhage, mass effect, or evidence of acute territorial ischemia by CT criteria. Caro-white matter differentiation is preserved. No extra-axial fluid collection is seen. Ventricles, sulci, cisterns: Prominent secondary to involutional change. Intracranial vasculature: There is atherosclerotic calcification of the cavernous carotid and vertebral arteries. Calvarium: Unremarkable. Sinuses and mastoids: The paranasal sinuses are clear. The mastoid air cells are well pneumatized. Orbits: The bony orbits are grossly intact. There are bilateral ocular lens implants. IMPRESSION: There is no hemorrhage, mass effect, or evidence of acute territorial ischemia by CT criteria. ACT 112: Negative or not required by law. Electronically signed by: Alden Huitron M.D. 09/30/2022 6:35 PM PG Care Time/CCT Total # of Minutes Spent Total Time Spent with Patient: Total time spent is greater than 50% in coordination of care (as documented) at patient's floor/unit and/or counseling patient: Coding Level of Care Code 43238 SUB INP/OBS CARE 2/35MIN Diagnoses Hospital admission due to lack of caregiver Z74.2 Hypertension I10 Diabetes mellitus with insulin therapy E11.9; Z79.4 Atrial fibrillation I48.[address] scan of lung R91.8
[2022-10-01] MEDS: DULoxetine HCL 20 MG CAP PO SCH (08:25)
[2022-10-01] MEDS: ISOSORBIDE MONO EXTENDED REL 60 MG TABCR PO SCH (08:25)
[2022-10-01] MEDS: METOPROLOL TARTRATE 50 MG TAB PO SCH ×2 (08:25→21:03)
[2022-10-01] MEDS: MAGNESIUM OXIDE 400 MG TAB PO SCH ×2 (08:25→20:52)
[2022-10-01] MEDS: cloNIDine HCL 0.1 MG TAB PO SCH ×3 (08:26→22:25)
[2022-10-01] MEDS: APIXABAN 5 MG TABLET PO SCH ×2 (08:26→20:52)
[2022-10-01] MEDS: THIAMINE HCL 100 MG TAB PO SCH ×2 (08:26→20:52)
[2022-10-01] MEDS: lisinopril 40 MG TAB PO SCH (08:26)
[2022-10-01] MEDS: ASPIRIN 81 MG ECTAB PO SCH (08:26)
[2022-10-01] MEDS: FINASTERIDE 5 MG TAB PO SCH (08:26)
[2022-10-01] MEDS: CYANOCOBALAMIN (B-12) 500 MCG TABLET PO SCH (08:26)
[2022-10-01] MEDS: PANTOprazole 40 MG TAB PO SCH (08:26)
[2022-10-01] MEDS: dilTIAZem HCL 240 MG CAPCR PO SCH (08:26)
[2022-10-01] MEDS: DULoxetine HCL 60 MG CAP PO SCH (08:26)
[2022-10-01 08:38] LABS: Echinocytes 2+
[2022-10-01] MEDS: INSULIN ASPART PER UNIT SC SCH ×4 (09:07→20:59)
[2022-10-01] MEDS: LANTUS PER UNIT CHARGE SQ SCH ×2 (09:08→20:58)
[2022-10-01] MEDS: MAGNESIUM SULFATE / D5W 1 GM/100 ML BAG IV SCH (15:35)
[2022-10-01] MEDS: MELATONIN 3 MG TAB PO PRN (20:51)
[2022-10-01] MEDS: ATORVASTATIN 40 MG TAB PO SCH (20:52)
[2022-10-02 06:45] LABS: Basophils # (auto) 0.09 K/uL (0-0.2); Basophils % (auto) 0.8 %; Eosinophils # (auto) 0.33 K/uL (0-0.50); Hematocrit (blood only) 40.5 % (42.0-52.0); Hemoglobin 14.3 g/dl (14.0-18.0); Immature Granulocytes # (auto) 0.07 K/uL (0.01-0.20); Immature Granulocytes % (auto) 0.6 %; Lymphocytes # (auto) 4.56 K/uL (1.2-3.4); Lymphocytes % (auto) 41.2 %; Mean Corpuscular Hemoglobin 30.8 pg (25.0-34.0); Mean Corpuscular Hgb Conc 35.3 g/dL (32.0-36.0); Mean Corpuscular Volume 87.3 fL (80.0-100.0); Mean Platelet Volume 10.6 fL (9.4-12.4); Monocytes # (auto) 1.33 K/uL (0.11-0.59); Neutrophils # (auto) 4.69 K/uL (1.40-6.50); Neutrophils % (auto) 42.4 %; Platelet Count 275 K/uL (130-400); RDW Coefficient of Variation 12.6 % (11.5-14.5); RDW Standard Deviation 39.9 fL (36.4-46.3); Red Blood Count 4.64 M/uL (4.70-6.10); White Blood Count 11.07 K/ul (4.8-10.8)
[2022-10-02 07:02] LABS: Calcium 8.9 mg/dl (8.5-10.1); Magnesium 1.8 mg/dl (1.7-2.4); Potassium 3.8 mmol/L (3.5-5.1)
[2022-10-02 07:08] LABS: BUN Creatinine Ratio 11.6 (10-20); Creatinine Clr Calc Pharmacy 50.9 ml/min; Est GFR (African American) 57.6 ml/min; Est GFR (Non-African American) 49.7 ml/min
[2022-10-02 07:23] LABS: Lyme Ab IgG w/WB Rflx Negative (Negative)
[2022-10-02 07:24] LABS: Lyme Ab IgM w/WB Rflx Negative (Negative)
[2022-10-02] MEDS: APIXABAN 5 MG TABLET PO SCH ×2 (08:52→21:23)
[2022-10-02] MEDS: ASPIRIN 81 MG ECTAB PO SCH (08:52)
--- NOTE | 2022-10-02 08:55 | Hospitalist Progress Note ---
Date of Service October 02, 2022 Assessment & Plan (1) Hospital admission due to lack of caregiver: Plan: Admitted to the hospital on account of inability to take care of himself, said his caregiver quit. Patient is currently afebrile, hemodynamically stable, and pulse ox is stable on RA . Patient noted to have significant cognitive decline after multiple intubations and likely anoxic brain injury following covid pneumonia over a year ago. Daughter wants him placed at [facility], CM is assisting. Currently despite multiple SNF referrals, no prison beds available. CM d/w daughter to determine further referrals versus family taking him home and providing 24/ care for him. CM extending search to facilities outside of the immediate area as no one has accepted as of yet 09/30-10/01 Somnolent 09/30, withdrawn, ?depression contributing. WBC now wnl -- lymphocytosis, check peripheral smear COVID/RSV/Flu negative. CT head negative. CXR w/ cardiomegaly and chronic parenchymal changes w/ no acute cardiopulmonary abn identified Improved mentation today, alert/oriented to person/hospital, not the year. Discussed underlying depression playing a role, psych liaison consulted for support. Patient DOES NOT want his daughter updated or called, ok w/ call to brother. He voices he still wants to go home, but does not appear this is an option unless someone was to be able to be with him 15/03. He states his brother lives locally in [place]. Will touch base w/ CM. CM w/ ongoing search, possible bed at [facility] 10/02 -- EKG obtained due to irregular rhythm reported by nursing scheduler, regular/ grace on my exam -- EKG sinus bradycardia. 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, diltiazem 240mg daily, lisinopril 40mg daily, imdur Clonidine added 0.1mg TID and this has been continued Continue usual metoprolol (decreased hold parameters to hold if HR <50 as was held but not hypotensive), diltiazem, lisinopril, imdur, clonidine Appears clonidine was also held last evening--??unclear reason given no parameters on this medication -- could contribute to rebound HTN this morning but asymptomatic Continue clonidine for now Monitor BP this afternoon (3) Diabetes mellitus with insulin therapy: Plan: A1c 8.1, however this was from March 2022, will repeat A1c w/ AM labs Holding home regimen while inpatient DM diet, BSG AC/HS tighten ISS 09/30 given BSGs remain slightly above goal but improved, glargine increased to 9u BID evening 10/01 Tighten ISS further, monitor BSGs (4) Atrial fibrillation: Plan: Stable. In NSR on exam Continues on metoprolol, diltiazem, eliquis Appears patient may have had severe illness w/ prior COVID-[address] Centeno has not seen in some time, messaged him today and stated he also hasn't seen patient since February 2021 and at that time know history of such EKG this morning sinus grace [facility] [place] [facility] and prior d/c summary do note irregular rhythm on d/c summary -- remains on eliquis BID. No hx afib in our system Agreeable to mag/K today -- ordered Will need outpt f/u Dr Centeno at discharge (5) Abnormal CT scan of lung: Plan: Prior CT October 2019 noted subpleural 8mm solid nodule RLL unchanged from 2018, recs for 6mo f/u chest CT recommended at that time, does not appear was ever completed --> rec obtaining as outpatient for further eval, can be done sooner if any worries/issues. (6) Lymphocytosis: Plan: elevations during inpatient stay ?stress, viral flu/rsv/covid negative afebrile peripheral smear unremarkable but remains, check flow cytometry for further eval ?need for obtaining CT lung as above sooner Will monitor labs on repeat Plan Dispo: Case management assisting in d/c planning, additional referrals sent -- needing eviscerator care Admission and Anticipated Discharge Date Admission Date: September 03, 2022 Supervising Physician Co-Signing Physician Notes PA Supervision Note: I did not personally see or examine the patient today, but I verified all valencia points of KESHAWN King's assessment and plan with the following exceptions/additions: None Subjective BP elevated this morning-- discussed w/ nursing and his metoprolol and clonidine held last evening (metoprolol due to HR, multiple missed doses in eMAR, will adjust parameters. clonidine new med during inpatient stay 0.1mg TID, likely rebound HTN). Patient denies headache/blurry vision, chest pain or shortness of breath. Reporting he has to pee. Remembers talking with me yesterday. ordered EKG given irregular HR and his hx afib. Agreeable to mag this AM, as he refused this yesterday. K replacement as well. He states he will be willing to receive these. IV team called for site. EKG sinus grace. Discussed changing his metoprolol hold parameters and possible see about discontinuing the clonidine but will discuss w/ supervising provider prior to changes. Questions/concerns addressed at this time. Physical Exam Physical Exam: General: elderly male laying in bed upon entry, NAD HEENT: head normocephalic, atraumatic, mmm, trachea midline without deviation Resp: CTAB, diminished in the bases, on room air CV: RRR, no significant m/r/g, no pitting edema GI: +BS, soft/NT : no anderson MSk/Neuro: follows commands, no focal deficit Psych: Alert to person/place, not year, knows his daughter sent him to the hospital and that he is in the hospital currently, wanting to go home Results & Data Results & Data ([facility]) Vital Signs (Past 12 Hours) Vital Signs Temp Pulse Resp BP BP Pulse Ox O2 Del Method 10/02/22 08:26 36.5 C 14 95 Room Air 10/01/22 22:19 51 L 16 145/66 H 96 Room Air 10/01/22 20:56 36.5 C 51 L 18 152/72 H 94 Room Air Laboratory Results 10/02/22 10/02/22 10/02/22 Range/Units 08:21 06:27 06:27 WBC (4.8-10.8) K/ul RBC (4.70-6.10) M/uL Hgb (14.0-18.0) g/dl Hct (42.0-52.0) % MCV (80.0-100.0) fL MCH (25.0-34.0) pg MCHC (32.0-36.0) g/dL RDW Std Deviation (36.4-46.3) fL RDW Coeff of Melisa (11.5-14.5) % Plt Count (130-400) K/uL MPV (9.4-12.4) fL Immature Gran % (Auto) % Neut % (Auto) % Lymph % (Auto) % [place] % (Auto) % Eos % (Auto) % Baso % (Auto) % Neut # (Auto) (1.40-6.50) K/uL Lymph # (Auto) (1.2-3.4) K/uL [place] # (Auto) (0.11-0.59) K/uL Eos # (Auto) (0-0.50) K/uL Baso # (Auto) (0-0.2) K/uL Immature Gran # (Auto) (0.01-0.20) K/uL Peripher Smr Path Cons Sodium 137 (136-145) mmol/L Potassium 3.8 (3.5-5.1) mmol/L Chloride 104 (98-107) mmol/L Carbon Dioxide 29 (21-32) mmol/L Anion Gap 4 (3-11) BUN 16 (6-23) mg/dl Creatinine 1.38 (0.6-1.4) mg/dl Est Cr Clr Drug Dosing 50.9 ml/min Est GFR ( Amer) 57.6 ml/min Est GFR (Non-Af Amer) 49.7 ml/min BUN/Creatinine Ratio 11.6 (10-20) Glucose 160 H (70-99(Fasting)) mg/dl POC Glucose 164 H (70-99) mg/dl Calcium 8.9 (8.5-10.1) mg/dl Magnesium 1.8 (1.7-2.4) mg/dl Lyme Disease IgG Ab Negative (Negative) Lyme Disease IgM Ab Negative (Negative) 10/02/22 10/01/22 10/01/22 Range/Units 06:27 20:41 17:06 WBC 11.07 H (4.8-10.8) K/ul RBC 4.64 L (4.70-6.10) M/uL Hgb 14.3 (14.0-18.0) g/dl Hct 40.5 L (42.0-52.0) % MCV 87.3 (80.0-100.0) fL MCH 30.8 (25.0-34.0) pg MCHC 35.3 (32.0-36.0) g/dL RDW Std Deviation 39.9 (36.4-46.3) fL RDW Coeff of Melisa 12.6 (11.5-14.5) % Plt Count 275 (130-400) K/uL MPV 10.6 (9.4-12.4) fL Immature Gran % (Auto) 0.6 % Neut % (Auto) 42.4 % Lymph % (Auto) 41.2 % [place] % (Auto) 12.0 % Eos % (Auto) 3.0 % Baso % (Auto) 0.8 % Neut # (Auto) 4.69 (1.40-6.50) K/uL Lymph # (Auto) 4.56 H (1.2-3.4) K/uL [place] # (Auto) 1.33 H (0.11-0.59) K/uL Eos # (Auto) 0.33 (0-0.50) K/uL Baso # (Auto) 0.09 (0-0.2) K/uL Immature Gran # (Auto) 0.07 (0.01-0.20) K/uL Peripher Smr Path Cons Sodium (136-145) mmol/L Potassium (3.5-5.1) mmol/L Chloride (98-107) mmol/L Carbon Dioxide (21-32) mmol/L Anion Gap (3-11) BUN (6-23) mg/dl Creatinine (0.6-1.4) mg/dl Est Cr Clr Drug Dosing ml/min Est GFR ( Amer) ml/min Est GFR (Non-Af Amer) ml/min BUN/Creatinine Ratio (10-20) Glucose (70-99(Fasting)) mg/dl POC Glucose 184 H 123 H (70-99) mg/dl Calcium (8.5-10.1) mg/dl Magnesium (1.7-2.4) mg/dl Lyme Disease IgG Ab (Negative) Lyme Disease IgM Ab (Negative) 10/01/22 10/01/22 Range/Units 12:08 05:50 WBC (4.8-10.8) K/ul RBC (4.70-6.10) M/uL Hgb (14.0-18.0) g/dl Hct (42.0-52.0) % MCV (80.0-100.0) fL MCH (25.0-34.0) pg MCHC (32.0-36.0) g/dL RDW Std Deviation (36.4-46.3) fL RDW Coeff of Melisa (11.5-14.5) % Plt Count (130-400) K/uL MPV (9.4-12.4) fL Immature Gran % (Auto) % Neut % (Auto) % Lymph % (Auto) % [place] % (Auto) % Eos % (Auto) % Baso % (Auto) % Neut # (Auto) (1.40-6.50) K/uL Lymph # (Auto) (1.2-3.4) K/uL [place] # (Auto) (0.11-0.59) K/uL Eos # (Auto) (0-0.50) K/uL Baso # (Auto) (0-0.2) K/uL Immature Gran # (Auto) (0.01-0.20) K/uL Peripher Smr Path Cons Sodium (136-145) mmol/L Potassium (3.5-5.1) mmol/L Chloride (98-107) mmol/L Carbon Dioxide (21-32) mmol/L Anion Gap (3-11) BUN (6-23) mg/dl Creatinine (0.6-1.4) mg/dl Est Cr Clr Drug Dosing ml/min Est GFR ( Amer) ml/min Est GFR (Non-Af Amer) ml/min BUN/Creatinine Ratio (10-20) Glucose (70-99(Fasting)) mg/dl POC Glucose 199 H (70-99) mg/dl Calcium (8.5-10.1) mg/dl Magnesium (1.7-2.4) mg/dl Lyme Disease IgG Ab (Negative) Lyme Disease IgM Ab (Negative) PG Care Time/CCT Total # of Minutes Spent Total Time Spent with Patient: Total time spent is greater than 50% in coordination of care (as documented) at patient's floor/unit and/or counseling patient: Coding Level of Care Code 15947 SUB INP/OBS CARE 2MIN Diagnoses Hospital admission due to lack of caregiver Z74.2 Hypertension I10 Diabetes mellitus with insulin therapy E11.9; Z79.4 Atrial fibrillation I48.[address] scan of lung R91.8 Lymphocytosis D72.820
[2022-10-02] MEDS: cloNIDine HCL 0.1 MG TAB PO SCH ×3 (08:57→21:23)
[2022-10-02] MEDS: CYANOCOBALAMIN (B-12) 500 MCG TABLET PO SCH (08:58)
[2022-10-02] MEDS: dilTIAZem HCL 240 MG CAPCR PO SCH (08:59)
[2022-10-02] MEDS: DULoxetine HCL 20 MG CAP PO SCH (09:00)
[2022-10-02] MEDS: DULoxetine HCL 60 MG CAP PO SCH (09:01)
[2022-10-02] MEDS: FINASTERIDE 5 MG TAB PO SCH (09:01)
[2022-10-02] MEDS: ISOSORBIDE MONO EXTENDED REL 60 MG TABCR PO SCH (09:02)
[2022-10-02] MEDS: lisinopril 40 MG TAB PO SCH (09:03)
[2022-10-02] MEDS: MAGNESIUM OXIDE 400 MG TAB PO SCH ×2 (09:04→21:24)
[2022-10-02] MEDS: METOPROLOL TARTRATE 50 MG TAB PO SCH ×2 (09:04→21:24)
[2022-10-02] MEDS: PANTOprazole 40 MG TAB PO SCH (09:05)
[2022-10-02] MEDS: THIAMINE HCL 100 MG TAB PO SCH ×2 (09:06→21:23)
[2022-10-02] MEDS: INSULIN ASPART PER UNIT SC SCH ×4 (09:22→21:21)
[2022-10-02] MEDS: LANTUS PER UNIT CHARGE SQ SCH ×2 (09:28→21:21)
[2022-10-02] MEDS ORDERED: POTASSIUM CHLORIDE CRTAB 20 MEQ TABCR PO STA (10:32)
[2022-10-02] MEDS: MAGNESIUM SULFATE / D5W 1 GM/100 ML BAG IV SCH ×2 (13:08→14:49)
--- NOTE | 2022-10-02 17:21 | Electrocardiogram Report ---
Test Reason : Blood Pressure : / mmHG Vent. Rate : 054 BPM Atrial Rate : 054 BPM P-R Int : 184 ms QRS Dur : 098 ms QT Int : 448 ms P-R-T Axes : 060 025 067 degrees QTc Int : 424 ms Sinus bradycardia Otherwise normal ECG When compared with ECG of 03-SEP-2022 11:53, Vent. rate has decreased BY 28 BPM Confirmed by Nik Holliday [id number]) on 10/02/2022 5:20:33 PM Referred By: REFERRED SELF Confirmed By:Nik Holliday
[2022-10-02] MEDS: DOCUSATE SODIUM/SENNA 50/8.6MG TAB PO SCH (17:49)
[2022-10-02] MEDS: MELATONIN 3 MG TAB PO PRN (21:22)
[2022-10-02] MEDS: ATORVASTATIN 40 MG TAB PO SCH (21:23)
[2022-10-03 06:34] LABS: Hematocrit (blood only) 40.7 % (42.0-52.0); Hemoglobin 13.9 g/dl (14.0-18.0); Mean Corpuscular Hemoglobin 30.3 pg (25.0-34.0); Mean Corpuscular Hgb Conc 34.2 g/dL (32.0-36.0); Mean Corpuscular Volume 88.7 fL (80.0-100.0); Mean Platelet Volume 10.7 fL (9.4-12.4); Platelet Count 308 K/uL (130-400); RDW Coefficient of Variation 12.3 % (11.5-14.5); RDW Standard Deviation 40.3 fL (36.4-46.3); Red Blood Count 4.59 M/uL (4.70-6.10); White Blood Count 11.93 K/ul (4.8-10.8)
[2022-10-03 07:06] LABS: Basophils # (auto) 0.09 K/uL (0-0.2); Basophils % (auto) 0.8 %; Eosinophils # (auto) 0.32 K/uL (0-0.50); Eosinophils % (auto) 2.7 %; Immature Granulocytes # (auto) 0.08 K/uL (0.01-0.20); Immature Granulocytes % (auto) 0.7 %; Lymphocytes % (auto) 43.6 %; Monocytes % (auto) 11.7 %; Neutrophils # (auto) 4.84 K/uL (1.40-6.50); Neutrophils % (auto) 40.5 %
[2022-10-03 07:41] LABS: Albumin Globulin Ratio 1.2 (0.9-2); Albumin Level 3.7 gm/dl (3.4-5.0); BUN Creatinine Ratio 13.3 (10-20); Bilirubin,Total 0.7 mg/dl (0.2-1.0); Calcium 8.9 mg/dl (8.5-10.1); Creatinine Clr Calc Pharmacy 52.1 ml/min; Est GFR (African American) 59.1 ml/min; Potassium 4.1 mmol/L (3.5-5.1); Total Protein 6.7 gm/dl (6.0-8.3)
[2022-10-03 07:53] LABS: Estimated Average Glucose 206 mg/dl; Hemoglobin A1C 8.8 % (4.5-5.6)
--- NOTE | 2022-10-03 08:21 | Hospitalist Progress Note ---
Date of Service October 03, 2022 Assessment & Plan (1) Hospital admission due to lack of caregiver: Plan: Admitted to the hospital on account of inability to take care of himself, said his caregiver quit. Patient is currently afebrile, hemodynamically stable, and pulse ox is stable on RA . Patient noted to have significant cognitive decline after multiple intubations and likely anoxic brain injury following covid pneumonia over a year ago. Daughter wants him placed at [facility], CM is assisting. Currently despite multiple SNF referrals, no alf beds available. CM d/w daughter to determine further referrals versus family taking him home and providing 15/03 care for him. CM extending search to facilities outside of the immediate area as no one has accepted as of yet 09/30-10/01 Somnolent 09/30, withdrawn, ?depression contributing. WBC now wnl -- lymphocytosis, check peripheral smear COVID/RSV/Flu negative. CT head negative. CXR w/ cardiomegaly and chronic parenchymal changes w/ no acute cardiopulmonary abn identified Improved mentation, alert/oriented to person/hospital, not the year. Discussed underlying depression playing a role, psych liaison consulted for support. Patient DOES NOT want his daughter updated or called, ok w/ call to brother. He voices he still wants to go home, but does not appear this is an option unless someone was to be able to be with him 15/03. He states his brother lives locally in [place]. Will touch base w/ CM. 10/02 EKG obtained due to irregular rhythm reported by nursing unit clerk, regular/grace on my exam -- EKG sinus bradycardia. No CP/SOB reported Hx afib, ordered IV magnesium -- patient agreeable today, IV placement needed and 20meq KCL -- however, unclear on hx afib, see below -- Flow cytometry ordered for leukocytosis, lymphocytosis 10/03 --> WBC 11.9k, afebrile. 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, diltiazem 240mg daily, lisinopril 40mg daily, imdur Clonidine added 0.1mg TID NEW MED previously Continue metoprolol (decreased hold parameters to hold if HR <50 as was held but not hypotensive), diltiazem, lisinopril, imdur Appears clonidine was also held evening 10/01--??unclear reason given no parameters on this medication Improvement in BP this morning w/ adjustment in hold parameter -- 176/77 Continue to monitor (3) Diabetes mellitus with insulin therapy: Plan: A1c 8.1 in March --> repeated and elevated to 8.8 on AM labs Holding home regimen/SSI while inpatient Currently on glargine 9u BID, increased 10/01 and tightened SSI and BSGs improved Continue to monitor/adjustments as needed Glu 159 on AM chemistry (4) Atrial fibrillation: Plan: Stable. In NSR on exam Continues on metoprolol, diltiazem, eliquis Appears patient may have had severe illness w/ prior COVID-[address] Assistant Dr Centeno has not seen in some time, messaged him today and stated he also hasn't seen patient since February 2021 and at that time know history of such EKG 10/02 sinus grace [facility] intermediate and prior d/c summary do note irregular rhythm on d/c summary -- remains on eliquis BID. No hx afib in our system Agreeable to mag/K /10 -- ordered and labs improved on repeat Will need outpt f/u Dr Centeno at discharge (5) Abnormal CT scan of lung: Plan: Prior CT October 2019 noted subpleural 8mm solid nodule RLL unchanged from 2018, recs for 6mo f/u chest CT recommended at that time, does not appear was ever completed --> rec obtaining as outpatient for further eval, can be done sooner if any worries/issues. (6) Lymphocytosis: Plan: elevations during inpatient stay ?stress, viral flu/rsv/covid negative afebrile peripheral smear unremarkable but remains ?need for obtaining CT lung as above sooner Monitor labs on repeat -- flow cytometry pending Plan Dispo: Case management assisting in d/c planning, additional referrals sent -- needing terminal supervisor care Admission and Anticipated Discharge Date Admission Date: September 03, 2022 Supervising Physician Co-Signing Physician Notes PA Supervision Note: I did not personally see or examine the patient today, but I verified all valencia points of KESHAWN King's assessment and plan with the following exceptions/additions: None Subjective Eval this morning, watching TV. States not having ANY issues but is frustrated about not being able to go home. Discussed with nursing , ?if volunteer w/ newspaper or something to read as he was req newspaper the other day. THey will bring things, also having snacks for Superbowl. Denies depression currently but he did endorse he would let us know. Is alert to person/place/year at present and that his daughter sent him here. Physical Exam Physical Exam: General: elderly male laying in bed upon entry, NAD watching TV HEENT: head normocephalic, atraumatic, mmm, trachea midline without deviation Resp: CTAB, diminished in the bases, on room air CV: RRR, no significant m/r/g, no pitting edema GI: +BS, soft/NT : no anderson MSk/Neuro: follows commands, no focal deficit Psych: Alert to person/place, not year, knows his daughter sent him to the hospital and that he is in the hospital currently, wanting to go home Results & Data Results & Data ([facility]) Vital Signs (Past 12 Hours) Vital Signs Temp Pulse Pulse Resp BP BP Pulse Ox 10/03/22 07:55 176/77 H 10/03/22 07:55 36.4 C L 54 L 16 181/79 H 95 10/03/22 00:46 36.5 C 50 L 18 134/71 94 10/02/22 22:13 O2 Del Method 10/03/22 07:55 10/03/22 07:55 Room Air 10/03/22 00:46 Room Air 10/02/22 22:13 Room Air Laboratory Results 10/03/22 10/03/22 10/03/22 Range/Units 08:01 05:42 05:42 WBC (4.8-10.8) K/ul RBC (4.70-6.10) M/uL Hgb (14.0-18.0) g/dl Hct (42.0-52.0) % MCV (80.0-100.0) fL MCH (25.0-34.0) pg MCHC (32.0-36.0) g/dL RDW Std Deviation (36.4-46.3) fL RDW Coeff of Melisa (11.5-14.5) % Plt Count (130-400) K/uL MPV (9.4-12.4) fL Immature Gran % (Auto) % Neut % (Auto) % Lymph % (Auto) % Page % (Auto) % Eos % (Auto) % Baso % (Auto) % Neut # (Auto) (1.40-6.50) K/uL Lymph # (Auto) (1.2-3.4) K/uL Page # (Auto) (0.11-0.59) K/uL Eos # (Auto) (0-0.50) K/uL Baso # (Auto) (0-0.2) K/uL Immature Gran # (Auto) (0.01-0.20) K/uL Blood Smear Review Sodium 137 (136-145) mmol/L Potassium 4.1 (3.5-5.1) mmol/L Chloride 104 (98-107) mmol/L Carbon Dioxide 27 (21-32) mmol/L Anion Gap 6 (3-11) BUN 18 (6-23) mg/dl Creatinine 1.35 (0.6-1.4) mg/dl Est Cr Clr Drug Dosing 52.1 ml/min Est GFR ( Amer) 59.1 ml/min Est GFR (Non-Af Amer) 51.0 ml/min BUN/Creatinine Ratio 13.3 (10-20) Glucose 159 H (70-99(Fasting)) mg/dl POC Glucose 152 H (70-99) mg/dl Estimat Average Glucose 206 mg/dl Hemoglobin A1c 8.8 H (4.5-5.6) % Calcium 8.9 (8.5-10.1) mg/dl Magnesium 2.0 (1.7-2.4) mg/dl Total Bilirubin 0.7 (0.2-1.0) mg/dl AST 24 (13-39) U/L ALT 44 (7-52) U/L Alkaline Phosphatase 68 (34-104) U/L Total Protein 6.7 (6.0-8.3) gm/dl Albumin 3.7 (3.4-5.0) gm/dl Globulin 3.0 (2.5-4.0) gm/dl Albumin/Globulin Ratio 1.2 (0.9-2) Flow Cytometry Comment 10/03/22 10/02/22 10/02/22 Range/Units 05:42 20:30 17:00 WBC 11.93 H (4.8-10.8) K/ul RBC 4.59 L (4.70-6.10) M/uL Hgb 13.9 L (14.0-18.0) g/dl Hct 40.7 L (42.0-52.0) % MCV 88.7 (80.0-100.0) fL MCH 30.3 (25.0-34.0) pg MCHC 34.2 (32.0-36.0) g/dL RDW Std Deviation 40.3 (36.4-46.3) fL RDW Coeff of Melisa 12.3 (11.5-14.5) % Plt Count 308 (130-400) K/uL MPV 10.7 (9.4-12.4) fL Immature Gran % (Auto) 0.7 % Neut % (Auto) 40.5 % Lymph % (Auto) 43.6 % Page % (Auto) 11.7 % Eos % (Auto) 2.7 % Baso % (Auto) 0.8 % Neut # (Auto) 4.84 (1.40-6.50) K/uL Lymph # (Auto) 5.20 H (1.2-3.4) K/uL Page # (Auto) 1.40 H (0.11-0.59) K/uL Eos # (Auto) 0.32 (0-0.50) K/uL Baso # (Auto) 0.09 (0-0.2) K/uL Immature Gran # (Auto) 0.08 (0.01-0.20) K/uL Blood Smear Review Cancelled Sodium (136-145) mmol/L Potassium (3.5-5.1) mmol/L Chloride (98-107) mmol/L Carbon Dioxide (21-32) mmol/L Anion Gap (3-11) BUN (6-23) mg/dl Creatinine (0.6-1.4) mg/dl Est Cr Clr Drug Dosing ml/min Est GFR ( Amer) ml/min Est GFR (Non-Af Amer) ml/min BUN/Creatinine Ratio (10-20) Glucose (70-99(Fasting)) mg/dl POC Glucose 198 H 158 H (70-99) mg/dl Estimat Average Glucose mg/dl Hemoglobin A1c (4.5-5.6) % Calcium (8.5-10.1) mg/dl Magnesium (1.7-2.4) mg/dl Total Bilirubin (0.2-1.0) mg/dl AST (13-39) U/L ALT (7-52) U/L Alkaline Phosphatase (34-104) U/L Total Protein (6.0-8.3) gm/dl Albumin (3.4-5.0) gm/dl Globulin (2.5-4.0) gm/dl Albumin/Globulin Ratio (0.9-2) Flow Cytometry Comment 10/02/22 10/02/22 10/02/22 Range/Units 12:03 09:08 08:21 WBC (4.8-10.8) K/ul RBC (4.70-6.10) M/uL Hgb (14.0-18.0) g/dl Hct (42.0-52.0) % MCV (80.0-100.0) fL MCH (25.0-34.0) pg MCHC (32.0-36.0) g/dL RDW Std Deviation (36.4-46.3) fL RDW Coeff of Melisa (11.5-14.5) % Plt Count (130-400) K/uL MPV (9.4-12.4) fL Immature Gran % (Auto) % Neut % (Auto) % Lymph % (Auto) % Page % (Auto) % Eos % (Auto) % Baso % (Auto) % Neut # (Auto) (1.40-6.50) K/uL Lymph # (Auto) (1.2-3.4) K/uL Page # (Auto) (0.11-0.59) K/uL Eos # (Auto) (0-0.50) K/uL Baso # (Auto) (0-0.2) K/uL Immature Gran # (Auto) (0.01-0.20) K/uL Blood Smear Review Sodium (136-145) mmol/L Potassium (3.5-5.1) mmol/L Chloride (98-107) mmol/L Carbon Dioxide (21-32) mmol/L Anion Gap (3-11) BUN (6-23) mg/dl Creatinine (0.6-1.4) mg/dl Est Cr Clr Drug Dosing ml/min Est GFR ( Amer) ml/min Est GFR (Non-Af Amer) ml/min BUN/Creatinine Ratio (10-20) Glucose (70-99(Fasting)) mg/dl POC Glucose 232 H 164 H (70-99) mg/dl Estimat Average Glucose mg/dl Hemoglobin A1c (4.5-5.6) % Calcium (8.5-10.1) mg/dl Magnesium (1.7-2.4) mg/dl Total Bilirubin (0.2-1.0) mg/dl AST (13-39) U/L ALT (7-52) U/L Alkaline Phosphatase (34-104) U/L Total Protein (6.0-8.3) gm/dl Albumin (3.4-5.0) gm/dl Globulin (2.5-4.0) gm/dl Albumin/Globulin Ratio (0.9-2) Flow Cytometry Comment Pending PG Care Time/CCT Total # of Minutes Spent Total Time Spent with Patient: Total time spent is greater than 50% in coordination of care (as documented) at patient's floor/unit and/or counseling patient: Coding Level of Care Code 69860 SUB INP/OBS CARE 2/35MIN Diagnoses Hospital admission due to lack of caregiver Z74.2 Hypertension I10 Diabetes mellitus with insulin therapy E11.9; Z79.4 Atrial fibrillation I48.[address] scan of lung R91.8 Lymphocytosis D72.820
[2022-10-03] MEDS: PANTOprazole 40 MG TAB PO SCH (09:30)
[2022-10-03] MEDS: THIAMINE HCL 100 MG TAB PO SCH ×2 (09:50→19:32)
[2022-10-03] MEDS: INSULIN ASPART PER UNIT SC SCH ×4 (09:53→21:08)
[2022-10-03] MEDS: LANTUS PER UNIT CHARGE SQ SCH ×2 (09:54→21:08)
[2022-10-03] MEDS: lisinopril 40 MG TAB PO SCH (09:56)
[2022-10-03] MEDS: DOCUSATE SODIUM/SENNA 50/8.6MG TAB PO SCH (09:56)
[2022-10-03] MEDS: APIXABAN 5 MG TABLET PO SCH ×2 (09:57→19:30)
[2022-10-03] MEDS: FINASTERIDE 5 MG TAB PO SCH (09:57)
[2022-10-03] MEDS: dilTIAZem HCL 240 MG CAPCR PO SCH (09:57)
[2022-10-03] MEDS: DULoxetine HCL 60 MG CAP PO SCH (09:57)
[2022-10-03] MEDS: cloNIDine HCL 0.1 MG TAB PO SCH ×3 (09:57→19:31)
[2022-10-03] MEDS: ASPIRIN 81 MG ECTAB PO SCH (09:57)
[2022-10-03] MEDS: ISOSORBIDE MONO EXTENDED REL 60 MG TABCR PO SCH (10:02)
[2022-10-03] MEDS: METOPROLOL TARTRATE 50 MG TAB PO SCH ×2 (10:02→19:30)
[2022-10-03] MEDS: MAGNESIUM OXIDE 400 MG TAB PO SCH ×2 (10:02→19:31)
[2022-10-03] MEDS: CYANOCOBALAMIN (B-12) 500 MCG TABLET PO SCH (10:02)
[2022-10-03] MEDS: DULoxetine HCL 20 MG CAP PO SCH (10:03)
[2022-10-03] MEDS: ATORVASTATIN 40 MG TAB PO SCH (19:31)
--- NOTE | 2022-10-04 08:05 | Hospitalist Progress Note ---
Date of Service October 04, 2022 Assessment & Plan (1) Hospital admission due to lack of caregiver: Plan: Admitted to the hospital on account of inability to take care of himself, said his caregiver quit. Patient is currently afebrile, hemodynamically stable, and pulse ox is stable on RA . Patient noted to have significant cognitive decline after multiple intubations and likely anoxic brain injury following covid pneumonia over a year ago. Daughter wants him placed at [facility], CM is assisting. Currently despite multiple SNF referrals, no exterminator helper beds available. CM d/w daughter to determine further referrals versus family taking him home and providing 24/7 care for him. CM extending search to facilities outside of the immediate area as no one has accepted as of yet Repeat RSV/Flu/Covid negative, CT head negative. CXR cardiomegaly w/ hronic pare nchymal changes w/ no acute cardiopulmonary abn identified EKG sinus grace, IV mag prior to keep ~2 and was agreeable to receive IV supp on 10/02 w/ repeat mag 2.0 10/03-10/04 -> WBC 11.9k on labs 10/03. Remains afebrile As lymphocytosis persists and flow cytometry pending -> No change in assessment, awaiting placement. Cooperative with care and mentation appears at baseline. Alert to person/place/intermittent to year. 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 Monitor (3) Diabetes mellitus with insulin therapy: Plan: A1c 8.1 in March --> repeated and elevated to 8.8 on AM labs Holding home regimen/SSI while inpatient Currently on glargine 9u BID, increased 10/01 and tightened SSI and BSGs improved Continue to monitor/adjustments as needed Glu 159 on AM chemistry Monitoring for today as patient is getting snacks w/ superbowl, reeses cups at bedside but BSGs stable over past 24 hours (4) Atrial fibrillation: Plan: Stable. In NSR on exam Continues on metoprolol, diltiazem, eliquis Appears patient may have had severe illness w/ prior COVID-19 infection[address] Learning Support Aide Dr Centeno has not seen in some time, messaged him today and stated he also hasn't seen patient since February 2021 and at that time know history of such EKG 10/02 sinus grace [facility] longterm and prior d/c summary do note irregular rhythm on d/c summary -- remains on eliquis BID. No hx afib in our system Agreeable to mag/K / -- ordered and labs improved on repeat Will need outpt f/u Dr Centeno at discharge (5) Abnormal CT scan of lung: Plan: Prior CT October 2019 noted subpleural 8mm solid nodule RLL unchanged from 2018, recs for 6mo f/u chest CT recommended at that time, does not appear was ever completed --> rec obtaining as outpatient for further eval, can be done sooner if any worries/issues. (6) Lymphocytosis: Plan: elevations during inpatient stay ?stress, viral flu/rsv/covid negative afebrile peripheral smear unremarkable but remains ?need for obtaining CT lung as above sooner Monitor labs on repeat -- flow cytometry pending Plan Dispo: Case management assisting in d/c planning, additional referrals sent -- [facility] care Admission and Anticipated Discharge Date Admission Date: September 03, 2022 Supervising Physician Co-Signing Physician Notes PA Supervision Note: I did not personally see or examine the patient today, but I verified all valencia points of KESHAWN King's assessment and plan with the following exceptions/additions: None Subjective eval this morning, doing alright. got some newspapers to read from nursing. nursing going to include him in the [employer] festivities. he does have some tatyana in room currently. when asked about watching the [employer] and who was playing he initially said he wanted [employer] to win but when asked "rachel?!" He laughed and said "no, no , no....I meant [place]!" but then asked if it was going to be on at 430 or 630 because two people told him two different times. Confirmed 630 and will make sure nursing puts the game on for him tonight. questions/concerns addressed at this time. Physical Exam Physical Exam: General: elderly male laying in bed upon entry, NAD watching TV HEENT: head normocephalic, atraumatic, mmm, trachea midline without deviation Resp: CTAB, diminished in the bases, on room air CV: RRR, no significant m/r/g, no pitting edema GI: +BS, soft/NT : no anderson MSk/Neuro: follows commands, no focal deficit Psych: Alert to person/place, not year at times, waiting for superbowl Results & Data Results & Data ([facility]) Vital Signs (Past 12 Hours) Vital Signs Temp Pulse Resp BP Pulse Ox O2 Del Method 10/04/22 07:59 36.6 C 50 L 16 174/89 H 97 Room Air Laboratory Results 10/03/22 10/03/22 10/03/22 Range/Units 20:27 17:08 12:12 POC Glucose 177 H 112 H 199 H (70-99) mg/dl PG Care Time/CCT Total # of Minutes Spent Total Time Spent with Patient: Total time spent is greater than 50% in coordination of care (as documented) at patient's floor/unit and/or counseling patient: Coding Level of Care Code 23639 SUB INP/OBS CARE 1/25MIN Diagnoses Hospital admission due to lack of caregiver Z74.2 Hypertension I10 Diabetes mellitus with insulin therapy E11.9; Z79.4 Atrial fibrillation I48.[address] scan of lung R91.8 Lymphocytosis D72.820
[2022-10-04] MEDS: cloNIDine HCL 0.1 MG TAB PO SCH ×3 (09:54→19:40)
[2022-10-04] MEDS: ISOSORBIDE MONO EXTENDED REL 60 MG TABCR PO SCH (09:55)
[2022-10-04] MEDS: ASPIRIN 81 MG ECTAB PO SCH (09:55)
[2022-10-04] MEDS: APIXABAN 5 MG TABLET PO SCH ×2 (09:55→19:40)
[2022-10-04] MEDS: dilTIAZem HCL 240 MG CAPCR PO SCH (09:56)
[2022-10-04] MEDS: CYANOCOBALAMIN (B-12) 500 MCG TABLET PO SCH (09:56)
[2022-10-04] MEDS: METOPROLOL TARTRATE 50 MG TAB PO SCH ×2 (09:57→19:41)
[2022-10-04] MEDS: PANTOprazole 40 MG TAB PO SCH (09:58)
[2022-10-04] MEDS: THIAMINE HCL 100 MG TAB PO SCH ×2 (09:59→19:40)
[2022-10-04] MEDS: MAGNESIUM OXIDE 400 MG TAB PO SCH ×2 (09:59→19:39)
[2022-10-04] MEDS: lisinopril 40 MG TAB PO SCH (09:59)
[2022-10-04] MEDS: FINASTERIDE 5 MG TAB PO SCH (10:00)
[2022-10-04] MEDS: DULoxetine HCL 60 MG CAP PO SCH (10:00)
[2022-10-04] MEDS: DOCUSATE SODIUM/SENNA 50/8.6MG TAB PO SCH (10:01)
[2022-10-04] MEDS: DULoxetine HCL 20 MG CAP PO SCH (10:01)
[2022-10-04] MEDS: INSULIN ASPART PER UNIT SC SCH ×4 (10:11→20:45)
[2022-10-04] MEDS: LANTUS PER UNIT CHARGE SQ SCH ×2 (10:12→20:45)
[2022-10-04] MEDS: ATORVASTATIN 40 MG TAB PO SCH (19:41)
[2022-10-05 06:04] LABS: Basophils # (auto) 0.08 K/uL (0-0.2); Basophils % (auto) 0.7 %; Eosinophils # (auto) 0.33 K/uL (0-0.50); Eosinophils % (auto) 3.1 %; Hematocrit (blood only) 40.3 % (42.0-52.0); Hemoglobin 14.1 g/dl (14.0-18.0); Immature Granulocytes # (auto) 0.06 K/uL (0.01-0.20); Immature Granulocytes % (auto) 0.6 %; Lymphocytes # (auto) 4.11 K/uL (1.2-3.4); Lymphocytes % (auto) 38.2 %; Mean Corpuscular Hemoglobin 30.9 pg (25.0-34.0); Mean Corpuscular Volume 88.2 fL (80.0-100.0); Mean Platelet Volume 10.6 fL (9.4-12.4); Monocytes # (auto) 1.37 K/uL (0.11-0.59); Monocytes % (auto) 12.7 %; Neutrophils % (auto) 44.7 %; Platelet Count 303 K/uL (130-400); RDW Coefficient of Variation 12.3 % (11.5-14.5); RDW Standard Deviation 39.6 fL (36.4-46.3); Red Blood Count 4.57 M/uL (4.70-6.10); White Blood Count 10.75 K/ul (4.8-10.8)
[2022-10-05 06:17] LABS: BUN Creatinine Ratio 11.4 (10-20); Calcium 8.6 mg/dl (8.5-10.1); Creatinine Clr Calc Pharmacy 57.1 ml/min; Est GFR (African American) 66.1 ml/min; Est GFR (Non-African American) 57.1 ml/min; Magnesium 1.8 mg/dl (1.7-2.4); Potassium 4.1 mmol/L (3.5-5.1)
[2022-10-05] MEDS ORDERED: MAGNESIUM SULFATE / D5W 1 GM/100 ML BAG IV ONE (07:45)
--- NOTE | 2022-10-05 07:49 | Hospitalist Progress Note ---
Date of Service October 05, 2022 Assessment & Plan (1) Hospital admission due to lack of caregiver: Plan: Admitted to the hospital on account of inability to take care of himself, said his caregiver quit. Patient is currently afebrile, hemodynamically stable, and pulse ox is stable on RA . Patient noted to have significant cognitive decline after multiple intubations and likely anoxic brain injury following covid pneumonia over a year ago. Daughter wants him placed at [facility], CM is assisting. Currently despite multiple SNF referrals, no art critic beds available. CM d/w daughter to determine further referrals versus family taking him home and providing 24/7 care for him. CM extending search to facilities outside of the immediate area as no one has accepted as of yet Repeat RSV/Flu/Covid negative, CT head negative. 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 BP improved and 132/68 this morning -- monitor (3) Diabetes mellitus with insulin therapy: Plan: A1c 8.1 in March --> repeated and elevated to 8.8 on AM labs Holding home regimen/SSI while inpatient Currently on glargine 9u BID, increased 10/01 and tightened SSI and BSGs improved SNACKING WITH SUPERBOWL 10/04 -- increased BSGs monitor for today but tightened parameters and increased glargine given Glu on AM labs Monitor BSGs w/ adjustment (4) Atrial fibrillation: Plan: Stable. In NSR on exam Continues on metoprolol, diltiazem, eliquis Appears patient may have had severe illness w/ prior COVID-[address] Centeno has not seen in some time, messaged him today and stated he also hasn't seen patient since February 2021 and at that time know history of such EKG 10/02 sinus grace [facility] half-way and prior d/c summary do note irregular rhythm on d/c summary -- remains on eliquis BID. No hx afib in our system Agreeable to mag/K / -- ordered and labs improved on repeat and additional 1gm IV mag for today Will need outpt f/u Dr Centeno at discharge (5) Abnormal CT scan of lung: Plan: Prior CT October 2019 noted subpleural 8mm solid nodule RLL unchanged from 2018, recs for 6mo f/u chest CT recommended at that time, does not appear was ever completed --> rec obtaining as outpatient for further eval, can be done sooner if any worries/issues. (6) Lymphocytosis: Plan: elevations during inpatient stay ?stress, viral flu/rsv/covid negative afebrile peripheral smear unremarkable but remains ?need for obtaining CT lung as above sooner flow cytometry ordered -- monitor Plan Dispo: Case management assisting in d/c planning, additional referrals sent -- needing art critic care Admission and Anticipated Discharge Date Admission Date: September 03, 2022 Subjective patient eval this morning, sleeping, tired from watching the game yesterday. BSGs slightly higher than goal, likely from excess snacking yesterday w/ super bowl food provided to patient. Will monitor BSGs/adjust SSI for today if not improving. Ambulating in room w/ assistance. No new issues voiced at this time. Physical Exam Physical Exam: General: elderly male laying in bed upon entry sleeping, NAD HEENT: head normocephalic, atraumatic, mmm, trachea midline without deviation Resp: CTAB, diminished in the bases, on room air CV: RRR, no significant m/r/g, no pitting edema GI: +BS, soft/NT : no anderson MSk/Neuro: follows commands, no focal deficit Psych: Alert to person/place, not year at times Results & Data Results & Data ([facility]) Vital Signs (Past 12 Hours) Vital Signs Temp Pulse Resp BP Pulse Ox O2 Del Method 10/05/22 07:45 36.6 C 53 L 14 132/68 95 Room Air Laboratory Results 10/05/22 10/05/22 10/05/22 Range/Units 08:04 05:43 05:43 WBC 10.75 (4.8-10.8) K/ul RBC 4.57 L (4.70-6.10) M/uL Hgb 14.1 (14.0-18.0) g/dl Hct 40.3 L (42.0-52.0) % MCV 88.2 (80.0-100.0) fL MCH 30.9 (25.0-34.0) pg MCHC 35.0 (32.0-36.0) g/dL RDW Std Deviation 39.6 (36.4-46.3) fL RDW Coeff of Melisa 12.3 (11.5-14.5) % Plt Count 303 (130-400) K/uL MPV 10.6 (9.4-12.4) fL Immature Gran % (Auto) 0.6 % Neut % (Auto) 44.7 % Lymph % (Auto) 38.2 % Wilkes % (Auto) 12.7 % Eos % (Auto) 3.1 % Baso % (Auto) 0.7 % Neut # (Auto) 4.80 (1.40-6.50) K/uL Lymph # (Auto) 4.11 H (1.2-3.4) K/uL Wilkes # (Auto) 1.37 H (0.11-0.59) K/uL Eos # (Auto) 0.33 (0-0.50) K/uL Baso # (Auto) 0.08 (0-0.2) K/uL Immature Gran # (Auto) 0.06 (0.01-0.20) K/uL Sodium 137 (136-145) mmol/L Potassium 4.1 (3.5-5.1) mmol/L Chloride 105 (98-107) mmol/L Carbon Dioxide 25 (21-32) mmol/L Anion Gap 7 (3-11) BUN 14 (6-23) mg/dl Creatinine 1.23 (0.6-1.4) mg/dl Est Cr Clr Drug Dosing 57.1 ml/min Est GFR ( Amer) 66.1 ml/min Est GFR (Non-Af Amer) 57.1 ml/min BUN/Creatinine Ratio 11.4 (10-20) Glucose 263 H (70-99(Fasting)) mg/dl POC Glucose 230 H (70-99) mg/dl Calcium 8.6 (8.5-10.1) mg/dl Magnesium 1.8 (1.7-2.4) mg/dl Whole Bld Vitamin B1 (78-185) nmol/L 10/04/22 10/04/22 10/04/22 Range/Units 20:28 17:06 12:03 WBC (4.8-10.8) K/ul RBC (4.70-6.10) M/uL Hgb (14.0-18.0) g/dl Hct (42.0-52.0) % MCV (80.0-100.0) fL MCH (25.0-34.0) pg MCHC (32.0-36.0) g/dL RDW Std Deviation (36.4-46.3) fL RDW Coeff of Melisa (11.5-14.5) % Plt Count (130-400) K/uL MPV (9.4-12.4) fL Immature Gran % (Auto) % Neut % (Auto) % Lymph % (Auto) % Wilkes % (Auto) % Eos % (Auto) % Baso % (Auto) % Neut # (Auto) (1.40-6.50) K/uL Lymph # (Auto) (1.2-3.4) K/uL Wilkes # (Auto) (0.11-0.59) K/uL Eos # (Auto) (0-0.50) K/uL Baso # (Auto) (0-0.2) K/uL Immature Gran # (Auto) (0.01-0.20) K/uL Sodium (136-145) mmol/L Potassium (3.5-5.1) mmol/L Chloride (98-107) mmol/L Carbon Dioxide (21-32) mmol/L Anion Gap (3-11) BUN (6-23) mg/dl Creatinine (0.6-1.4) mg/dl Est Cr Clr Drug Dosing ml/min Est GFR ( Amer) ml/min Est GFR (Non-Af Amer) ml/min BUN/Creatinine Ratio (10-20) Glucose (70-99(Fasting)) mg/dl POC Glucose 271 H 254 H 231 H (70-99) mg/dl Calcium (8.5-10.1) mg/dl Magnesium (1.7-2.4) mg/dl Whole Bld Vitamin B1 (78-185) nmol/L 09/30/22 Range/Units 08:34 WBC (4.8-10.8) K/ul RBC (4.70-6.10) M/uL Hgb (14.0-18.0) g/dl Hct (42.0-52.0) % MCV (80.0-100.0) fL MCH (25.0-34.0) pg MCHC (32.0-36.0) g/dL RDW Std Deviation (36.4-46.3) fL RDW Coeff of Melisa (11.5-14.5) % Plt Count (130-400) K/uL MPV (9.4-12.4) fL Immature Gran % (Auto) % Neut % (Auto) % Lymph % (Auto) % Wilkes % (Auto) % Eos % (Auto) % Baso % (Auto) % Neut # (Auto) (1.40-6.50) K/uL Lymph # (Auto) (1.2-3.4) K/uL Wilkes # (Auto) (0.11-0.59) K/uL Eos # (Auto) (0-0.50) K/uL Baso # (Auto) (0-0.2) K/uL Immature Gran # (Auto) (0.01-0.20) K/uL Sodium (136-145) mmol/L Potassium (3.5-5.1) mmol/L Chloride (98-107) mmol/L Carbon Dioxide (21-32) mmol/L Anion Gap (3-11) BUN (6-23) mg/dl Creatinine (0.6-1.4) mg/dl Est Cr Clr Drug Dosing ml/min Est GFR ( Amer) ml/min Est GFR (Non-Af Amer) ml/min BUN/Creatinine Ratio (10-20) Glucose (70-99(Fasting)) mg/dl POC Glucose (70-99) mg/dl Calcium (8.5-10.1) mg/dl Magnesium (1.7-2.4) mg/dl Whole Bld Vitamin B1 149 (78-185) nmol/L PG Care Time/CCT Total # of Minutes Spent Total Time Spent with Patient: Total time spent is greater than 50% in coordination of care (as documented) at patient's floor/unit and/or counseling patient: Coding Level of Care Code 66289 SUB INP/OBS CARE 09/16MIN Diagnoses Hospital admission due to lack of caregiver Z74.2 Hypertension I10 Diabetes mellitus with insulin therapy E11.9; Z79.4 Atrial fibrillation I48.[address] scan of lung R91.8 Lymphocytosis D72.820
[2022-10-05] MEDS: APIXABAN 5 MG TABLET PO SCH ×2 (08:35→20:25)
[2022-10-05] MEDS: ASPIRIN 81 MG ECTAB PO SCH (08:35)
[2022-10-05] MEDS: cloNIDine HCL 0.1 MG TAB PO SCH ×3 (08:36→20:24)
[2022-10-05] MEDS: CYANOCOBALAMIN (B-12) 500 MCG TABLET PO SCH (08:37)
[2022-10-05] MEDS: DOCUSATE SODIUM/SENNA 50/8.6MG TAB PO SCH (08:38)
[2022-10-05] MEDS: dilTIAZem HCL 240 MG CAPCR PO SCH (08:38)
[2022-10-05] MEDS: DULoxetine HCL 60 MG CAP PO SCH (08:39)
[2022-10-05] MEDS: DULoxetine HCL 20 MG CAP PO SCH (08:39)
[2022-10-05] MEDS: FINASTERIDE 5 MG TAB PO SCH (08:40)
[2022-10-05] MEDS: ISOSORBIDE MONO EXTENDED REL 60 MG TABCR PO SCH (08:40)
[2022-10-05] MEDS: lisinopril 40 MG TAB PO SCH (08:41)
[2022-10-05] MEDS: MAGNESIUM OXIDE 400 MG TAB PO SCH ×2 (08:41→20:25)
[2022-10-05] MEDS: METOPROLOL TARTRATE 50 MG TAB PO SCH ×2 (08:42→20:24)
[2022-10-05] MEDS: PANTOprazole 40 MG TAB PO SCH (08:43)
[2022-10-05] MEDS: INSULIN ASPART PER UNIT SC SCH ×4 (08:55→20:23)
[2022-10-05] MEDS: LANTUS PER UNIT CHARGE SQ SCH ×2 (08:57→20:23)
[2022-10-05] MEDS: ATORVASTATIN 40 MG TAB PO SCH (20:25)
--- NOTE | 2022-10-06 07:42 | Hospitalist Progress Note ---
Date of Service October 06, 2022 Assessment & Plan (1) Hospital admission due to lack of caregiver: Plan: Admitted to the hospital on account of inability to take care of himself, said his caregiver quit. Patient is currently afebrile, hemodynamically stable, and pulse ox is stable on RA . Patient noted to have significant cognitive decline after multiple intubations and likely anoxic brain injury following covid pneumonia over a year ago. Daughter wants him placed at [facility], CM is assisting. Currently despite multiple SNF referrals, no parts counterman beds available. CM d/w daughter to determine further referrals versus family taking him home and providing 24/ care for him. CM extending search to facilities outside of the immediate area as no one has accepted as of yet Repeat RSV/Flu/Covid negative, CT head negative. CXR cardiomegaly w/ hronic pare nchymal changes w/ no acute cardiopulmonary abn identified EKG sinus grace, IV mag prior to keep ~2 and was agreeable to receive IV supp on 10/02 w/ repeat mag 2.0 10/06 No acute issues, awaiting placement. Will reach out to CM to see about update. Flow cytometry negative -- No diagnostic immunophenotypic abnormalities detected. 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, diltiazem 240mg daily, lisinopril 40mg daily, imdur Clonidine added 0.1mg TID -- this is NEW MED will need rx at d/c Continues on metoprolol w/ decreased hold parameters for HR<50, diltiazem, lidinopril, imdur BP 164/81 this morning - consider increasing frequency of clonidine (3) Diabetes mellitus with insulin therapy: Plan: A1c 8.1 in March --> repeated and elevated to 8.8 on AM labs (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 In NSR on exam Continues on metoprolol, diltiazem, eliquis Appears patient may have had severe illness w/ prior COVID-[address] Centeno has not seen in some time, messaged him today and st ated he also hasn't seen patient since February 2021 and at that time know history of such EKG 10/02 sinus grace [facility] usp and prior d/c summary do note irregular rhythm on d/c summary -- remains on eliquis BID. No hx afib in our system Agreeable to mag/K 10/02 -- ordered and labs improved on repeat and additional 1gm IV mag for today Will need outpt f/u Dr Centeno at discharge (5) Abnormal CT scan of lung: Plan: Prior CT October 2019 noted subpleural 8mm solid nodule RLL unchanged from 2018, recs for 6mo f/u chest CT recommended at that time, does not appear was ever completed --> rec obtaining as outpatient for further eval, can be done sooner if any worries/issues. (6) Lymphocytosis: Plan: elevations during inpatient stay ?stress, viral flu/rsv/covid negative afebrile peripheral smear unremarkable but remains flow cytometry ordered -- no acute abn ?need for obtaining CT lung as above sooner -- no acute issues, deferred at this time. If remains inpatient could do for screening purposes Plan Dispo: Case management assisting in d/c planning, additional referrals sent -- needing [facility] care. Will reach back out today to see about any other possibilities given patient up/ambulating w/ supervision but witnessed ambulating by himself without issue Admission and Anticipated Discharge Date Admission Date: September 03, 2022 Supervising Physician Co-Signing Physician Notes PA Supervision Note: I did NOT personally see or examine the patient. I verified all valencia points and agree with KESHAWN King with the following exceptions and/or additions: none Subjective patient evaluated this morning, doing well, sitting up at side of bed, ate 100% of breakfast. Frustrated about still being here as he knows we are supposed to be getting nice weather in next couple of days and he would like to get outside. Discussed maybe if nice weather and remains inpatient one of the aides would be able to take him outside later in the week to get some sunshine but we will need to monitor. No fever/chills, chest pain, shortness of breath, abdominal pain, nausea, vomiting. Moving his bowels, and laughs that people keep asking about bowels/urine like it's a secret. He states he would let them know if he was having problems. Questions/concerns addressed at this time. Physical Exam Physical Exam: General: elderly male sitting up at side of bed eating breakfast, looking out the window, NAD HEENT: head normocephalic, atraumatic, mmm, trachea midline without deviation Resp: CTAB, diminished in the bases, on room air CV: RRR, no significant m/r/g, no pitting edema GI: +BS, soft/NT : no anderson MSk/Neuro: follows commands, no focal deficit Psych: Alert to person/place, thought year 2021 at first, pleasant and cooperative Results & Data Results & Data ([facility]) Vital Signs (Past 12 Hours) Vital Signs Temp Pulse Resp BP BP Pulse Ox O2 Del Method 10/06/22 07:39 36.5 C 59 L 18 164/81 H 95 Room Air 10/05/22 20:18 36.7 C 56 L 18 150/70 H 98 Room Air Laboratory Results 10/06/22 10/05/22 10/05/22 Range/Units 08:01 20:16 17:09 POC Glucose 196 H 188 H 191 H (70-99) mg/dl 10/05/22 Range/Units 12:07 POC Glucose 200 H (70-99) mg/dl PG Care Time/CCT Total # of Minutes Spent Total Time Spent with Patient: Total time spent is greater than 50% in coordination of care (as documented) at patient's floor/unit and/or counseling patient: Coding Level of Care Code 56197 SUB INP/OBS CARE 1/25MIN Diagnoses Hospital admission due to lack of caregiver Z74.2 Hypertension I10 Diabetes mellitus with insulin therapy E11.9; Z79.4 Atrial fibrillation I48.[address] scan of lung R91.8 Lymphocytosis D72.820
[2022-10-06] MEDS: MAGNESIUM OXIDE 400 MG TAB PO SCH ×2 (09:31→20:47)
[2022-10-06] MEDS: INSULIN ASPART PER UNIT SC SCH ×4 (09:31→20:47)
[2022-10-06] MEDS: METOPROLOL TARTRATE 50 MG TAB PO SCH ×2 (09:32→20:48)
[2022-10-06] MEDS: LANTUS PER UNIT CHARGE SQ SCH ×2 (09:32→20:46)
[2022-10-06] MEDS: cloNIDine HCL 0.1 MG TAB PO SCH ×3 (09:32→20:47)
[2022-10-06] MEDS: APIXABAN 5 MG TABLET PO SCH ×2 (09:32→20:48)
[2022-10-06] MEDS: CYANOCOBALAMIN (B-12) 500 MCG TABLET PO SCH (09:33)
[2022-10-06] MEDS: dilTIAZem HCL 240 MG CAPCR PO SCH (09:33)
[2022-10-06] MEDS: DOCUSATE SODIUM/SENNA 50/8.6MG TAB PO SCH (09:33)
[2022-10-06] MEDS: ISOSORBIDE MONO EXTENDED REL 60 MG TABCR PO SCH (09:33)
[2022-10-06] MEDS: DULoxetine HCL 20 MG CAP PO SCH (09:33)
[2022-10-06] MEDS: lisinopril 40 MG TAB PO SCH (09:33)
[2022-10-06] MEDS: PANTOprazole 40 MG TAB PO SCH (09:34)
[2022-10-06] MEDS: DULoxetine HCL 60 MG CAP PO SCH (09:34)
[2022-10-06] MEDS: ASPIRIN 81 MG ECTAB PO SCH (09:34)
[2022-10-06] MEDS: FINASTERIDE 5 MG TAB PO SCH (09:34)
[2022-10-06] MEDS: ATORVASTATIN 40 MG TAB PO SCH (20:47)
--- NOTE | 2022-10-07 08:59 | Hospitalist Progress Note ---
Date of Service October 07, 2022 Assessment & Plan (1) Hospital admission due to lack of caregiver: Plan: Patient is currently afebrile, hemodynamically stable, and pulse ox is stable on RA. Patient noted by child to have significant cognitive decline after multiple intubations and likely anoxic brain injury following COVID pneumonia over a year ago. Admitted to the hospital on account of inability to take care of himself, said his caregiver quit. Repeat RSV/Flu/COVID negative, CT head negative. CXR cardiomegaly w/ chronic parenchymal changes w/ no acute cardiopulmonary identified. EKG sinus grace, IV mag prior to keep ~2 and was agreeable to receive IV supp on 10/02 w/ repeat mag 2.0. Still awaiting placement to facility, [facility] and CM assisting with this process. CM extending search to facilities outside of the immediate area as no one has accepted as of yet. Patient would like to go outside later in the week w/ nicer weather if nursing able to accommodate taking to healing garden, may be good for patient. (2) Hypertension: Plan: Continue metoprolol 150mg BID, diltiazem 240mg daily, lisinopril 40mg daily, Imdur. Clonidine added 0.1mg TID -> continue on discharge given better BP control. (3) Diabetes mellitus with insulin therapy: Plan: A1c 8.8% on 10/03. Holding home regimen while inpatient. Continue insulin glargine 10u BID with SSI. Discussed dietary modification for DM2 health. (4) Atrial fibrillation: Plan: Stable. Cardiac exam normal, regular rhythm. Continues on metoprolol, diltiazem, Eliquis. Will need outpt f/u with Dr Centeno at discharge for AFib. (5) Abnormal CT scan of lung: Plan: Prior CT October 2019 noted subpleural 8mm solid nodule RLL unchanged from 2018, recs for 6mo f/u chest CT recommended at that time, does not appear was ever completed. --> rec obtaining as outpatient for further eval, can be done sooner if any worries/issues. (6) Lymphocytosis: Plan: Elevations during inpatient stay without evidence of acute infection. Flu/RSV/COVID negative. No acute abnormality on flow cytometry. Plan Dispo: Case management assisting in d/c planning, additional referrals sent -- needing exterminator helper termite care. OOA involved. Admission and Anticipated Discharge Date Admission Date: September 03, 2022 Subjective Patient without any medical complaints today. Feeling frustrated today about "being stuck here", wanting to get out of the hospital. Review of Systems Constitutional: no fever and no chills Respiratory: no cough and no dyspnea Cardiovascular: no chest pain and no palpitations Gastrointestinal: no abdominal pain, no nausea and no vomiting Physical Exam Constitutional: WD/WN, vitals as above Respiratory: normal respiratory effort, lungs clear to auscultation Cardiovascular: RRR, no murmur, no edema Gastrointestinal (Abdomen): normal bowel sounds, soft, nontender, no hepatosplenomegaly Skin: no rashes, warm and dry Psychiatric: A+Ox3, euthymic affect Results & Data Results & Data ([facility]) Vital Signs (Past 12 Hours) Vital Signs Temp Pulse Resp BP BP Pulse Ox O2 Del Method 10/07/22 07:32 36.5 C 49 L 18 159/76 H 94 Room Air 10/06/22 22:59 36.6 C 46 L 16 146/76 H 94 Room Air PG Care Time/CCT Total # of Minutes Spent Total Time Spent with Patient: Total time spent is greater than 50% in coordination of care (as documented) at patient's floor/unit and/or counseling patient: Coding Level of Care Code 64992 SUB INP/OBS CARE 1/25MIN Diagnoses Hospital admission due to lack of caregiver Z74.2 Hypertension I10 Diabetes mellitus with insulin therapy E11.9; Z79.4 Atrial fibrillation I48.[address] scan of lung R91.8 Lymphocytosis D72.820
[2022-10-07] MEDS: dilTIAZem HCL 240 MG CAPCR PO SCH (09:04)
[2022-10-07] MEDS: DOCUSATE SODIUM/SENNA 50/8.6MG TAB PO SCH (09:04)
[2022-10-07] MEDS: ISOSORBIDE MONO EXTENDED REL 60 MG TABCR PO SCH (09:05)
[2022-10-07] MEDS: ASPIRIN 81 MG ECTAB PO SCH (09:05)
[2022-10-07] MEDS: DULoxetine HCL 20 MG CAP PO SCH (09:05)
[2022-10-07] MEDS: PANTOprazole 40 MG TAB PO SCH (09:05)
[2022-10-07] MEDS: lisinopril 40 MG TAB PO SCH (09:05)
[2022-10-07] MEDS: CYANOCOBALAMIN (B-12) 500 MCG TABLET PO SCH (09:06)
[2022-10-07] MEDS: FINASTERIDE 5 MG TAB PO SCH (09:06)
[2022-10-07] MEDS: DULoxetine HCL 60 MG CAP PO SCH (09:06)
[2022-10-07] MEDS: MAGNESIUM OXIDE 400 MG TAB PO SCH ×2 (09:06→20:55)
[2022-10-07] MEDS: INSULIN ASPART PER UNIT SC SCH ×4 (09:07→20:57)
[2022-10-07] MEDS: APIXABAN 5 MG TABLET PO SCH ×2 (09:07→20:56)
[2022-10-07] MEDS: LANTUS PER UNIT CHARGE SQ SCH ×2 (09:07→20:57)
[2022-10-07] MEDS: cloNIDine HCL 0.1 MG TAB PO SCH ×3 (09:10→20:56)
[2022-10-07] MEDS: METOPROLOL TARTRATE 50 MG TAB PO SCH ×2 (09:10→20:57)
[2022-10-07] MEDS: ATORVASTATIN 40 MG TAB PO SCH (20:56)
--- NOTE | 2022-10-08 07:11 | Hospitalist Progress Note ---
Date of Service October 08, 2022 Assessment & Plan (1) Hospital admission due to lack of caregiver: Plan: Patient is currently afebrile, hemodynamically stable, and pulse ox is stable on RA. Patient noted by child to have significant cognitive decline after multiple intubations and likely anoxic brain injury following COVID pneumonia over a year ago. Admitted to the hospital on account of inability to take care of himself, said his caregiver quit. Repeat RSV/Flu/COVID negative, CT head negative. CXR cardiomegaly w/ chronic parenchymal changes w/ no acute cardiopulmonary identified. EKG sinus grace, IV mag prior to keep ~2 and was agreeable to receive IV supp on 10/02 w/ repeat mag 2.0. Still awaiting placement to facility, OOA and CM assisting with this process. CM extending search to facilities outside of the immediate area as no one has accepted as of yet. Patient would like to go outside later in the week if the weather is nice, if nursing able to accommodate taking to healing garden, may be good for patient. (2) Hypertension: Plan: Continue metoprolol 150mg BID, diltiazem 240mg daily, lisinopril 40mg daily, Imdur. Clonidine added 0.1mg TID -> continue on discharge given better BP control. (3) Diabetes mellitus with insulin therapy: Plan: A1c 8.8% on 10/03. Holding home regimen while inpatient. Continue insulin glargine 10u BID with SSI. Discussed dietary modification for DM2 health. (4) Atrial fibrillation: Plan: Stable. Cardiac exam normal, regular rhythm. Continues on metoprolol, diltiazem, Eliquis. Will need outpt f/u with Dr Centeno at discharge for AFib. (5) Abnormal CT scan of lung: Plan: Prior CT October 2019 noted subpleural 8mm solid nodule RLL unchanged from 2018, recs for 6mo f/u chest CT recommended at that time, does not appear was ever completed. --> rec obtaining as outpatient for further eval, can be done sooner if any worries/issues. (6) Lymphocytosis: Plan: Elevations during inpatient stay without evidence of acute infection. Flu/RSV/COVID negative. No acute abnormality on flow cytometry. Plan Dispo: Case management assisting in d/c planning, additional referrals sent -- needing retirement care. OOA involved. Admission and Anticipated Discharge Date Admission Date: September 03, 2022 Subjective Patient without any medical complaints today. Wants to go home. Review of Systems Constitutional: no fever and no chills Respiratory: no cough and no dyspnea Cardiovascular: no chest pain and no palpitations Gastrointestinal: no abdominal pain, no nausea and no vomiting Physical Exam Constitutional: WD/WN, vitals as above Respiratory: normal respiratory effort, lungs clear to auscultation Cardiovascular: RRR, no murmur, no edema Skin: no rashes, warm and dry Psychiatric: A+Ox3, euthymic affect Results & Data Results & [facility] ([facility]) Vital Signs (Past 12 Hours) Vital Signs Temp Pulse Resp BP Pulse Ox O2 Del Method 10/07/22 23:29 36.6 C 46 L 16 148/74 H 95 Room Air 10/07/22 20:49 36.7 C 69 18 145/80 H 95 Room Air PG Care Time/CCT Total # of Minutes Spent Total Time Spent with Patient: Total time spent is greater than 50% in coordination of care (as documented) at patient's floor/unit and/or counseling patient: Coding Level of Care Code 40604 SUB INP/OBS CARE 1/25MIN Diagnoses Hospital admission due to lack of caregiver Z74.2 Hypertension I10 Diabetes mellitus with insulin therapy E11.9; Z79.4 Atrial fibrillation I48.[address] scan of lung R91.8 Lymphocytosis D72.820
[2022-10-08] MEDS: DULoxetine HCL 20 MG CAP PO SCH (08:02)
[2022-10-08] MEDS: APIXABAN 5 MG TABLET PO SCH ×2 (08:02→22:07)
[2022-10-08] MEDS: dilTIAZem HCL 240 MG CAPCR PO SCH (08:02)
[2022-10-08] MEDS: DULoxetine HCL 60 MG CAP PO SCH (08:02)
[2022-10-08] MEDS: MAGNESIUM OXIDE 400 MG TAB PO SCH ×2 (08:02→22:07)
[2022-10-08] MEDS: METOPROLOL TARTRATE 50 MG TAB PO SCH ×2 (08:03→22:08)
[2022-10-08] MEDS: FINASTERIDE 5 MG TAB PO SCH (08:04)
[2022-10-08] MEDS: CYANOCOBALAMIN (B-12) 500 MCG TABLET PO SCH (08:04)
[2022-10-08] MEDS: ISOSORBIDE MONO EXTENDED REL 60 MG TABCR PO SCH (08:04)
[2022-10-08] MEDS: PANTOprazole 40 MG TAB PO SCH (08:04)
[2022-10-08] MEDS: lisinopril 40 MG TAB PO SCH (08:04)
[2022-10-08] MEDS: ASPIRIN 81 MG ECTAB PO SCH (08:04)
[2022-10-08] MEDS: DOCUSATE SODIUM/SENNA 50/8.6MG TAB PO SCH (08:04)
[2022-10-08] MEDS: cloNIDine HCL 0.1 MG TAB PO SCH ×3 (08:05→22:07)
[2022-10-08] MEDS: INSULIN ASPART PER UNIT SC SCH ×4 (09:18→22:07)
[2022-10-08] MEDS: LANTUS PER UNIT CHARGE SQ SCH ×2 (09:18→22:07)
[2022-10-08] MEDS: ATORVASTATIN 40 MG TAB PO SCH (22:07)
[2022-10-09] MEDS: ASPIRIN 81 MG ECTAB PO SCH (08:35)
[2022-10-09] MEDS: PANTOprazole 40 MG TAB PO SCH (08:35)
[2022-10-09] MEDS: APIXABAN 5 MG TABLET PO SCH ×2 (08:36→21:01)
[2022-10-09] MEDS: FINASTERIDE 5 MG TAB PO SCH (08:36)
[2022-10-09] MEDS: DULoxetine HCL 60 MG CAP PO SCH (08:36)
[2022-10-09] MEDS: cloNIDine HCL 0.1 MG TAB PO SCH ×3 (08:36→21:01)
[2022-10-09] MEDS: ISOSORBIDE MONO EXTENDED REL 60 MG TABCR PO SCH (08:36)
[2022-10-09] MEDS: MAGNESIUM OXIDE 400 MG TAB PO SCH ×2 (08:36→21:01)
[2022-10-09] MEDS: lisinopril 40 MG TAB PO SCH (08:36)
[2022-10-09] MEDS: DOCUSATE SODIUM/SENNA 50/8.6MG TAB PO SCH (08:36)
[2022-10-09] MEDS: CYANOCOBALAMIN (B-12) 500 MCG TABLET PO SCH (08:37)
[2022-10-09] MEDS: METOPROLOL TARTRATE 50 MG TAB PO SCH ×2 (08:37→21:01)
[2022-10-09] MEDS: dilTIAZem HCL 240 MG CAPCR PO SCH (08:37)
[2022-10-09] MEDS: DULoxetine HCL 20 MG CAP PO SCH (08:37)
[2022-10-09] MEDS: INSULIN ASPART PER UNIT SC SCH ×4 (08:46→20:57)
[2022-10-09] MEDS: LANTUS PER UNIT CHARGE SQ SCH ×2 (08:47→20:55)
--- NOTE | 2022-10-09 09:10 | Hospitalist Progress Note ---
Date of Service October 09, 2022 Assessment & Plan (1) Hospital admission due to lack of caregiver: Plan: Patient is currently afebrile, hemodynamically stable, and pulse ox is stable on RA. Patient noted by child to have significant cognitive decline after multiple intubations and likely anoxic brain injury following COVID pneumonia over a year ago. Admitted to the hospital on account of inability to take care of himself, said his caregiver quit. Repeat RSV/Flu/COVID negative, CT head negative. CXR cardiomegaly w/ chronic parenchymal changes w/ no acute cardiopulmonary identified. EKG sinus grace, IV mag prior to keep ~2 and was agreeable to receive IV supp on 10/02 w/ repeat mag 2.0. Still awaiting placement to facility, OOA and CM assisting with this process. CM extending search to facilities outside of the immediate area as no one has accepted as of yet. Patient would like to go outside later in the week if the weather is nice, if nursing able to accommodate taking to healing garden, may be good for patient. (2) Hypertension: Plan: Continue metoprolol 150mg BID, diltiazem 240mg daily, lisinopril 40mg daily, Imdur. Clonidine added 0.1mg TID -> continue on discharge given better BP control. (3) Diabetes mellitus with insulin therapy: Plan: A1c 8.8% on 10/03. Holding home regimen while inpatient. Continue insulin glargine 10u BID with SSI. Discussed dietary modification for DM2 health. (4) Atrial fibrillation: Plan: Stable. Cardiac exam normal, regular rhythm. Continues on metoprolol, diltiazem, Eliquis. Will need outpt f/u with Dr Centeno at discharge for AFib. (5) Abnormal CT scan of lung: Plan: Prior CT October 2019 noted subpleural 8mm solid nodule RLL unchanged from 2018, recs for 6mo f/u chest CT recommended at that time, does not appear was ever completed. --> rec obtaining as outpatient for further eval, can be done sooner if any worries/issues. (6) Lymphocytosis: Plan: Elevations during inpatient stay without evidence of acute infection. Flu/RSV/COVID negative. No acute abnormality on flow cytometry. Plan Dispo: Case management assisting in d/c planning, additional referrals sent -- needing [facility] care. OOA involved. Admission and Anticipated Discharge Date Admission Date: September 03, 2022 Results & Data Results & Data ([facility]) Vital Signs (Past 12 Hours) Vital Signs Temp Pulse Resp BP BP Pulse Ox O2 Del Method 10/09/22 07:08 36.7 C 53 L 16 170/73 H 96 Room Air 10/08/22 22:05 51 L 174/82 H PG Care Time/CCT Total # of Minutes Spent Total Time Spent with Patient: Total time spent is greater than 50% in coordination of care (as documented) at patient's floor/unit and/or counseling patient: Coding Diagnoses Hospital admission due to lack of caregiver Z74.2 Hypertension I10 Diabetes mellitus with insulin therapy E11.9; Z79.4 Atrial fibrillation I48.[address] scan of lung R91.8 Lymphocytosis D72.820
--- NOTE | 2022-10-09 15:26 | Hospitalist Progress Note ---
Date of Service October 09, 2022 Assessment & Plan (1) Hospital admission due to lack of caregiver: Plan: Patient is currently afebrile, hemodynamically stable, and pulse ox is stable on RA. Patient noted by child to have significant cognitive decline after multiple intubations and likely anoxic brain injury following COVID pneumonia over a year ago. Admitted to the hospital on account of inability to take care of himself, said his caregiver quit. Repeat RSV/Flu/COVID negative, CT head negative. CXR cardiomegaly w/ chronic parenchymal changes w/ no acute cardiopulmonary identified. EKG sinus grace, IV mag prior to keep ~2 and was agreeable to receive IV supp on 10/02 w/ repeat mag 2.0. Still awaiting placement to facility, OOA and CM assisting with this process. CM extending search to facilities outside of the immediate area as no one has accepted as of yet. Patient would like to go outside later in the week if the weather is nice, if nursing able to accommodate taking to healing garden, may be good for patient. (2) Hypertension: Plan: Continue metoprolol 150mg BID, diltiazem 240mg daily, lisinopril 40mg daily, Imdur. Clonidine added 0.1mg TID -> continue on discharge given better BP control. (3) Diabetes mellitus with insulin therapy: Plan: A1c 8.8% on 10/03. Holding home regimen while inpatient. Continue insulin glargine 10u BID with SSI. Discussed dietary modification for DM2 health. (4) Atrial fibrillation: Plan: Stable. Cardiac exam normal, regular rhythm. Continues on metoprolol, diltiazem, Eliquis. Will need outpt f/u with Dr Centeno at discharge for AFib. (5) Abnormal CT scan of lung: Plan: Prior CT October 2019 noted subpleural 8mm solid nodule RLL unchanged from 2018, recs for 6mo f/u chest CT recommended at that time, does not appear was ever completed. --> rec obtaining as outpatient for further eval, can be done sooner if any worries/issues. Plan Dispo: Case management assisting in d/c planning, additional referrals sent -- needing prison care. OOA involved. Admission and Anticipated Discharge Date Admission Date: September 03, 2022 Supervising Physician Co-Signing Physician Notes PA Supervision Note: I personally saw and examined the patient. I verified all valencia points and agree with KESHAWN Cook with the following exceptions and/or additions: none Subjective Patient seen on rounds. No complaints other than voicing wishes to go home. Physical Exam Physical Exam: GENERAL: 77 yo wd/wn elderly WM. NAD. LUNGS: Clear to auscultation bilaterally. CARDIOVASCULAR: Regular rate and rhythm. NEUROLOGIC: A&O x3. Nonfocal Results & Data Results & Data ([facility]) Vital Signs (Past 12 Hours) Vital Signs Temp Pulse Resp BP Pulse Ox O2 Del Method 10/09/22 14:51 36.5 C 75 16 157/77 H 96 Room Air 10/09/22 07:08 36.7 C 53 L 16 170/73 H 96 Room Air PG Care Time/CCT Total # of Minutes Spent Total Time Spent with Patient: Total time spent is greater than 50% in coordination of care (as documented) at patient's floor/unit and/or counseling patient: Coding Level of Care Code 04242 SUB INP/OBS CARE /25MIN Diagnoses Hospital admission due to lack of caregiver Z74.2 Hypertension I10 Diabetes mellitus with insulin therapy E11.9; Z79.4 Atrial fibrillation I48.[address] scan of lung R91.8
[2022-10-09] MEDS: MELATONIN 3 MG TAB PO PRN (20:55)
[2022-10-09] MEDS: ATORVASTATIN 40 MG TAB PO SCH (21:01)
--- NOTE | 2022-10-10 08:30 | Hospitalist Progress Note ---
Date of Service October 10, 2022 Assessment & Plan (1) Hospital admission due to lack of caregiver: Plan: Patient is currently afebrile, hemodynamically stable, and pulse ox is stable on RA. Patient noted by child to have cognitive decline after multiple intubations and likely anoxic brain injury following COVID pneumonia over a year ago. Admitted to the hospital on account of inability to take care of himself, said his caregiver quit. Repeat RSV/Flu/COVID negative, CT head negative. CXR cardiomegaly w/ chronic parenchymal changes w/ no acute cardiopulmonary identified. EKG sinus grace, IV mag prior to keep ~2 and was agreeable to receive IV support on 10/02 w/ repeat mag 2.0. Still awaiting placement to facility, OOA and CM assisting with this process. CM extending search to facilities outside of the immediate area as no one has accepted as of yet. Patient would like to go outside later in the week if the weather is nice, if nursing able to accommodate taking to healing garden, may be good for patient. (2) Hypertension: Plan: Continue metoprolol 150mg BID, diltiazem 240mg daily, lisinopril 40mg daily, Imdur. Continue clonidine 0.1mg TID (started this admission). (3) Diabetes mellitus with insulin therapy: Plan: A1c 8.8% on 10/03. Holding home regimen while inpatient. Continue insulin glargine 10u BID with SSI. Discussed dietary modification for DM2 health. (4) Atrial fibrillation: Plan: Stable. Cardiac exam normal, regular rhythm. Continues on metoprolol, diltiazem, Eliquis. Will need outpt f/u with Dr Centeno at discharge for AFib. (5) Abnormal CT scan of lung: Plan: Prior CT October 2019 noted subpleural 8mm solid nodule RLL unchanged from 2018, recs for 6mo f/u chest CT recommended at that time, does not appear was ever completed. --> rec obtaining as outpatient for further eval, can be done sooner if any worries/issues. Plan Dispo: Case management assisting in d/c planning, additional referrals sent -- needing nursing home care. OOA involved. Admission and Anticipated Discharge Date Admission Date: September 03, 2022 Subjective No acute events overnight. Patient wants to go home, otherwise no complaints. Review of Systems Constitutional: no fever and no chills Respiratory: no cough and no dyspnea Cardiovascular: no chest pain and no palpitations Gastrointestinal: no abdominal pain, no nausea and no vomiting Physical Exam Constitutional: WD/WN, vitals as above Respiratory: breathing comfortably Skin: no rashes, warm and dry Psychiatric: Orientation: alert and oriented x 3 Affect: + angry affect tangential, frustrated with being in the hospital, alert and oriented Results & Data Results & Data ([facility]) Vital Signs (Past 12 Hours) Vital Signs Temp Pulse Resp BP Pulse Ox O2 Del Method 10/09/22 21:03 36.6 C 63 18 170/87 H 94 Room Air PG Care Time/CCT Total # of Minutes Spent Total Time Spent with Patient: Total time spent is greater than 50% in coordination of care (as documented) at patient's floor/unit and/or counseling patient: Coding Level of Care Code 06497 SUB INP/OBS CARE 1/25MIN Diagnoses Hospital admission due to lack of caregiver Z74.2 Hypertension I10 Diabetes mellitus with insulin therapy E11.9; Z79.4 Atrial fibrillation I48.[address] scan of lung R91.8
[2022-10-10] MEDS: INSULIN ASPART PER UNIT SC SCH ×4 (09:13→20:59)
[2022-10-10] MEDS: APIXABAN 5 MG TABLET PO SCH ×2 (09:18→21:03)
[2022-10-10] MEDS: ASPIRIN 81 MG ECTAB PO SCH (09:19)
[2022-10-10] MEDS: cloNIDine HCL 0.1 MG TAB PO SCH ×3 (09:20→21:01)
[2022-10-10] MEDS: CYANOCOBALAMIN (B-12) 500 MCG TABLET PO SCH (09:20)
[2022-10-10] MEDS: dilTIAZem HCL 240 MG CAPCR PO SCH (09:21)
[2022-10-10] MEDS: DOCUSATE SODIUM/SENNA 50/8.6MG TAB PO SCH (09:22)
[2022-10-10] MEDS: DULoxetine HCL 20 MG CAP PO SCH (09:23)
[2022-10-10] MEDS: DULoxetine HCL 60 MG CAP PO SCH (09:24)
[2022-10-10] MEDS: FINASTERIDE 5 MG TAB PO SCH (09:24)
[2022-10-10] MEDS: LANTUS PER UNIT CHARGE SQ SCH ×2 (09:25→21:00)
[2022-10-10] MEDS: ISOSORBIDE MONO EXTENDED REL 60 MG TABCR PO SCH (09:26)
[2022-10-10] MEDS: lisinopril 40 MG TAB PO SCH (09:27)
[2022-10-10] MEDS: MAGNESIUM OXIDE 400 MG TAB PO SCH ×2 (09:28→21:03)
[2022-10-10] MEDS: METOPROLOL TARTRATE 50 MG TAB PO SCH ×2 (09:29→21:02)
[2022-10-10] MEDS: PANTOprazole 40 MG TAB PO SCH (09:29)
[2022-10-10] MEDS: MELATONIN 3 MG TAB PO PRN (21:01)
[2022-10-10] MEDS: ATORVASTATIN 40 MG TAB PO SCH (21:02)
[2022-10-11] MEDS: lisinopril 40 MG TAB PO SCH (08:42)
[2022-10-11] MEDS: PANTOprazole 40 MG TAB PO SCH (08:42)
[2022-10-11] MEDS: MAGNESIUM OXIDE 400 MG TAB PO SCH ×2 (08:43→20:31)
[2022-10-11] MEDS: METOPROLOL TARTRATE 50 MG TAB PO SCH ×2 (08:44→20:31)
[2022-10-11] MEDS: ISOSORBIDE MONO EXTENDED REL 60 MG TABCR PO SCH (08:45)
[2022-10-11] MEDS: DULoxetine HCL 60 MG CAP PO SCH (08:46)
[2022-10-11] MEDS: FINASTERIDE 5 MG TAB PO SCH (08:46)
[2022-10-11] MEDS: DULoxetine HCL 20 MG CAP PO SCH (08:47)
[2022-10-11] MEDS: CYANOCOBALAMIN (B-12) 500 MCG TABLET PO SCH (08:49)
[2022-10-11] MEDS: dilTIAZem HCL 240 MG CAPCR PO SCH (08:49)
[2022-10-11] MEDS: cloNIDine HCL 0.1 MG TAB PO SCH ×3 (08:50→20:32)
[2022-10-11] MEDS: DOCUSATE SODIUM/SENNA 50/8.6MG TAB PO SCH (08:50)
[2022-10-11] MEDS: ASPIRIN 81 MG ECTAB PO SCH (08:52)
[2022-10-11] MEDS: APIXABAN 5 MG TABLET PO SCH ×2 (08:53→20:32)
[2022-10-11] MEDS: LANTUS PER UNIT CHARGE SQ SCH ×2 (09:06→20:40)
[2022-10-11] MEDS: INSULIN ASPART PER UNIT SC SCH ×4 (09:07→20:40)
--- NOTE | 2022-10-11 15:25 | Hospitalist Progress Note ---
Date of Service October 11, 2022 Assessment & Plan (1) Hospital admission due to lack of caregiver: Plan: Patient is currently afebrile, hemodynamically stable, and pulse ox is stable on RA. Patient noted by child to have cognitive decline after multiple intubations and likely anoxic brain injury following COVID pneumonia over a year ago. Admitted to the hospital on account of inability to take care of himself, said his caregiver quit. Repeat RSV/Flu/COVID negative, CT head negative. CXR cardiomegaly w/ chronic parenchymal changes w/ no acute cardiopulmonary identified. EKG sinus grace, IV mag prior to keep ~2 and was agreeable to receive IV support on 10/02 w/ repeat mag 2.0. Still awaiting placement to facility, OOA and CM assisting with this process, and search has been extended to further distance to find a locked unit. Patient would like to go outside later in the week if the weather is nice, if nursing able to accommodate taking to healing garden, may be good for patient. (2) Hypertension: Plan: Continue metoprolol 150mg BID, diltiazem 240mg daily, lisinopril 40mg daily, Imdur, clonidine 0.1mg TID (started this admission, continue on discharge). (3) Diabetes mellitus with insulin therapy: Plan: A1c 8.8% on 10/03. Holding home regimen while inpatient. Continue insulin glargine 10u BID with SSI. Discussed dietary modification for DM2 health this admission. (4) Atrial fibrillation: Plan: Stable. Cardiac exam normal, regular rhythm. Continues on metoprolol, diltiazem, Eliquis. Will need outpt f/u with Dr Centeno at discharge for AFib. (5) Abnormal CT scan of lung: Plan: Prior CT October 2019 noted subpleural 8mm solid nodule RLL unchanged from 2018, recs for 6mo f/u chest CT recommended at that time, does not appear was ever completed. --> rec obtaining as outpatient for further eval, can be done sooner if any worries/issues. Plan Dispo: Case management assisting in d/c planning, additional referrals sent -- needing assisted care and locked unit. OOA involved. Admission and Anticipated Discharge Date Admission Date: September 03, 2022 Subjective Feeling well today, no other complaints other than hungry (saw at 3pm). Review of Systems Constitutional: no fever and no chills Respiratory: no cough and no dyspnea Cardiovascular: no chest pain and no palpitations Gastrointestinal: no abdominal pain, no nausea and no vomiting Physical Exam Constitutional: WD/WN, vitals as above Respiratory: breathing comfortably Skin: no rashes, warm and dry Psychiatric: Orientation: alert and oriented x 3 Affect: + angry affect alert and oriented Results & Data Results & Data ([facility]) Vital Signs (Past 12 Hours) Vital Signs Temp Pulse Pulse Resp BP BP Pulse Ox 10/11/22 14:45 36.7 C 54 L 16 144/74 H 95 10/11/22 13:47 57 L 162/70 H 10/11/22 09:18 36.4 C L 94 10/11/22 08:32 53 L 160/78 H O2 Del Method 10/11/22 14:45 Room Air 10/11/22 13:47 10/11/22 09:18 Room Air 10/11/22 08:32 PG Care Time/CCT Total # of Minutes Spent Total Time Spent with Patient: Total time spent is greater than 50% in coordination of care (as documented) at patient's floor/unit and/or counseling patient: Coding Level of Care Code 80643 SUB INP/OBS CARE 09/16MIN Diagnoses Hospital admission due to lack of caregiver Z74.2 Hypertension I10 Diabetes mellitus with insulin therapy E11.9; Z79.4 Atrial fibrillation I48.[address] scan of lung R91.8
[2022-10-11] MEDS: ATORVASTATIN 40 MG TAB PO SCH (20:31)
[2022-10-12] MEDS: DOCUSATE SODIUM/SENNA 50/8.6MG TAB PO SCH (08:20)
[2022-10-12] MEDS: ASPIRIN 81 MG ECTAB PO SCH (08:20)
[2022-10-12] MEDS: dilTIAZem HCL 240 MG CAPCR PO SCH (08:20)
[2022-10-12] MEDS: DULoxetine HCL 20 MG CAP PO SCH (08:20)
[2022-10-12] MEDS: CYANOCOBALAMIN (B-12) 500 MCG TABLET PO SCH (08:20)
[2022-10-12] MEDS: FINASTERIDE 5 MG TAB PO SCH (08:20)
[2022-10-12] MEDS: cloNIDine HCL 0.1 MG TAB PO SCH ×3 (08:22→20:44)
[2022-10-12] MEDS: PANTOprazole 40 MG TAB PO SCH (08:22)
[2022-10-12] MEDS: lisinopril 40 MG TAB PO SCH (08:22)
[2022-10-12] MEDS: APIXABAN 5 MG TABLET PO SCH ×2 (08:22→20:45)
[2022-10-12] MEDS: ISOSORBIDE MONO EXTENDED REL 60 MG TABCR PO SCH (08:23)
[2022-10-12] MEDS: DULoxetine HCL 60 MG CAP PO SCH (08:23)
[2022-10-12] MEDS: MAGNESIUM OXIDE 400 MG TAB PO SCH ×2 (08:23→20:44)
[2022-10-12] MEDS: METOPROLOL TARTRATE 50 MG TAB PO SCH ×2 (08:24→20:44)
[2022-10-12] MEDS: INSULIN ASPART PER UNIT SC SCH ×4 (08:32→20:45)
[2022-10-12] MEDS: LANTUS PER UNIT CHARGE SQ SCH ×2 (08:33→20:48)
--- NOTE | 2022-10-12 14:40 | Hospitalist Progress Note ---
Date of Service October 12, 2022 Assessment & Plan (1) Hospital admission due to lack of caregiver: Plan: Patient is currently afebrile, hemodynamically stable, and pulse ox is stable on RA. Patient noted by child to have cognitive decline after multiple intubations and likely anoxic brain injury following COVID pneumonia over a year ago. Admitted to the hospital on account of inability to take care of himself, said his caregiver quit. Repeat RSV/Flu/COVID negative, CT head negative. CXR cardiomegaly w/ chronic parenchymal changes w/ no acute cardiopulmonary identified. EKG sinus grace, IV mag prior to keep ~2 and was agreeable to receive IV support on 10/02 w/ repeat mag 2.0. Still awaiting placement to facility, OOA and CM assisting with this process, and search has been extended to further distance to find a locked unit. Patient would like to go outside later in the week if the weather is nice, if nursing able to accommodate taking to healing garden, may be good for patient. (2) Hypertension: Plan: Continue metoprolol 150mg BID, diltiazem 240mg daily, lisinopril 40mg daily, Imdur, clonidine 0.1mg TID (started this admission, continue on discharge). (3) Diabetes mellitus with insulin therapy: Plan: A1c 8.8% on 10/03. Holding home regimen while inpatient. Continue insulin glargine 10u BID with SSI. Discussed dietary modification for DM2 health this admission. (4) Atrial fibrillation: Plan: Stable. Cardiac exam normal, regular rhythm. Continues on metoprolol, diltiazem, Eliquis. Will need outpt f/u with Dr Centeno at discharge for AFib. (5) Abnormal CT scan of lung: Plan: Prior CT October 2019 noted subpleural 8mm solid nodule RLL unchanged from 2018, recs for 6mo f/u chest CT recommended at that time, does not appear was ever completed. --> rec obtaining as outpatient for further eval, can be done sooner if any worries/issues. Plan Dispo: Case management assisting in d/c planning, additional referrals sent -- needing care home care and locked unit. OOA involved. Admission and Anticipated Discharge Date Admission Date: September 03, 2022 Review of Systems Review of Systems: unrelaible due to dementia Physical Exam Physical Exam: The patient is awake, alert and oriented 3, well developed and well nourished, normocephalic and atraumatic, lying in bed and in no acute distress. HEENT--PERRL, EOMI, mucous membranes and oropharynx mildly dry Neck--supple. No JVD. No bruits. Thyroid normal, trachea midline, no adenopathy. Heart--normal S1 and S2. No murmurs, rubs or gallops. Lungs--clear bilaterally, no respiratory distress, no accessory muscle use. Abdomen--normal bowel sounds and soft. Mild epigastric and left sided abdominal pain Extremities--no cyanosis or clubbing. No edema. Dermatologic--normal skin turgor, normal color, no abnormal lymph nodes, no rash. Neurologic--cranial nerves II through XII grossly intact. Rheumatologic--normal range of motion. Psychiatric--normal affect. Results & Data Results & Data ([facility]) Vital Signs (Past 12 Hours) Vital Signs Temp Pulse Pulse Resp BP Pulse Ox O2 Del Method 10/12/22 08:47 58 L 161/90 H 96 Room Air 10/12/22 07:51 98.1 F 55 L 16 183/84 H 95 Room Air 10/12/22 06:53 97.7 F 53 L 16 174/75 H 94 Room Air PG Care Time/CCT Total # of Minutes Spent Total Time Spent with Patient: Total time spent is greater than 50% in coordination of care (as documented) at patient's floor/unit and/or counseling patient: Coding Level of Care Code 98673 SUB INP/OBS CARE 2/35MIN Diagnoses Hospital admission due to lack of caregiver Z74.2 Hypertension I10 Diabetes mellitus with insulin therapy E11.9; Z79.4 Atrial fibrillation I48.[address] scan of lung R91.8 Time Spent (min) 35
[2022-10-12] MEDS: ATORVASTATIN 40 MG TAB PO SCH (20:44)
[2022-10-13] MEDS: LANTUS PER UNIT CHARGE SQ SCH (09:09)
[2022-10-13] MEDS: INSULIN ASPART PER UNIT SC SCH ×2 (09:09→13:17)
[2022-10-13] MEDS: ASPIRIN 81 MG ECTAB PO SCH (09:11)
[2022-10-13] MEDS: dilTIAZem HCL 240 MG CAPCR PO SCH (09:11)
[2022-10-13] MEDS: cloNIDine HCL 0.1 MG TAB PO SCH ×2 (09:11→14:18)
[2022-10-13] MEDS: CYANOCOBALAMIN (B-12) 500 MCG TABLET PO SCH (09:11)
[2022-10-13] MEDS: APIXABAN 5 MG TABLET PO SCH (09:11)
[2022-10-13] MEDS: DULoxetine HCL 60 MG CAP PO SCH (09:12)
[2022-10-13] MEDS: ISOSORBIDE MONO EXTENDED REL 60 MG TABCR PO SCH (09:12)
[2022-10-13] MEDS: MAGNESIUM OXIDE 400 MG TAB PO SCH (09:12)
[2022-10-13] MEDS: FINASTERIDE 5 MG TAB PO SCH (09:12)
[2022-10-13] MEDS: DULoxetine HCL 20 MG CAP PO SCH (09:12)
[2022-10-13] MEDS: METOPROLOL TARTRATE 50 MG TAB PO SCH (09:12)
[2022-10-13] MEDS: lisinopril 40 MG TAB PO SCH (09:12)
[2022-10-13] MEDS: DOCUSATE SODIUM/SENNA 50/8.6MG TAB PO SCH (09:13)
[2022-10-13] MEDS: PANTOprazole 40 MG TAB PO SCH (09:13)
--- NOTE | 2022-10-13 13:14 | Discharge Summary ---
Date of Service October 13, 2022 Admission HPI Per Admitting Provider Darren Guajardo is a 77 pia old male with a complex PMH significant for Covid diagnosis leading to prolonged hospitalization for acute hypoxic respiratory failure including multiple intubations and possible anoxic brain injury at [facility] in July 2021, afib (on eliquis), CAD S/P drug eluting stent placement, Hyperlipidemia, GERD, DM II, HTN, BPH, vitamin D deficiency and chronic low back pain who presented to the [facility] ED on 09/03/22 due to his caregivers suddenly quitting this morning. Per chart review, the patient has had a complex past year due to his significant cognitive decline and inability to safely care for himself. His daughter is now officially his POA and making his medical decisions. Per the ED staff today, his home health caregiver quit this am, he currently has nobody to care for him at this time. The area of aging called EMS due to concerns for him being scottie alone. His daughter is working on placing him in [facility], however, there is no bed available at this due. Due to the complex social situation at this time we were asked to admit the patient until CM can find placement. In the ED the patient was found to be afebrile, hemodynamically stable and stable on RA. Labs were remarkable for a WBC of 11.72, stable Hgb and platelets, stable Cr at 1.28, with stable electrolytes, glucose of 285, LFTs and TSH WNL, and covid negative. At the time f the exam the patient was lying comfortably in bed in no acute distress. I tried to speak to him regarding why he was here and going to be admitted but he was frustrated and did not want to speak about it. He also states that he is mad at his daughter and does not want to speak with her. He has no complaints at the time of the exam. He was calm and cooperative with me during my exam. Principal Diagnosis cognitive decline Discharge Exam The patient is awake, alert and oriented 3, well developed and well nourished, normocephalic and atraumatic, lying in bed and in no acute distress. HEENT--PERRL, EOMI, mucous membranes and oropharynx mildly dry Neck--supple. No JVD. No bruits. Thyroid normal, trachea midline, no a denopathy. Heart--normal S1 and S2. No murmurs, rubs or gallops. Lungs--clear bilaterally, no respiratory distress, no accessory muscle use. Abdomen--normal bowel sounds and soft. Mild epigastric and left sided abdominal pain Extremities--no cyanosis or clubbing. No edema. Dermatologic--normal skin turgor, normal color, no abnormal lymph nodes, no rash. Neurologic--cranial nerves II through XII grossly intact. Rheumatologic--normal range of motion. Psychiatric--normal affect. Discharge Data Allergies Allergy/AdvReac Type Severity Reaction Status Date / Time Corticosteroids AdvReac Intermediate hyperglycem Verified 08/25/22 13:59 (Glucocorticoids) ia Consultations 09/03/22 13:40 ED Decision to Admit Stat 10/01/22 10:37 Consult Behavioral Health Liaison Routine Ordered Studies 09/30/22 18:05 CT head/brain wo con Routine Hospital Course (1) Hospital admission due to lack of caregiver: Patient noted by daughter to have cognitive decline after multiple intubations and likely anoxic brain injury following COVID pneumonia over a year ago. Admitted to the hospital on account of inability to take care of himself, said his caregiver quit. Repeat RSV/Flu/COVID negative, CT head negative. CXR cardiomegaly w/ chronic parenchymal changes w/ no acute cardiopulmonary identified. EKG sinus grace, IV mag prior to keep ~2 and was agreeable to receive IV support on 10/02 w/ repeat mag 2.0. Still awaiting placement to facility, OOA and CM assisting with this process, and search has been extended to further distance to find a locked unit. d/c to snf when accepted (2) Hypertension: Continue metoprolol 150mg BID, diltiazem 240mg daily, lisinopril 40mg daily, Imdur, clonidine 0.1mg TID (started this admission, continue on discharge). (3) Diabetes mellitus with insulin therapy: A1c 8.8% on 10/03. Holding home regimen while inpatient. Continue insulin glargine 10u BID with SSI. Discussed dietary modification for DM2 health this admission. (4) Atrial fibrillation: Stable. Cardiac exam normal, regular rhythm. Continues on metoprolol, diltiazem, Eliquis. Will need outpt f/u with Dr Centeno at discharge for AFib. (5) Abnormal CT scan of lung: Prior CT October 2019 noted subpleural 8mm solid nodule RLL unchanged from 2018, recs for 6mo f/u chest CT recommended at that time, does not appear was ever completed. --> rec obtaining as outpatient for further eval, can be done sooner if any worries/issues. Plan Dispo: Case management assisting in d/c planning, additional referrals sent -- needing fpc care and locked unit. OOA involved. Total Time Total Time Spent Total Time Spent (In Minutes): 35 Discharge Plan Discharge Items Patient Disposition: Transfer Snf Fac Reason For Visit: LACK OF CAREGIVERS AT HOME Discharge Diagnosis: Cognitive decline Condition on Discharge: Good Activity: Resume your previous activity Non-emergency contact: Primary Care Provider Call non-emergency contact if: you have any medication questions Follow-up/Referrals: Madan Shannon MD [Primary Care Provider] - Diet: Regular Addtl Attending Provider Instructions: please make appointment to follow up with your PCP, also make appointment to follow up with cardiology Pending Studies at Discharge: No Stand-Alone Forms: [facility] Skilled Items Patient informed of condition?: Yes DNR: Yes Discharge Level of Care: Skilled Communicable Disease: No Discharge Prognosis: Stable Lines: None Urinary Catheter: No Medications and DC Order Prescriptions: Continued apixaban 5 mg tablet 5 mg PO BID Qty: 90 3RF aspirin 81 mg tablet,delayed release (DR/EC) 81 mg PO QAM Qty: 30 5RF atorvastatin 80 mg tablet 80 mg PO HS Qty: 90 3RF diltiazem HCl 240 mg capsule,extended release 24hr 240 mg PO QAM Qty: 90 3RF duloxetine 60 mg capsule,delayed release(DR/EC) 60 mg PO DAILY Qty: 90 3RF finasteride 5 mg tablet 5 mg PO DAILY Qty: 90 3RF lisinopril 40 mg tablet 40 mg PO QAM Qty: 90 3RF magnesium oxide 400 mg magnesium tablet 400 mg PO BID Qty: 60 5RF metoprolol tartrate 50 mg tablet 150 mg PO BID Qty: 540 3RF pantoprazole 20 mg tablet,delayed release (DR/EC) 20 mg PO QAM Qty: 90 3RF Trulicity 1.5 mg/0.5 mL pen injector 1.5 mg subcut .WEEKLY Qty: 2 3RF insulin aspart U-100 [Novolog FlexPen U-100 Insulin] 100 unit/mL (3 mL) insulin pen 10 unit subcut .COMPLEX 90 Days Qty: 18 3RF Rx Instructions: 5 units subcutaneously at lunch, 10 units subcutaneously at dinner insulin glargine [Lantus Solostar U-100 Insulin] 100 unit/mL (3 mL) insulin pen 42 unit subcut QPM Qty: 15 5RF isosorbide mononitrate 120 mg tablet extended release 24 hr 120 mg PO QAM Qty: 180 3RF (DME) OneTouch Ultra Test Strip See Rx Instructions .Route Qty: 100 2RF Rx Instructions: As directed- test BID (DME) BD AutoShield Duo Pen Needle 30 gauge x 3/16" needle See Rx Instructions .Route Qty: 100 5RF Rx Instructions: Use three pen needles daily for injections of Novolog and Lantus duloxetine 20 mg capsule,delayed release(DR/EC) 20 mg PO DAILY MDD 80mg Qty: 90 3RF Rx Instructions: take with duloxetine 60mg to equal 80mg daily triamcinolone acetonide 0.5 % cream 1 applic topical DAILY Rx Instructions: adding refills nitroglycerin [Nitrostat] 0.4 mg tablet, sublingual 0.4 mg Sublingual UD PRN (Reason: Chest Pain) Qty: 25 5RF Rx Instructions: One tab sublingual Q 5 minutes x3 as needed for chest Discharge Orders: Discharge Order (Routine); Ordered 10/13/22 Ordered By: Justina Chavez Admission Data Admit Date/Time: 09/03/22 13:51 Attending Provider: Justina Chavez Admit Provider: Leandro Hernandez Primary Care Provider: Madan Shannon Other Providers: Leandro Hernandez ; [facility] ; [facility] ; Siena Yeung Coding Level of Care Code HOSP INP/OBS DISCH >30 MIN Diagnoses Hospital admission due to lack of caregiver Z74.2 Hypertension I10 Diabetes mellitus with insulin therapy E11.9; Z79.4 Atrial fibrillation I48.[address] scan of lung R91.8 Time Spent (min) 35
== END 2022-10-13 16:41 | DRG 884 ==
LOC: ED 11:49 → EDINP 13:51 → SUATTDRO 13:51 → 3E 18:32